=== PATIENT | male | born 1955 | race Caucasian/White ===

== ENCOUNTER 2017-10-13 09:09 | Day surgery (SDC) | payer OTHER ==
[2017-10-10 15:53] VITALS: BMI 38.9
[~2017-10-13 09:09] MED LIST: LACTATED RINGERS 1,000 ML IV SCH
[2017-10-13 10:21] VITALS: TEMP 97.2
[2017-10-13] MEDS ORDERED: PROPOFOL 10 MG/ML 20 ML VIAL IV ONE (10:26)
[2017-10-13] MEDS ORDERED: LIDOCAINE 1% INJ 10MG/ML (20 ML MDV) ONE (10:26)
--- NOTE | 2017-10-13 10:33 | P.GSHP ---
History of Present Illness H&P Date: 10/13/17 Chief Complaint: Screening colonoscopy This is a 62-year-old male referred from Dr. Rehman. Patient is today for screening colonoscopy. Denies a significant GI complaints. Past Medical History Past Medical History: GERD/Reflux History of Any Multi-Drug Resistant Organisms: None Reported Additional Past Surgical History / Comment(s): colonoscopy Past Anesthesia/Blood Transfusion Reactions: No Reported Reaction Smoking Status: Never smoker - Past Family History Mother Family Medical History: No Reported History Medications and Allergies Home Medications Medication Instructions Recorded Confirmed Type No Known Home Medications [No 10/10/17 10/10/17 History Known Home Medications] Allergies Allergy/AdvReac Type Severity Reaction Status Date / Time No Known Allergies Allergy Verified 10/10/17 15:49 Surgical - Exam Vital Signs Temp Pulse Resp BP Pulse Ox 97.2 F L 94 16 146/76 97 10/13/17 10:14 10/13/17 10:14 10/13/17 10:14 10/13/17 10:14 10/13/17 10:14 - General well developed, no distress - Eyes PERRL - ENT normal pinna - Neck no masses - Respiratory normal expansion - Cardiovascular Rhythm: regular - Abdomen Abdomen: soft, non tender Assessment and Plan Assessment: We'll perform screening colonoscopy.
--- NOTE | 2017-10-13 10:45 | P.OP ---
Date of Procedure: 10/13/17 Preoperative Diagnosis: Screening colonoscopy Postoperative Diagnosis: Diverticulosis Procedure(s) Performed: Colonoscopy Anesthesia: MAC Surgeon: Marcial Steele Pathology: none sent Condition: stable Disposition: PACU Description of Procedure: The patient's placed on the endoscopy table lateral position. He received IV sedation. Digital rectal exam was performed which revealed no abnormalities. Flexible colonoscope was then placed patient anus passed throughout the entire colon. The ileocecal valve was visualized. The cecum, ascending and transverse colon appeared normal. The descending; was mild diverticular changes. There is known to diverticular disease. Scope was then brought back the rectum and this appeared normal. Scope was withdrawn for patient.
[2017-10-13 10:57] VITALS: BP 100/58; PULSE 61; RESP 18
== END 2017-10-13 11:35 | disposition home or self-care (01) ==
LOC: ORWHC2ENDO 09:09
PROVIDERS: ATTEND Surgery
DX: Z12.11 Encounter for screening for malignant neoplasm of colon (principal); K57.30 Diverticulosis of large intestine without perforation or abscess without bleeding; K21.9 Gastro-esophageal reflux disease without esophagitis
CPT/HCPCS: J2001; J2704; G0121

== ENCOUNTER → 2018-08-28 | Outpatient (CLI) | payer OTHER ==
--- NOTE | 2018-08-29 14:56 | XR ---
EXAMINATION TYPE: XR lumbar spine 2 or 3V DATE OF EXAM: 08/28/2018 CLINICAL HISTORY: Low back pain with no known injury TECHNIQUE: Frontal and lateral images of the lumbar spine are obtained. COMPARISON: None FINDINGS: There is a levoscoliosis of the thoracolumbar spine with apex at L1-L3. There is moderate m ultilevel degenerative disc disease with multilevel intervertebral disc space narrowing, facet arthro kobe, small anterior osteophytes and endplate sclerosis. Pedicles and transverse processes are gross ly intact. There are 5 lumbar type vertebral bodies. Sacroiliac joint spaces are maintained. Vertebra l body heights and alignment are maintained of the lumbar spine. Moderate colonic fecal stasis is not ed. IMPRESSION: 1. Levoscoliosis of the thoracolumbar spine and moderate multilevel degenerative disc disease. 2. No vertebral body height loss or malalignment of the lumbar spine.
== END | disposition home or self-care (01) ==
LOC: RADXRMAIN 16:34
PROVIDERS: ATTEND Chiropractor
DX: M51.35 Other intervertebral disc degeneration, thoracolumbar region (principal); M41.85 Other forms of scoliosis, thoracolumbar region
CPT/HCPCS: 72100

== ENCOUNTER 2019-03-26 07:40 | Day surgery (SDC) | payer OTHER ==
[2019-03-24 16:06] VITALS: BMI 38.9
[~2019-03-26 07:40] MED LIST changes: +LIDOCAINE 1% 20 ML VIAL (10MG/ML) FOR IV START INTRADERMA PRN; +ONDANSETRON 4 MG/2 ML VIAL IVP PRN
[2019-03-26 08:07] VITALS: TEMP 97.3
[2019-03-26] MEDS ORDERED: PROPOFOL 10 MG/ML 20 ML VIAL IV ONE (08:19)
[2019-03-26] MEDS ORDERED: LIDOCAINE 1% INJ 10MG/ML (20 ML MDV) ONE (08:19)
[2019-03-26] MEDS ORDERED: GLYCOPYRROLATE 0.2 MG/ML 2 ML VIAL ONE (08:19)
--- NOTE | 2019-03-26 08:21 | P.GSHP ---
History of Present Illness H&P Date: 03/26/19 Chief Complaint: GERD This a 63-year-old male who presents today for EGD. He's had issues with GERD. Past Medical History Past Medical History: GERD/Reflux History of Any Multi-Drug Resistant Organisms: None Reported Additional Past Surgical History / Comment(s): colonoscopy Past Anesthesia/Blood Transfusion Reactions: No Reported Reaction Smoking Status: Never smoker Past Alcohol Use History: Occasional Past Drug Use History: None Reported - Past Family History Mother Family Medical History: No Reported History Medications and Allergies Home Medications Medication Instructions Recorded Confirmed Type No Known Home Medications 10/10/17 03/24/19 History Allergies Allergy/AdvReac Type Severity Reaction Status Date / Time No Known Allergies Allergy Verified 03/24/19 15:59 Surgical - Exam Vital Signs Temp Pulse Resp BP Pulse Ox 97.3 F L 69 20 169/84 92 L 03/26/19 08:05 03/26/19 08:05 03/26/19 08:05 03/26/19 08:05 03/26/19 08:05 - General well developed, well nourished, no distress - Eyes PERRL - ENT normal pinna - Neck no masses - Respiratory normal expansion - Cardiovascular Rhythm: regular - Abdomen Abdomen: soft, non tender Assessment and Plan Assessment: GERD. We'll perform EGD.
--- NOTE | 2019-03-26 08:35 | P.OP ---
Date of Procedure: 03/26/19 Preoperative Diagnosis: GERD Postoperative Diagnosis: Antral gastritis Moderate size hiatal hernia Esophagitis Procedure(s) Performed: EGD Anesthesia: MAC Surgeon: Marcial Steele Pathology: other (Antrum, esophagus) Condition: stable Disposition: PACU Description of Procedure: Patient's placed on the endoscopy table in the lateral position. He received IV sedation. The gastroscope placed oropharynx and passed in the esophagus and into the stomach. Scope was then placed through the pylorus. The first and second portion of the duodenum appeared normal. Scope was then brought back the antrum this above inflamed. A biopsies performed. Scope was then retroflexed and the remainder of the stomach appeared normal. There was a moderate size hiatal hernia. The GE junction was at 38 cm. The distal esophagus appeared moderately inflamed inflamed and a biopsies performed, there were linear ero sions of the esophagus.. The proximal esophagus appeared normal. Scope was withdrawn for patient.
[2019-03-26 08:56] VITALS: BP 115/77; PULSE 85; RESP 18
== END 2019-03-26 09:15 | disposition home or self-care (01) ==
LOC: ORWHC2ENDO 07:40
PROVIDERS: ATTEND Surgery
DX: K44.9 Diaphragmatic hernia without obstruction or gangrene (principal); K29.50 Unspecified chronic gastritis without bleeding; K20.0 Eosinophilic esophagitis
CPT/HCPCS: 88305; 43239; J2001; J2704

== ENCOUNTER → 2019-04-02 | Outpatient (CLI) | payer OTHER | END | disposition home or self-care (01) | LOC: LABPAT 17:13 | PROVIDERS: ATTEND Surgery | DX: Z53.9 Procedure and treatment not carried out, unspecified reason (principal) ==

== ENCOUNTER 2019-04-09 08:48 | Inpatient (IN) | payer OTHER ==
[~2019-04-09 08:48] MED LIST changes: +DEXAMETHASONE SOD PHOSPHATE 10 MG/ML 1 ML VIAL IV ONE; +HEPARIN SODIUM,PORCINE 5,000 UNIT/ML 1 ML VIAL SQ ONE; +HYDROmorphone 0.5 MG/0.5 ML SYRINGE IVP PRN; -LACTATED RINGERS 1,000 ML IV SCH; -ONDANSETRON 4 MG/2 ML VIAL IVP PRN
[2019-04-09] MEDS: LACTATED RINGERS 1,000 ML IV SCH ×2 (09:45→14:22)
--- NOTE | 2019-04-09 09:56 | P.GSHP ---
History of Present Illness H&P Date: 04/09/19 Chief Complaint: GERD This a 64-year-old male referred from Dr. Rehman. The patient has had long- standing problems with reflux esophagitis. The patient underwent recent EGD is found have evidence of esophagitis. Patient has been well informed on the proce dure of laparoscopic Rj fundoplication. The patient is aware the risk of the conversion to the open procedure, risk of injury to the stomach, liver and spleen. The patient is also a risk of recurrent GERD and dysphagia symptoms. The patient understands there is a postoperative diet of full liquids for 2 weeks after surgery. Past Medical History Past Medical History: GERD/Reflux History of Any Multi-Drug Resistant Organisms: None Reported Additional Past Surgical History / Comment(s): colonoscopy Past Anesthesia/Blood Transfusion Reactions: No Reported Reaction Smoking Status: Never smoker Past Alcohol Use History: Occasional Past Drug Use History: None Reported - Past Family History Mother Family Medical History: No Reported History Medications and Allergies Home Medications Medication Instructions Recorded Confirmed Type No Known Home Medications 10/10/17 03/24/19 History Allergies Allergy/AdvReac Type Severity Reaction Status Date / Time No Known Allergies Allergy Verified 03/24/19 15:59 Surgical - Exam Vital Signs Temp Pulse Resp BP Pulse Ox 97.6 F 72 18 127/72 95 04/09/19 09:16 04/09/19 09:16 04/09/19 09:16 04/09/19 09:16 04/09/19 09:16 - General well developed, well nourished, no distress - Eyes PERRL - ENT normal pinna - Neck no masses - Respiratory normal expansion - Cardiovascular Rhythm: regular - Abdomen Abdomen: soft, non tender Assessment and Plan Assessment: GERD. We'll perform laparoscopic Rj fundoplication.
[2019-04-09] MEDS ORDERED: KETOROLAC 30 MG/ML 1 ML VIAL ONE (10:46)
[2019-04-09] MEDS ORDERED: PROPOFOL 10 MG/ML 20 ML VIAL IV ONE (10:46)
[2019-04-09] MEDS ORDERED: ROCURONIUM BROMIDE 10 MG/ML 10 ML VIAL IV ONE (10:46)
[2019-04-09] MEDS ORDERED: MIDAZOLAM 2 MG/2 ML VIAL ONE (10:46)
[2019-04-09] MEDS ORDERED: fentaNYL (PF) 50 MCG/ML 2 ML AMP ONE (10:46)
[2019-04-09] MEDS ORDERED: LIDOCAINE 1% INJ 10MG/ML (20 ML MDV) ONE (10:46)
[2019-04-09] MEDS ORDERED: NEOSTIGMINE 1 MG/ML 10 ML VIAL ONE (10:46)
[2019-04-09] MEDS ORDERED: GLYCOPYRROLATE 0.2 MG/ML 2 ML VIAL ONE (10:46)
[2019-04-09] MEDS ORDERED: SUCCINYLCHOLINE CHLORIDE 100 MG/5 ML SYR IV ONE (10:46)
[2019-04-09] MEDS ORDERED: LACTATED RINGERS 1,000 ML IV ONE ×2 (11:00→13:33)
[2019-04-09] MEDS ORDERED: BUPIVACAINE (PF) 0.25% 30 ML VIAL SQ ONE (11:17)
[2019-04-09] MEDS ORDERED: HYDROmorphone 1 MG/ML 1 ML SYRINGE IVP PRN (12:13)
[2019-04-09] MEDS ORDERED: HYDROmorphone 1 MG/ML 1 ML SYRINGE IVP ONE ×2 (12:15→12:20)
--- NOTE | 2019-04-09 12:19 | P.OP ---
Date of Procedure: 04/09/19 Preoperative Diagnosis: GERD Postoperative Diagnosis: GERD Procedure(s) Performed: Laparoscopic Rj fundoplication Anesthesia: RADHA Surgeon: Marcial Steele Estimated Blood Loss (ml): 5 Pathology: other (Gallbladder) Condition: stable Disposition: PACU Description of Procedure: The patient was placed on the operating table. The patient received a general endotracheal tube anesthesia. The patients abdomen was prepped and draped in the usual sterile fashion. Through an infraumbilical stab incision, the fascia of the anterior abdominal wall was grasped with a pair of Kochers and then the Veress needle was placed in the peritoneal cavity. Position of the Veress needle was confirmed with positive drop test. The abdomen was then insufflated. After adequate insufflation, the 10 mm trocar was placed in the peritoneal cavity. Following this the laparoscope was placed in the peritoneal cavity. The patient was placed in the head-up, right side up position and then a 5 mm trocar was placed in the right lateral and right subcostal position under direct visualization. A 8 mm trocar was placed in the e pigastric position. The gallbladder was grasped in the fundus and infundibulum. Traction on the gallbladder was placed in the lateral and the cephalad positions. The triangle of Calot was visualized.. The cystic duct was bluntly dissected until the union of the cystic duct and common bile duct was seen. A critical view of safety was achieved. The cystic duct was then divided and sealed with the Harmonic scissors. A PDS Endoloop was then placed throughout the cystic duct stump. The cystic artery divided and sealed with the Harmonic scissors. The gallbladder was then removed from the liver bed using Harmonic scissors. The gallbladder was then extracted through the epigastric port site. Operative field was checked for any bleeding spots and Harmonic scissors was used to coagulate the liver bed. The abdomen was irrigated. The trocars were removed. The skin was closed using interrupted 3-0 Vicryl suture. Dermabond dressing were applied. The patient tolerated the procedure well.
[2019-04-09 15:37] VITALS: BMI 34.4
--- NOTE | 2019-04-09 17:46 | FL ---
EXAMINATION TYPE: FL esophagus cervic/pharynx DATE OF EXAM: 04/09/2019 COMPARISON: NONE HISTORY: Status post Rj fundoplasty. FINDINGS: Patient was given Omnipaque 50 cc orally and attention directed to the gastroesophageal alan ction. No extravasation or obstruction to flow. Postop changes noted at the gastroesophageal juncti on compatible with patient's history. 5 intraoperative images, 44 seconds fluoroscopy time IMPRESSION: No evident complication status post fundoplasty.
[2019-04-09] MEDS: D5-0.45% NACL WITH KCL 20MEQ/L 1,000 ML IV SCH ×2 (18:03→18:04)
--- NOTE | 2019-04-10 01:52 | P.CONS ---
History of Present Illness - Reason for Consult Consult date: 04/09/19 Medical management and postoperative care - Chief Complaint Status post Rj fundoplication - History of Present Illness Patient is a 64-year-old male with a known history of GERD and ongoing long- standing reflux problems and heartburn was admitted to the hospital for Rj fundoplication. Patient tolerated the procedure well. Currently denied any complaints of abdominal pain other than soreness at the surgical site. No complaints of chest pain or shortness of breath. No fever no chills. No headache or dizziness or lightheadedness. Otherwise patient has not passed flatus. Review of Systems Constitutional: Patient denies any fever or chills . No generalized weakness or weight loss. Abdomen: Patient denied nausea vomiting and diarrhea and abdominal pain. Cardiovascular: Patient denies any chest pain or short of breath no palpitations. Respiratory: patient denied any cough is from production. No shortness of breath Neurologic: Patient denied any numbness or tingling headache. Musculoskeletal: Patient denies any complaints of joint swelling or deformity. Skin: Negative Psychiatric: Negative Endocrine: No heat or cold intolerance. No recent weight gain. Genitourinary: No dysuria or hematuria. All other 14 point ROS negative except the above Past Medical History Past Medical History: GERD/Reflux History of Any Multi-Drug Resistant Organisms: None Reported Additional Past Surgical History / Comment(s): colonoscopy Past Anesthesia/Blood Transfusion Reactions: No Reported Reaction Past Psychological History: No Psychological Hx Reported Smoking Status: Never smoker Past Alcohol Use History: Occasional Past Drug Use History: None Reported - Past Family History Mother Family Medical History: No Reported History Medications and Allergies Home Medications Medication Instructions Recorded Confirmed Type Docusate [Colace] 100 mg PO BID #20 capsule 04/09/19 Rx HYDROcodone/APAP 5-325MG [[place] 1 tab PO Q6HR PRN #10 tab 04/09/19 Rx 5-325] Allergies Allergy/AdvReac Type Severity Reaction Status Date / Time No Known Allergies Allergy Verified 03/24/19 15:59 Physical Exam Vitals: Vital Signs Temp Pulse Resp BP Pulse Ox 04/09/19 14:56 55 L 15 140/73 97 04/09/19 14:15 49 L 14 125/74 95 04/09/19 13:45 58 L 14 148/68 94 L 04/09/19 13:30 55 L 16 124/60 93 L 04/09/19 12:55 47 L 18 123/66 94 L 04/09/19 12:40 48 L 18 123/59 95 04/09/19 12:25 58 L 18 153/74 96 04/09/19 12:12 61 14 135/77 99 04/09/19 11:56 97.1 F L 63 14 154/74 93 L 04/09/19 09:16 97.6 F 72 18 127/72 95 Intake and Output 04/09/19 04/09/19 04/09/19 06:59 14:59 22:59 Intake Total 2049 Output Total 5 Balance 2044 Intake: IV 2049 Output: Estimated Blood Loss 5 Other: Weight 96.797 kg PHYSICAL EXAMINATION: Patient is lying in the bed comfortably, no acute distress, awake alert and oriented.. HEENT: Normocephalic. Neck is supple. Pupils reactive. Nostrils clear. Oral cavity is moist. Ears reveal no drainage. Neck reveals no JVD, carotid bruits, or thyromegaly. CHEST EXAMINATION: Trachea is central. Symmetrical expansion. Lung lepe clear to auscultation and percussion. CARDIAC: Normal S1, S2 with no gallops. No murmurs ABDOMEN: Soft. Bowel sounds diminished. No organomegaly. No abdominal bruits. Extremities: reveal no edema. No clubbing or cyanosis Neurologically awake, alert, oriented x3 with well-coordinated movements. No focal deficits noted Skin: No rash or skin lesions. Psychiatric: Coperative. Nonsuicidal Musculoskeletal: No joint swelling or deformity. Normal range of motion. m Assessment and Plan Assessment: Status post Rj fundoplication postoperative day 0 GERD Occasional alcohol use. DVT prophylaxis with heparin subcu Plan: Patient will be continued on IV hydration. Patient underwent fluoroscopy with no evidence of complication status post fundoplasty. Monitor H&H and. Lites tomorrow. Pain management, bowel regimen and incentive spirometry. Further recommendations based on the clinical course. Thank you for your consult.
[2019-04-10] MEDS: D5-0.45% NACL WITH KCL 20MEQ/L 1,000 ML IV SCH (03:55)
[2019-04-10 07:03] VITALS: BP 156/85; PULSE 95; RESP 14; TEMP 97.5
[2019-04-10 07:55] LABS: Basophils # (A) 0.1 k/uL (0-0.2); Basophils % (A) 1 %; Eosinophils # (A) 0.1 k/uL (0-0.7); Eosinophils % (A) 1 %; HCT 48.2 % (39.0-53.0); HGB 15.7 gm/dL (13.0-17.5); Lymphocytes % (A) 17 %; MCH 30.1 pg (25.0-35.0); MCHC 32.5 g/dL (31.0-37.0); MCV 92.6 fL (80.0-100.0); Monocytes # (A) 0.6 k/uL (0-1.0); Monocytes % (A) 5 %; Neutrophils # (A) 8.9 k/uL (1.3-7.7); Neutrophils % (A) 76 %; Platelet Count 239 k/uL (150-450); RBC 5.21 m/uL (4.30-5.90); RDW 12.7 % (11.5-15.5); WBC 11.8 k/uL (3.8-10.6)
[2019-04-10 08:20] LABS: African American GFR (CKD) >90 (>60 ml/min/1.73 sqM); Anion Gap 7 mmol/L; Blood Urea Nitrogen 13 mg/dL (9-20); Calcium 9.2 mg/dL (8.4-10.2); Carbon Dioxide 25 mmol/L (22-30); Chloride 109 mmol/L (98-107); Glucose 94 mg/dL (74-99); Potassium 4.6 mmol/L (3.5-5.1); Sodium 141 mmol/L (137-145)
--- NOTE | 2019-04-10 10:46 | P.DS ---
Providers Date of admission: 04/09/19 08:48 Expected date of discharge: 04/10/19 Attending physician: Marcial Steele Consults: 04/09/19 12:13 Consult Physician Routine Consulting Provider: George Rehman Consult Reason/Comments: medical management Do you want consulting provider notified?: Yes Primary care physician: George Rehman [facility] Course: Patient minute yesterday for elective Rj fundoplication. Doing well at this time. Upper GI shows no evidence of leak or obstruction. Tolerating liquids well. He would like to go home. Incisions are clean and dry. We'll discharge today. Outpatient follow-up with Dr. Steele. Plan - Discharge Summary Discharge Rx Participant: No New Discharge Prescriptions: New Docusate [Colace] 100 mg PO BID #20 capsule HYDROcodone/APAP 5-325MG [[place] 5-325] 1 tab PO Q6HR PRN #10 tab PRN Reason: Pain Discharge Medication List Docusate [Colace] 100 mg PO BID #20 capsule 04/09/19 [Rx] HYDROcodone/APAP 5-325MG [[place] 5-325] 1 tab PO Q6HR PRN #10 tab 04/09/19 [Rx] Follow up Appointment(s)/Referral(s): Marcial Steele MD [STAFF PHYSICIAN] - 2 Weeks
--- NOTE | 2019-04-16 12:46 | P.OP ---
Date of Procedure: 04/09/19 Preoperative Diagnosis: GERD Postoperative Diagnosis: GERD Procedure(s) Performed: Laparoscopic Rj fundal plication Anesthesia: RADHA Surgeon: Marcial Steele Pathology: none sent Condition: stable Disposition: PACU Description of Procedure: HThe patient was placed on the operating table in the supine position. The patient received general anesthesia. And was placed in dorsal lithotomy position. The patient was prepped and draped in the usual sterile fashion. The skin incision sites were anesthetized with 1% local Xylocaine. The skin was incised in the left periumbilical area and then using a blade less 5 mm trocar under direct visualization panel cavity was entered. After adequate insufflation the laparoscope was then placed into the peritoneal cavity. Next a 5 mm trochars placed in the right epigastric position. Another 5 millimeter trocar the right lateral position. Another 5 millimeter trocar in the left lateral position a 5 mm trocar is placed in the left epigastric position. And then the initial 5 mm trocar was exchanged for a 10 mm trocar. The left lateral lobe liver was retracted. The hernia was seen. The crural defect was then dissected using the Harmonic scissors device. A 360 crural dissection was performed the esophagus stomach was reduced back into the peritoneal Cavity. The crural defect was then closed using 2-0 Ethibond suture. Next the fundus of the stomach was mobilized using the [place] scissors device. and then a 58- [place] bougie dilator was placed oropharynx passed into the esophagus and stomach the fundal plication wrap was then performed by grasping the fundus posteriorly and bringing it around the esophagus and stomach fundoplication was then performed using 2-0 Ethibond suture. Care was taken that the fundal location rested over top of the intra-abdominal esophagus. There was no injury seen to the stomach or esophagus. The dilator was then withdrawn. The abdomen was irrigated there is no bleeding seen. The trochars were then withdrawn and then skin incision sites were closed using 3-0 Monocryl suture Steri-Strips are applied. Patient thought procedure well and sent to recovery room in stable condition.
--- NOTE | 2019-04-18 20:23 | P.PN ---
Subjective Progress Note Date: 04/10/19 Principal diagnosis: Status post Rj fundoplication surgery Patient is a 64-year-old male with a known history of GERD and ongoing long- standing reflux problems and heartburn was admitted to the hospital for Rj fundoplication. Patient tolerated the procedure well. Currently denied any complaints of abdominal pain other than soreness at the surgical site. No complaints of chest pain or shortness of breath. No fever no chills. No headache or dizziness or lightheadedness. Otherwise patient has not passed flatus. 04/10/2019 Patient is status post Rj fundoplication postoperative day 1. Currently denied any complains of nausea or vomiting. Abdominal discomfort is much improved. Tolerating clear liquids. No chest pain or shortness of breath. Patient is being discharged home today. Current medications reviewed. Objective - Vital Signs Vital signs: Vital Signs Temp 97.5 F L 04/10/19 06:42 Pulse 95 04/10/19 06:46 Resp 14 04/10/19 06:42 BP 156/85 04/10/19 06:42 Pulse Ox 95 04/10/19 06:42 Intake & Output 04/09/19 04/10/19 04/10/19 18:59 06:59 18:59 Intake Total 2049 1999 320 Output Total 5 Balance 2044 1999 320 Weight 96.797 kg Intake: IV 2049 Intake, IV Titration 2000 Amount D5-0.45% NaCl with KCl 2000 20Meq/l 1,000 ml @ 125 mls/hr IV .Q8H [facility] Rx#: [id number] Oral 320 Output: Estimated Blood Loss 5 Other: Voiding Method Toilet # Voids 1 1 - Exam PHYSICAL EXAMINATION: Patient is lying in the bed comfortably, no acute distress, awake alert and oriented.. HEENT: Normocephalic. Neck is supple. Pupils reactive. Nostrils clear. Oral cavity is moist. Ears reveal no drainage. Neck reveals no JVD, carotid bruits, or thyromegaly. CHEST EXAMINATION: Trachea is central. Symmetrical expansion. Lung lepe clear to auscultation and percussion. CARDIAC: Normal S1, S2 with no gallops. No murmurs ABDOMEN: Soft. Bowel sounds normal. No organomegaly. No abdominal bruits. Extremities: reveal no edema. No clubbing or cyanosis Neurologically awake, alert, oriented x3 with well-coordinated movements. No focal deficits noted Skin: No rash or skin lesions. Psychiatric: Coperative. Nonsuicidal Musculoskeletal: No joint swelling or deformity. Normal range of motion. - Labs CBC & Chem 7: 04/10/19 06:45 04/10/19 06:45 Labs: Abnormal Lab Results - Last 24 Hours (Table) 04/10/19 04/10/19 Range/Units 06:45 06:45 WBC 11.8 H (3.8-10.6) k/uL Neutrophils # 8.9 H (1.3-7.7) k/uL Chloride 109 H (98-107) mmol/L Assessment and Plan Assessment: Status post Rj fundoplication postoperative day 1 GERD Occasional alcohol use. DVT prophylaxis with heparin subcu Plan: Patient will be continued on IV hydration. Patient underwent fluoroscopy with no evidence of complication status post fundoplasty. Monitor H&H and. Lites tomorrow. Pain management, bowel regimen and incentive spirometry. Further recommendations based on the clinical course. Time with Patient: Greater than 30
== END 2019-04-10 11:19 | disposition home or self-care (01) | DRG 328 ==
LOC: 2ORMAIN 08:48 → 4SSUR 15:06
PROVIDERS: ADMIT Surgery; ATTEND Surgery
PROC: 0DV44ZZ Restriction of Esophagogastric Junction, Percutaneous Endoscopic Approach (ICD-10-PCS; principal; 2019-04-09 10:30)
DX: K21.0 Gastro-esophageal reflux disease with esophagitis (principal); R12 Heartburn
CPT/HCPCS: 74210; 80048; 85025; 86850; 86900; 86901

== ENCOUNTER → 2020-01-18 | Outpatient (CLI) | payer BC | END | disposition home or self-care (01) | LOC: LABWHC1 11:30 | PROVIDERS: ATTEND Family Medicine | DX: Z20.828 Contact with and (suspected) exposure to other viral communicable diseases (principal) ==

== ENCOUNTER → 2020-06-01 | Outpatient (CLI) | payer BC | END | disposition home or self-care (01) | LOC: LABWHC1 11:32 | PROVIDERS: ATTEND Family Medicine | DX: R11.0 Nausea (principal) | CPT/HCPCS: U0003; C9803 ==

== ENCOUNTER 2020-06-04 15:03 | Inpatient (IN) | payer BC ==
--- NOTE | 2020-06-04 15:26 | ED ---
SOB HPI - General Chief Complaint: Shortness of Breath Stated Complaint: flu symptoms/sob Time Seen by Provider: 06/04/20 15:15 Source: patient Mode of arrival: ambulatory Limitations: no limitations - History of Present Illness Initial Comments: 65-year-old male presenting to the emergency department with a chief complaint of shortness of breath. Patient states about 3 days ago he developed a nonproductive cough along with some dyspnea on exertion. Denies any chest pain. Does report a sore throat with some sinus congestion. He also reports gene ralized fatigue. He denies any wheezing. He denies any loss of taste or smell. Denies headaches, blurry vision, one-sided weakness or paresthesias. Denies nausea vomiting diarrhea. He denies history of smoking, COPD or asthma. Patient is unsure whether he was exposed to a covid-19rt positive person. - Related Data Home Medications Medication Instructions Recorded Confirmed No Known Home Medications 06/04/20 06/04/20 Allergies Allergy/AdvReac Type Severity Reaction Status Date / Time No Known Allergies Allergy Verified 06/04/20 16:22 Review of Systems ROS Statement: Those systems with pertinent positive or pertinent negative responses have been documented in the HPI. ROS Other: All systems not noted in ROS Statement are negative. Past Medical History Past Medical History: GERD/Reflux History of Any Multi-Drug Resistant Organisms: None Reported Additional Past Surgical History / Comment(s): colonoscopy Past Anesthesia/Blood Transfusion Reactions: No Reported Reaction Past Psychological History: No Psychological Hx Reported Smoking Status: Never smoker Past Alcohol Use History: Occasional Past Drug Use History: None Reported - Past Family History Mother Family Medical History: No Reported History General Exam Limitations: no limitations General appearance: alert, in no apparent distress, obese Head exam: Present: atraumatic, normocephalic, normal inspection Eye exam: Present: normal appearance, PERRL, EOMI. Absent: scleral icterus, conjunctival injection, nystagmus Pupils: Present: normal accommodation ENT exam: Present: normal exam, normal oropharynx, mucous membranes moist, TM's normal bilaterally, normal external ear exam Neck exam: Present: normal inspection, full ROM. Absent: tenderness Respiratory exam: Present: normal lung sounds bilaterally. Absent: respiratory distress, wheezes, rales Cardiovascular Exam: Present: regular rate, normal rhythm, normal heart sounds. Absent: bradycardia, tachycardia GI/Abdominal exam: Present: soft, normal bowel sounds. Absent: distended, tenderness, guarding, rebound, diminished bowel sounds, hyperactive bowel sounds, hypoactive bowel sounds Extremities exam: Present: normal inspection, full ROM, normal capillary refill. Absent: tenderness, pedal edema, joint swelling, calf tenderness Back exam: Present: normal inspection, full ROM. Absent: tenderness, CVA tenderness (R), CVA tenderness (L) Neurological exam: Present: alert, oriented X3, normal gait. Absent: altered Psychiatric exam: Present: normal affect, normal mood. Absent: depressed, agitated Skin exam: Present: warm, dry, intact, normal color Course Vital Signs 06/04/20 06/04/20 15:08 16:43 Temperature 99.3 F Pulse Rate 88 75 Respiratory 22 20 Rate Blood Pressure 121/73 104/65 O2 Sat by Pulse 83 L 92 L Oximetry Medical Decision Making - Medical Decision Making 65-year-old male presenting to the emergency department with a chief complaint of shortness of breath. Patient is 80% on room air. 91% on 2 L of oxygen. Chest x-ray reveals bilateral infiltrate. Coags within normal limits. Patient does have slight elevation in d-dimer is 0.60. No CT will be performed at this time. Elevated LDH ferritin and CRP. Hypomagnesemia of 2.7. EKG showing right bundle branch with a short NH. I spoke with who will admit patient. She recommended patient be started on Lovenox for prophylaxis. Case discussed with Dr. Brewer. Patient positive for Covid - Lab Data Result diagrams: 06/04/20 15:45 06/04/20 15:45 Lab Results 06/04/20 06/04/20 06/04/20 Range/Units 15:45 15:45 15:45 WBC 7.9 (3.8-10.6) k/uL RBC 5.77 (4.30-5.90) m/uL Hgb 17.3 (13.0-17.5) gm/dL Hct 52.2 (39.0-53.0) % MCV 90.4 (80.0-100.0) fL MCH 29.9 (25.0-35.0) pg MCHC 33.1 (31.0-37.0) g/dL RDW 12.4 (11.5-15.5) % Plt Count 250 (150-450) k/uL MPV 9.0 Neutrophils % 80 % Lymphocytes % 12 % Monocytes % 6 % Eosinophils % 0 % Basophils % 1 % Neutrophils # 6.3 (1.3-7.7) k/uL Lymphocytes # 1.0 (1.0-4.8) k/uL Monocytes # 0.4 (0-1.0) k/uL Eosinophils # 0.0 (0-0.7) k/uL Basophils # 0.1 (0-0.2) k/uL PT 10.0 (9.0-12.0) sec INR 1.0 (<1.2) APTT 24.5 (22.0-30.0) sec D-Dimer 0.60 H (<0.60) mg/L FEU Sodium 141 (137-145) mmol/L Potassium 4.1 (3.5-5.1) mmol/L Chloride 106 (98-107) mmol/L Carbon Dioxide 27 (22-30) mmol/L Anion Gap 8 mmol/L BUN 32 H (9-20) mg/dL Creatinine 1.29 H (0.66-1.25) mg/dL Est GFR (CKD-EPI)AfAm 68 (>60 ml/min/1.73 sqM) Est GFR (CKD-EPI)NonAf 59 (>60 ml/min/1.73 sqM) Glucose 125 H (74-99) mg/dL Plasma Lactic Acid Roverto (0.7-2.0) mmol/L Calcium 8.5 (8.4-10.2) mg/dL Magnesium 2.7 H (1.6-2.3) mg/dL Total Bilirubin 1.0 (0.2-1.3) mg/dL AST 92 H (17-59) U/L ALT 50 H (4-49) U/L Alkaline Phosphatase 75 (38-126) U/L Lactate Dehydrogenase 1439 H (313-618) U/L C-Reactive Protein 176.4 H (<10.0) mg/L Total Protein 7.0 (6.3-8.2) g/dL Albumin 3.5 (3.5-5.0) g/dL Coronavirus (PCR) (Not Detectd) Influenza Type A RNA (Not Detectd) Influenza Type B (PCR) (Not Detectd) 06/04/20 06/04/20 06/04/20 Range/Units 15:45 15:45 15:45 WBC (3.8-10.6) k/uL RBC (4.30-5.90) m/uL Hgb (13.0-17.5) gm/dL Hct (39.0-53.0) % MCV (80.0-100.0) fL MCH (25.0-35.0) pg MCHC (31.0-37.0) g/dL RDW (11.5-15.5) % Plt Count (150-450) k/uL MPV Neutrophils % % Lymphocytes % % Monocytes % % Eosinophils % % Basophils % % Neutrophils # (1.3-7.7) k/uL Lymphocytes # (1.0-4.8) k/uL Monocytes # (0-1.0) k/uL Eosinophils # (0-0.7) k/uL Basophils # (0-0.2) k/uL PT (9.0-12.0) sec INR (<1.2) APTT (22.0-30.0) sec D-Dimer (<0.60) mg/L FEU Sodium (137-145) mmol/L Potassium (3.5-5.1) mmol/L Chloride (98-107) mmol/L Carbon Dioxide (22-30) mmol/L Anion Gap mmol/L BUN (9-20) mg/dL Creatinine (0.66-1.25) mg/dL Est GFR (CKD-EPI)AfAm (>60 ml/min/1.73 sqM) Est GFR (CKD-EPI)NonAf (>60 ml/min/1.73 sqM) Glucose (74-99) mg/dL Plasma Lactic Acid Roverto 1.9 (0.7-2.0) mmol/L Calcium (8.4-10.2) mg/dL Magnesium (1.6-2.3) mg/dL Total Bilirubin (0.2-1.3) mg/dL AST (17-59) U/L ALT (4-49) U/L Alkaline Phosphatase (38-126) U/L Lactate Dehydrogenase (313-618) U/L C-Reactive Protein (<10.0) mg/L Total Protein (6.3-8.2) g/dL Albumin (3.5-5.0) g/dL Coronavirus (PCR) Detected A (Not Detectd) Influenza Type A RNA Not Detected (Not Detectd) Influenza Type B (PCR) Not Detected (Not Detectd) - EKG Data EKG Comments: Sinus rhythm with short NH Ventricular rate 83, NH 102, QRS 122, QTC 472. Disposition Clinical Impression: Pneumonia due to COVID-19 virus, Hypermagnesemia, Hypoxia Disposition: ADMITTED IP TO THIS HOSP Condition: Good Instructions (If sedation given, give patient instructions): Bronchospasm (ED) Is patient prescribed a controlled substance at d/c from ED?: No Referrals: George Remhan MD [Primary Care Provider] - 1-2 days Time of Disposition: 17:11
[2020-06-04 16:21] LABS: Basophils # (A) 0.1 k/uL (0-0.2); Basophils % (A) 1 %; Eosinophils % (A) 0 %; HCT 52.2 % (39.0-53.0); HGB 17.3 gm/dL (13.0-17.5); Lymphocytes % (A) 12 %; MCH 29.9 pg (25.0-35.0); MCHC 33.1 g/dL (31.0-37.0); MCV 90.4 fL (80.0-100.0); Monocytes # (A) 0.4 k/uL (0-1.0); Monocytes % (A) 6 %; Neutrophils # (A) 6.3 k/uL (1.3-7.7); Neutrophils % (A) 80 %; Platelet Count 250 k/uL (150-450); RBC 5.77 m/uL (4.30-5.90); RDW 12.4 % (11.5-15.5); WBC 7.9 k/uL (3.8-10.6)
[2020-06-04 16:22] LABS: Albumin 3.5 g/dL (3.5-5.0); Calcium 8.5 mg/dL (8.4-10.2); Magnesium 2.7 mg/dL (1.6-2.3); Potassium 4.1 mmol/L (3.5-5.1)
[2020-06-04 16:23] LABS: Partial Thromboplastin Time 24.5 sec (22.0-30.0)
[2020-06-04 16:29] LABS: D-Dimer 0.6 mg/L FEU (<0.60)
--- NOTE | 2020-06-04 16:29 | XR ---
EXAMINATION TYPE: XR chest 1V portable DATE OF EXAM: 06/04/2020 COMPARISON: 03/31/2015 HISTORY: Cough TECHNIQUE: 2 views FINDINGS: Coarse pulmonary infiltrates in the mid and lower lung lepe. Heart is enlarged. There are chest bridger ds. There is no gross heart failure. There is poor inspiration. IMPRESSION: There is bilateral pulmonary airspace infiltrates and atelectasis in the mid and lower tyesha ng lepe that is new compared to old exam. No obvious heart failure.
[2020-06-04 16:40] LABS: C Reactive Protein 176.4 mg/L (<10.0)
[2020-06-04] MEDS ORDERED: NALOXONE 0.4 MG/ML 1 ML VIAL IV PRN (16:59)
[2020-06-04] MEDS ORDERED: ENOXAPARIN 40 MG/0.4 ML SYRINGE SQ STA (17:04)
[2020-06-04] MEDS: SODIUM CHLORIDE 0.9% 1,000 ML IV SCH (17:40)
[2020-06-04] MEDS: ACETAMINOPHEN TAB 325 MG TAB PO PRN (20:38)
[2020-06-04 22:47] LABS: Ferritin 1279.8 ng/mL (22.0-322.0)
[2020-06-05] MEDS: SODIUM CHLORIDE 0.9% 1,000 ML IV SCH ×2 (05:32→21:14)
[2020-06-05] MEDS ORDERED: ZOLPIDEM 5 MG TAB PO PRN (08:27)
--- NOTE | 2020-06-05 08:27 | P.HPIM ---
History of Present Illness H&P Date: 06/05/20 Chief Complaint: LRI cough and congestion This history of physical 65-year-old white male who for the last 7 days been having flulike symptoms. Evaluation and treatment in the emergency room showed pneumonia with coronavirus positivity. The patient is now admitted. Some d iarrhea decreased appetite is noted. No significant nausea or vomiting stated. Review of Systems Constitutional: Denies chills, Denies fever Eyes: denies blurred vision, denies pain Ears, nose, mouth and throat: Denies headache, Denies sore throat Cardiovascular: Denies chest pain, Denies shortness of breath Respiratory: Reports as per HPI, Reports congestion, Reports cough, Reports dyspnea Gastrointestinal: Denies abdominal pain, Denies diarrhea, Denies nausea, Denies vomiting Musculoskeletal: Denies myalgias Past Medical History Past Medical History: GERD/Reflux History of Any Multi-Drug Resistant Organisms: None Reported Additional Past Surgical History / Comment(s): colonoscopy Past Anesthesia/Blood Transfusion Reactions: No Reported Reaction Past Psychological History: No Psychological Hx Reported Smoking Status: Never smoker Past Alcohol Use History: Occasional Past Drug Use History: None Reported - Past Family History Mother Family Medical History: No Reported History Medications and Allergies Home Medications Medication Instructions Recorded Confirmed Type No Known Home Medications 06/04/20 06/04/20 History Allergies Allergy/AdvReac Type Severity Reaction Status Date / Time No Known Allergies Allergy Verified 06/04/20 16:22 Physical Exam Vitals: Vital Signs Temp Pulse Resp BP Pulse Ox 06/05/20 07:51 83 91 H 127/74 91 L 06/05/20 06:30 98.8 F 82 22 124/71 90 L 06/05/20 03:00 80 20 130/74 91 L 06/05/20 01:00 77 20 116/68 92 L 06/04/20 23:40 69 18 121/73 95 06/04/20 23:00 89 L 06/04/20 22:02 73 18 101/54 91 L 06/04/20 22:00 72 22 82/59 06/04/20 20:31 98.8 F 79 20 111/71 91 L 06/04/20 20:20 85 18 110/70 87 L 06/04/20 19:31 98.3 F 77 20 110/70 91 L 06/04/20 18:10 83 12 120/70 90 L 06/04/20 17:53 99.5 F 74 18 120/70 91 L 06/04/20 16:43 75 20 104/65 92 L 06/04/20 16:10 82 13 134/81 96 06/04/20 15:08 99.3 F 88 22 121/73 83 L Intake and Output 06/04/20 06/05/20 06/05/20 22:59 06:59 14:59 Other: Weight 99.79 kg - Constitutional General appearance: cooperative, no acute distress, obese - EENT Eyes: EOMI - Neck Neck: no lymphadenopathy - Respiratory Respiratory: bilateral: diminished - Cardiovascular Rhythm: regular Heart sounds: normal: S1, S2 Abnormal Heart Sounds: no S3 Gallop - Gastrointestinal General gastrointestinal: soft, no tenderness - Integumentary Integumentary: no cellulitis, no rash Results CBC & Chem 7: 06/04/20 15:45 06/04/20 15:45 Labs: Abnormal Lab Results - Last 24 Hours (Table) 06/04/20 06/04/20 06/04/20 Range/Units 15:45 15:45 15:45 D-Dimer 0.60 H (<0.60) mg/L FEU BUN 32 H (9-20) mg/dL Creatinine 1.29 H (0.66-1.25) mg/dL Glucose 125 H (74-99) mg/dL Magnesium 2.7 H (1.6-2.3) mg/dL Ferritin 1279.8 H (22.0-322.0) ng/mL AST 92 H (17-59) U/L ALT 50 H (4-49) U/L Lactate Dehydrogenase 1439 H (313-618) U/L C-Reactive Protein 176.4 H (<10.0) mg/L Coronavirus (PCR) Detected A (Not Detectd) Assessment and Plan (1) Hypoxia Current Visit: Yes Status: Acute Code(s): R09.02 - HYPOXEMIA SNOMED Code(s): 538302230 (2) Pneumonia due to COVID-19 virus Current Visit: Yes Status: Acute Code(s): U07.1 - COVID-19; J12.89 - OTHER VIRAL PNEUMONIA SNOMED Code(s): 880423271815612845 Plan: Supportive care. We'll consult pulmonology as necessary. Check CBC and CMP in a.m. Reconcile home medications. The patient is a full code otherwise. Time with Patient: Greater than 30
[2020-06-05] MEDS: ACETAMINOPHEN TAB 325 MG TAB PO PRN (16:05)
[2020-06-05] MEDS ORDERED: REMDESIVIR 200 MG in SODIUM CHLORIDE 0.9% 250 ML IVPB ONE (21:00)
[2020-06-05] MEDS: dexAMETHasone 2 MG TAB PO SCH (22:20)
[2020-06-06] MEDS: LORazepam 2 MG/ML INJ IV PRN ×4 (01:07→21:40)
[2020-06-06 07:42] LABS: ABG HCO3 24 mmol/L (21-25); ABG Oxygen Saturation 78.6 % (94-97); ABG PCO2 36 mmHg (35-45); ABG PH 7.44 (7.35-7.45); ABG TCO2 25 mmol/L (19-24); Allen Test Performed? Yes
[2020-06-06 07:44] LABS: Glucose,Whole Blood 121 mg/dL (75-99)
[2020-06-06 07:48] LABS: ABG PO2 42 mmHg (83-108)
--- NOTE | 2020-06-06 07:54 | P.PN ---
Subjective Progress Note Date: 06/06/20 Principal diagnosis: Respiratory distress. This is 65-year-old white male essentially admitted for pneumonia and coronavirus positivity. The patient has now starting have respiratory distress. Pulmonology has been consulted. Remdesivirhas been started. Objective - Vital Signs Vital signs: Vital Signs Temp 98.5 F 06/06/20 03:35 Pulse 86 06/06/20 03:35 Resp 34 H 06/06/20 04:30 BP 117/72 06/06/20 03:35 Pulse Ox 90 L 06/06/20 05:50 Intake & Output 06/05/20 06/06/20 06/06/20 18:59 06:59 18:59 Intake Total 75 Balance 75 Weight 90.5 kg Intake: Intake, IV Titration 75 Amount Sodium Chloride 0.9% 1, 75 000 ml @ 75 mls/hr IV . [id number] [facility] Rx#:[id number] Other: Voiding Method Urinal Diaper Incontinent # Voids 1 # Bowel Movements 0 - Constitutional General appearance: Present: severe distress - EENT Eyes: Absent: abnormal pupil - Neck Neck: Absent: lymphadenopathy - Respiratory Respiratory: bilateral: diminished - Cardiovascular Rhythm: regular Heart sounds: normal: S1, S2 Abnormal Heart Sounds: Absent: S3 Gallop - Gastrointestinal General gastrointestinal: Present: soft - Integumentary Integumentary: Absent: cellulitis - Neurologic Neurologic: Absent: focal deficits - Labs CBC & Chem 7: 06/04/20 15:45 06/04/20 15:45 Labs: Abnormal Lab Results - Last 24 Hours (Table) 06/04/20 06/06/20 06/06/20 Range/Units 15:45 07:34 07:38 ABG pO2 42 L* (83-108) mmHg ABG Total CO2 25 H (19-24) mmol/L ABG O2 Saturation 78.6 L (94-97) % POC Glucose (mg/dL) 121 H (75-99) mg/dL Procalcitonin 0.21 H (0.02-0.09) ng/mL Microbiology - Last 24 Hours (Table) 06/04/20 15:45 Blood Culture - Preliminary Blood No Growth after 24 hours Assessment and Plan (1) Hypoxia Current Visit: Yes Status: Acute Code(s): R09.02 - HYPOXEMIA SNOMED Code(s): 184350609 (2) Pneumonia due to COVID-19 virus Current Visit: Yes Status: Acute Code(s): U07.1 - COVID-19; J12.89 - OTHER VIRAL PNEUMONIA SNOMED Code(s): 991449313979084841 Plan: We'll start BiPAP. I am worried about potential intubation issues with the sudden decline. Check CBC and CMP in a.m. Continue follow with pulmonology. Prognosis is guarded
--- NOTE | 2020-06-06 08:11 | XR ---
EXAMINATION TYPE: XR chest 1V DATE OF EXAM: 06/06/2020 COMPARISON: Prior chest x-ray 06/04/2020 HISTORY: Shortness of breath, Covid pneumonia TECHNIQUE: Single frontal view of the chest is obtained. FINDINGS: Bilateral airspace disease is present. Lung volumes are low. There is no evident pneumotho rax or pleural effusion. Cardiac mediastinal silhouette is stable. IMPRESSION: Findings are similar to prior exam, correlate for pneumonia, atelectasis, follow-up rene armendariz. Expiratory exam.
[2020-06-06 08:55] LABS: HCT 48.8 % (39.0-53.0); HGB 15.8 gm/dL (13.0-17.5); MCH 30.2 pg (25.0-35.0); MCHC 32.3 g/dL (31.0-37.0); MCV 93.5 fL (80.0-100.0); Mean Platelet Volume 9.4; Platelet Count 265 k/uL (150-450); RBC 5.22 m/uL (4.30-5.90); RDW 12.6 % (11.5-15.5); WBC 18.6 k/uL (3.8-10.6)
[2020-06-06] MEDS: PANTOPRAZOLE 40 MG TABLET PO SCH (09:06)
[2020-06-06 09:29] LABS: ABG Base Excess 0.4 mmol/L; ABG HCO3 25 mmol/L (21-25); ABG PCO2 37 mmHg (35-45); ABG PH 7.43 (7.35-7.45); ABG TCO2 26 mmol/L (19-24); Allen Test Performed? Yes
[2020-06-06 09:32] LABS: ABG PO2 52 mmHg (83-108)
[2020-06-06 09:33] LABS: Albumin 3.4 g/dL (3.80-4.90); Albumin/Globulin Ratio 1.42 (1.60-3.17); Anion Gap 12.9 mmol/L (4.00-12.00); BUN/Creat Ratio 25.56 Ratio (12.00-20.00); Calcium 8.2 mg/dL (8.7-10.3); Carbon Dioxide 22.1 mmol/L (21.6-31.8); Globulin 2.4 g/dL (1.6-3.3); Non-African American GFR(CKD) 90.6 (60.0-200.0); Potassium 4.5 mmol/L (3.5-5.5); Total Bilirubin 0.6 mg/dL (0.3-1.2); Total Protein 5.8 g/dL (6.2-8.2)
[2020-06-06] MEDS: DEXAMETHASONE SOD PHOSPHATE 4 MG/ML 1 ML VIAL IV SCH ×2 (12:32→17:28)
[2020-06-06] MEDS: dexAMETHasone 2 MG TAB PO SCH (12:37)
[2020-06-06] MEDS ORDERED: LORazepam 2 MG/ML INJ IV ONE (13:05)
--- NOTE | 2020-06-06 14:32 | CDI ---
Documentation Clarification Form Date: 06/06/2020 02:21:11 PM From: Anne LermaSalazarJUAN DAVID day, CCDS Admit Date: 06/04/2020 05:13:00 PM Patient Name: Enmanuel Ash Visit Number: [id number] Discharge Date: ATTENTION: The Clinical Documentation Specialists (CDI) and [facility] Coding Staff appreciate your assistance in clarifying documentation. Please respond to the clarification below the line at the bottom and electronically sign. The CDI & [facility] Coding staff will review the response and follow-up if needed. Please note: Queries are made part of the Legal Health Record. If you have any questions, please contact the author of this message via ITS. Dr. George Rehman: Per the 06/06 Attending Progress Note: "Hypoxia. Pneumonia due to COVID-19 virus. Start BiPAP. I am worried about potential intubation issues with the sudden decline." History/Risk Factors: GERD. Non-smoker. BMI: 35.3 Clinical Indicators: Patient presented to the ED on 06/04 with SOB, nonproductive cough, dyspnea on exertion, sore throat with some sinus congestion, generalized fatigue. Admitted with COVID 19 Pneumonia & Hypoxemia. VS 08/04: T 99.3, P 88, R 22 (sob, labored), BP 121/73, PO 83 RA. VS 06/06: T 97.4*, P 82, R 51-57^ (sob, labored, accessory use, cough, persistent dyspnea), BP 124/73, PO 83 on 100% BiPAP 06/06 ABG: pH 7.44 - 7.43; pO2 42* - 52*, Total CO2 25 - 25, O2 Sat 78.6* - 86.0*. Treatment: RA - 4Lnc - 15L nrb - BiPAP; IV Ativan, IV Remdesivir, IV Decadron, IV Ativan In your professional opinion, can you please clarify if these findings signify one of the following conditions? Acute Respiratory Failure Please specify with Hypoxia or Hypercapnia Acute Respiratory Distress Other Diagnosis, please specify Unable to determine (Last Query Form Revision: March 2019) MTDD
[2020-06-06] MEDS ORDERED: MORPHINE SULFATE 2 MG/ML SYRINGE IVP STA (14:49)
[2020-06-06] MEDS: SODIUM CHLORIDE 0.9% 1,000 ML IV SCH ×2 (14:54→21:40)
[2020-06-06] MEDS ORDERED: LORazepam 2 MG/ML INJ IV PRN (15:00)
[2020-06-06 16:36] LABS: Glucose,Whole Blood 111 mg/dL (75-99)
--- NOTE | 2020-06-06 18:33 | P.CNPUL ---
History of Present Illness Consult date: 06/05/20 Reason for consult: dyspnea, cough, hypoxemia, pneumonia Chief complaint: Shortness of breath cough History of present illness: This is a 65-year-old male who has a history of extensive smoking and nicotine use, patient presented into the emergency department with progressive increasing shortness of breath and nonproductive cough, he was hypoxic with low oxygen saturation, no sputum production, his code at 19 test came back positive, in the ER he was noted to have a low blood pressure of 104/65, patient was hypoxic with room air oxygen saturation of only 83%, low-grade temperature of 99.3 his present, he was also noted to have acute injury of the kidneys that BUN/creatinine of 32 and 1.29, his inflammatory parameters were elevated with ferritin level of over 1200, LDH of over 1400, C-reactive protein of 176, pro calcitonin noted to be elevated up 0.21, chest x-ray noted to have bilateral airspace disease, patient was admitted to medical floor where he was noted to have oxygen saturation marginal and eventually FiO2 went up to 15 L high flow oxygen his blood culture no growth so far Review of Systems All systems: negative Past Medical History Past Medical History: GERD/Reflux History of Any Multi-Drug Resistant Organisms: None Reported Additional Past Surgical History / Comment(s): colonoscopy Past Anesthesia/Blood Transfusion Reactions: No Reported Reaction Past Psychological History: No Psychological Hx Reported Smoking Status: Never smoker Past Alcohol Use History: Occasional Past Drug Use History: None Reported - Past Family History Mother Family Medical History: No Reported History Medications and Allergies Home Medications Medication Instructions Recorded Confirmed Type No Known Home Medications 06/04/20 06/04/20 History Allergies Allergy/AdvReac Type Severity Reaction Status Date / Time No Known Allergies Allergy Verified 06/04/20 16:22 Physical Exam Vitals: Vital Signs Temp Pulse Pulse Resp BP BP Pulse Ox 06/05/20 15:00 101.0 F H 81 30 H 124/75 89 L 06/05/20 12:02 88 28 H 06/05/20 11:56 98.6 F 88 28 H 141/89 90 L 06/05/20 10:43 99.3 F 88 20 122/74 90 L 06/05/20 07:51 83 91 H 127/74 91 L 06/05/20 06:30 98.8 F 82 22 124/71 90 L 06/05/20 03:00 80 20 130/74 91 L 06/05/20 01:00 77 20 116/68 92 L 06/04/20 23:40 69 18 121/73 95 06/04/20 23:00 89 L 06/04/20 22:02 73 18 101/54 91 L 06/04/20 22:00 72 22 82/59 06/04/20 20:31 98.8 F 79 20 111/71 91 L 06/04/20 20:20 85 18 110/70 87 L Intake and Output 06/05/20 06/05/20 06/05/20 06:59 14:59 22:59 Intake Total 75 Balance 75 Intake: Intake, IV Titration 75 Amount Sodium Chloride 0.9% 1, 75 000 ml @ 75 mls/hr IV . [id number] [facility] Rx#:[id number] Other: Weight 90.5 kg - Constitutional General appearance: average body habitus, cooperative, disheveled - EENT Eyes: PERRLA Ears: bilateral: normal - Neck Neck: normal ROM Carotids: bilateral: upstroke normal Thyroid: bilateral: normal size - Respiratory Respiratory: bilateral: diminished - Cardiovascular Rhythm: regular Heart sounds: normal: S1, S2 - Gastrointestinal General gastrointestinal: normal bowel sounds, soft - Neurologic Neurologic: CNII-XII intact - Musculoskeletal Musculoskeletal: gait normal, generalized weakness, strength equal bilaterally - Psychiatric Psychiatric: A&O x's 3, appropriate affect, intact judgment & insight Results - Laboratory Findings CBC and BMP: 06/06/20 06:03 06/06/20 06:03 PT/INR, D-dimer PT 10.0 sec (9.0-12.0) 06/04/20 15:45 INR 1.0 (<1.2) 06/04/20 15:45 D-Dimer 0.60 mg/L FEU (<0.60) H 06/04/20 15:45 Abnormal lab findings: Abnormal Labs 06/04/20 06/04/20 06/04/20 15:45 15:45 15:45 D-Dimer 0.60 H BUN 32 H Creatinine 1.29 H Glucose 125 H Magnesium 2.7 H Ferritin 1279.8 H AST 92 H ALT 50 H Lactate Dehydrogenase 1439 H C-Reactive Protein 176.4 H Procalcitonin 0.21 H Coronavirus (PCR) 06/04/20 15:45 D-Dimer BUN Creatinine Glucose Magnesium Ferritin AST ALT Lactate Dehydrogenase C-Reactive Protein Procalcitonin Coronavirus (PCR) Detected A - Diagnostic Findings Chest x-ray: report reviewed, image reviewed (X-ray finding as noted above) Assessment and Plan Assessment: Acute hypoxic respiratory failure Covid 19 pneumonia Acute kidney injury Dehydration and volume depleted state Plan: Continue supplemental oxygen in to keep saturation over 85-90% Deep breathing exercise incentive spirometry Prone positioning Decadron for 10 days IV antibiotics Sputum culture IV Remdesivir for 5 days Time with Patient: Greater than 30
--- NOTE | 2020-06-06 18:39 | P.PN ---
Subjective Progress Note Date: 06/06/20 (Critical care time 35 minutes) Principal diagnosis: Acute hypoxic respiratory failure Covid 19 pneumonia Acute kidney injury Dehydration and volume depleted state Confusion and agitated delirium Possible alcohol withdrawal 06/06/2020, patient seen and evaluated examined during the rounds labs reviewed medications reviewed care plan discussed with the staff at length involving both medical floor and [facility] care critical care, patient continued to be intermittently agitated, does not keep the oxygen or BiPAP on his face, remains a problem with possible delirium or withdrawal, Ativan half a milligram tried, which seems to be helping but however agitated his agitation has been continuous, I have tried hold all this seems to be helping able to put patient some prone with that oxygen saturation improved to 95% with BiPAP off 100% oxygen, will continue Decadron, REM does ever, and IV antibiotics and sputum for culture as well repeat chest x-ray and arterial blood gases reviewed as well no significant change in next day has been noted, ABG suggestive of significant hypoxia, noted that he renal functions have improved This is a 65-year-old male who has a history of extensive smoking and nicotine use, patient presented into the emergency department with progressive increasing shortness of breath and nonproductive cough, he was hypoxic with low oxygen saturation, no sputum production, his code at 19 test came back positive, in the ER he was noted to have a low blood pressure of 104/65, patient was hypoxic with room air oxygen saturation of only 83%, low-grade temperature of 99.3 his present, he was also noted to have acute injury of the kidneys that B UN/creatinine of 32 and 1.29, his inflammatory parameters were elevated with ferritin level of over 1200, LDH of over 1400, C-reactive protein of 176, pro calcitonin noted to be elevated up 0.21, chest x-ray noted to have bilateral airspace disease, patient was admitted to medical floor where he was noted to have oxygen saturation marginal and eventually FiO2 went up to 15 L high flow oxygen his blood culture no growth so far Objective - Vital Signs Vital signs: Vital Signs Temp 97.4 F L 06/06/20 07:14 Pulse 82 06/06/20 08:00 Resp 57 H 06/06/20 11:06 BP 124/73 06/06/20 07:14 Pulse Ox 95 06/06/20 15:50 Intake & Output 06/05/20 06/06/2020 18:59 06:59 18:59 Intake Total 75 Balance 75 Weight 90.5 kg Intake: Intake, IV Titration 75 Amount Sodium Chloride 0.9% 1, 75 000 ml @ 75 mls/hr IV . [id number] [facility] Rx#:[id number] Other: Voiding Method Urinal Urinal Diaper Diaper Incontinent Incontinent # Voids 1 # Bowel Movements 0 - Exam - Constitutional General appearance: average body habitus, cooperative, disheveled - EENT Eyes: PERRLA Ears: bilateral: normal - Neck Neck: normal ROM Carotids: bilateral: upstroke normal Thyroid: bilateral: normal size - Respiratory Respiratory: bilateral: diminished - Cardiovascular Rhythm: regular Heart sounds: normal: S1, S2 - Gastrointestinal General gastrointestinal: normal bowel sounds, soft - Neurologic Neurologic: CNII-XII intact - Musculoskeletal Musculoskeletal: gait normal, generalized weakness, strength equal bilaterally - Psychiatric Psychiatric: Agitated delirium - Labs CBC & Chem 7: 06/06/20 06:03 06/06/20 06:03 Labs: Abnormal Lab Results - Last 24 Hours (Table) 06/06/20 06/06/20 06/06/20 Range/Units 06:03 06:03 07:34 WBC 18.6 H (3.8-10.6) k/uL ABG pO2 (83-108) mmHg ABG Total CO2 (19-24) mmol/L ABG O2 Saturation (94-97) % Anion Gap 12.90 H (4.00-12.00) mmol/L BUN/Creatinine Ratio 25.56 H (12.00-20.00) Ratio Glucose 127 H (70-110) mg/dL POC Glucose (mg/dL) 121 H (75-99) mg/dL Calcium 8.2 L (8.7-10.3) mg/dL AST 63 H (14-35) U/L Total Protein 5.8 L (6.2-8.2) g/dL Albumin 3.40 L (3.80-4.90) g/dL Albumin/Globulin Ratio 1.42 L (1.60-3.17) g/dL 06/06/20 06/06/20 06/06/20 Range/Units 07:38 09:26 16:34 WBC (3.8-10.6) k/uL ABG pO2 42 L* 52 L* (83-108) mmHg ABG Total CO2 25 H 26 H (19-24) mmol/L ABG O2 Saturation 78.6 L 86.0 L (94-97) % Anion Gap (4.00-12.00) mmol/L BUN/Creatinine Ratio (12.00-20.00) Ratio Glucose (70-110) mg/dL POC Glucose (mg/dL) 111 H (75-99) mg/dL Calcium (8.7-10.3) mg/dL AST (14-35) U/L Total Protein (6.2-8.2) g/dL Albumin (3.80-4.90) g/dL Albumin/Globulin Ratio (1.60-3.17) g/dL Microbiology - Last 24 Hours (Table) 06/04/20 15:45 Blood Culture - Preliminary Blood No Growth after 48 hours Assessment and Plan Assessment: Agitated delirium Acute hypoxic respiratory failure Covid 19 pneumonia Acute kidney injury Dehydration and volume depleted state Plan: Continue BiPAP Continue supplemental oxygen in to keep saturation over 85-90% Deep breathing exercise incentive spirometry Prone positioning Decadron for 10 days IV antibiotics Sputum culture IV Remdesivir for 5 days Time with Patient: Greater than 30
[2020-06-06] MEDS: MORPHINE SULFATE 2 MG/ML SYRINGE IVP PRN ×2 (19:45→22:59)
[2020-06-06 20:28] LABS: Glucose,Whole Blood 123 mg/dL (75-99)
[2020-06-06] MEDS: REMDESIVIR 100 MG in SODIUM CHLORIDE 0.9% 250 ML IVPB SCH (21:15)
[2020-06-07] MEDS: DEXAMETHASONE SOD PHOSPHATE 4 MG/ML 1 ML VIAL IV SCH ×4 (00:04→18:46)
[2020-06-07] MEDS: LORazepam 2 MG/ML INJ IV PRN ×2 (00:40→02:48)
[2020-06-07] MEDS: MORPHINE SULFATE 2 MG/ML SYRINGE IVP PRN ×3 (01:13→21:14)
[2020-06-07] MEDS: PANTOPRAZOLE 40 MG TABLET PO SCH (03:13)
[2020-06-07 06:27] LABS: Glucose,Whole Blood 123 mg/dL (75-99)
[2020-06-07 08:12] LABS: HCT 47.5 % (39.0-53.0); HGB 15.5 gm/dL (13.0-17.5); MCH 30.9 pg (25.0-35.0); MCHC 32.7 g/dL (31.0-37.0); MCV 94.5 fL (80.0-100.0); Mean Platelet Volume 9.1; Platelet Count 290 k/uL (150-450); RBC 5.02 m/uL (4.30-5.90); RDW 12.3 % (11.5-15.5); WBC 15.6 k/uL (3.8-10.6)
[2020-06-07 08:34] LABS: ALT 30 U/L (4-49); AST 41 U/L (17-59); African American GFR (CKD) >90 (>60 ml/min/1.73 sqM); Albumin 2.5 g/dL (3.5-5.0); Alkaline Phosphatase 70 U/L (38-126); Anion Gap 5 mmol/L; Blood Urea Nitrogen 31 mg/dL (9-20); Calcium 8.4 mg/dL (8.4-10.2); Carbon Dioxide 25 mmol/L (22-30); Chloride 116 mmol/L (98-107); Glucose 138 mg/dL (74-99); Non-African American GFR(CKD) >90 (>60 ml/min/1.73 sqM); Potassium 4.4 mmol/L (3.5-5.1); Sodium 146 mmol/L (137-145); Total Bilirubin 0.6 mg/dL (0.2-1.3); Total Protein 5.4 g/dL (6.3-8.2)
--- NOTE | 2020-06-07 11:18 | P.PN ---
Subjective Progress Note Date: 06/07/20 Principal diagnosis: Acute hypoxic respiratory failure Covid 19 pneumonia Acute kidney injury Dehydration and volume depleted state Confusion and agitated delirium Possible alcohol withdrawal June 07 2020, patient seen eval examined during the rounds labs reviewed medications reviewed care plan discussed, cough congestion is improved, patient is hemodynamically stable, continued to be tachypneic currently supine on BiPAP oxygen saturation is 88% on 100% oxygen, discussed with nursing staff to semi- prone him again patient dated 7-8 hours last night, white cell count is down, patient remains on Decadron along with IV REM doesn't wear, morphine and Ativan is on hold due to somnolence, patient did well with Haldol all last night, 06/06/2020, patient seen and evaluated examined during the rounds labs reviewed medications reviewed care plan discussed with the staff at length involving both medical floor and [facility] care critical care, patient continued to be intermittently agitated, does not keep the oxygen or BiPAP on his face, remains a problem with possible delirium or withdrawal, Ativan half a milligram tried, which seems to be helping but however agitated his agitation has been continuous, I have tried hold all this seems to be helping able to put patient some prone with that oxygen saturation improved to 95% with BiPAP off 100% oxygen, will continue Decadron, REM does ever, and IV antibiotics and sputum for culture as well repeat chest x-ray and arterial blood gases reviewed as well no significant change in next day has been noted, ABG suggestive of significant hypoxia, noted that he renal functions have improved This is a 65-year-old male who has a history of extensive smoking and nicotine use, patient presented into the emergency department with progressive increasing shortness of breath and nonproductive cough, he was hypoxic with low oxygen saturation, no sputum production, his code at 19 test came back positive, in the ER he was noted to have a low blood pressure of 104/65, patient was hypoxic with room air oxygen saturation of only 83%, low-grade temperature of 99.3 his present, he was also noted to have acute injury of the kidneys that BUN/creatinine of 32 and 1.29, his inflammatory parameters were elevated with ferritin level of over 1200, LDH of over 1400, C-reactive protein of 176, pro calcitonin noted to be elevated up 0.21, chest x-ray noted to have bilateral airspace disease, patient was admitted to medical floor where he was noted to have oxygen saturation marginal and eventually FiO2 went up to 15 L high flow oxygen his blood culture no growth so far Objective - Vital Signs Vital signs: Vital Signs Temp 97.8 F 06/07/20 08:00 Pulse 76 06/07/20 08:00 Resp 42 H 06/07/20 08:00 BP 134/67 06/07/20 08:00 Pulse Ox 88 L 06/07/20 08:00 Intake & Output 06/06/20 06/07/20 06/07/20 18:59 06:59 18:59 Intake Total 20 625 Output Total 700 Balance 20 -75 Weight 91.6 kg Intake: IV 20 Invasive Line 3 10 Invasive Line 4 10 Intake, IV Titration 625 Amount Remdesivir (Eua) 100 mg 250 In Sodium Chloride 0.9% 250 ml @ 250 mls/hr IVPB [facility] Rx#:[id number] Sodium Chloride 0.9% 1, 375 000 ml @ 75 mls/hr IV . [id number] [facility] Rx#:[id number] Oral 0 Output: Urine 700 Other: Voiding Method Indwelling Catheter Indwelling Catheter Indwelling Catheter - Exam - Constitutional General appearance: average body habitus, cooperative, disheveled - EENT Eyes: PERRLA Ears: bilateral: normal - Neck Neck: normal ROM Carotids: bilateral: upstroke normal Thyroid: bilateral: normal size - Respiratory Respiratory: bilateral: diminished - Cardiovascular Rhythm: regular Heart sounds: normal: S1, S2 - Gastrointestinal General gastrointestinal: normal bowel sounds, soft - Neurologic Neurologic: CNII-XII intact - Musculoskeletal Musculoskeletal: gait normal, generalized weakness, strength equal bilaterally - Psychiatric Psychiatric: Agitated delirium - Labs CBC & Chem 7: 06/07/20 07:34 06/07/20 07:34 Labs: Abnormal Lab Results - Last 24 Hours (Table) 06/06/20 06/06/20 06/07/20 Range/Units 16:34 20:17 06:25 WBC (3.8-10.6) k/uL Sodium (137-145) mmol/L Chloride (98-107) mmol/L BUN (9-20) mg/dL Glucose (74-99) mg/dL POC Glucose (mg/dL) 111 H 123 H 123 H (75-99) mg/dL Total Protein (6.3-8.2) g/dL Albumin (3.5-5.0) g/dL 06/07/20 06/07/20 Range/Units 07:34 07:34 WBC 15.6 H (3.8-10.6) k/uL Sodium 146 H (137-145) mmol/L Chloride 116 H (98-107) mmol/L BUN 31 H (9-20) mg/dL Glucose 138 H (74-99) mg/dL POC Glucose (mg/dL) (75-99) mg/dL Total Protein 5.4 L (6.3-8.2) g/dL Albumin 2.5 L (3.5-5.0) g/dL Microbiology - Last 24 Hours (Table) 06/04/20 15:45 Blood Culture - Preliminary Blood No Growth after 48 hours Assessment and Plan Assessment: Agitated delirium alternating with somnolence Acute hypoxic respiratory failure Covid 19 pneumonia Acute kidney injury, renal functions improved Dehydration and volume depleted state Plan: Hold on morphine sulfate and Ativan Continue BiPAP with 100% oxygen Prone or semi-prone position as much as possible Continue supplemental oxygen in to keep saturation over 85-90% Deep breathing exercise incentive spirometry Prone positioning Decadron for 10 days IV antibiotics Sputum culture IV Remdesivir for 5 days Time with Patient: Greater than 30
[2020-06-07 12:19] LABS: Glucose,Whole Blood 128 mg/dL (75-99)
[2020-06-07 16:58] LABS: Glucose,Whole Blood 112 mg/dL (75-99)
[2020-06-07] MEDS: SODIUM CHLORIDE 0.9% 1,000 ML IV SCH (18:46)
[2020-06-07 20:20] LABS: Glucose,Whole Blood 108 mg/dL (75-99)
[2020-06-07] MEDS: REMDESIVIR 100 MG in SODIUM CHLORIDE 0.9% 250 ML IVPB SCH (20:30)
[2020-06-08] MEDS: LORazepam 2 MG/ML INJ IV PRN ×4 (00:23→14:33)
[2020-06-08] MEDS: MORPHINE SULFATE 2 MG/ML SYRINGE IVP PRN ×4 (00:24→14:35)
[2020-06-08] MEDS: DEXAMETHASONE SOD PHOSPHATE 4 MG/ML 1 ML VIAL IV SCH ×2 (00:29→06:28)
[2020-06-08] MEDS: SODIUM CHLORIDE 0.9% 1,000 ML IV SCH ×2 (00:30→15:42)
[2020-06-08 03:38] LABS: Allen Test Performed? Yes
[2020-06-08 03:39] LABS: ABG Base Excess 1.1 mmol/L; ABG HCO3 26 mmol/L (21-25); ABG PCO2 39 mmHg (35-45); ABG PH 7.43 (7.35-7.45); ABG TCO2 27 mmol/L (19-24)
[2020-06-08] MEDS: PANTOPRAZOLE 40 MG TABLET PO SCH (06:28)
[2020-06-08 06:35] LABS: Glucose,Whole Blood 114 mg/dL (75-99)
--- NOTE | 2020-06-08 08:07 | P.PN ---
Subjective Principal diagnosis: Respiratory distress. This is 65-year-old white male essentially admitted for pneumonia and coronavirus positivity. The patient has now starting have respiratory distress. Pulmonology has been consulted. Remdesivirhas been started. The patient is still tachypneic and trying to remove his mask. Objective - Vital Signs Vital signs: Vital Signs Temp 97.9 F 06/08/20 04:00 Pulse 60 06/08/20 04:00 Resp 40 H 06/08/20 04:00 BP 130/74 06/08/20 04:00 Pulse Ox 92 L 06/08/20 04:00 Intake & Output 06/07/20 06/08/20 06/08/20 18:59 06:59 18:59 Intake Total 865 Output Total 700 450 Balance -700 415 Weight 77 kg Intake: Intake, IV Titration 625 Amount Remdesivir (Eua) 100 mg 250 In Sodium Chloride 0.9% 250 ml @ 250 mls/hr IVPB HS [facility] Rx#:[id number] Sodium Chloride 0.9% 1, 375 000 ml @ 75 mls/hr IV . [id number] [facility] Rx#:[id number] Oral 240 Output: Urine 700 450 Other: Voiding Method Indwelling Catheter Indwelling Catheter - Constitutional General appearance: Present: obese - EENT Eyes: Absent: abnormal pupil - Neck Neck: Absent: lymphadenopathy - Respiratory Respiratory: bilateral: diminished - Cardiovascular Rhythm: regular Heart sounds: normal: S1, S2 Abnormal Heart Sounds: Absent: S3 Gallop - Gastrointestinal General gastrointestinal: Present: soft. Absent: tenderness - Integumentary Integumentary: Absent: cellulitis - Labs CBC & Chem 7: 06/07/20 07:34 06/07/20 07:34 Labs: Abnormal Lab Results - Last 24 Hours (Table) 06/07/20 06/07/20 06/07/20 Range/Units 07:34 07:34 11:59 WBC 15.6 H (3.8-10.6) k/uL ABG pO2 (83-108) mmHg ABG HCO3 (21-25) mmol/L ABG Total CO2 (19-24) mmol/L Sodium 146 H (137-145) mmol/L Chloride 116 H (98-107) mmol/L BUN 31 H (9-20) mg/dL Glucose 138 H (74-99) mg/dL POC Glucose (mg/dL) 128 H (75-99) mg/dL Total Protein 5.4 L (6.3-8.2) g/dL Albumin 2.5 L (3.5-5.0) g/dL 06/07/20 06/07/20 06/08/20 Range/Units 16:55 20:18 03:33 WBC (3.8-10.6) k/uL ABG pO2 59 L* (83-108) mmHg ABG HCO3 26 H (21-25) mmol/L ABG Total CO2 27 H (19-24) mmol/L Sodium (137-145) mmol/L Chloride (98-107) mmol/L BUN (9-20) mg/dL Glucose (74-99) mg/dL POC Glucose (mg/dL) 112 H 108 H (75-99) mg/dL Total Protein (6.3-8.2) g/dL Albumin (3.5-5.0) g/dL 06/08/20 Range/Units 06:33 WBC (3.8-10.6) k/uL ABG pO2 (83-108) mmHg ABG HCO3 (21-25) mmol/L ABG Total CO2 (19-24) mmol/L Sodium (137-145) mmol/L Chloride (98-107) mmol/L BUN (9-20) mg/dL Glucose (74-99) mg/dL POC Glucose (mg/dL) 114 H (75-99) mg/dL Total Protein (6.3-8.2) g/dL Albumin (3.5-5.0) g/dL Microbiology - Last 24 Hours (Table) 06/04/20 15:45 Blood Culture - Preliminary Blood No Growth after 72 hours Assessment and Plan (1) Hypoxia Current Visit: Yes Status: Acute Code(s): R09.02 - HYPOXEMIA SNOMED Code(s): 421320947 (2) Pneumonia due to COVID-19 virus Current Visit: Yes Status: Acute Code(s): U07.1 - COVID-19; J12.89 - OTHER VIRAL PNEUMONIA SNOMED Code(s): 053605605193327966 Plan: Check CBC and CMP in a.m. Continue follow with pulmonology. Prognosis is guarded Continue supportive care.
--- NOTE | 2020-06-08 11:09 | P.PN ---
Subjective Progress Note Date: 06/08/20 Principal diagnosis: Acute hypoxic respiratory failure Covid 19 pneumonia Acute kidney injury Dehydration and volume depleted state Confusion and agitated delirium Possible alcohol withdrawal 06/08/2020, patient seen eval reexamined during the rounds remains tachypneic tachycardic but however saturation is 9888-90% on 100% oxygen and BiPAP currently on 14, patient today could not be placed in prone positioning, arterial blood gas reviewed pH is 7.43 pCO2 39 pO2 59, pO2 slightly up now compared to 2 days ago compared, we'll decrease the Decadron to 6 mg daily new other management June 07 2020, patient seen eval examined during the rounds labs reviewed medications reviewed care plan discussed, cough congestion is improved, patient is hemodynamically stable, continued to be tachypneic currently supine on BiPAP oxygen saturation is 88% on 100% oxygen, discussed with nursing staff to semi- prone him again patient dated 7-8 hours last night, white cell count is down, patient remains on Decadron along with IV REM doesn't wear, morphine and Ativan is on hold due to somnolence, patient did well with Haldol all last night, 06/06/2020, patient seen and evaluated examined during the rounds labs reviewed medications reviewed care plan discussed with the staff at length involving both medical floor and [facility] critical care, patient continued to be int ermittently agitated, does not keep the oxygen or BiPAP on his face, remains a problem with possible delirium or withdrawal, Ativan half a milligram tried, which seems to be helping but however agitated his agitation has been continuous, I have tried hold all this seems to be helping able to put patient some prone with that oxygen saturation improved to 95% with BiPAP off 100% oxygen, will continue Decadron, REM does ever, and IV antibiotics and sputum for culture as well repeat chest x-ray and arterial blood gases reviewed as well no significant change in next day has been noted, ABG suggestive of significant hypoxia, noted that he renal functions have improved This is a 65-year-old male who has a history of extensive smoking and nicotine use, patient presented into the emergency department with progressive increasing shortness of breath and nonproductive cough, he was hypoxic with low oxygen saturation, no sputum production, his code at 19 test came back positive, in the ER he was noted to have a low blood pressure of 104/65, patient was hypoxic with room air oxygen saturation of only 83%, low-grade temperature of 99.3 his present, he was also noted to have acute injury of the kidneys that BUN/creatinine of 32 and 1.29, his inflammatory parameters were elevated with ferritin level of over 1200, LDH of over 1400, C-reactive protein of 176, pro calcitonin noted to be elevated up 0.21, chest x-ray noted to have bilateral airspace disease, patient was admitted to medical floor where he was noted to have oxygen saturation marginal and eventually FiO2 went up to 15 L high flow oxygen his blood culture no growth so far Objective - Vital Signs Vital signs: Vital Signs Temp 97.9 F 06/08/20 04:00 Pulse 60 06/08/20 04:00 Resp 40 H 06/08/20 04:00 BP 130/74 06/08/20 04:00 Pulse Ox 92 L 06/08/20 04:00 Intake & Output 06/07/20 06/08/20 06/08/20 18:59 06:59 18:59 Intake Total 865 Output Total 700 450 Balance -700 415 Weight 77 kg Intake: Intake, IV Titration 625 Amount Remdesivir (Eua) 100 mg 250 In Sodium Chloride 0.9% 250 ml @ 250 mls/hr IVPB HS [facility] Rx#:[id number] Sodium Chloride 0.9% 1, 375 000 ml @ 75 mls/hr IV . [id number] [facility] Rx#:[id number] Oral 240 Output: Urine 700 450 Other: Voiding Method Indwelling Catheter Indwelling Catheter - Exam - Constitutional General appearance: average body habitus, cooperative, disheveled - EENT Eyes: PERRLA Ears: bilateral: normal - Neck Neck: normal ROM Carotids: bilateral: upstroke normal Thyroid: bilateral: normal size - Respiratory Respiratory: bilateral: diminished - Cardiovascular Rhythm: regular Heart sounds: normal: S1, S2 - Gastrointestinal General gastrointestinal: normal bowel sounds, soft - Neurologic Neurologic: CNII-XII intact - Musculoskeletal Musculoskeletal: gait normal, generalized weakness, strength equal bilaterally - Psychiatric Psychiatric: Agitated delirium - Labs CBC & Chem 7: 06/07/20 07:34 06/07/20 07:34 Labs: Abnormal Lab Results - Last 24 Hours (Table) 11/18/20 11/18/20 11/18/20 Range/Units 11:59 16:55 20:18 ABG pO2 (83-108) mmHg ABG HCO3 (21-25) mmol/L ABG Total CO2 (19-24) mmol/L POC Glucose (mg/dL) 128 H 112 H 108 H (75-99) mg/dL 06/08/20 06/08/20 Range/Units 03:33 06:33 ABG pO2 59 L* (83-108) mmHg ABG HCO3 26 H (21-25) mmol/L ABG Total CO2 27 H (19-24) mmol/L POC Glucose (mg/dL) 114 H (75-99) mg/dL Microbiology - Last 24 Hours (Table) 06/04/20 15:45 Blood Culture - Preliminary Blood No Growth after 72 hours Assessment and Plan Assessment: Agitated delirium alternating with somnolence Acute hypoxic respiratory failure Covid 19 pneumonia Acute kidney injury, renal functions improved Dehydration and volume depleted state Plan: Hold on morphine sulfate and Ativan Continue BiPAP with 100% oxygen Prone or semi-prone position as much as possible Continue supplemental oxygen in to keep saturation over 85-90% Deep breathing exercise incentive spirometry Prone positioning Lower Decadron 6 mg for 10 days IV antibiotics Sputum culture IV Remdesivir for 5 days Time with Patient: Greater than 30
[2020-06-08 12:02] LABS: Glucose,Whole Blood 101 mg/dL (75-99)
[2020-06-08 14:16] LABS: ABG Base Excess 0.3 mmol/L; ABG HCO3 25 mmol/L (21-25); ABG Oxygen Saturation 90.6 % (94-97); ABG PCO2 37 mmHg (35-45); ABG PH 7.43 (7.35-7.45); ABG TCO2 26 mmol/L (19-24); Allen Test Performed? Yes
[2020-06-08 14:18] LABS: ABG PO2 59 mmHg (83-108)
[2020-06-08] MEDS ORDERED: HALOPERIDOL LACTATE 5 MG/ML 1 ML VIAL IVP PRN (14:24)
[2020-06-08] MEDS ORDERED: propofoL 100 ML IV ONE (14:47)
[2020-06-08] MEDS ORDERED: SUCCINYLCHOLINE CHLORIDE VIAL 200 MG/10 ML VIAL IV ONE (15:00)
[2020-06-08] MEDS ORDERED: PROPOFOL 10 MG/ML 20 ML VIAL IV ONE (15:00)
--- NOTE | 2020-06-08 15:29 | XR ---
EXAMINATION TYPE: XR chest 1V portable DATE OF EXAM: 06/08/2020 COMPARISON: 06/06/2020 INDICATION: ET tube placement difficulty breathing TECHNIQUE: Single frontal view of the chest is obtained. FINDINGS: The heart size is normal. The pulmonary vasculature is indistinct. There is increasing perihilar infiltrates bilaterally. Endotracheal tube is in place the tip 0.6 cm in greatest be pulled back approximately 1.5 cm. Nasogastric tube is present with the tip in the right upper quadrant of the abdomen IMPRESSION: 1. Worsening bilateral perihilar infiltrates. 2. Endotracheal tube tip 0.6 cm above the mariajose. This should be pulled back 1.5 cm.
[2020-06-08 15:51] LABS: ABG Base Excess -0.3 mmol/L; ABG HCO3 25 mmol/L (21-25); ABG Oxygen Saturation 77.6 % (94-97); ABG PCO2 47 mmHg (35-45); ABG PH 7.34 (7.35-7.45); ABG TCO2 27 mmol/L (19-24); Allen Test Performed? Yes
[2020-06-08 15:57] LABS: ABG PO2 46 mmHg (83-108)
[2020-06-08] MEDS ORDERED: CISATRACURIUM 2 MG/ML 5 ML VIAL IV ONE (16:30)
--- NOTE | 2020-06-08 17:32 | P.PN ---
Subjective Progress Note Date: 06/08/20 (Critical care time 35) Principal diagnosis: Acute hypoxic respiratory failure status post intubation Covid 19 pneumonia Acute kidney injury Dehydration and volume depleted state Confusion and agitated delirium Possible alcohol withdrawal 06/08/2020, patient seen and evaluated reexamined on selective care remains agitated anxious respiratory rate into 60s saturation dropped down to 80-85%, patient tachypneic tachycardic difficult to control with a staph agitated behavior, arterial blood gas done pO2 dropped down to 46 only patient is showing respiratory and metabolic acidosis, will transfer to the ICU intubated and start patient on propofol may need to medically paralyze him with cisatracurium, postintubation was prone the patient for 16 hour as tolerated, post intubation chest x-ray reviewed ET tube just right at the mariajose will pull out 2 cm 06/08/2020, patient seen eval reexamined during the rounds remains tachypneic tachycardic but however saturation is 9888-90% on 100% oxygen and BiPAP currently on 03/03, patient today could not be placed in prone positioning, arterial blood gas reviewed pH is 7.43 pCO2 39 pO2 59, pO2 slightly up now compared to 2 days ago compared, we'll decrease the Decadron to 6 mg daily new other management June 07 2020, patient seen eval examined during the rounds labs reviewed medications reviewed care plan discussed, cough congestion is improved, patient is hemodynamically stable, continued to be tachypneic currently supine on BiPAP oxygen saturation is 88% on 100% oxygen, discussed with nursing staff to semi-prone him again patient dated 7-8 hours last night, white cell count is down, patient remains on Decadron along with IV REM doesn't wear, morphine and Ativan is on hold due to somnolence, patient did well with Haldol all last night, 06/06/2020, patient seen and evaluated examined during the rounds labs reviewed medications reviewed care plan discussed with the staff at length involving both medical floor and selective care critical care, patient continued to be intermittently agitated, does not keep the oxygen or BiPAP on his face, remains a problem with possible delirium or withdrawal, Ativan half a milligram tried, which seems to be helping but however agitated his agitation has been continuou s, I have tried hold all this seems to be helping able to put patient some prone with that oxygen saturation improved to 95% with BiPAP off 100% oxygen, will continue Decadron, REM does ever, and IV antibiotics and sputum for culture as well repeat chest x-ray and arterial blood gases reviewed as well no significant change in next day has been noted, ABG suggestive of significant hypoxia, noted that he renal functions have improved This is a 65-year-old male who has a history of extensive smoking and nicotine use, patient presented into the emergency department with progressive increasing shortness of breath and nonproductive cough, he was hypoxic with low oxygen saturation, no sputum production, his code at 19 test came back positive, in the ER he was noted to have a low blood pressure of 104/65, patient was hypoxic with room air oxygen saturation of only 83%, low-grade temperature of 99.3 his present, he was also noted to have acute injury of the kidneys that BUN/creatinine of 32 and 1.29, his inflammatory parameters were elevated with ferritin level of over 1200, LDH of over 1400, C-reactive protein of 176, pro calcitonin noted to be elevated up 0.21, chest x-ray noted to have bilateral airspace disease, patient was admitted to medical floor where he was noted to have oxygen saturation marginal and eventually FiO2 went up to 15 L high flow oxygen his blood culture no growth so far Objective - Vital Signs Vital signs: Vital Signs Temp 98.5 F 06/08/20 16:00 Pulse 90 06/08/20 16:00 Resp 29 H 06/08/20 16:00 BP 102/54 06/08/20 16:00 Pulse Ox 88 L 06/08/20 16:00 Intake & Output 06/07/20 06/08/20 06/08/20 18:59 06:59 18:59 Intake Total 865 Output Total 700 450 200 Balance -700 415 -200 Weight 77 kg Intake: Intake, IV Titration 625 Amount Remdesivir (Eua) 100 mg 250 In Sodium Chloride 0.9% 250 ml @ 250 mls/hr IVPB HS [facility] Rx#:[id number] Sodium Chloride 0.9% 1, 375 000 ml @ 75 mls/hr IV . [id number] [facility] Rx#:[id number] Oral 240 Output: Urine 700 450 200 Other: Voiding Method Indwelling Catheter Indwelling Catheter Indwelling Catheter - Exam - Constitutional General appearance: average body habitus, cooperative, disheveled, intubated started on propofol - EENT Eyes: PERRLA Ears: bilateral: normal - Neck Neck: normal ROM Carotids: bilateral: upstroke normal Thyroid: bilateral: normal size - Respiratory Respiratory: bilateral: diminished - Cardiovascular Rhythm: regular Heart sounds: normal: S1, S2 - Gastrointestinal General gastrointestinal: normal bowel sounds, soft - Neurologic Neurologic: Agitated delirium - Musculoskeletal Musculoskeletal:strength equal bilaterally - Psychiatric Psychiatric: Agitated delirium - Labs CBC & Chem 7: 06/07/20 07:34 06/07/20 07:34 Labs: Abnormal Lab Results - Last 24 Hours (Table) 06/07/20 06/08/20 06/08/20 Range/Units 20:18 03:33 06:33 ABG pH (7.35-7.45) ABG pCO2 (35-45) mmHg ABG pO2 59 L* (83-108) mmHg ABG HCO3 26 H (21-25) mmol/L ABG Total CO2 27 H (19-24) mmol/L ABG O2 Saturation (94-97) % POC Glucose (mg/dL) 108 H 114 H (75-99) mg/dL 06/08/20 06/08/20 06/08/20 Range/Units 11:59 14:14 15:40 ABG pH 7.34 L (7.35-7.45) ABG pCO2 47 H (35-45) mmHg ABG pO2 59 L* 46 L* (83-108) mmHg ABG HCO3 (21-25) mmol/L ABG Total CO2 26 H 27 H (19-24) mmol/L ABG O2 Saturation 90.6 L 77.6 L (94-97) % POC Glucose (mg/dL) 101 H (75-99) mg/dL Microbiology - Last 24 Hours (Table) 06/04/20 15:45 Blood Culture - Preliminary Blood No Growth after 72 hours Assessment and Plan Assessment: Agitated delirium alternating with somnolence Acute hypoxic respiratory failure Covid 19 pneumonia Acute kidney injury, renal functions improved Dehydration and volume depleted state Plan: Status post Haldol, morphine sulfate and Ativan unable to control and agitated behavior proceed with intubation and transferred to the ICU Sedation with propofol Prone or semi-prone position as much as possible Continue supplemental oxygen in to keep saturation over 85-90% Deep breathing exercise incentive spirometry Prone positioning Lower Decadron 6 mg for 10 days IV antibiotics Sputum culture IV Remdesivir for 5 days Time with Patient: Greater than 30
[2020-06-08] MEDS: CISATRACURIUM 200 MG in SODIUM CHLORIDE 0.9% 180 ML IV SCH (18:49)
[2020-06-08] MEDS: ARTIFICIAL TEARS-HYPROMELLOSE DROPS 15 ML BTL BOTH EYES SCH ×2 (20:14→23:54)
[2020-06-08] MEDS: CHLORHEXIDINE GLUCONATE 15 ML CUP MUCOUS MEM SCH (20:14)
[2020-06-08] MEDS: REMDESIVIR 100 MG in SODIUM CHLORIDE 0.9% 250 ML IVPB SCH (21:07)
[2020-06-08 23:58] LABS: Glucose,Whole Blood 153 mg/dL (75-99)
[2020-06-08] MEDS: INSULIN ASPART (NovoLOG) 100 UNIT/ML VIAL SQ SCH (23:59)
[2020-06-09] MEDS: ARTIFICIAL TEARS-HYPROMELLOSE DROPS 15 ML BTL BOTH EYES SCH ×5 (04:07→19:45)
[2020-06-09] MEDS: SODIUM CHLORIDE 0.9% 1,000 ML IV SCH ×2 (04:07→18:38)
[2020-06-09 04:29] LABS: HGB 15.4 gm/dL (13.0-17.5); Hypochromasia Slight; MCV 97.1 fL (80.0-100.0); Mean Platelet Volume 8.8; Platelet Count 184 k/uL (150-450); RBC 4.95 m/uL (4.30-5.90); RDW 12.5 % (11.5-15.5); WBC 15.9 k/uL (3.8-10.6)
[2020-06-09 04:43] LABS: ALT 30 U/L (4-49); AST 44 U/L (17-59); African American GFR (CKD) >90 (>60 ml/min/1.73 sqM); Albumin 2.4 g/dL (3.5-5.0); Alkaline Phosphatase 72 U/L (38-126); Anion Gap 0 mmol/L; Blood Urea Nitrogen 25 mg/dL (9-20); Carbon Dioxide 33 mmol/L (22-30); Chloride 115 mmol/L (98-107); Glucose 166 mg/dL (74-99); LDH 1653 U/L (313-618); Non-African American GFR(CKD) >90 (>60 ml/min/1.73 sqM); Potassium 4.7 mmol/L (3.5-5.1); Sodium 148 mmol/L (137-145); Total Bilirubin 0.9 mg/dL (0.2-1.3); Total Protein 5.4 g/dL (6.3-8.2)
[2020-06-09 05:04] LABS: C Reactive Protein 222.5 mg/L (<10.0)
[2020-06-09 05:35] LABS: ABG Base Excess 5.5 mmol/L; ABG HCO3 33 mmol/L (21-25); ABG PH 7.25 (7.35-7.45); ABG PO2 81 mmHg (83-108); ABG TCO2 35 mmol/L (19-24); Allen Test Performed? Yes
[2020-06-09 05:46] LABS: ABG PCO2 75 mmHg (35-45)
[2020-06-09 06:01] LABS: Glucose,Whole Blood 131 mg/dL (75-99)
[2020-06-09] MEDS: INSULIN ASPART (NovoLOG) 100 UNIT/ML VIAL SQ SCH ×4 (06:02→23:50)
--- NOTE | 2020-06-09 08:21 | P.PN ---
Subjective Principal diagnosis: Respiratory distress. The patient is now been transferred ICU due to worsening respiratory failure. Pneumonia-coronavirus treatment is continuing. Appreciate pulmonary/business division chair input. Objective - Vital Signs Vital signs: Vital Signs Temp 97.3 F L 06/09/20 04:00 Pulse 76 06/09/20 07:00 Resp 17 06/09/20 07:00 BP 102/55 06/09/20 07:00 Pulse Ox 94 L 06/09/20 07:00 Intake & Output 06/08/20 06/09/20 06/09/20 18:59 06:59 18:59 Intake Total 225 1480.923 75 Output Total 740 975 35 Balance -515 505.923 40 Weight 96.8 kg Intake: IV 1075 75 Remdesivir (Eua) 100 mg 250 In Sodium Chloride 0.9% 250 ml @ 250 mls/hr IVPB HS [facility] Rx#:[id number] Sodium Chloride 0.9% 1, 825 75 000 ml @ 75 mls/hr IV . [id number] [facility] Rx#:[id number] cefTRIAXone 1 gm In 0 Sodium Chloride 0.9% 50 ml @ 100 mls/hr IVPB Q24HR [facility] Rx#:[id number] Intake, IV Titration 225 405.923 Amount Cisatracurium 200 mg In 59.983 Sodium Chloride 0.9% 180 ml @ 1 MCG/KG/MIN 4.62 mls/hr IV .Q24H [facility] Rx#: [id number] Sodium Chloride 0.9% 1, 225 75 000 ml @ 75 mls/hr IV . [id number] [facility] Rx#:[id number] propofoL 1,000 mg In 270.940 Empty Bag 1 bag @ Titrate IV .Q0M [facility] Rx#: [id number] Output: Urine 740 975 35 Other: Voiding Method Indwelling Catheter Indwelling Catheter - EENT Eyes: Absent: abnormal pupil - Neck Neck: Absent: lymphadenopathy - Respiratory Respiratory: bilateral: CTA - Cardiovascular Rhythm: regular Heart sounds: normal: S1, S2 Abnormal Heart Sounds: Absent: S3 Gallop - Gastrointestinal General gastrointestinal: Present: soft. Absent: tenderness - Neurologic Neurologic: Absent: focal deficits - Labs CBC & Chem 7: 06/09/20 03:47 06/09/20 03:47 Labs: Abnormal Lab Results - Last 24 Hours (Table) 06/08/20 06/08/20 06/08/20 Range/Units 11:59 14:14 15:40 WBC (3.8-10.6) k/uL D-Dimer (<0.60) mg/L FEU ABG pH 7.34 L (7.35-7.45) ABG pCO2 47 H (35-45) mmHg ABG pO2 59 L* 46 L* (83-108) mmHg ABG HCO3 (21-25) mmol/L ABG Total CO2 26 H 27 H (19-24) mmol/L ABG O2 Saturation 90.6 L 77.6 L (94-97) % Sodium (137-145) mmol/L Chloride (98-107) mmol/L Carbon Dioxide (22-30) mmol/L BUN (9-20) mg/dL Glucose (74-99) mg/dL POC Glucose (mg/dL) 101 H (75-99) mg/dL Calcium (8.4-10.2) mg/dL Lactate Dehydrogenase (313-618) U/L CK-MB (CK-2) (0.0-2.4) ng/mL C-Reactive Protein (<10.0) mg/L Total Protein (6.3-8.2) g/dL Albumin (3.5-5.0) g/dL 06/08/20 06/09/20 06/09/20 Range/Units 23:57 03:47 03:47 WBC 15.9 H (3.8-10.6) k/uL D-Dimer (<0.60) mg/L FEU ABG pH (7.35-7.45) ABG pCO2 (35-45) mmHg ABG pO2 (83-108) mmHg ABG HCO3 (21-25) mmol/L ABG Total CO2 (19-24) mmol/L ABG O2 Saturation (94-97) % Sodium 148 H (137-145) mmol/L Chloride 115 H (98-107) mmol/L Carbon Dioxide 33 H (22-30) mmol/L BUN 25 H (9-20) mg/dL Glucose 166 H (74-99) mg/dL POC Glucose (mg/dL) 153 H (75-99) mg/dL Calcium 8.0 L (8.4-10.2) mg/dL Lactate Dehydrogenase 1653 H (313-618) U/L CK-MB (CK-2) (0.0-2.4) ng/mL C-Reactive Protein 222.5 H (<10.0) mg/L Total Protein 5.4 L (6.3-8.2) g/dL Albumin 2.4 L (3.5-5.0) g/dL 06/09/20 06/09/20 06/09/20 Range/Units 03:47 03:47 05:30 WBC (3.8-10.6) k/uL D-Dimer 34.11 H (<0.60) mg/L FEU ABG pH 7.25 L (7.35-7.45) ABG pCO2 75 H* (35-45) mmHg ABG pO2 81 L (83-108) mmHg ABG HCO3 33 H (21-25) mmol/L ABG Total CO2 35 H (19-24) mmol/L ABG O2 Saturation (94-97) % Sodium (137-145) mmol/L Chloride (98-107) mmol/L Carbon Dioxide (22-30) mmol/L BUN (9-20) mg/dL Glucose (74-99) mg/dL POC Glucose (mg/dL) (75-99) mg/dL Calcium (8.4-10.2) mg/dL Lactate Dehydrogenase (313-618) U/L CK-MB (CK-2) 2.6 H (0.0-2.4) ng/mL C-Reactive Protein (<10.0) mg/L Total Protein (6.3-8.2) g/dL Albumin (3.5-5.0) g/dL 06/09/20 Range/Units 06:00 WBC (3.8-10.6) k/uL D-Dimer (<0.60) mg/L FEU ABG pH (7.35-7.45) ABG pCO2 (35-45) mmHg ABG pO2 (83-108) mmHg ABG HCO3 (21-25) mmol/L ABG Total CO2 (19-24) mmol/L ABG O2 Saturation (94-97) % Sodium (137-145) mmol/L Chloride (98-107) mmol/L Carbon Dioxide (22-30) mmol/L BUN (9-20) mg/dL Glucose (74-99) mg/dL POC Glucose (mg/dL) 131 H (75-99) mg/dL Calcium (8.4-10.2) mg/dL Lactate Dehydrogenase (313-618) U/L CK-MB (CK-2) (0.0-2.4) ng/mL C-Reactive Protein (<10.0) mg/L Total Protein (6.3-8.2) g/dL Albumin (3.5-5.0) g/dL Microbiology - Last 24 Hours (Table) 06/04/20 15:45 Blood Culture - Preliminary Blood No Growth after 96 hours Assessment and Plan (1) Hypoxia Current Visit: Yes Status: Acute Code(s): R09.02 - HYPOXEMIA SNOMED Code(s): 191797043 (2) Pneumonia due to COVID-19 virus Current Visit: Yes Status: Acute Code(s): U07.1 - COVID-19; J12.89 - OTHER VIRAL PNEUMONIA SNOMED Code(s): 051377991998279807 Plan: Continue supportive care. Check CBC and CMP in a.m. We'll continue to follow. Dr. Huerta's group was covering for the weekend. Time with Patient: Greater than 30
[2020-06-09] MEDS: DEXAMETHASONE SOD PHOSPHATE 10 MG/ML 1 ML VIAL IV SCH (08:40)
[2020-06-09] MEDS: CHLORHEXIDINE GLUCONATE 15 ML CUP MUCOUS MEM SCH ×2 (08:40→19:47)
[2020-06-09] MEDS: PANTOPRAZOLE 40 MG/10 ML VIAL IVP SCH (08:41)
[2020-06-09 09:45] LABS: Ferritin 1025.3 ng/mL (22.0-322.0)
--- NOTE | 2020-06-09 10:27 | P.PN ---
Subjective Progress Note Date: 06/09/20 (Critical care time 35 minutes,) Principal diagnosis: Acute hypoxic respiratory failure status post intubation Covid 19 pneumonia Acute kidney injury Dehydration and volume depleted state Confusion and agitated delirium Possible alcohol withdrawal 06/09/2020, patient seen eval examined during the rounds labs reviewed medications reviewed care plan discussed, patient is chest x-ray is not done as patient has been prone plan is to keep him prone for 16 hours, once on his back will do the chest x-ray, patient ended up being intubated for respiratory distress worsening agitation and anxiety currently patient is on propofol and medically paralyze with Nimbex drip, FiO2 is 100% PEEP of 8 tidal volume 400 which has been adjusted for hypercapnia and hypoventilation, respiratory rate is 20, the white cell count is 16,000, d-dimer is 34, ABG suggestive of respiratory acidosis, , inflammatory parameters remains elevated sister of ongoing cytokine camila, patient remains on Remdesivir, Decadron, will get convalescent plasma as well Ammann continue prone positioning 06/08/2020, patient seen and evaluated reexamined on selective care remains agitated anxious respiratory rate into 60s saturation dropped down to 80-85%, patient tachypneic tachycardic difficult to control with a staph agitated behavior, arterial blood gas done pO2 dropped down to 46 only patient is showing respiratory and metabolic acidosis, will transfer to the ICU intubated and start patient on propofol may need to medically paralyze him with cisatracurium, postintubation was prone the patient for 16 hour as tolerated, post intubation chest x-ray reviewed ET tube just right at the mariajose will pull out 2 cm 06/08/2020, patient seen eval reexamined during the rounds remains tachypneic tachycardic but however saturation is 9888-90% on 100% oxygen and BiPAP currently on 03/03, patient today could not be placed in prone positioning, arterial blood gas reviewed pH is 7.43 pCO2 39 pO2 59, pO2 slightly up now compared to 2 days ago compared, we'll decrease the Decadron to 6 mg daily new other management June 07 2020, patient seen eval examined during the rounds labs reviewed medications reviewed care plan discussed, cough congestion is improved, patient is hemodynamically stable, continued to be tachypneic currently supine on BiPAP oxygen saturation is 88% on 100% oxygen, discussed with nursing staff to semi- prone him again patient dated 7-8 hours last night, white cell count is down, patient remains on Decadron along with IV REM doesn't wear, morphine and Ativan is on hold due to somnolence, patient did well with Haldol all last night, 06/06/2020, patient seen and evaluated examined during the rounds labs reviewed medications reviewed care plan discussed with the staff at length involving both medical floor and selective care critical care, patient continued to be intermi ttently agitated, does not keep the oxygen or BiPAP on his face, remains a problem with possible delirium or withdrawal, Ativan half a milligram tried, which seems to be helping but however agitated his agitation has been continuous, I have tried hold all this seems to be helping able to put patient some prone with that oxygen saturation improved to 95% with BiPAP off 100% oxygen, will continue Decadron, REM does ever, and IV antibiotics and sputum for culture as well repeat chest x-ray and arterial blood gases reviewed as well no significant change in next day has been noted, ABG suggestive of significant hypoxia, noted that he renal functions have improved This is a 65-year-old male who has a history of extensive smoking and nicotine use, patient presented into the emergency department with progressive increasing shortness of breath and nonproductive cough, he was hypoxic with low oxygen saturation, no sputum production, his code at 19 test came back positive, in the ER he was noted to have a low blood pressure of 104/65, patient was hypoxic with room air oxygen saturation of only 83%, low-grade temperature of 99.3 his present, he was also noted to have acute injury of the kidneys that BUN/creatinine of 32 and 1.29, his inflammatory parameters were elevated with ferritin level of over 1200, LDH of over 1400, C-reactive protein of 176, pro calcitonin noted to be elevated up 0.21, chest x-ray noted to have bilateral airspace disease, patient was admitted to medical floor where he was noted to have oxygen saturation marginal and eventually FiO2 went up to 15 L high flow oxygen his blood culture no growth so far Objective - Vital Signs Vital signs: Vital Signs Temp 97.3 F L 06/09/20 04:00 Pulse 86 06/09/20 10:00 Resp 21 06/09/20 10:00 BP 146/67 06/09/20 10:00 Pulse Ox 93 L 06/09/20 10:00 Intake & Output 06/08/20 06/09/20 06/09/20 18:59 06:59 18:59 Intake Total 225 1480.923 300 Output Total 740 975 310 Balance -515 505.923 -10 Weight 96.8 kg Intake: IV 1075 300 Remdesivir (Eua) 100 mg 250 In Sodium Chloride 0.9% 250 ml @ 250 mls/hr IVPB HS [facility] Rx#:[id number] Sodium Chloride 0.9% 1, 825 300 000 ml @ 75 mls/hr IV . [id number] [facility] Rx#:[id number] cefTRIAXone 1 gm In 0 Sodium Chloride 0.9% 50 ml @ 100 mls/hr IVPB Q24HR [facility] Rx#:[id number] Intake, IV Titration 225 405.923 Amount Cisatracurium 200 mg In 59.983 Sodium Chloride 0.9% 180 ml @ 1 MCG/KG/MIN 4.62 mls/hr IV .Q24H [facility] Rx#: [id number] Sodium Chloride 0.9% 1, 225 75 000 ml @ 75 mls/hr IV . [id number] [facility] Rx#:[id number] propofoL 1,000 mg In 270.940 Empty Bag 1 bag @ Titrate IV .Q0M [facility] Rx#: [id number] Output: Urine 740 975 310 Other: Voiding Method Indwelling Catheter Indwelling Catheter - Exam - Constitutional General appearance: average body habitus, cooperative, disheveled, intubated started on propofol - EENT Eyes: PERRLA Ears: bilateral: normal - Neck Neck: normal ROM Carotids: bilateral: upstroke normal Thyroid: bilateral: normal size - Respiratory Respiratory: bilateral: diminished - Cardiovascular Rhythm: regular Heart sounds: normal: S1, S2 - Gastrointestinal General gastrointestinal: normal bowel sounds, soft - Neurologic Neurologic: Agitated delirium - Musculoskeletal Musculoskeletal:strength equal bilaterally - Psychiatric Psychiatric: Agitated delirium - Labs CBC & Chem 7: 06/09/20 03:47 06/09/20 03:47 Labs: Abnormal Lab Results - Last 24 Hours (Table) 06/08/20 06/08/20 06/08/20 Range/Units 11:59 14:14 15:40 WBC (3.8-10.6) k/uL D-Dimer (<0.60) mg/L FEU ABG pH 7.34 L (7.35-7.45) ABG pCO2 47 H (35-45) mmHg ABG pO2 59 L* 46 L* (83-108) mmHg ABG HCO3 (21-25) mmol/L ABG Total CO2 26 H 27 H (19-24) mmol/L ABG O2 Saturation 90.6 L 77.6 L (94-97) % Sodium (137-145) mmol/L Chloride (98-107) mmol/L Carbon Dioxide (22-30) mmol/L BUN (9-20) mg/dL Glucose (74-99) mg/dL POC Glucose (mg/dL) 101 H (75-99) mg/dL Calcium (8.4-10.2) mg/dL Ferritin (22.0-322.0) ng/mL Lactate Dehydrogenase (313-618) U/L CK-MB (CK-2) (0.0-2.4) ng/mL C-Reactive Protein (<10.0) mg/L Total Protein (6.3-8.2) g/dL Albumin (3.5-5.0) g/dL 06/08/20 06/09/20 06/09/20 Range/Units 23:57 03:47 03:47 WBC 15.9 H (3.8-10.6) k/uL D-Dimer (<0.60) mg/L FEU ABG pH (7.35-7.45) ABG pCO2 (35-45) mmHg ABG pO2 (83-108) mmHg ABG HCO3 (21-25) mmol/L ABG Total CO2 (19-24) mmol/L ABG O2 Saturation (94-97) % Sodium 148 H (137-145) mmol/L Chloride 115 H (98-107) mmol/L Carbon Dioxide 33 H (22-30) mmol/L BUN 25 H (9-20) mg/dL Glucose 166 H (74-99) mg/dL POC Glucose (mg/dL) 153 H (75-99) mg/dL Calcium 8.0 L (8.4-10.2) mg/dL Ferritin 1025.3 H (22.0-322.0) ng/mL Lactate Dehydrogenase 1653 H (313-618) U/L CK-MB (CK-2) (0.0-2.4) ng/mL C-Reactive Protein 222.5 H (<10.0) mg/L Total Protein 5.4 L (6.3-8.2) g/dL Albumin 2.4 L (3.5-5.0) g/dL 06/09/20 06/09/20 06/09/20 Range/Units 03:47 03:47 05:30 WBC (3.8-10.6) k/uL D-Dimer 34.11 H (<0.60) mg/L FEU ABG pH 7.25 L (7.35-7.45) ABG pCO2 75 H* (35-45) mmHg ABG pO2 81 L (83-108) mmHg ABG HCO3 33 H (21-25) mmol/L ABG Total CO2 35 H (19-24) mmol/L ABG O2 Saturation (94-97) % Sodium (137-145) mmol/L Chloride (98-107) mmol/L Carbon Dioxide (22-30) mmol/L BUN (9-20) mg/dL Glucose (74-99) mg/dL POC Glucose (mg/dL) (75-99) mg/dL Calcium (8.4-10.2) mg/dL Ferritin (22.0-322.0) ng/mL Lactate Dehydrogenase (313-618) U/L CK-MB (CK-2) 2.6 H (0.0-2.4) ng/mL C-Reactive Protein (<10.0) mg/L Total Protein (6.3-8.2) g/dL Albumin (3.5-5.0) g/dL 06/09/20 Range/Units 06:00 WBC (3.8-10.6) k/uL D-Dimer (<0.60) mg/L FEU ABG pH (7.35-7.45) ABG pCO2 (35-45) mmHg ABG pO2 (83-108) mmHg ABG HCO3 (21-25) mmol/L ABG Total CO2 (19-24) mmol/L ABG O2 Saturation (94-97) % Sodium (137-145) mmol/L Chloride (98-107) mmol/L Carbon Dioxide (22-30) mmol/L BUN (9-20) mg/dL Glucose (74-99) mg/dL POC Glucose (mg/dL) 131 H (75-99) mg/dL Calcium (8.4-10.2) mg/dL Ferritin (22.0-322.0) ng/mL Lactate Dehydrogenase (313-618) U/L CK-MB (CK-2) (0.0-2.4) ng/mL C-Reactive Protein (<10.0) mg/L Total Protein (6.3-8.2) g/dL Albumin (3.5-5.0) g/dL Microbiology - Last 24 Hours (Table) 06/04/20 15:45 Blood Culture - Preliminary Blood No Growth after 96 hours Assessment and Plan Assessment: Agitated delirium alternating with somnolence status post medical paralysis and sedation with propofol and Nimbex drip Acute hypoxic respiratory failure on ventilator with full vent support Respiratory acidosis, ventilator being adjusted Covid 19 pneumonia Acute kidney injury, renal functions improved Dehydration and volume depleted state Plan: Ventilator adjustment Medical paralysis and Sedation with Nimbex and propofol prone position as much as possible preferably 16 hours every day Continue keep saturation over 85-90% Deep breathing exercise incentive spirometry Prone positioning Decadron 6 mg for 10 days IV antibiotics Sputum culture IV Remdesivir for 5 days Time with Patient: Greater than 30
--- NOTE | 2020-06-09 11:35 | XR ---
EXAMINATION TYPE: XR chest 1V portable DATE OF EXAM: 06/09/2020 COMPARISON: 06/08/2020 HISTORY: SOB, Follow Up FINDINGS: Indwelling tubes and catheters are unchanged. Perihilar and basilar left greater than right airspace infiltrates persist with slight progression graham ggested at the left lower lobe. Stable appearance of the cardio-mediastinal structures at this time. Pleural effusion unchanged. IMPRESSION: 1. Perihilar and basilar left greater than right airspace infiltrates persist with slight progressio n suggested at the left lower lobe.Clinical correlation and follow up until resolution is recommended .
[2020-06-09 14:03] LABS: Glucose,Whole Blood 120 mg/dL (75-99)
[2020-06-09 14:43] LABS: ABG PO2 59 mmHg (83-108)
[2020-06-09] MEDS: CISATRACURIUM 200 MG in SODIUM CHLORIDE 0.9% 180 ML IV SCH (18:38)
[2020-06-09 18:49] LABS: Glucose,Whole Blood 128 mg/dL (75-99)
[2020-06-09] MEDS: REMDESIVIR 100 MG in SODIUM CHLORIDE 0.9% 250 ML IVPB SCH (20:07)
[2020-06-09 23:46] LABS: Glucose,Whole Blood 120 mg/dL (75-99)
[2020-06-10] MEDS: ARTIFICIAL TEARS-HYPROMELLOSE DROPS 15 ML BTL BOTH EYES SCH ×7 (00:30→23:27)
[2020-06-10 04:49] LABS: HCT 44.7 % (39.0-53.0); HGB 14.4 gm/dL (13.0-17.5); Hypochromasia Slight; MCHC 32.1 g/dL (31.0-37.0); MCV 96.5 fL (80.0-100.0); Mean Platelet Volume 9.4; Platelet Count 144 k/uL (150-450); RBC 4.64 m/uL (4.30-5.90); RDW 12.6 % (11.5-15.5); WBC 10.9 k/uL (3.8-10.6)
[2020-06-10 05:05] LABS: ALT 34 U/L (4-49); AST 88 U/L (17-59); African American GFR (CKD) >90 (>60 ml/min/1.73 sqM); Albumin 2.1 g/dL (3.5-5.0); Alkaline Phosphatase 65 U/L (38-126); Anion Gap 0 mmol/L; Blood Urea Nitrogen 27 mg/dL (9-20); Calcium 8.2 mg/dL (8.4-10.2); Carbon Dioxide 34 mmol/L (22-30); Chloride 114 mmol/L (98-107); Glucose 128 mg/dL (74-99); Non-African American GFR(CKD) >90 (>60 ml/min/1.73 sqM); Potassium 4.4 mmol/L (3.5-5.1); Sodium 148 mmol/L (137-145); Total Bilirubin 0.7 mg/dL (0.2-1.3); Total Protein 4.9 g/dL (6.3-8.2)
[2020-06-10 05:30] LABS: ABG Base Excess 8.9 mmol/L; ABG HCO3 34 mmol/L (21-25); ABG Oxygen Saturation 95.5 % (94-97); ABG PCO2 58 mmHg (35-45); ABG PH 7.38 (7.35-7.45); ABG PO2 73 mmHg (83-108); ABG TCO2 36 mmol/L (19-24); Allen Test Performed? Yes
[2020-06-10] MEDS: INSULIN ASPART (NovoLOG) 100 UNIT/ML VIAL SQ SCH ×3 (05:45→19:39)
[2020-06-10] MEDS: SODIUM CHLORIDE 0.9% 1,000 ML IV SCH ×2 (05:46→21:40)
[2020-06-10 06:49] LABS: C Reactive Protein 309.6 mg/L (<10.0)
[2020-06-10 07:18] LABS: Magnesium 2.9 mg/dL (1.6-2.3); Phosphorus 2.1 mg/dL (2.5-4.5)
[2020-06-10] MEDS ORDERED: Phosphorus Replacement Protoco 1 EACH MISC MISCELLANE PRN (07:21)
[2020-06-10] MEDS ORDERED: POTASSIUM PHOSPHATE 10 MMOL in SODIUM CHLORIDE 0.9% 250 ML IV ONE (07:30)
[2020-06-10] MEDS: CISATRACURIUM 200 MG in SODIUM CHLORIDE 0.9% 180 ML IV SCH ×2 (08:02→21:39)
--- NOTE | 2020-06-10 08:35 | P.PN ---
Subjective Progress Note Date: 06/10/20 (Critical care time 35 minutes) Principal diagnosis: Acute hypoxic respiratory failure status post intubation Covid 19 pneumonia Acute kidney injury Dehydration and volume depleted state Confusion and agitated delirium Possible alcohol withdrawal 06/10/2020, patient seen eval examined during the rounds care plan discussed with the staff at length labs and medications reviewed, hemodynamic status stable oxygen saturation remains marginal 90% 100% oxygen, patient is prone for 16 hours will be back supine around 11x-ray will be performed, sedated and medically paralyze with propofol and Nimbex drip, every feed is being given when he is supine, chest x-ray showed bilateral dense infiltrate arterial blood gases reviewed consistent with compensated hypercapnia and respiratory acidosis significant of diffusion impairment, patient is status post convalescent plasma 06/09/2020, patient seen eval examined during the rounds labs reviewed medications reviewed care plan discussed, patient is chest x-ray is not done as patient has been prone plan is to keep him prone for 16 hours, once on his back will do the chest x-ray, patient ended up being intubated for respiratory distress worsening agitation and anxiety currently patient is on propofol and medically paralyze with Nimbex drip, FiO2 is 100% PEEP of 8 tidal volume 400 which has been adjusted for hypercapnia and hypoventilation, respiratory rate is 20, the white cell count is 16,000, d-dimer is 34, ABG suggestive of respiratory acidosis, , inflammatory parameters remains elevated sister of ongoing cytokine camila, patient remains on Remdesivir, Decadron, will get convalescent plasma as well Ammann continue prone positioning 06/08/2020, patient seen and evaluated reexamined on selective care remains agitated anxious respiratory rate into 60s saturation dropped down to 80-85%, patient tachypneic tachycardic difficult to control with a staph agitated behavior, arterial blood gas done pO2 dropped down to 46 only patient is showing respiratory and metabolic acidosis, will transfer to the ICU intubated and start patient on propofol may need to medically paralyze him with cisatracurium, postintubation was prone the patient for 16 hour as tolerated, post intubation chest x-ray reviewed ET tube just right at the mariajose will pull out 2 cm 06/08/2020, patient seen eval reexamined during the rounds remains tachypneic tachycardic but however saturation is 9888-90% on 100% oxygen and BiPAP currently on 03/03, patient today could not be placed in prone positioning, arterial blood gas reviewed pH is 7.43 pCO2 39 pO2 59, pO2 slightly up now compared to 2 days ago compared, we'll decrease the Decadron to 6 mg daily new other management June 07 2020, patient seen eval examined during the rounds labs reviewed medications reviewed care plan discussed, cough congestion is improved, patient is hemodynamically stable, continued to be tachypneic currently supine on BiPAP oxygen saturation is 88% on 100% oxygen, discussed with nursing staff to semi- prone him again patient dated 7-8 hours last night, white cell count is down, patient remains on Decadron along with IV REM doesn't wear, morphine and Ativan is on hold due to somnolence, patient did well with Haldol all last night, 06/06/2020, patient seen and evaluated examined during the rounds labs reviewed medications reviewed care plan discussed with the staff at length involving both medical floor and selective care critical care, patient continued to be intermittently agitated, does not keep the oxygen or BiPAP on his face, remains a problem with possible delirium or withdrawal, Ativan half a milligram tried, which seems to be helping but however agitated his agitation has been continuous, I have tried hold all this seems to be helping able to put patient some prone with that oxygen saturation improved to 95% with BiPAP off 100% o xygen, will continue Decadron, REM does ever, and IV antibiotics and sputum for culture as well repeat chest x-ray and arterial blood gases reviewed as well no significant change in next day has been noted, ABG suggestive of significant hypoxia, noted that he renal functions have improved This is a 65-year-old male who has a history of extensive smoking and nicotine use, patient presented into the emergency department with progressive increasing shortness of breath and nonproductive cough, he was hypoxic with low oxygen saturation, no sputum production, his code at 19 test came back positive, in the ER he was noted to have a low blood pressure of 104/65, patient was hypoxic with room air oxygen saturation of only 83%, low-grade temperature of 99.3 his present, he was also noted to have acute injury of the kidneys that BUN/creatinine of 32 and 1.29, his inflammatory parameters were elevated with ferritin level of over 1200, LDH of over 1400, C-reactive protein of 176, pro calcitonin noted to be elevated up 0.21, chest x-ray noted to have bilateral airspace disease, patient was admitted to medical floor where he was noted to have oxygen saturation marginal and eventually FiO2 went up to 15 L high flow oxygen his blood culture no growth so far Objective - Vital Signs Vital signs: Vital Signs Temp 97.6 F 06/10/20 04:00 Pulse 79 06/10/20 07:00 Resp 24 06/10/20 07:00 BP 163/80 06/10/20 07:00 Pulse Ox 93 L 06/10/20 07:00 Intake & Output 06/09/20 06/10/20 06/10/20 18:59 06:59 18:59 Intake Total 3870.738 0258.79 198.816 Output Total 1070 630 60 Balance 225.017 756.79 138.816 Weight 96.8 kg Intake: IV 875 900 75 Sodium Chloride 0.9% 1, 825 900 75 000 ml @ 75 mls/hr IV . [id number] [facility] Rx#:[id number] cefTRIAXone 1 gm In 50 Sodium Chloride 0.9% 50 ml @ 100 mls/hr IVPB Q24HR [facility] Rx#:[id number] Intake, IV Titration 340.017 197.79 123.816 Amount Cisatracurium 200 mg In 140.017 123.816 Sodium Chloride 0.9% 180 ml @ 1 MCG/KG/MIN 4.62 mls/hr IV .Q24H [facility] Rx#: [id number] propofoL 1,000 mg In 200 197.79 Empty Bag 1 bag @ Titrate IV .Q0M [facility] Rx#: [id number] Tube Feeding 80 60 Blood Product 199 Ffp Pher Conval Covid19 199 Acda 3 Unit [id number] Other 30 Output: Urine 1070 630 60 Other: Voiding Method Indwelling Catheter Indwelling Catheter - Exam - Constitutional General appearance: average body habitus, cooperative, disheveled, intubated on Nimbex and propofol - EENT Eyes: PERRLA Ears: bilateral: normal - Neck Neck: normal ROM Carotids: bilateral: upstroke normal Thyroid: bilateral: normal size - Respiratory Respiratory: bilateral: diminished - Cardiovascular Rhythm: regular Heart sounds: normal: S1, S2 - Gastrointestinal General gastrointestinal: normal bowel sounds, soft - Neurologic Neurologic: Agitated delirium is stable due to medical paralysis - Musculoskeletal Musculoskeletal:strength equal bilaterally - Psychiatric Psychiatric: Agitated delirium is is stable due to medical paralysis - Labs CBC & Chem 7: 06/10/20 03:53 06/10/20 03:53 Labs: Abnormal Lab Results - Last 24 Hours (Table) 06/08/20 06/09/20 06/09/20 Range/Units 03:33 03:47 14:02 WBC (3.8-10.6) k/uL Plt Count (150-450) k/uL D-Dimer (<0.60) mg/L FEU ABG pCO2 (35-45) mmHg ABG pO2 59 L* (83-108) mmHg ABG HCO3 (21-25) mmol/L ABG Total CO2 (19-24) mmol/L Sodium (137-145) mmol/L Chloride (98-107) mmol/L Carbon Dioxide (22-30) mmol/L BUN (9-20) mg/dL Glucose (74-99) mg/dL POC Glucose (mg/dL) 120 H (75-99) mg/dL Calcium (8.4-10.2) mg/dL Phosphorus (2.5-4.5) mg/dL Magnesium (1.6-2.3) mg/dL Ferritin 1025.3 H (22.0-322.0) ng/mL AST (17-59) U/L Lactate Dehydrogenase (313-618) U/L CK-MB (CK-2) (0.0-2.4) ng/mL C-Reactive Protein (<10.0) mg/L Total Protein (6.3-8.2) g/dL Albumin (3.5-5.0) g/dL 06/09/20 06/09/20 06/10/20 Range/Units 18:48 23:44 03:53 WBC 10.9 H (3.8-10.6) k/uL Plt Count 144 L (150-450) k/uL D-Dimer (<0.60) mg/L FEU ABG pCO2 (35-45) mmHg ABG pO2 (83-108) mmHg ABG HCO3 (21-25) mmol/L ABG Total CO2 (19-24) mmol/L Sodium (137-145) mmol/L Chloride (98-107) mmol/L Carbon Dioxide (22-30) mmol/L BUN (9-20) mg/dL Glucose (74-99) mg/dL POC Glucose (mg/dL) 128 H 120 H (75-99) mg/dL Calcium (8.4-10.2) mg/dL Phosphorus (2.5-4.5) mg/dL Magnesium (1.6-2.3) mg/dL Ferritin (22.0-322.0) ng/mL AST (17-59) U/L Lactate Dehydrogenase (313-618) U/L CK-MB (CK-2) (0.0-2.4) ng/mL C-Reactive Protein (<10.0) mg/L Total Protein (6.3-8.2) g/dL Albumin (3.5-5.0) g/dL 06/10/20 06/10/20 06/10/20 Range/Units 03:53 03:53 03:53 WBC (3.8-10.6) k/uL Plt Count (150-450) k/uL D-Dimer (<0.60) mg/L FEU ABG pCO2 (35-45) mmHg ABG pO2 (83-108) mmHg ABG HCO3 (21-25) mmol/L ABG Total CO2 (19-24) mmol/L Sodium 148 H (137-145) mmol/L Chloride 114 H (98-107) mmol/L Carbon Dioxide 34 H (22-30) mmol/L BUN 27 H (9-20) mg/dL Glucose 128 H (74-99) mg/dL POC Glucose (mg/dL) (75-99) mg/dL Calcium 8.2 L (8.4-10.2) mg/dL Phosphorus (2.5-4.5) mg/dL Magnesium (1.6-2.3) mg/dL Ferritin (22.0-322.0) ng/mL AST 88 H (17-59) U/L Lactate Dehydrogenase 1563 H (313-618) U/L CK-MB (CK-2) 28.3 H (0.0-2.4) ng/mL C-Reactive Protein 309.6 H (<10.0) mg/L Total Protein 4.9 L (6.3-8.2) g/dL Albumin 2.1 L (3.5-5.0) g/dL 06/10/20 06/10/20 06/10/20 Range/Units 03:53 05:22 05:30 WBC (3.8-10.6) k/uL Plt Count (150-450) k/uL D-Dimer 34.11 H (<0.60) mg/L FEU ABG pCO2 58 H (35-45) mmHg ABG pO2 73 L (83-108) mmHg ABG HCO3 34 H (21-25) mmol/L ABG Total CO2 36 H (19-24) mmol/L Sodium (137-145) mmol/L Chloride (98-107) mmol/L Carbon Dioxide (22-30) mmol/L BUN (9-20) mg/dL Glucose (74-99) mg/dL POC Glucose (mg/dL) (75-99) mg/dL Calcium (8.4-10.2) mg/dL Phosphorus 2.1 L (2.5-4.5) mg/dL Magnesium 2.9 H (1.6-2.3) mg/dL Ferritin (22.0-322.0) ng/mL AST (17-59) U/L Lactate Dehydrogenase (313-618) U/L CK-MB (CK-2) (0.0-2.4) ng/mL C-Reactive Protein (<10.0) mg/L Total Protein (6.3-8.2) g/dL Albumin (3.5-5.0) g/dL Microbiology - Last 24 Hours (Table) 06/04/20 15:45 Blood Culture - Preliminary Blood No Growth after 120 hours Assessment and Plan Assessment: Agitated delirium alternating with somnolence status post medical paralysis and sedation with propofol and Nimbex drip Acute hypoxic respiratory failure on ventilator with full vent support Respiratory acidosis, ventilator being adjusted Covid 19 pneumonia Acute kidney injury, renal functions improved Dehydration and volume depleted state Plan: Ventilator adjustment as needed Medical paralysis and Sedation with Nimbex and propofol prone position as much as possible preferably 16 hours every day Continue keep saturation over 85-90% Decadron 6 mg for 10 days IV antibiotics Sputum culture IV Remdesivir for 5 days Time with Patient: Greater than 30
[2020-06-10] MEDS: CHLORHEXIDINE GLUCONATE 15 ML CUP MUCOUS MEM SCH ×2 (09:24→21:49)
[2020-06-10] MEDS: DEXAMETHASONE SOD PHOSPHATE 10 MG/ML 1 ML VIAL IV SCH (09:24)
[2020-06-10] MEDS: PANTOPRAZOLE 40 MG/10 ML VIAL IVP SCH (09:24)
[2020-06-10] MEDS: MORPHINE SULFATE 2 MG/ML SYRINGE IVP PRN (12:13)
[2020-06-10 12:18] LABS: Glucose,Whole Blood 125 mg/dL (75-99)
[2020-06-10 13:46] LABS: Hemoglobin A1C 6.1 % (4.0-6.0)
--- NOTE | 2020-06-10 17:49 | XR ---
EXAMINATION TYPE: XR chest 1V portable DATE OF EXAM: 06/10/2020 COMPARISON: 06/09/2020. HISTORY: Follow-up intubation and shortness of breath. TECHNIQUE: Single frontal view of the chest is obtained. FINDINGS: Stable endotracheal and nasogastric tubes. There is unchanged bilateral diffuse patchy air space opacities predominantly in the mid to lower lungs. No pleural effusion, or pneumothorax seen. The cardiac silhouette size is within normal limits. The osseous structures are intact. IMPRESSION: No significant interval change.
[2020-06-10] MEDS ORDERED: propofoL 100 ML IV ONE (21:47)
[2020-06-11 00:02] LABS: Glucose,Whole Blood 146 mg/dL (75-99)
[2020-06-11] MEDS: INSULIN ASPART (NovoLOG) 100 UNIT/ML VIAL SQ SCH ×4 (00:34→18:51)
[2020-06-11] MEDS: ARTIFICIAL TEARS-HYPROMELLOSE DROPS 15 ML BTL BOTH EYES SCH ×5 (04:30→21:32)
[2020-06-11 05:24] LABS: ABG Base Excess 12.9 mmol/L; ABG HCO3 39 mmol/L (21-25); ABG Oxygen Saturation 97.6 % (94-97); ABG PH 7.33 (7.35-7.45); ABG PO2 91 mmHg (83-108); ABG TCO2 41 mmol/L (19-24); Allen Test Performed? Yes
[2020-06-11 05:27] LABS: ABG PCO2 73 mmHg (35-45)
[2020-06-11 05:32] LABS: Glucose,Whole Blood 101 mg/dL (75-99)
[2020-06-11 08:21] LABS: Basophils # (A) 0.1 k/uL (0-0.2); Basophils % (A) 1 %; Eosinophils # (A) 0.1 k/uL (0-0.7); Eosinophils % (A) 1 %; HCT 50.7 % (39.0-53.0); HGB 15.2 gm/dL (13.0-17.5); Hypochromasia Marked; Lymphocytes # (A) 0.3 k/uL (1.0-4.8); Lymphocytes % (A) 3 %; MCH 29.6 pg (25.0-35.0); MCV 98.8 fL (80.0-100.0); Mean Platelet Volume 9.9; Monocytes # (A) 0.3 k/uL (0-1.0); Monocytes % (A) 3 %; Neutrophils # (A) 10.5 k/uL (1.3-7.7); Neutrophils % (A) 93 %; Platelet Count 125 k/uL (150-450); RBC 5.13 m/uL (4.30-5.90); RDW 12.9 % (11.5-15.5); WBC 11.4 k/uL (3.8-10.6)
[2020-06-11 08:30] LABS: ALT 34 U/L (4-49); AST 52 U/L (17-59); African American GFR (CKD) >90 (>60 ml/min/1.73 sqM); Albumin 2.2 g/dL (3.5-5.0); Alkaline Phosphatase 71 U/L (38-126); Anion Gap 0 mmol/L; Blood Urea Nitrogen 29 mg/dL (9-20); Calcium 8.2 mg/dL (8.4-10.2); Carbon Dioxide 38 mmol/L (22-30); Chloride 113 mmol/L (98-107); Glucose 124 mg/dL (74-99); Non-African American GFR(CKD) >90 (>60 ml/min/1.73 sqM); Potassium 4.9 mmol/L (3.5-5.1); Sodium 151 mmol/L (137-145); Total Bilirubin 0.7 mg/dL (0.2-1.3); Total Protein 5.4 g/dL (6.3-8.2)
[2020-06-11 08:39] LABS: Fibrinogen 340 mg/dL (200-500)
[2020-06-11] MEDS: CHLORHEXIDINE GLUCONATE 15 ML CUP MUCOUS MEM SCH ×2 (08:47→21:32)
[2020-06-11] MEDS: DEXAMETHASONE SOD PHOSPHATE 10 MG/ML 1 ML VIAL IV SCH (08:47)
[2020-06-11] MEDS: PANTOPRAZOLE 40 MG/10 ML VIAL IVP SCH (08:49)
[2020-06-11 08:53] LABS: D-Dimer >34.11 mg/L FEU (<0.60)
[2020-06-11 09:03] LABS: C Reactive Protein 211.2 mg/L (<10.0)
[2020-06-11 12:20] LABS: Glucose,Whole Blood 109 mg/dL (75-99)
[2020-06-11] MEDS: CISATRACURIUM 200 MG in SODIUM CHLORIDE 0.9% 180 ML IV SCH (13:38)
[2020-06-11] MEDS: ZINC SULFATE 220 MG CAP PO SCH (15:51)
[2020-06-11] MEDS: ASCORBIC ACID 500 MG TAB PO SCH (15:51)
[2020-06-11] MEDS: DOCUSATE ORAL SOLN 100 MG/10 ML CUP PO SCH (15:51)
[2020-06-11] MEDS: SODIUM CHLORIDE 0.9% 1,000 ML IV SCH ×2 (17:44→21:32)
[2020-06-11 18:33] LABS: Glucose,Whole Blood 169 mg/dL (75-99)
--- NOTE | 2020-06-11 19:56 | XR ---
EXAMINATION TYPE: XR chest 1V portable DATE OF EXAM: 06/11/2020 COMPARISON: 06/10/2020. HISTORY: Follow-up shortness of breath. TECHNIQUE: Single frontal view of the chest is obtained. FINDINGS: The endotracheal and nasogastric tubes remain in place. There is ongoing diffuse bilateral moderate opacities predominantly in the mid to lower lungs. No significant pleural effusion or pneum othorax. The cardiac silhouette size is within normal limits. The osseous structures are intact. IMPRESSION: No significant interval change.
--- NOTE | 2020-06-11 20:41 | P.PN ---
Subjective Progress Note Date: 06/11/20 (Critical care time 35 minutes) Principal diagnosis: Acute hypoxic respiratory failure status post intubation Covid 19 pneumonia Acute kidney injury Dehydration and volume depleted state Confusion and agitated delirium Possible alcohol withdrawal 06/11/2020, patient seen and evaluated examined while supine oxygen saturation dropped down into mid 70s, however when prone patient was saturating low 90s, 100% oxygen, stable when setting, propofol infusion escalated to 40 mics, Nimbex on for mics, been setting however is stable assist control with 100% oxygen chest x-ray reviewed and essentially no change labs reviewed as, sodium is going up, we'll start free water with the tube feeding, inflammatory parameters reviewed consistent with cytokine Camila of covid 19 pneumonia 06/10/2020, patient seen eval examined during the rounds care plan discussed with the staff at length labs and medications reviewed, hemodynamic status stable oxygen saturation remains marginal 90% 100% oxygen, patient is prone for 16 hours will be back supine around 11x-ray will be performed, sedated and medically paralyze with propofol and Nimbex drip, every feed is being given when he is supine, chest x-ray showed bilateral dense infiltrate arterial blood gases reviewed consistent with compensated hypercapnia and respiratory acidosis significant of diffusion impairment, patient is status post convalescent plasma 06/09/2020, patient seen eval examined during the rounds labs reviewed medications reviewed care plan discussed, patient is chest x-ray is not done as patient has been prone plan is to keep him prone for 16 hours, once on his back will do the chest x-ray, patient ended up being intubated for respiratory distress worsening agitation and anxiety currently patient is on propofol and medically paralyze with Nimbex drip, FiO2 is 100% PEEP of 8 tidal volume 400 which has been adjusted for hypercapnia and hypoventilation, respiratory rate is 20, the white cell count is 16,000, d-dimer is 34, ABG suggestive of respiratory acidosis, , inflammatory parameters remains elevated sister of ongoing cytokine camila, patient remains on Remdesivir, Decadron, will get convalescent plasma as well Ammann continue prone positioning 06/08/2020, patient seen and evaluated reexamined on selective care remains agitated anxious respiratory rate into 60s saturation dropped down to 80-85%, patient tachypneic tachycardic difficult to control with a staph agitated behavior, arterial blood gas done pO2 dropped down to 46 only patient is showing respiratory and metabolic acidosis, will transfer to the ICU intubated and start patient on propofol may need to medically paralyze him with cisatracurium, postintubation was prone the patient for 16 hour as tolerated, post intubation chest x-ray reviewed ET tube just right at the mariajose will pull out 2 cm 06/08/2020, patient seen eval reexamined during the rounds remains tachypneic tachycardic but however saturation is 9888-90% on 100% oxygen and BiPAP currently on 03/03, patient today could not be placed in prone positioning, arterial blood gas reviewed pH is 7.43 pCO2 39 pO2 59, pO2 slightly up now compared to 2 days ago compared, we'll decrease the Decadron to 6 mg daily new other management June 07 2020, patient seen eval examined during the rounds labs reviewed medications reviewed care plan discussed, cough congestion is improved, patient is hemodynamically stable, continued to be tachypneic currently supine on BiPAP oxygen saturation is 88% on 100% oxygen, discussed with nursing staff to semi- prone him again patient dated 7-8 hours last night, white cell count is down, patient remains on Decadron along with IV REM doesn't wear, morphine and Ativan is on hold due to somnolence, patient did well with Haldol all last night, 06/06/2020, patient seen and evaluated examined during the rounds labs reviewed medications reviewed care plan discussed with the staff at length involving both medical floor and selective care critical care, patient continued to be intermittently agitated, does not keep the oxygen or BiPAP on his face, remains a problem with possible delirium or withdrawal, Ativan half a milligram tried, which seems to be helping but however agitated his agitation has been continuous, I have tried hold all this seems to be helping able to put patient some prone with that oxygen saturation improved to 95% with BiPAP off 100% oxygen, will continue Decadron, REM does ever, and IV antibiotics and sputum for culture as well repeat chest x-ray and arterial blood gases reviewed as well no significant change in next day has been noted, ABG suggestive of significant hypoxia, noted that he renal functions have improved This is a 65-year-old male who has a history of extensive smoking and nicotine use, patient presented into the emergency department with progressive increasing shortness of breath and nonproductive cough, he was hypoxic with low oxygen saturation, no sputum production, his code at 19 test came back positive, in the ER he was noted to have a low blood pressure of 104/65, patient was hypoxic with room air oxygen saturation of only 83%, low-grade temperature of 99.3 his prese nt, he was also noted to have acute injury of the kidneys that BUN/creatinine of 32 and 1.29, his inflammatory parameters were elevated with ferritin level of over 1200, LDH of over 1400, C-reactive protein of 176, pro calcitonin noted to be elevated up 0.21, chest x-ray noted to have bilateral airspace disease, patient was admitted to medical floor where he was noted to have oxygen saturation marginal and eventually FiO2 went up to 15 L high flow oxygen his blood culture no growth so far Objective - Vital Signs Vital signs: Vital Signs Temp 98.7 F 06/11/20 20:00 Pulse 110 H 06/11/20 20:00 Resp 24 06/11/20 20:00 BP 167/82 06/11/20 20:00 Pulse Ox 69 L 06/11/20 20:00 Intake & Output 06/11/20 06/11/20 06/12/20 06:59 18:59 06:59 Intake Total 6389.636 6406.11 264.486 Output Total 970 770 50 Balance 858.759 935.11 214.486 Weight 97.7 kg Intake: IV 900 975 75 Sodium Chloride 0.9% 1, 900 975 75 000 ml @ 75 mls/hr IV . [id number] [facility] Rx#:[id number] Intake, IV Titration 343.759 451.11 189.486 Amount Cisatracurium 200 mg In 146.454 200 96.558 Sodium Chloride 0.9% 180 ml @ 1 MCG/KG/MIN 4.62 mls/hr IV .Q24H [facility] Rx#: [id number] propofoL 1,000 mg In 197.305 251.11 92.928 Empty Bag 1 bag @ Titrate IV .Q0M [facility] Rx#: [id number] Tube Feeding 555 279 Other 30 0 Output: Urine 970 770 50 Other: Voiding Method Indwelling Catheter Indwelling Catheter # Voids 1 # Bowel Movements 0 - Exam - Constitutional General appearance: average body habitus, cooperative, disheveled, intubated on Nimbex and propofol - EENT Eyes: PERRLA Ears: bilateral: normal - Neck Neck: normal ROM Carotids: bilateral: upstroke normal Thyroid: bilateral: normal size - Respiratory Respiratory: bilateral: diminished - Cardiovascular Rhythm: regular Heart sounds: normal: S1, S2 - Gastrointestinal General gastrointestinal: normal bowel sounds, soft - Neurologic Neurologic: Agitated delirium is stable due to medical paralysis - Musculoskeletal Musculoskeletal:strength equal bilaterally - Psychiatric Psychiatric: Agitated delirium is is stable due to medical paralysis - Labs CBC & Chem 7: 06/11/20 07:59 06/11/20 07:59 Labs: Abnormal Lab Results - Last 24 Hours (Table) 06/11/20 06/11/20 06/11/20 Range/Units 00:00 05:16 05:30 WBC (3.8-10.6) k/uL MCHC (31.0-37.0) g/dL Plt Count (150-450) k/uL Neutrophils # (1.3-7.7) k/uL Lymphocytes # (1.0-4.8) k/uL D-Dimer (<0.60) mg/L FEU ABG pH 7.33 L (7.35-7.45) ABG pCO2 73 H* (35-45) mmHg ABG HCO3 39 H (21-25) mmol/L ABG Total CO2 41 H (19-24) mmol/L ABG O2 Saturation 97.6 H (94-97) % Sodium (137-145) mmol/L Chloride (98-107) mmol/L Carbon Dioxide (22-30) mmol/L BUN (9-20) mg/dL Creatinine (0.66-1.25) mg/dL Glucose (74-99) mg/dL POC Glucose (mg/dL) 146 H 101 H (75-99) mg/dL Calcium (8.4-10.2) mg/dL C-Reactive Protein (<10.0) mg/L Total Protein (6.3-8.2) g/dL Albumin (3.5-5.0) g/dL Procalcitonin (0.02-0.09) ng/mL 06/11/20 06/11/20 06/11/20 Range/Units 07:59 07:59 07:59 WBC 11.4 H (3.8-10.6) k/uL MCHC 30.0 L (31.0-37.0) g/dL Plt Count 125 L (150-450) k/uL Neutrophils # 10.5 H (1.3-7.7) k/uL Lymphocytes # 0.3 L (1.0-4.8) k/uL D-Dimer >34.11 H (<0.60) mg/L FEU ABG pH (7.35-7.45) ABG pCO2 (35-45) mmHg ABG HCO3 (21-25) mmol/L ABG Total CO2 (19-24) mmol/L ABG O2 Saturation (94-97) % Sodium 151 H (137-145) mmol/L Chloride 113 H (98-107) mmol/L Carbon Dioxide 38 H (22-30) mmol/L BUN 29 H (9-20) mg/dL Creatinine 0.56 L (0.66-1.25) mg/dL Glucose 124 H (74-99) mg/dL POC Glucose (mg/dL) (75-99) mg/dL Calcium 8.2 L (8.4-10.2) mg/dL C-Reactive Protein 211.2 H (<10.0) mg/L Total Protein 5.4 L (6.3-8.2) g/dL Albumin 2.2 L (3.5-5.0) g/dL Procalcitonin (0.02-0.09) ng/mL 06/11/20 06/11/20 06/11/20 Range/Units 07:59 12:19 18:32 WBC (3.8-10.6) k/uL MCHC (31.0-37.0) g/dL Plt Count (150-450) k/uL Neutrophils # (1.3-7.7) k/uL Lymphocytes # (1.0-4.8) k/uL D-Dimer (<0.60) mg/L FEU ABG pH (7.35-7.45) ABG pCO2 (35-45) mmHg ABG HCO3 (21-25) mmol/L ABG Total CO2 (19-24) mmol/L ABG O2 Saturation (94-97) % Sodium (137-145) mmol/L Chloride (98-107) mmol/L Carbon Dioxide (22-30) mmol/L BUN (9-20) mg/dL Creatinine (0.66-1.25) mg/dL Glucose (74-99) mg/dL POC Glucose (mg/dL) 109 H 169 H (75-99) mg/dL Calcium (8.4-10.2) mg/dL C-Reactive Protein (<10.0) mg/L Total Protein (6.3-8.2) g/dL Albumin (3.5-5.0) g/dL Procalcitonin 0.23 H (0.02-0.09) ng/mL Microbiology - Last 24 Hours (Table) 06/10/20 00:16 Gram Stain - Preliminary Sputum Sputum Culture - Preliminary Jojo albicans 06/04/20 15:45 Blood Culture - Final Blood No Growth after 144 hours Assessment and Plan Assessment: Acute hypoxic respiratory failure on ventilator with full vent support Respiratory acidosis, ventilator being adjusted Covid 19 pneumonia Hypernatremia Agitated delirium alternating with somnolence status post medical paralysis and sedation with propofol and Nimbex drip Acute kidney injury, renal functions improved Dehydration and volume depleted state Plan: Free water Ventilator adjustment as needed Medical paralysis and Sedation with Nimbex and propofol prone position as much as possible preferably 16 hours every day Continue keep saturation over 85-90% Decadron 6 mg for 10 days IV antibiotics Sputum culture IV Remdesivir for 5 days Prognosis guarded with likelihood of recovery poor Time with Patient: Greater than 30
[2020-06-11] MEDS: ENOXAPARIN 40 MG/0.4 ML SYRINGE SQ SCH (21:32)
[2020-06-11] MEDS ORDERED: DEXTROSE 5% IN WATER 1,000 ML IV ONE (23:20)
--- NOTE | 2020-06-11 23:23 | P.PN ---
Subjective Progress Note Date: 06/10/20 Principal diagnosis: Acute COVID-19 viral infection. Acute hypoxic respiratory failure Patient is a 65-year-old male with a known history of GERD was admitted to the hospital due to COVID-19 viral infection. Patient was transported MICU due to acute hypoxic respiratory failure 06/10/2020 Patient is currently remained on mechanical ventilator. Continued on prone ventilation. O2 saturations 94% on 90% FiO2. Chest x-ray today showed no significant interval change. Patient is being continued on dexamethasone and ascorbic acid and gentle IV hydration. Patient was started on tube feedings. Tolerating well. Current medications reviewed. Objective - Vital Signs Vital signs: Vital Signs Temp 98.8 F 06/10/20 20:00 Pulse 98 06/10/20 21:00 Resp 24 06/10/20 21:00 BP 111/53 06/10/20 21:00 Pulse Ox 91 L 06/10/20 21:00 Intake & Output 06/10/20 06/10/20 06/11/20 06:59 18:59 06:59 Intake Total 1386.79 1910.628 774.759 Output Total 630 575 150 Balance 756.79 1335.628 624.759 Intake: IV 900 950 225 Sodium Chloride 0.9% 1, 900 900 225 000 ml @ 75 mls/hr IV . [id number] [facility] Rx#:[id number] cefTRIAXone 1 gm In 50 Sodium Chloride 0.9% 50 ml @ 100 mls/hr IVPB Q24HR [facility] Rx#:[id number] Intake, IV Titration 197.79 420.628 243.759 Amount Cisatracurium 200 mg In 151.998 146.454 Sodium Chloride 0.9% 180 ml @ 1 MCG/KG/MIN 4.62 mls/hr IV .Q24H [facility] Rx#: [id number] propofoL 1,000 mg In 197.79 268.630 97.305 Empty Bag 1 bag @ Titrate IV .Q0M [facility] Rx#: [id number] Tube Feeding 60 540 276 Blood Product 199 Ffp Pher Conval Covid19 199 Acda 3 Unit [id number] Other 30 30 Output: Urine 630 575 150 Other: Voiding Method Indwelling Catheter Indwelling Catheter Indwelling Catheter - Exam PHYSICAL EXAMINATION: Patient is Currently on mechanical ventilator... HEENT: Normocephalic. Neck is supple. Pupils reactive. Nostrils clear. Oral cavity is moist. Ears reveal no drainage. Neck reveals no JVD, carotid bruits, or thyromegaly. CHEST EXAMINATION: Trachea is central. Symmetrical expansion. ET tube in place. Lung lepe clear to auscultation and percussion. CARDIAC: Normal S1, S2 with no gallops. No murmurs ABDOMEN: Soft. Bowel sounds normal. No organomegaly. No abdominal bruits. Extremities: reveal no edema. No clubbing or cyanosis Neurologically Currently on mechanical ventilator. No gross focal deficits noted Skin: No rash or skin lesions. Psychiatric: Could not be assessed at this time. Musculoskeletal: No joint swelling or deformity. - Labs CBC & Chem 7: 06/11/20 07:59 06/11/20 07:59 Labs: Abnormal Lab Results - Last 24 Hours (Table) 06/09/20 06/10/20 06/10/20 Range/Units 23:44 03:53 03:53 WBC 10.9 H (3.8-10.6) k/uL Plt Count 144 L (150-450) k/uL D-Dimer (<0.60) mg/L FEU ABG pCO2 (35-45) mmHg ABG pO2 (83-108) mmHg ABG HCO3 (21-25) mmol/L ABG Total CO2 (19-24) mmol/L Sodium 148 H (137-145) mmol/L Chloride 114 H (98-107) mmol/L Carbon Dioxide 34 H (22-30) mmol/L BUN 27 H (9-20) mg/dL Glucose 128 H (74-99) mg/dL POC Glucose (mg/dL) 120 H (75-99) mg/dL Hemoglobin A1c (4.0-6.0) % Calcium 8.2 L (8.4-10.2) mg/dL Phosphorus (2.5-4.5) mg/dL Magnesium (1.6-2.3) mg/dL Ferritin (22.0-322.0) ng/mL AST 88 H (17-59) U/L Lactate Dehydrogenase (313-618) U/L CK-MB (CK-2) (0.0-2.4) ng/mL C-Reactive Protein (<10.0) mg/L Total Protein 4.9 L (6.3-8.2) g/dL Albumin 2.1 L (3.5-5.0) g/dL 06/10/20 06/10/20 06/10/20 Range/Units 03:53 03:53 03:53 WBC (3.8-10.6) k/uL Plt Count (150-450) k/uL D-Dimer (<0.60) mg/L FEU ABG pCO2 (35-45) mmHg ABG pO2 (83-108) mmHg ABG HCO3 (21-25) mmol/L ABG Total CO2 (19-24) mmol/L Sodium (137-145) mmol/L Chloride (98-107) mmol/L Carbon Dioxide (22-30) mmol/L BUN (9-20) mg/dL Glucose (74-99) mg/dL POC Glucose (mg/dL) (75-99) mg/dL Hemoglobin A1c 6.1 H (4.0-6.0) % Calcium (8.4-10.2) mg/dL Phosphorus (2.5-4.5) mg/dL Magnesium (1.6-2.3) mg/dL Ferritin 1409.0 H (22.0-322.0) ng/mL AST (17-59) U/L Lactate Dehydrogenase 1563 H (313-618) U/L CK-MB (CK-2) 28.3 H (0.0-2.4) ng/mL C-Reactive Protein 309.6 H (<10.0) mg/L Total Protein (6.3-8.2) g/dL Albumin (3.5-5.0) g/dL 06/10/20 06/10/20 06/10/20 Range/Units 03:53 05:22 05:30 WBC (3.8-10.6) k/uL Plt Count (150-450) k/uL D-Dimer 34.11 H (<0.60) mg/L FEU ABG pCO2 58 H (35-45) mmHg ABG pO2 73 L (83-108) mmHg ABG HCO3 34 H (21-25) mmol/L ABG Total CO2 36 H (19-24) mmol/L Sodium (137-145) mmol/L Chloride (98-107) mmol/L Carbon Dioxide (22-30) mmol/L BUN (9-20) mg/dL Glucose (74-99) mg/dL POC Glucose (mg/dL) (75-99) mg/dL Hemoglobin A1c (4.0-6.0) % Calcium (8.4-10.2) mg/dL Phosphorus 2.1 L (2.5-4.5) mg/dL Magnesium 2.9 H (1.6-2.3) mg/dL Ferritin (22.0-322.0) ng/mL AST (17-59) U/L Lactate Dehydrogenase (313-618) U/L CK-MB (CK-2) (0.0-2.4) ng/mL C-Reactive Protein (<10.0) mg/L Total Protein (6.3-8.2) g/dL Albumin (3.5-5.0) g/dL 06/10/20 Range/Units 12:16 WBC (3.8-10.6) k/uL Plt Count (150-450) k/uL D-Dimer (<0.60) mg/L FEU ABG pCO2 (35-45) mmHg ABG pO2 (83-108) mmHg ABG HCO3 (21-25) mmol/L ABG Total CO2 (19-24) mmol/L Sodium (137-145) mmol/L Chloride (98-107) mmol/L Carbon Dioxide (22-30) mmol/L BUN (9-20) mg/dL Glucose (74-99) mg/dL POC Glucose (mg/dL) 125 H (75-99) mg/dL Hemoglobin A1c (4.0-6.0) % Calcium (8.4-10.2) mg/dL Phosphorus (2.5-4.5) mg/dL Magnesium (1.6-2.3) mg/dL Ferritin (22.0-322.0) ng/mL AST (17-59) U/L Lactate Dehydrogenase (313-618) U/L CK-MB (CK-2) (0.0-2.4) ng/mL C-Reactive Protein (<10.0) mg/L Total Protein (6.3-8.2) g/dL Albumin (3.5-5.0) g/dL Microbiology - Last 24 Hours (Table) 06/04/20 15:45 Blood Culture - Final Blood No Growth after 144 hours 06/10/20 00:16 Sputum Culture - Preliminary Sputum Assessment and Plan Assessment: Acute hypoxic respiratory failure currently on mechanical ventilator Acute COVID-19 pneumonia Elevated inflammatory markers Hyponatremia with sodium level 148 History of GERD DVT prophylaxis Plan: Patient will be continued on mechanical ventilator. Continue with IV hydration and dexamethasone. GI and DVT prophylaxis. Pulmonary is on board. Further recommendations based on clinical course. Prognosis guarded. Time with Patient: Greater than 30
--- NOTE | 2020-06-11 23:27 | P.PN ---
Subjective Progress Note Date: 06/11/20 Principal diagnosis: Acute COVID-19 viral infection. Acute hypoxic respiratory failure Patient is a 65-year-old male with a known history of GERD was admitted to the hospital due to COVID-19 viral infection. Patient was transported MICU due to acute hypoxic respiratory failure 06/10/2020 Patient is currently remained on mechanical ventilator. Continued on prone ventilation. O2 saturations 94% on 90% FiO2. Chest x-ray today showed no significant interval change. Patient is being continued on dexamethasone and ascorbic acid and gentle IV hydration. Patient was started on tube feedings. Tolerating tube feeding well. 06/11/2020 Patient remained neck ongoing clinically. Chest x-ray showed no significant interval change. Patient is heart was in the 502 with oxygen saturations at 80 to 75%. Pulmonary is following. Laboratory data showed WC 11.4, hemoglobin 15.1 platelets 125, lymphocytes 0.3 D-dimer is greater than 34.11 Sodium 141, potassium 4.9, chloride 113, BUN 25 and creatinine 0.56 and CRP to 11 and a pro calcitonin level is 0.23 Patient is being continued on dexamethasone, Lovenox and IV hydration changed to D5 water due to hypernatremia. Follow-up CBC and BMP tomorrow. Current medications reviewed. Objective - Vital Signs Vital signs: Vital Signs Temp 98.8 F 06/11/20 12:00 Pulse 84 06/11/20 15:00 Resp 24 06/11/20 15:00 BP 140/66 06/11/20 15:00 Pulse Ox 94 L 06/11/20 15:00 Intake & Output 06/10/20 06/11/20 06/11/20 18:59 06:59 18:59 Intake Total 8394.043 7177.759 1051.11 Output Total 575 970 440 Balance 1335.628 858.759 611.11 Intake: IV 950 900 600 Sodium Chloride 0.9% 1, 900 900 600 000 ml @ 75 mls/hr IV . [id number] [facility] Rx#:[id number] cefTRIAXone 1 gm In 50 Sodium Chloride 0.9% 50 ml @ 100 mls/hr IVPB Q24HR [facility] Rx#:[id number] Intake, IV Titration 420.628 343.759 451.11 Amount Cisatracurium 200 mg In 151.998 146.454 200 Sodium Chloride 0.9% 180 ml @ 1 MCG/KG/MIN 4.62 mls/hr IV .Q24H [facility] Rx#: [id number] propofoL 1,000 mg In 268.630 197.305 251.11 Empty Bag 1 bag @ Titrate IV .Q0M [facility] Rx#: [id number] Tube Feeding 540 555 0 Other 30 0 Output: Urine 575 970 440 Other: Voiding Method Indwelling Catheter Indwelling Catheter Indwelling Catheter # Voids 1 # Bowel Movements 0 - Exam PHYSICAL EXAMINATION: Patient is Currently on mechanical ventilator... HEENT: Normocephalic. Neck is supple. Pupils reactive. Nostrils clear. Oral cavity is moist. Ears reveal no drainage. Neck reveals no JVD, carotid bruits, or thyromegaly. CHEST EXAMINATION: Trachea is central. Symmetrical expansion. ET tube in place. Lung lepe clear to auscultation and percussion. CARDIAC: Normal S1, S2 with no gallops. No murmurs ABDOMEN: Soft. Bowel sounds normal. No organomegaly. No abdominal bruits. Extremities: reveal no edema. No clubbing or cyanosis Neurologically Currently on mechanical ventilator. No gross focal deficits noted Skin: No rash or skin lesions. Psychiatric: Could not be assessed at this time. Musculoskeletal: No joint swelling or deformity. - Labs CBC & Chem 7: 06/11/20 07:59 06/11/20 07:59 Labs: Abnormal Lab Results - Last 24 Hours (Table) 06/11/20 06/11/20 06/11/20 Range/Units 00:00 05:16 05:30 WBC (3.8-10.6) k/uL MCHC (31.0-37.0) g/dL Plt Count (150-450) k/uL Neutrophils # (1.3-7.7) k/uL Lymphocytes # (1.0-4.8) k/uL D-Dimer (<0.60) mg/L FEU ABG pH 7.33 L (7.35-7.45) ABG pCO2 73 H* (35-45) mmHg ABG HCO3 39 H (21-25) mmol/L ABG Total CO2 41 H (19-24) mmol/L ABG O2 Saturation 97.6 H (94-97) % Sodium (137-145) mmol/L Chloride (98-107) mmol/L Carbon Dioxide (22-30) mmol/L BUN (9-20) mg/dL Creatinine (0.66-1.25) mg/dL Glucose (74-99) mg/dL POC Glucose (mg/dL) 146 H 101 H (75-99) mg/dL Calcium (8.4-10.2) mg/dL C-Reactive Protein (<10.0) mg/L Total Protein (6.3-8.2) g/dL Albumin (3.5-5.0) g/dL Procalcitonin (0.02-0.09) ng/mL 06/11/20 06/11/20 06/11/20 Range/Units 07:59 07:59 07:59 WBC 11.4 H (3.8-10.6) k/uL MCHC 30.0 L (31.0-37.0) g/dL Plt Count 125 L (150-450) k/uL Neutrophils # 10.5 H (1.3-7.7) k/uL Lymphocytes # 0.3 L (1.0-4.8) k/uL D-Dimer >34.11 H (<0.60) mg/L FEU ABG pH (7.35-7.45) ABG pCO2 (35-45) mmHg ABG HCO3 (21-25) mmol/L ABG Total CO2 (19-24) mmol/L ABG O2 Saturation (94-97) % Sodium 151 H (137-145) mmol/L Chloride 113 H (98-107) mmol/L Carbon Dioxide 38 H (22-30) mmol/L BUN 29 H (9-20) mg/dL Creatinine 0.56 L (0.66-1.25) mg/dL Glucose 124 H (74-99) mg/dL POC Glucose (mg/dL) (75-99) mg/dL Calcium 8.2 L (8.4-10.2) mg/dL C-Reactive Protein 211.2 H (<10.0) mg/L Total Protein 5.4 L (6.3-8.2) g/dL Albumin 2.2 L (3.5-5.0) g/dL Procalcitonin (0.02-0.09) ng/mL 06/11/20 06/11/20 Range/Units 07:59 12:19 WBC (3.8-10.6) k/uL MCHC (31.0-37.0) g/dL Plt Count (150-450) k/uL Neutrophils # (1.3-7.7) k/uL Lymphocytes # (1.0-4.8) k/uL D-Dimer (<0.60) mg/L FEU ABG pH (7.35-7.45) ABG pCO2 (35-45) mmHg ABG HCO3 (21-25) mmol/L ABG Total CO2 (19-24) mmol/L ABG O2 Saturation (94-97) % Sodium (137-145) mmol/L Chloride (98-107) mmol/L Carbon Dioxide (22-30) mmol/L BUN (9-20) mg/dL Creatinine (0.66-1.25) mg/dL Glucose (74-99) mg/dL POC Glucose (mg/dL) 109 H (75-99) mg/dL Calcium (8.4-10.2) mg/dL C-Reactive Protein (<10.0) mg/L Total Protein (6.3-8.2) g/dL Albumin (3.5-5.0) g/dL Procalcitonin 0.23 H (0.02-0.09) ng/mL Microbiology - Last 24 Hours (Table) 06/10/20 00:16 Gram Stain - Preliminary Sputum Sputum Culture - Preliminary Jojo albicans 06/04/20 15:45 Blood Culture - Final Blood No Growth after 144 hours Assessment and Plan Assessment: Acute hypoxic respiratory failure currently on mechanical ventilator Acute COVID-19 pneumonia Elevated inflammatory markers Hypernatremia with sodium level 148--151 History of GERD DVT and DVT prophylaxis Plan: Patient will be continued on mechanical ventilator. Continue with IV hydration and dexamethasone. GI and DVT prophylaxis. Pulmonary is on board. Further recommendations based on clinical course. Prognosis guarded. Time with Patient: Greater than 30
[2020-06-11 23:48] LABS: Glucose,Whole Blood 104 mg/dL (75-99)
[2020-06-11 23:48] LABS: Ferritin 1632.6 ng/mL (22.0-322.0)
[2020-06-12] MEDS: ARTIFICIAL TEARS-HYPROMELLOSE DROPS 15 ML BTL BOTH EYES SCH ×7 (00:03→23:34)
[2020-06-12] MEDS: INSULIN ASPART (NovoLOG) 100 UNIT/ML VIAL SQ SCH ×5 (00:04→23:53)
[2020-06-12] MEDS: CISATRACURIUM 200 MG in SODIUM CHLORIDE 0.9% 180 ML IV SCH ×2 (01:55→08:58)
[2020-06-12 03:58] LABS: HCT 43.9 % (39.0-53.0); HGB 13.9 gm/dL (13.0-17.5); Hypochromasia Slight; MCH 30.7 pg (25.0-35.0); MCHC 31.6 g/dL (31.0-37.0); MCV 97.2 fL (80.0-100.0); Mean Platelet Volume 9.6; Platelet Count 107 k/uL (150-450); RBC 4.52 m/uL (4.30-5.90); RDW 12.6 % (11.5-15.5); WBC 12.3 k/uL (3.8-10.6)
[2020-06-12 04:12] LABS: Potassium 4.7 mmol/L (3.5-5.1)
[2020-06-12 04:14] LABS: ALT 74 U/L (4-49); AST 122 U/L (17-59); African American GFR (CKD) >90 (>60 ml/min/1.73 sqM); Albumin 1.9 g/dL (3.5-5.0); Alkaline Phosphatase 59 U/L (38-126); Blood Urea Nitrogen 31 mg/dL (9-20); Calcium 7.9 mg/dL (8.4-10.2); Chloride 109 mmol/L (98-107); Glucose 141 mg/dL (74-99); Non-African American GFR(CKD) >90 (>60 ml/min/1.73 sqM); Sodium 147 mmol/L (137-145); Total Bilirubin 0.6 mg/dL (0.2-1.3); Total Protein 4.8 g/dL (6.3-8.2)
[2020-06-12 04:19] LABS: Anion Gap -4 mmol/L
[2020-06-12 04:20] LABS: D-Dimer 34.11 mg/L FEU (<0.60)
[2020-06-12 04:41] LABS: Carbon Dioxide 42 mmol/L (22-30)
[2020-06-12 05:05] LABS: ABG Base Excess 17.1 mmol/L; ABG Oxygen Saturation 88.2 % (94-97); ABG PH 7.38 (7.35-7.45); ABG TCO2 44 mmol/L (19-24); Allen Test Performed? Yes
[2020-06-12 05:06] LABS: ABG PCO2 72 mmHg (35-45)
[2020-06-12 05:07] LABS: ABG HCO3 42 mmol/L (21-25); ABG PO2 54 mmHg (83-108)
[2020-06-12 06:12] LABS: Glucose,Whole Blood 131 mg/dL (75-99)
[2020-06-12] MEDS: CHLORHEXIDINE GLUCONATE 15 ML CUP MUCOUS MEM SCH ×2 (08:50→20:27)
[2020-06-12] MEDS: ENOXAPARIN 40 MG/0.4 ML SYRINGE SQ SCH ×2 (08:50→20:27)
[2020-06-12] MEDS: ZINC SULFATE 220 MG CAP PO SCH (08:51)
[2020-06-12] MEDS: DOCUSATE ORAL SOLN 100 MG/10 ML CUP PO SCH (08:52)
[2020-06-12] MEDS: DEXAMETHASONE SOD PHOSPHATE 10 MG/ML 1 ML VIAL IV SCH (08:52)
[2020-06-12] MEDS: PANTOPRAZOLE 40 MG/10 ML VIAL IVP SCH (08:53)
[2020-06-12] MEDS: ASCORBIC ACID 500 MG TAB PO SCH (08:54)
[2020-06-12 10:11] LABS: Ferritin 1632.7 ng/mL (22.0-322.0)
--- NOTE | 2020-06-12 10:50 | P.PN ---
Subjective Progress Note Date: 06/12/20 Principal diagnosis: Acute hypoxic respiratory failure status post intubation Covid 19 pneumonia Acute kidney injury Dehydration and volume depleted state Confusion and agitated delirium Possible alcohol withdrawal 06/12/2020, patient seen eval examined during the rounds labs reviewed medications reviewed care plan discussed, patient is supine saturation is 92% he is on 100% oxygen with full respirator support, ABG from this morning reviewed, patient has significant diffusion impairment with high CO2 however pH is stable, hemodynamic status stable remains on propofol as well as Nimbex drip, labs reviewed medications reviewed chest x-ray reviewed as well essentially no significant change bilateral dense infiltrate the bases remains unchanged patient does relatively better with improve oxygenation in prone positioning however does very poorly and supine posture, we will attempt to keep prone as much as possible, cultures no growth so far, labs included chemistry and CBC reviewed in phlegm atrial parameters remains up suggestive of ongoing cytokine Camila 06/11/2020, patient seen and evaluated examined while supine oxygen saturation dropped down into mid 70s, however when prone patient was saturating low 90s, 100% oxygen, stable when setting, propofol infusion escalated to 40 mics, Nimbex on for mics, been setting however is stable assist control with 100% oxygen chest x-ray reviewed and essentially no change labs reviewed as, sodium is going up, we'll start free water with the tube feeding, inflammatory parameters reviewed consistent with cytokine Camila of covid 19 pneumonia 06/10/2020, patient seen eval examined during the rounds care plan discussed with the staff at length labs and medications reviewed, hemodynamic status stable oxygen saturation remains marginal 90% 100% oxygen, patient is prone for 16 hours will be back supine around 11x-ray will be performed, sedated and medically paralyze with propofol and Nimbex drip, every feed is being given when he is supine, chest x-ray showed bilateral dense infiltrate arterial blood gases reviewed consistent with compensated hypercapnia and respiratory acidosis significant of diffusion impairment, patient is status post convalescent plasma 06/09/2020, patient seen eval examined during the rounds labs reviewed medications reviewed care plan discussed, patient is chest x-ray is not done as patient has been prone plan is to keep him prone for 16 hours, once on his back will do the chest x-ray, patient ended up being intubated for respiratory distress worsening agitation and anxiety currently patient is on propofol and medically paralyze with Nimbex drip, FiO2 is 100% PEEP of 8 tidal volume 400 which has been adjusted for hypercapnia and hypoventilation, respiratory rate is 20, the white cell count is 16,000, d-dimer is 34, ABG suggestive of respiratory acidosis, , inflammatory parameters remains elevated sister of ongoing cytokine camila, patient remains on Remdesivir, Decadron, will get convalescent plasma as well Ammann continue prone positioning 06/08/2020, patient seen and evaluated reexamined on selective care remains agitated anxious respiratory rate into 60s saturation dropped down to 80-85%, patient tachypneic tachycardic difficult to control with a staph agitated behavior, arterial blood gas done pO2 dropped down to 46 only patient is showing respiratory and metabolic acidosis, will transfer to the ICU intubated and start patient on propofol may need to medically paralyze him with cisatracurium, postintubation was prone the patient for 16 hour as tolerated, post intubation chest x-ray reviewed ET tube just right at the mariajose will pull out 2 cm 06/08/2020, patient seen eval reexamined during the rounds remains tachypneic tachycardic but however saturation is 9888-90% on 100% oxygen and BiPAP currently on 03/03, patient today could not be placed in prone positioning, arterial blood gas reviewed pH is 7.43 pCO2 39 pO2 59, pO2 slightly up now compared to 2 days ago compared, we'll decrease the Decadron to 6 mg daily new other management June 07 2020, patient seen eval examined during the rounds labs reviewed medications reviewed care plan discussed, cough congestion is improved, patient is hemodynamically stable, continued to be tachypneic currently supine on BiPAP oxygen saturation is 88% on 100% oxygen, discussed with nursing staff to semi- prone him again patient dated 7-8 hours last night, white cell count is down, patient remains on Decadron along with IV REM doesn't wear, morphine and Ativan is on hold due to somnolence, patient did well with Haldol all last night, 06/06/2020, patient seen and evaluated examined during the rounds labs reviewed medications reviewed care plan discussed with the staff at length involving both medical floor and selective care critical care, patient continued to be intermittently agitated, does not keep the oxygen or BiPAP on his face, remains a problem with possible delirium or withdrawal, Ativan half a milligram tried, which seems to be helping but however agitated his agitation has been c ontinuous, I have tried hold all this seems to be helping able to put patient some prone with that oxygen saturation improved to 95% with BiPAP off 100% oxygen, will continue Decadron, REM does ever, and IV antibiotics and sputum for culture as well repeat chest x-ray and arterial blood gases reviewed as well no significant change in next day has been noted, ABG suggestive of significant hypoxia, noted that he renal functions have improved This is a 65-year-old male who has a history of extensive smoking and nicotine use, patient presented into the emergency department with progressive increasing shortness of breath and nonproductive cough, he was hypoxic with low oxygen saturation, no sputum production, his code at 19 test came back positive, in the ER he was noted to have a low blood pressure of 104/65, patient was hypoxic with room air oxygen saturation of only 83%, low-grade temperature of 99.3 his present, he was also noted to have acute injury of the kidneys that BUN/creatinine of 32 and 1.29, his inflammatory parameters were elevated with ferritin level of over 1200, LDH of over 1400, C-reactive protein of 176, pro calcitonin noted to be elevated up 0.21, chest x-ray noted to have bilateral airspace disease, patient was admitted to medical floor where he was noted to have oxygen saturation marginal and eventually FiO2 went up to 15 L high flow oxygen his blood culture no growth so far Objective - Vital Signs Vital signs: Vital Signs Temp 99.1 F 06/12/20 08:00 Pulse 76 06/12/20 08:00 Resp 24 06/12/20 08:00 BP 165/73 06/12/20 08:00 Pulse Ox 92 L 06/12/20 08:00 Intake & Output 06/11/20 06/12/20 06/12/20 18:59 06:59 18:59 Intake Total 1705.11 1219.810 374.756 Output Total 770 520 90 Balance 935.11 699.810 284.756 Weight 97.7 kg 78.4 kg Intake: IV 975 825 150 Dextrose 5% in Water 1, 450 150 000 ml @ 75 mls/hr IV . [id number] [facility] Rx#:[id number] Sodium Chloride 0.9% 1, 975 375 000 ml @ 75 mls/hr IV . [id number] [facility] Rx#:[id number] Intake, IV Titration 451.11 394.810 224.756 Amount Cisatracurium 200 mg In 200 194.810 130.284 Sodium Chloride 0.9% 180 ml @ 1 MCG/KG/MIN 4.62 mls/hr IV .Q24H [facility] Rx#: [id number] propofoL 1,000 mg In 251.11 200.000 94.472 Empty Bag 1 bag @ Titrate IV .Q0M [facility] Rx#: [id number] Tube Feeding 279 Other 0 Output: Urine 770 520 90 Other: Voiding Method Indwelling Catheter Indwelling Catheter - Exam - Constitutional General appearance: average body habitus, cooperative, disheveled, intubated on Nimbex and propofol - EENT Eyes: PERRLA Ears: bilateral: normal - Neck Neck: normal ROM Carotids: bilateral: upstroke normal Thyroid: bilateral: normal size - Respiratory Respiratory: bilateral: diminished - Cardiovascular Rhythm: regular Heart sounds: normal: S1, S2 - Gastrointestinal General gastrointestinal: normal bowel sounds, soft - Neurologic Neurologic: Agitated delirium is stable due to medical paralysis - Musculoskeletal Musculoskeletal:strength equal bilaterally - Psychiatric Psychiatric: Agitated delirium is is stable due to medical paralysis - Labs CBC & Chem 7: 06/12/20 03:05 06/12/20 03:05 Labs: Abnormal Lab Results - Last 24 Hours (Table) 06/11/20 06/11/20 06/11/20 Range/Units 07:59 07:59 12:19 WBC (3.8-10.6) k/uL Plt Count (150-450) k/uL D-Dimer (<0.60) mg/L FEU ABG pCO2 (35-45) mmHg ABG pO2 (83-108) mmHg ABG HCO3 (21-25) mmol/L ABG Total CO2 (19-24) mmol/L ABG O2 Saturation (94-97) % Sodium (137-145) mmol/L Chloride (98-107) mmol/L Carbon Dioxide (22-30) mmol/L BUN (9-20) mg/dL Creatinine (0.66-1.25) mg/dL Glucose (74-99) mg/dL POC Glucose (mg/dL) 109 H (75-99) mg/dL Calcium (8.4-10.2) mg/dL Phosphorus (2.5-4.5) mg/dL Ferritin 1632.6 H (22.0-322.0) ng/mL AST (17-59) U/L ALT (4-49) U/L C-Reactive Protein (<10.0) mg/L Total Protein (6.3-8.2) g/dL Albumin (3.5-5.0) g/dL Procalcitonin 0.23 H (0.02-0.09) ng/mL 06/11/20 06/11/20 06/12/20 Range/Units 18:32 23:46 03:05 WBC (3.8-10.6) k/uL Plt Count (150-450) k/uL D-Dimer (<0.60) mg/L FEU ABG pCO2 (35-45) mmHg ABG pO2 (83-108) mmHg ABG HCO3 (21-25) mmol/L ABG Total CO2 (19-24) mmol/L ABG O2 Saturation (94-97) % Sodium 147 H (137-145) mmol/L Chloride 109 H (98-107) mmol/L Carbon Dioxide 42 H* (22-30) mmol/L BUN 31 H (9-20) mg/dL Creatinine 0.57 L (0.66-1.25) mg/dL Glucose 141 H (74-99) mg/dL POC Glucose (mg/dL) 169 H 104 H (75-99) mg/dL Calcium 7.9 L (8.4-10.2) mg/dL Phosphorus 2.0 L (2.5-4.5) mg/dL Ferritin 1632.7 H (22.0-322.0) ng/mL AST 122 H (17-59) U/L ALT 74 H (4-49) U/L C-Reactive Protein 174.0 H (<10.0) mg/L Total Protein 4.8 L (6.3-8.2) g/dL Albumin 1.9 L (3.5-5.0) g/dL Procalcitonin (0.02-0.09) ng/mL 06/12/20 06/12/20 06/12/20 Range/Units 03:05 03:05 05:00 WBC 12.3 H (3.8-10.6) k/uL Plt Count 107 L (150-450) k/uL D-Dimer 34.11 H (<0.60) mg/L FEU ABG pCO2 72 H* (35-45) mmHg ABG pO2 54 L* (83-108) mmHg ABG HCO3 42 H* (21-25) mmol/L ABG Total CO2 44 H (19-24) mmol/L ABG O2 Saturation 88.2 L (94-97) % Sodium (137-145) mmol/L Chloride (98-107) mmol/L Carbon Dioxide (22-30) mmol/L BUN (9-20) mg/dL Creatinine (0.66-1.25) mg/dL Glucose (74-99) mg/dL POC Glucose (mg/dL) (75-99) mg/dL Calcium (8.4-10.2) mg/dL Phosphorus (2.5-4.5) mg/dL Ferritin (22.0-322.0) ng/mL AST (17-59) U/L ALT (4-49) U/L C-Reactive Protein (<10.0) mg/L Total Protein (6.3-8.2) g/dL Albumin (3.5-5.0) g/dL Procalcitonin (0.02-0.09) ng/mL 06/12/20 Range/Units 06:11 WBC (3.8-10.6) k/uL Plt Count (150-450) k/uL D-Dimer (<0.60) mg/L FEU ABG pCO2 (35-45) mmHg ABG pO2 (83-108) mmHg ABG HCO3 (21-25) mmol/L ABG Total CO2 (19-24) mmol/L ABG O2 Saturation (94-97) % Sodium (137-145) mmol/L Chloride (98-107) mmol/L Carbon Dioxide (22-30) mmol/L BUN (9-20) mg/dL Creatinine (0.66-1.25) mg/dL Glucose (74-99) mg/dL POC Glucose (mg/dL) 131 H (75-99) mg/dL Calcium (8.4-10.2) mg/dL Phosphorus (2.5-4.5) mg/dL Ferritin (22.0-322.0) ng/mL AST (17-59) U/L ALT (4-49) U/L C-Reactive Protein (<10.0) mg/L Total Protein (6.3-8.2) g/dL Albumin (3.5-5.0) g/dL Procalcitonin (0.02-0.09) ng/mL Microbiology - Last 24 Hours (Table) 06/10/20 00:16 Gram Stain - Final Sputum Sputum Culture - Final Jojo albicans Assessment and Plan Assessment: Acute hypoxic respiratory failure on ventilator with full vent support, oxyg enation is relatively improved to 92% in prone positioning however desats to low 70s in supine posture lately Respiratory acidosis, ventilator being adjusted Covid 19 pneumonia Hypernatremia Agitated delirium alternating with somnolence status post medical paralysis and sedation with propofol and Nimbex drip Acute kidney injury, renal functions improved Dehydration and volume depleted state Plan: Free water IV Ventilator adjustment as needed Medical paralysis and Sedation with Nimbex and propofol prone position as much as possible preferably 16 hours to 20 hours every day Continue keep saturation over 85-90% Decadron 6 mg for 10 days IV antibiotics Sputum culture IV Remdesivir for 5 days Status post convalescent plasma Prognosis guarded with likelihood of recovery poor Time with Patient: Greater than 30
[2020-06-12 13:18] LABS: Glucose,Whole Blood 143 mg/dL (75-99)
--- NOTE | 2020-06-12 14:58 | P.PN ---
Subjective Principal diagnosis: Respiratory distress. The patient is now been transferred ICU due to worsening respiratory failure. Pneumonia-coronavirus treatment is continuing. Appreciate pulmonary/home stager input. The patient has not been improving as anticipated given the treatment that he has had. Poor respiratory improvement Objective - Vital Signs Vital signs: Vital Signs Temp 98.1 F 06/12/20 12:00 Pulse 79 06/12/20 14:00 Resp 24 06/12/20 14:00 BP 156/68 06/12/20 14:00 Pulse Ox 90 L 06/12/20 14:00 Intake & Output 06/11/20 06/12/20 06/12/20 18:59 06:59 18:59 Intake Total 1705.11 1219.810 824.756 Output Total 770 520 330 Balance 935.11 699.810 494.756 Weight 97.7 kg 78.4 kg 78.4 kg Intake: IV 975 825 600 Dextrose 5% in Water 1, 450 600 000 ml @ 75 mls/hr IV . [id number] [facility] Rx#:[id number] Sodium Chloride 0.9% 1, 975 375 000 ml @ 75 mls/hr IV . [id number] [facility] Rx#:[id number] Intake, IV Titration 451.11 394.810 224.756 Amount Cisatracurium 200 mg In 200 194.810 130.284 Sodium Chloride 0.9% 180 ml @ 1 MCG/KG/MIN 4.62 mls/hr IV .Q24H [facility] Rx#: [id number] propofoL 1,000 mg In 251.11 200.000 94.472 Empty Bag 1 bag @ Titrate IV .Q0M [facility] Rx#: [id number] Tube Feeding 279 Other 0 Output: Urine 770 520 330 Other: Voiding Method Indwelling Catheter Indwelling Catheter Indwelling Catheter - Constitutional General appearance: Present: no acute distress - EENT Eyes: Absent: abnormal pupil - Neck Neck: Absent: lymphadenopathy - Respiratory Respiratory: right: prolonged expiration, bilateral: dullness - Cardiovascular Rhythm: regular Heart sounds: normal: S1, S2 Abnormal Heart Sounds: Absent: S3 Gallop - Gastrointestinal General gastrointestinal: Present: soft. Absent: tenderness - Integumentary Integumentary: Absent: cellulitis - Psychiatric Psychiatric: Present: A&O x's 3. Absent: appropriate affect - Labs CBC & Chem 7: 06/12/20 03:05 06/12/20 03:05 Labs: Abnormal Lab Results - Last 24 Hours (Table) 06/11/20 06/11/20 06/11/20 Range/Units 07:59 18:32 23:46 WBC (3.8-10.6) k/uL Plt Count (150-450) k/uL D-Dimer (<0.60) mg/L FEU ABG pCO2 (35-45) mmHg ABG pO2 (83-108) mmHg ABG HCO3 (21-25) mmol/L ABG Total CO2 (19-24) mmol/L ABG O2 Saturation (94-97) % Sodium (137-145) mmol/L Chloride (98-107) mmol/L Carbon Dioxide (22-30) mmol/L BUN (9-20) mg/dL Creatinine (0.66-1.25) mg/dL Glucose (74-99) mg/dL POC Glucose (mg/dL) 169 H 104 H (75-99) mg/dL Calcium (8.4-10.2) mg/dL Phosphorus (2.5-4.5) mg/dL Ferritin 1632.6 H (22.0-322.0) ng/mL AST (17-59) U/L ALT (4-49) U/L C-Reactive Protein (<10.0) mg/L Total Protein (6.3-8.2) g/dL Albumin (3.5-5.0) g/dL Procalcitonin (0.02-0.09) ng/mL 06/12/20 06/12/20 06/12/20 Range/Units 03:05 03:05 03:05 WBC 12.3 H (3.8-10.6) k/uL Plt Count 107 L (150-450) k/uL D-Dimer (<0.60) mg/L FEU ABG pCO2 (35-45) mmHg ABG pO2 (83-108) mmHg ABG HCO3 (21-25) mmol/L ABG Total CO2 (19-24) mmol/L ABG O2 Saturation (94-97) % Sodium 147 H (137-145) mmol/L Chloride 109 H (98-107) mmol/L Carbon Dioxide 42 H* (22-30) mmol/L BUN 31 H (9-20) mg/dL Creatinine 0.57 L (0.66-1.25) mg/dL Glucose 141 H (74-99) mg/dL POC Glucose (mg/dL) (75-99) mg/dL Calcium 7.9 L (8.4-10.2) mg/dL Phosphorus 2.0 L (2.5-4.5) mg/dL Ferritin 1632.7 H (22.0-322.0) ng/mL AST 122 H (17-59) U/L ALT 74 H (4-49) U/L C-Reactive Protein 174.0 H (<10.0) mg/L Total Protein 4.8 L (6.3-8.2) g/dL Albumin 1.9 L (3.5-5.0) g/dL Procalcitonin 0.23 H (0.02-0.09) ng/mL 06/12/20 06/12/20 06/12/20 Range/Units 03:05 05:00 06:11 WBC (3.8-10.6) k/uL Plt Count (150-450) k/uL D-Dimer 34.11 H (<0.60) mg/L FEU ABG pCO2 72 H* (35-45) mmHg ABG pO2 54 L* (83-108) mmHg ABG HCO3 42 H* (21-25) mmol/L ABG Total CO2 44 H (19-24) mmol/L ABG O2 Saturation 88.2 L (94-97) % Sodium (137-145) mmol/L Chloride (98-107) mmol/L Carbon Dioxide (22-30) mmol/L BUN (9-20) mg/dL Creatinine (0.66-1.25) mg/dL Glucose (74-99) mg/dL POC Glucose (mg/dL) 131 H (75-99) mg/dL Calcium (8.4-10.2) mg/dL Phosphorus (2.5-4.5) mg/dL Ferritin (22.0-322.0) ng/mL AST (17-59) U/L ALT (4-49) U/L C-Reactive Protein (<10.0) mg/L Total Protein (6.3-8.2) g/dL Albumin (3.5-5.0) g/dL Procalcitonin (0.02-0.09) ng/mL 06/12/20 Range/Units 13:17 WBC (3.8-10.6) k/uL Plt Count (150-450) k/uL D-Dimer (<0.60) mg/L FEU ABG pCO2 (35-45) mmHg ABG pO2 (83-108) mmHg ABG HCO3 (21-25) mmol/L ABG Total CO2 (19-24) mmol/L ABG O2 Saturation (94-97) % Sodium (137-145) mmol/L Chloride (98-107) mmol/L Carbon Dioxide (22-30) mmol/L BUN (9-20) mg/dL Creatinine (0.66-1.25) mg/dL Glucose (74-99) mg/dL POC Glucose (mg/dL) 143 H (75-99) mg/dL Calcium (8.4-10.2) mg/dL Phosphorus (2.5-4.5) mg/dL Ferritin (22.0-322.0) ng/mL AST (17-59) U/L ALT (4-49) U/L C-Reactive Protein (<10.0) mg/L Total Protein (6.3-8.2) g/dL Albumin (3.5-5.0) g/dL Procalcitonin (0.02-0.09) ng/mL Microbiology - Last 24 Hours (Table) 06/10/20 00:16 Gram Stain - Final Sputum Sputum Culture - Final Jojo albicans Assessment and Plan (1) Hypoxia Current Visit: Yes Status: Acute Code(s): R09.02 - HYPOXEMIA SNOMED Code(s): 470343882 (2) Pneumonia due to COVID-19 virus Current Visit: Yes Status: Acute Code(s): U07.1 - COVID-19; J12.89 - OTHER VIRAL PNEUMONIA SNOMED Code(s): 359039821580389023 Plan: Continue supportive care. Check CBC and CMP in a.m. Prognosis is guarded.
--- NOTE | 2020-06-12 16:30 | XR ---
EXAMINATION TYPE: XR chest 1V portable DATE OF EXAM: 06/12/2020 Comparison: 06/11/2020 Clinical History: 65-year-old male Tube placement Findings: ET tube tip at the level of the medial clavicular heads. This could be advanced by 2 cm and reassesse d at follow-up. NG tube courses below the diaphragm. Diffuse bilateral airspace disease shows slight worsening in the upper lungs compared to prior exam. There is increased silhouetting of the cardiac m argins. Impression: 1. ET tube tip just above the level of the medial clavicular heads. The tube could be advanced by 2 c m and reassessed at follow-up. 2. Worsening bilateral diffuse airspace disease.
[2020-06-12 18:05] LABS: Glucose,Whole Blood 131 mg/dL (75-99)
[2020-06-12 23:41] LABS: Glucose,Whole Blood 151 mg/dL (75-99)
[2020-06-13] MEDS: CISATRACURIUM 200 MG in SODIUM CHLORIDE 0.9% 180 ML IV SCH ×2 (01:10→14:07)
[2020-06-13 04:30] LABS: HCT 43.8 % (39.0-53.0); HGB 14.2 gm/dL (13.0-17.5); Hypochromasia Moderate; MCH 31.6 pg (25.0-35.0); MCHC 32.3 g/dL (31.0-37.0); MCV 97.9 fL (80.0-100.0); Mean Platelet Volume 10.4; Platelet Count 105 k/uL (150-450); RBC 4.48 m/uL (4.30-5.90); RDW 12.5 % (11.5-15.5); WBC 15.1 k/uL (3.8-10.6)
[2020-06-13 04:43] LABS: African American GFR (CKD) >90 (>60 ml/min/1.73 sqM); Anion Gap -2 mmol/L; Calcium 7.7 mg/dL (8.4-10.2); Chloride 106 mmol/L (98-107); Glucose 117 mg/dL (74-99); Non-African American GFR(CKD) >90 (>60 ml/min/1.73 sqM); Sodium 144 mmol/L (137-145)
[2020-06-13 04:59] LABS: Blood Urea Nitrogen 34 mg/dL (9-20); Carbon Dioxide 40 mmol/L (22-30); Potassium 5.4 mmol/L (3.5-5.1)
[2020-06-13 05:12] LABS: ABG Oxygen Saturation 88.5 % (94-97); ABG PH 7.33 (7.35-7.45); ABG TCO2 48 mmol/L (19-24); Allen Test Performed? Yes
[2020-06-13 05:18] LABS: ABG PCO2 85 mmHg (35-45)
[2020-06-13 05:19] LABS: ABG HCO3 45 mmol/L (21-25); ABG PO2 56 mmHg (83-108)
[2020-06-13 06:16] LABS: Glucose,Whole Blood 100 mg/dL (75-99)
[2020-06-13] MEDS: ARTIFICIAL TEARS-HYPROMELLOSE DROPS 15 ML BTL BOTH EYES SCH ×6 (06:26→23:47)
[2020-06-13] MEDS: INSULIN ASPART (NovoLOG) 100 UNIT/ML VIAL SQ SCH ×4 (06:28→23:49)
--- NOTE | 2020-06-13 08:19 | P.PN ---
Subjective Principal diagnosis: Respiratory distress. The patient is now been transferred ICU due to worsening respiratory failure. Pneumonia-coronavirus treatment is continuing. Appreciate pulmonary/bricklayer tender input. The patient has not been improving as anticipated given the treatment that he has had. Poor respiratory improvement MInimal improvement. Objective - Vital Signs Vital signs: Vital Signs Temp 99.3 F 06/13/20 04:00 Pulse 74 06/13/20 07:00 Resp 24 06/13/20 07:00 BP 134/63 06/13/20 07:00 Pulse Ox 91 L 06/13/20 07:00 Intake & Output 06/12/20 06/13/20 06/13/20 18:59 06:59 18:59 Intake Total 1623.456 6149.781 75 Output Total 540 785 50 Balance 580.031 9481.781 25 Weight 78.4 kg Intake: IV 900 900 75 Dextrose 5% in Water 1, 900 900 75 000 ml @ 75 mls/hr IV . [id number] [facility] Rx#:[id number] Intake, IV Titration 337.692 404.781 Amount Cisatracurium 200 mg In 130.284 200 Sodium Chloride 0.9% 180 ml @ 1 MCG/KG/MIN 4.62 mls/hr IV .Q24H [facility] Rx#: [id number] propofoL 1,000 mg In 207.408 204.781 Empty Bag 1 bag @ Titrate IV .Q0M [facility] Rx#: [id number] Tube Feeding 675 0 Output: Urine 540 785 50 Other: Voiding Method Indwelling Catheter Indwelling Catheter # Voids 1 # Bowel Movements 0 - Respiratory Respiratory: bilateral: diminished - Cardiovascular Rhythm: regular Heart sounds: normal: S1, S2 Abnormal Heart Sounds: Absent: S3 Gallop - Gastrointestinal General gastrointestinal: Present: soft - Neurologic Neurologic: Present: focal deficits - Psychiatric Psychiatric: Absent: A&O x's 3 - Labs CBC & Chem 7: 06/13/20 04:20 06/13/20 04:20 Labs: Abnormal Lab Results - Last 24 Hours (Table) 06/12/20 06/12/20 06/12/20 Range/Units 03:05 03:05 13:17 WBC (3.8-10.6) k/uL Plt Count (150-450) k/uL ABG pH (7.35-7.45) ABG pCO2 (35-45) mmHg ABG pO2 (83-108) mmHg ABG HCO3 (21-25) mmol/L ABG Total CO2 (19-24) mmol/L ABG O2 Saturation (94-97) % Potassium (3.5-5.1) mmol/L Carbon Dioxide (22-30) mmol/L BUN (9-20) mg/dL Creatinine (0.66-1.25) mg/dL Glucose (74-99) mg/dL POC Glucose (mg/dL) 143 H (75-99) mg/dL Calcium (8.4-10.2) mg/dL Ferritin 1632.7 H (22.0-322.0) ng/mL Procalcitonin 0.23 H (0.02-0.09) ng/mL 06/12/20 06/12/20 06/13/20 Range/Units 18:04 23:39 04:20 WBC 15.1 H (3.8-10.6) k/uL Plt Count 105 L (150-450) k/uL ABG pH (7.35-7.45) ABG pCO2 (35-45) mmHg ABG pO2 (83-108) mmHg ABG HCO3 (21-25) mmol/L ABG Total CO2 (19-24) mmol/L ABG O2 Saturation (94-97) % Potassium (3.5-5.1) mmol/L Carbon Dioxide (22-30) mmol/L BUN (9-20) mg/dL Creatinine (0.66-1.25) mg/dL Glucose (74-99) mg/dL POC Glucose (mg/dL) 131 H 151 H (75-99) mg/dL Calcium (8.4-10.2) mg/dL Ferritin (22.0-322.0) ng/mL Procalcitonin (0.02-0.09) ng/mL 06/13/20 06/13/20 06/13/20 Range/Units 04:20 05:10 06:14 WBC (3.8-10.6) k/uL Plt Count (150-450) k/uL ABG pH 7.33 L (7.35-7.45) ABG pCO2 85 H* (35-45) mmHg ABG pO2 56 L* (83-108) mmHg ABG HCO3 45 H* (21-25) mmol/L ABG Total CO2 48 H (19-24) mmol/L ABG O2 Saturation 88.5 L (94-97) % Potassium 5.4 H (3.5-5.1) mmol/L Carbon Dioxide 40 H (22-30) mmol/L BUN 34 H (9-20) mg/dL Creatinine 0.54 L (0.66-1.25) mg/dL Glucose 117 H (74-99) mg/dL POC Glucose (mg/dL) 100 H (75-99) mg/dL Calcium 7.7 L (8.4-10.2) mg/dL Ferritin (22.0-322.0) ng/mL Procalcitonin (0.02-0.09) ng/mL Microbiology - Last 24 Hours (Table) 06/10/20 00:16 Gram Stain - Final Sputum Sputum Culture - Final Jojo albicans Assessment and Plan (1) Hypoxia Current Visit: Yes Status: Acute Code(s): R09.02 - HYPOXEMIA SNOMED Code(s): 851156786 (2) Pneumonia due to COVID-19 virus Current Visit: Yes Status: Acute Code(s): U07.1 - COVID-19; J12.89 - OTHER VIRAL PNEUMONIA SNOMED Code(s): 774492805098561659 Plan: Unfortunately with his for improvement, and overall diagnosis, poor prognosis is noted. We'll continue to follow with pulmonology. Check CBC and CMP in a.m.
[2020-06-13] MEDS: DOCUSATE ORAL SOLN 100 MG/10 ML CUP PO SCH ×2 (08:28→08:30)
[2020-06-13] MEDS: DEXAMETHASONE SOD PHOSPHATE 10 MG/ML 1 ML VIAL IV SCH (08:28)
[2020-06-13] MEDS: CHLORHEXIDINE GLUCONATE 15 ML CUP MUCOUS MEM SCH ×2 (08:28→19:52)
[2020-06-13] MEDS: ASCORBIC ACID 500 MG TAB PO SCH (08:28)
[2020-06-13] MEDS: ENOXAPARIN 40 MG/0.4 ML SYRINGE SQ SCH ×2 (08:29→19:52)
[2020-06-13] MEDS: ZINC SULFATE 220 MG CAP PO SCH (08:29)
[2020-06-13] MEDS: PANTOPRAZOLE 40 MG/10 ML VIAL IVP SCH (08:29)
[2020-06-13 09:06] LABS: ALT 86 U/L (4-49); AST 76 U/L (17-59); African American GFR (CKD) >90 (>60 ml/min/1.73 sqM); Alkaline Phosphatase 59 U/L (38-126); Blood Urea Nitrogen 33 mg/dL (9-20); Calcium 7.7 mg/dL (8.4-10.2); Chloride 102 mmol/L (98-107); Glucose 170 mg/dL (74-99); Non-African American GFR(CKD) >90 (>60 ml/min/1.73 sqM); Potassium 4.9 mmol/L (3.5-5.1); Sodium 143 mmol/L (137-145); Total Bilirubin 0.7 mg/dL (0.2-1.3); Total Protein 5.1 g/dL (6.3-8.2)
[2020-06-13 09:13] LABS: Anion Gap -2 mmol/L
[2020-06-13 09:24] LABS: Carbon Dioxide 43 mmol/L (22-30)
--- NOTE | 2020-06-13 10:17 | P.PN ---
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 and membrane diffusion impairment, patient has been hemodynamically stable though, chest x-ray and labs reviewed CO2 continued to rise, will increase her respiratory rate to 28, 06/12/2020, patient seen eval examined during the rounds labs reviewed medications reviewed care plan discussed, patient is supine saturation is 92% he is on 100% oxygen with full respirator support, ABG from this morning reviewed, patient has significant diffusion impairment with high CO2 however pH is stable, hemodynamic status stable remains on propofol as well as Nimbex drip, labs reviewed medications reviewed chest x-ray reviewed as well essentially no significant change bilateral dense infiltrate the bases remains unchanged patient does relatively better with improve oxygenation in prone positioning however does very poorly and supine posture, we will attempt to keep prone as much as possible, cultures no growth so far, labs included chemistry and CBC reviewed in phlegm atrial parameters remains up suggestive of ongoing cytokine Camila 06/11/2020, patient seen and evaluated examined while supine oxygen saturation dropped down into mid 70s, however when prone patient was saturating low 90s, 100% oxygen, stable when setting, propofol infusion escalated to 40 mics, Nimbex on for mics, been setting however is stable assist control with 100% oxygen chest x-ray reviewed and essentially no change labs reviewed as, sodium is going up, we'll start free water with the tube feeding, inflammatory parameters reviewed consistent with cytokine Camila of covid 19 pneumonia 06/10/2020, patient seen eval examined during the rounds care plan discussed with the staff at length labs and medications reviewed, hemodynamic status stable oxygen saturation remains marginal 90% 100% oxygen, patient is prone for 16 hours will be back supine around 11x-ray will be performed, sedated and medically paralyze with propofol and Nimbex drip, every feed is being given when he is supine, chest x-ray showed bilateral dense infiltrate arterial blood gases reviewed consistent with compensated hypercapnia and respiratory acidosis significant of diffusion impairment, patient is status post convalescent plasma 06/09/2020, patient seen eval examined during the rounds labs reviewed medi cations reviewed care plan discussed, patient is chest x-ray is not done as patient has been prone plan is to keep him prone for 16 hours, once on his back will do the chest x-ray, patient ended up being intubated for respiratory distress worsening agitation and anxiety currently patient is on propofol and medically paralyze with Nimbex drip, FiO2 is 100% PEEP of 8 tidal volume 400 which has been adjusted for hypercapnia and hypoventilation, respiratory rate is 20, the white cell count is 16,000, d-dimer is 34, ABG suggestive of respiratory acidosis, , inflammatory parameters remains elevated sister of ongoing cytokine camila, patient remains on Remdesivir, Decadron, will get convalescent plasma as well Ammann continue prone positioning 06/08/2020, patient seen and evaluated reexamined on selective care remains agitated anxious respiratory rate into 60s saturation dropped down to 80-85%, patient tachypneic tachycardic difficult to control with a staph agitated behavior, arterial blood gas done pO2 dropped down to 46 only patient is showing respiratory and metabolic acidosis, will transfer to the ICU intubated and start patient on propofol may need to medically paralyze him with cisatracurium, postintubation was prone the patient for 16 hour as tolerated, post intubation chest x-ray reviewed ET tube just right at the mariajose will pull out 2 cm 06/08/2020, patient seen eval reexamined during the rounds remains tachypneic tachycardic but however saturation is 9888-90% on 100% oxygen and BiPAP currently on 03/03, patient today could not be placed in prone positioning, arterial blood gas reviewed pH is 7.43 pCO2 39 pO2 59, pO2 slightly up now compared to 2 days ago compared, we'll decrease the Decadron to 6 mg daily new other management June 07 2020, patient seen eval examined during the rounds labs reviewed medications reviewed care plan discussed, cough congestion is improved, patient is hemodynamically stable, continued to be tachypneic currently supine on BiPAP oxygen saturation is 88% on 100% oxygen, discussed with nursing staff to semi- prone him again patient dated 7-8 hours last night, white cell count is down, patient remains on Decadron along with IV REM doesn't wear, morphine and Ativan is on hold due to somnolence, patient did well with Haldol all last night, 06/06/2020, patient seen and evaluated examined during the rounds labs reviewed medications reviewed care plan discussed with the staff at length involving both medical floor and selective care critical care, patient continued to be intermittently agitated, does not keep the oxygen or BiPAP on his face, remains a problem with possible delirium or withdrawal, Ativan half a milligram tried, which seems to be helping but however agitated his agitation has been continuous, I have tried hold all this seems to be helping able to put patient some prone with that oxygen saturation improved to 95% with BiPAP off 100% oxygen, will continue Decadron, REM does ever, and IV antibiotics and sputum for culture as well repeat chest x-ray and arterial blood gases reviewed as well no significant change in next day has been noted, ABG suggestive of significant hypoxia, noted that he renal functions have improved This is a 65-year-old male who has a history of extensive smoking and nicotine use, patient presented into the emergency department with progressive increasing shortness of breath and nonproductive cough, he was hypoxic with low oxygen saturation, no sputum production, his code at 19 test came back positive, in the ER he was noted to have a low blood pressure of 104/65, patient was hypoxic with room air oxygen saturation of only 83%, low-grade temperature of 99.3 his present, he was also noted to have acute injury of the kidneys that BUN/creatinine of 32 and 1.29, his inflammatory parameters were elevated with ferritin level of over 1200, LDH of over 1400, C-reactive protein of 176, pro calcitonin noted to be elevated up 0.21, chest x-ray noted to have bilateral airspace disease, patient was admitted to medical floor where he was noted to have oxygen saturation marginal and eventually FiO2 went up to 15 L high flow oxygen his blood culture no growth so far Objective - Vital Signs Vital signs: Vital Signs Temp 98.5 F 06/13/20 08:00 Pulse 71 06/13/20 10:00 Resp 24 06/13/20 10:00 BP 123/52 06/13/20 10:00 Pulse Ox 91 L 06/13/20 10:00 Intake & Output 06/12/20 06/13/20 06/13/20 18:59 06:59 18:59 Intake Total 8866.024 3855.781 350 Output Total 540 785 190 Balance 536.970 0571.781 160 Weight 78.4 kg Intake: IV 900 900 350 Dextrose 5% in Water 1, 900 900 300 000 ml @ 75 mls/hr IV . [id number] [facility] Rx#:[id number] cefTRIAXone 1 gm In 50 Sodium Chloride 0.9% 50 ml @ 100 mls/hr IVPB Q24HR [facility] Rx#:[id number] Intake, IV Titration 337.692 404.781 Amount Cisatracurium 200 mg In 130.284 200 Sodium Chloride 0.9% 180 ml @ 1 MCG/KG/MIN 4.62 mls/hr IV .Q24H [facility] Rx#: [id number] propofoL 1,000 mg In 207.408 204.781 Empty Bag 1 bag @ Titrate IV .Q0M [facility] Rx#: [id number] Tube Feeding 675 0 Output: Urine 540 785 190 Other: Voiding Method Indwelling Catheter Indwelling Catheter # Voids 1 # Bowel Movements 0 - Exam - Constitutional General appearance: average body habitus, cooperative, disheveled, intubated on Nimbex and propofol - EENT Eyes: PERRLA Ears: bilateral: normal - Neck Neck: normal ROM Carotids: bilateral: upstroke normal Thyroid: bilateral: normal size - Respiratory Respiratory: bilateral: diminished - Cardiovascular Rhythm: regular Heart sounds: normal: S1, S2 - Gastrointestinal General gastrointestinal: normal bowel sounds, soft - Neurologic Neurologic: Agitated delirium is stable due to medical paralysis - Musculoskeletal Musculoskeletal:strength equal bilaterally - Psychiatric Psychiatric: Agitated delirium is is stable due to medical paralysis - Labs CBC & Chem 7: 06/13/20 04:20 06/13/20 08:37 Labs: Abnormal Lab Results - Last 24 Hours (Table) 06/12/20 06/12/20 06/12/20 Range/Units 03:05 13:17 18:04 WBC (3.8-10.6) k/uL Plt Count (150-450) k/uL D-Dimer (<0.60) mg/L FEU ABG pH (7.35-7.45) ABG pCO2 (35-45) mmHg ABG pO2 (83-108) mmHg ABG HCO3 (21-25) mmol/L ABG Total CO2 (19-24) mmol/L ABG O2 Saturation (94-97) % Potassium (3.5-5.1) mmol/L Carbon Dioxide (22-30) mmol/L BUN (9-20) mg/dL Creatinine (0.66-1.25) mg/dL Glucose (74-99) mg/dL POC Glucose (mg/dL) 143 H 131 H (75-99) mg/dL Calcium (8.4-10.2) mg/dL AST (17-59) U/L ALT (4-49) U/L Total Protein (6.3-8.2) g/dL Albumin (3.5-5.0) g/dL Procalcitonin 0.23 H (0.02-0.09) ng/mL 06/12/20 06/13/20 06/13/20 Range/Units 23:39 04:20 04:20 WBC 15.1 H (3.8-10.6) k/uL Plt Count 105 L (150-450) k/uL D-Dimer (<0.60) mg/L FEU ABG pH (7.35-7.45) ABG pCO2 (35-45) mmHg ABG pO2 (83-108) mmHg ABG HCO3 (21-25) mmol/L ABG Total CO2 (19-24) mmol/L ABG O2 Saturation (94-97) % Potassium 5.4 H (3.5-5.1) mmol/L Carbon Dioxide 40 H (22-30) mmol/L BUN 34 H (9-20) mg/dL Creatinine 0.54 L (0.66-1.25) mg/dL Glucose 117 H (74-99) mg/dL POC Glucose (mg/dL) 151 H (75-99) mg/dL Calcium 7.7 L (8.4-10.2) mg/dL AST (17-59) U/L ALT (4-49) U/L Total Protein (6.3-8.2) g/dL Albumin (3.5-5.0) g/dL Procalcitonin (0.02-0.09) ng/mL 06/13/20 06/13/20 06/13/20 Range/Units 05:10 06:14 08:37 WBC (3.8-10.6) k/uL Plt Count (150-450) k/uL D-Dimer (<0.60) mg/L FEU ABG pH 7.33 L (7.35-7.45) ABG pCO2 85 H* (35-45) mmHg ABG pO2 56 L* (83-108) mmHg ABG HCO3 45 H* (21-25) mmol/L ABG Total CO2 48 H (19-24) mmol/L ABG O2 Saturation 88.5 L (94-97) % Potassium (3.5-5.1) mmol/L Carbon Dioxide 43 H* (22-30) mmol/L BUN 33 H (9-20) mg/dL Creatinine 0.59 L (0.66-1.25) mg/dL Glucose 170 H (74-99) mg/dL POC Glucose (mg/dL) 100 H (75-99) mg/dL Calcium 7.7 L (8.4-10.2) mg/dL AST 76 H (17-59) U/L ALT 86 H (4-49) U/L Total Protein 5.1 L (6.3-8.2) g/dL Albumin 2.0 L (3.5-5.0) g/dL Procalcitonin (0.02-0.09) ng/mL 06/13/20 Range/Units 08:37 WBC (3.8-10.6) k/uL Plt Count (150-450) k/uL D-Dimer 8.85 H (<0.60) mg/L FEU ABG pH (7.35-7.45) ABG pCO2 (35-45) mmHg ABG pO2 (83-108) mmHg ABG HCO3 (21-25) mmol/L ABG Total CO2 (19-24) mmol/L ABG O2 Saturation (94-97) % Potassium (3.5-5.1) mmol/L Carbon Dioxide (22-30) mmol/L BUN (9-20) mg/dL Creatinine (0.66-1.25) mg/dL Glucose (74-99) mg/dL POC Glucose (mg/dL) (75-99) mg/dL Calcium (8.4-10.2) mg/dL AST (17-59) U/L ALT (4-49) U/L Total Protein (6.3-8.2) g/dL Albumin (3.5-5.0) g/dL Procalcitonin (0.02-0.09) ng/mL Microbiology - Last 24 Hours (Table) 06/10/20 00:16 Gram Stain - Final Sputum Sputum Culture - Final Jojo albicans Assessment and Plan Assessment: Acute hypoxic respiratory failure on ventilator with full vent support, oxygenation is relatively improved to 92% in prone positioning however desats to low 70s in supine posture lately Respiratory acidosis, ventilator being adjusted Covid 19 pneumonia Hypernatremia Agitated delirium alternating with somnolence status post medical paralysis and sedation with propofol and Nimbex drip Acute kidney injury, renal functions improved Dehydration and volume depleted state Plan: Free water IV Ventilator adjustment as needed Medical paralysis and Sedation with Nimbex and propofol prone position as much as possible preferably 16 hours to 20 hours every day Continue keep saturation over 85-90% Decadron 6 mg for 10 days IV antibiotics Sputum culture IV Remdesivir for 5 days Status post convalescent plasma Prognosis guarded with likelihood of recovery poor Time with Patient: Greater than 30
[2020-06-13 11:29] LABS: Glucose,Whole Blood 136 mg/dL (75-99)
[2020-06-13] MEDS: SODIUM CHLORIDE 0.45% 1,000 ML IV SCH (15:38)
[2020-06-13 16:54] LABS: Glucose,Whole Blood 125 mg/dL (75-99)
--- NOTE | 2020-06-13 19:00 | XR ---
EXAMINATION TYPE: XR chest 1V portable DATE OF EXAM: 06/13/2020 COMPARISON: Yesterday HISTORY: Short of breath TECHNIQUE: FINDINGS: There is diffuse extensive pulmonary interstitial edema. Heart is grossly enlarged. There i s nasogastric tube in the stomach. There are chest leads. IMPRESSION: Severe pulmonary interstitial edema not changed compared to yesterday.
[2020-06-13 23:49] LABS: Glucose,Whole Blood 104 mg/dL (75-99)
[2020-06-14] MEDS: SODIUM CHLORIDE 0.45% 1,000 ML IV SCH ×3 (00:40→19:52)
[2020-06-14] MEDS: ARTIFICIAL TEARS-HYPROMELLOSE DROPS 15 ML BTL BOTH EYES SCH ×5 (04:00→19:51)
[2020-06-14 05:50] LABS: ABG Base Excess 18.1 mmol/L; ABG Oxygen Saturation 88.3 % (94-97); ABG PH 7.24 (7.35-7.45); ABG PO2 62 mmHg (83-108); ABG TCO2 49 mmol/L (19-24); Allen Test Performed? Yes
[2020-06-14 05:54] LABS: ABG HCO3 46 mmol/L (21-25); ABG PCO2 106 mmHg (35-45)
[2020-06-14 05:57] LABS: Glucose,Whole Blood 115 mg/dL (75-99)
[2020-06-14] MEDS: INSULIN ASPART (NovoLOG) 100 UNIT/ML VIAL SQ SCH ×3 (06:01→19:51)
[2020-06-14 06:02] LABS: HCT 45.1 % (39.0-53.0); HGB 14.3 gm/dL (13.0-17.5); Hypochromasia Moderate; MCH 31.1 pg (25.0-35.0); MCHC 31.7 g/dL (31.0-37.0); MCV 98.2 fL (80.0-100.0); Mean Platelet Volume 10.6; Platelet Count 114 k/uL (150-450); RBC 4.59 m/uL (4.30-5.90); RDW 12.5 % (11.5-15.5); WBC 20.8 k/uL (3.8-10.6)
[2020-06-14 06:15] LABS: ALT 69 U/L (4-49); AST 64 U/L (17-59); African American GFR (CKD) >90 (>60 ml/min/1.73 sqM); Albumin 2.2 g/dL (3.5-5.0); Alkaline Phosphatase 67 U/L (38-126); Blood Urea Nitrogen 32 mg/dL (9-20); Calcium 7.9 mg/dL (8.4-10.2); Chloride 100 mmol/L (98-107); Glucose 123 mg/dL (74-99); Non-African American GFR(CKD) >90 (>60 ml/min/1.73 sqM); Potassium 5.2 mmol/L (3.5-5.1); Sodium 140 mmol/L (137-145); Total Bilirubin 0.9 mg/dL (0.2-1.3); Total Protein 5.4 g/dL (6.3-8.2)
[2020-06-14 06:21] LABS: Anion Gap -1 mmol/L
[2020-06-14 06:34] LABS: Carbon Dioxide 41 mmol/L (22-30)
[2020-06-14] MEDS: ASCORBIC ACID 500 MG TAB PO SCH (08:19)
[2020-06-14] MEDS: DEXAMETHASONE SOD PHOSPHATE 10 MG/ML 1 ML VIAL IV SCH (08:20)
[2020-06-14] MEDS: ENOXAPARIN 40 MG/0.4 ML SYRINGE SQ SCH ×2 (08:20→20:52)
[2020-06-14] MEDS: DOCUSATE ORAL SOLN 100 MG/10 ML CUP PO SCH (08:20)
[2020-06-14] MEDS: CHLORHEXIDINE GLUCONATE 15 ML CUP MUCOUS MEM SCH ×2 (08:20→20:52)
[2020-06-14] MEDS: ZINC SULFATE 220 MG CAP PO SCH (08:21)
[2020-06-14] MEDS: PANTOPRAZOLE 40 MG/10 ML VIAL IVP SCH (08:21)
[2020-06-14 12:02] LABS: Glucose,Whole Blood 125 mg/dL (75-99)
--- NOTE | 2020-06-14 12:44 | P.PN ---
Subjective Principal diagnosis: Respiratory distress. The patient is now been transferred ICU due to worsening respiratory failure. Pneumonia-coronavirus treatment is continuing. 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 The patient has not been improving as anticipated given the treatment that he has had. Poor respiratory improvement MInimal improvement. ABG is noted to have poor oxygen saturation by blood gas. Objective - Vital Signs Vital signs: Vital Signs Temp 98.7 F 06/14/20 08:00 Pulse 96 06/14/20 10:00 Resp 22 06/14/20 10:00 BP 137/61 06/14/20 10:00 Pulse Ox 88 L 06/14/20 10:00 Intake & Output 06/13/20 06/14/20 06/14/20 18:59 06:59 18:59 Intake Total 0331.572 2710.525 350 Output Total 655 950 180 Balance 1029.212 665.525 170 Weight 79 kg Intake: IV 1050 1200 350 Dextrose 5% in Water 1, 600 000 ml @ 75 mls/hr IV . [id number] [facility] Rx#:[id number] Sodium Chloride 0.45% 1, 400 1200 300 000 ml @ 100 mls/hr IV . Q10H [facility] Rx#:[id number] cefTRIAXone 1 gm In 50 50 Sodium Chloride 0.9% 50 ml @ 100 mls/hr IVPB Q24HR [facility] Rx#:[id number] Intake, IV Titration 379.212 160.525 Amount Cisatracurium 200 mg In 179.487 Sodium Chloride 0.9% 180 ml @ 1 MCG/KG/MIN 4.62 mls/hr IV .Q24H [facility] Rx#: [id number] propofoL 1,000 mg In 199.725 160.525 Empty Bag 1 bag @ Titrate IV .Q0M [facility] Rx#: [id number] Tube Feeding 225 225 Other 30 30 Output: Urine 655 950 180 Uretheral ([place]) 110 Other: Voiding Method Indwelling Catheter Indwelling Catheter Indwelling Catheter # Bowel Movements 0 - Constitutional General appearance: Absent: cooperative - Neck Neck: Absent: lymphadenopathy - Respiratory Respiratory: bilateral: diminished - Cardiovascular Rhythm: regular Heart sounds: normal: S1, S2 Abnormal Heart Sounds: Absent: S3 Gallop - Gastrointestinal General gastrointestinal: Present: soft. Absent: tenderness - Neurologic Neurologic: Absent: CNII-XII intact - Psychiatric Psychiatric: Absent: A&O x's 3 - Labs CBC & Chem 7: 06/14/20 05:45 06/14/20 05:45 Labs: Abnormal Lab Results - Last 24 Hours (Table) 06/13/20 06/13/20 06/14/20 Range/Units 16:53 23:48 05:45 WBC 20.8 H (3.8-10.6) k/uL Plt Count 114 L (150-450) k/uL ABG pH (7.35-7.45) ABG pCO2 (35-45) mmHg ABG pO2 (83-108) mmHg ABG HCO3 (21-25) mmol/L ABG Total CO2 (19-24) mmol/L ABG O2 Saturation (94-97) % Potassium (3.5-5.1) mmol/L Carbon Dioxide (22-30) mmol/L BUN (9-20) mg/dL Creatinine (0.66-1.25) mg/dL Glucose (74-99) mg/dL POC Glucose (mg/dL) 125 H 104 H (75-99) mg/dL Calcium (8.4-10.2) mg/dL AST (17-59) U/L ALT (4-49) U/L Total Protein (6.3-8.2) g/dL Albumin (3.5-5.0) g/dL 06/14/20 06/14/20 06/14/20 Range/Units 05:45 05:45 05:55 WBC (3.8-10.6) k/uL Plt Count (150-450) k/uL ABG pH 7.24 L (7.35-7.45) ABG pCO2 106 H* (35-45) mmHg ABG pO2 62 L (83-108) mmHg ABG HCO3 46 H* (21-25) mmol/L ABG Total CO2 49 H (19-24) mmol/L ABG O2 Saturation 88.3 L (94-97) % Potassium 5.2 H (3.5-5.1) mmol/L Carbon Dioxide 41 H* (22-30) mmol/L BUN 32 H (9-20) mg/dL Creatinine 0.52 L (0.66-1.25) mg/dL Glucose 123 H (74-99) mg/dL POC Glucose (mg/dL) 115 H (75-99) mg/dL Calcium 7.9 L (8.4-10.2) mg/dL AST 64 H (17-59) U/L ALT 69 H (4-49) U/L Total Protein 5.4 L (6.3-8.2) g/dL Albumin 2.2 L (3.5-5.0) g/dL 11//20 Range/Units 12:00 WBC (3.8-10.6) k/uL Plt Count (150-450) k/uL ABG pH (7.35-7.45) ABG pCO2 (35-45) mmHg ABG pO2 (83-108) mmHg ABG HCO3 (21-25) mmol/L ABG Total CO2 (19-24) mmol/L ABG O2 Saturation (94-97) % Potassium (3.5-5.1) mmol/L Carbon Dioxide (22-30) mmol/L BUN (9-20) mg/dL Creatinine (0.66-1.25) mg/dL Glucose (74-99) mg/dL POC Glucose (mg/dL) 125 H (75-99) mg/dL Calcium (8.4-10.2) mg/dL AST (17-59) U/L ALT (4-49) U/L Total Protein (6.3-8.2) g/dL Albumin (3.5-5.0) g/dL Assessment and Plan (1) Hypoxia Current Visit: Yes Status: Acute Code(s): R09.02 - HYPOXEMIA SNOMED Code(s): 502322428 (2) Pneumonia due to COVID-19 virus Current Visit: Yes Status: Acute Code(s): U07.1 - COVID-19; J12.89 - OTHER VIRAL PNEUMONIA SNOMED Code(s): 072804365208764937 Plan: Unfortunately with his for improvement, and overall diagnosis, poor prognosis is noted. We'll continue to follow with pulmonology. Check CBC and CMP in a.m. The patient is on full respiratory support and given Covid DIAGNOSIS HAS BEEN GIVEN THE APPROPRIATE STANDARDIZED TREATMENT FOR THIS< BUT HAS HAD MINIMAL I MPROVEMENT> We will continue to follow and pray that he improves incrementally as the days go on. We will need to have a discussion with his family due to the prognostic indicators Time with Patient: Greater than 30
[2020-06-14 19:14] LABS: Glucose,Whole Blood 134 mg/dL (75-99)
--- NOTE | 2020-06-14 20:16 | XR ---
EXAMINATION TYPE: XR chest 1V portable DATE OF EXAM: 06/14/2020 COMPARISON: Yesterday HISTORY: Tube placement TECHNIQUE: Single view FINDINGS: Endotracheal tube is 10 cm from the mariajose. There is diffuse extensive pulmonary interstiti al edema. Nasogastric tube is in the stomach. IMPRESSION: Significant pulmonary edema unchanged compared to yesterday. Normal heart size. This prob ably relates to RDS.
[2020-06-15] MEDS: ARTIFICIAL TEARS-HYPROMELLOSE DROPS 15 ML BTL BOTH EYES SCH ×6 (01:01→20:24)
[2020-06-15 01:06] LABS: Glucose,Whole Blood 146 mg/dL (75-99)
[2020-06-15] MEDS: INSULIN ASPART (NovoLOG) 100 UNIT/ML VIAL SQ SCH ×4 (01:31→20:11)
[2020-06-15] MEDS: SODIUM CHLORIDE 0.45% 1,000 ML IV SCH ×2 (04:32→16:38)
[2020-06-15 04:34] LABS: ABG Base Excess 21.2 mmol/L; ABG Oxygen Saturation 89.7 % (94-97); ABG PH 7.38 (7.35-7.45); ABG TCO2 49 mmol/L (19-24)
[2020-06-15 05:25] LABS: Allen Test Performed? no
[2020-06-15] MEDS: CISATRACURIUM 200 MG in SODIUM CHLORIDE 0.9% 180 ML IV SCH ×2 (06:05→23:46)
[2020-06-15 06:12] LABS: Glucose,Whole Blood 100 mg/dL (75-99)
[2020-06-15 06:44] LABS: HCT 39.4 % (39.0-53.0); HGB 12.8 gm/dL (13.0-17.5); Hypochromasia Slight; MCH 31.5 pg (25.0-35.0); MCHC 32.6 g/dL (31.0-37.0); MCV 96.6 fL (80.0-100.0); Platelet Count 130 k/uL (150-450); RBC 4.08 m/uL (4.30-5.90); RDW 12.5 % (11.5-15.5)
[2020-06-15 06:59] LABS: ALT 58 U/L (4-49); AST 67 U/L (17-59); African American GFR (CKD) >90 (>60 ml/min/1.73 sqM); Alkaline Phosphatase 68 U/L (38-126); Blood Urea Nitrogen 37 mg/dL (9-20); Calcium 7.8 mg/dL (8.4-10.2); Chloride 97 mmol/L (98-107); Glucose 102 mg/dL (74-99); Non-African American GFR(CKD) >90 (>60 ml/min/1.73 sqM); Sodium 139 mmol/L (137-145); Total Bilirubin 0.9 mg/dL (0.2-1.3)
[2020-06-15 07:06] LABS: Anion Gap -1 mmol/L; Potassium 4.9 mmol/L (3.5-5.1)
[2020-06-15 07:13] LABS: Carbon Dioxide 43 mmol/L (22-30)
[2020-06-15] MEDS: PANTOPRAZOLE 40 MG/10 ML VIAL IVP SCH (09:49)
[2020-06-15] MEDS: ASCORBIC ACID 500 MG TAB PO SCH (09:49)
[2020-06-15] MEDS: ZINC SULFATE 220 MG CAP PO SCH (09:49)
[2020-06-15] MEDS: DEXAMETHASONE SOD PHOSPHATE 10 MG/ML 1 ML VIAL IV SCH (09:50)
[2020-06-15] MEDS: DOCUSATE ORAL SOLN 100 MG/10 ML CUP PO SCH (09:50)
[2020-06-15] MEDS: ENOXAPARIN 40 MG/0.4 ML SYRINGE SQ SCH ×2 (09:50→20:23)
[2020-06-15] MEDS: CHLORHEXIDINE GLUCONATE 15 ML CUP MUCOUS MEM SCH ×2 (09:50→20:23)
--- NOTE | 2020-06-15 11:26 | P.PN ---
Subjective Progress Note Date: 06/14/20 (Critical care time spent 35 minutes) Principal diagnosis: Acute hypoxic respiratory failure status post intubation Covid 19 pneumonia Acute kidney injury Dehydration and volume depleted state Confusion and agitated delirium Possible alcohol withdrawal 06/14/2020, patient seen eval reexamined during the rounds remains in prone positioning, oxygenation is better 88-90% with that however on supine posture drop down to mid to low 70s, patient remains on high PEEP high ventilator support, currently on PEEP of 15, tidal volume of 500, FiO2 100% assist control mode, sedated and medically paralyze, labs reviewed medications reviewed critical care time spent 35 minutes 06/13/2020, patient seen eval examined during the rounds labs reviewed medications reviewed care plan discussed, patient remains prone oxygen saturation 92%, arterial blood gas from this morning reviewed severe diffusion impairment is present with rising CO2 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 respiratory 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 and membrane diffusion impairment, patient has been hemodynamically stable though, chest x-ray and labs reviewed CO2 continued to rise, will increase her respiratory rate to 28, 06/12/2020, patient seen eval examined during the rounds labs reviewed medications reviewed care plan discussed, patient is supine saturation is 92% he is on 100% oxygen with full respirator support, ABG from this morning reviewed, patient has significant diffusion impairment with high CO2 however pH is stable, hemodynamic status stable remains on propofol as well as Nimbex drip, labs reviewed medications reviewed chest x-ray reviewed as well essentially no significant change bilateral dense infiltrate the bases remains unchanged patient does relatively better with improve oxygenation in prone positioning however does very poorly and supine posture, we will attempt to keep prone as much as possible, cultures no growth so far, labs included chemistry and CBC reviewed in phlegm atrial parameters remains up suggestive of ongoing cytokine Camila 06/11/2020, patient seen and evaluated examined while supine oxygen saturation dropped down into mid 70s, however when prone patient was saturating low 90s, 100% oxygen, stable when setting, propofol infusion escalated to 40 mics, Nimbex on for mics, been setting however is stable assist control with 100% oxygen chest x-ray reviewed and essentially no change labs reviewed as, sodium is going up, we'll start free water with the tube feeding, inflammatory parameters review ed consistent with cytokine Camila of covid 19 pneumonia 06/10/2020, patient seen eval examined during the rounds care plan discussed with the staff at length labs and medications reviewed, hemodynamic status stable oxygen saturation remains marginal 90% 100% oxygen, patient is prone for 16 hours will be back supine around 11x-ray will be performed, sedated and medically paralyze with propofol and Nimbex drip, every feed is being given when he is supine, chest x-ray showed bilateral dense infiltrate arterial blood gases reviewed consistent with compensated hypercapnia and respiratory acidosis significant of diffusion impairment, patient is status post convalescent plasma 06/09/2020, patient seen eval examined during the rounds labs reviewed medications reviewed care plan discussed, patient is chest x-ray is not done as patient has been prone plan is to keep him prone for 16 hours, once on his back will do the chest x-ray, patient ended up being intubated for respiratory distress worsening agitation and anxiety currently patient is on propofol and medically paralyze with Nimbex drip, FiO2 is 100% PEEP of 8 tidal volume 400 which has been adjusted for hypercapnia and hypoventilation, respiratory rate is 20, the white cell count is 16,000, d-dimer is 34, ABG suggestive of respiratory acidosis, , inflammatory parameters remains elevated sister of ongoing cytokine camila, patient remains on Remdesivir, Decadron, will get convalescent plasma as well Ammann continue prone positioning 06/08/2020, patient seen and evaluated reexamined on selective care remains agitated anxious respiratory rate into 60s saturation dropped down to 80-85%, patient tachypneic tachycardic difficult to control with a staph agitated behavior, arterial blood gas done pO2 dropped down to 46 only patient is showing respiratory and metabolic acidosis, will transfer to the ICU intubated and start patient on propofol may need to medically paralyze him with cisatracurium, postintubation was prone the patient for 16 hour as tolerated, post intubation chest x-ray reviewed ET tube just right at the mariajose will pull out 2 cm 06/08/2020, patient seen eval reexamined during the rounds remains tachypneic t achycardic but however saturation is 9888-90% on 100% oxygen and BiPAP currently on 03/03, patient today could not be placed in prone positioning, arterial blood gas reviewed pH is 7.43 pCO2 39 pO2 59, pO2 slightly up now compared to 2 days ago compared, we'll decrease the Decadron to 6 mg daily new other management June 07 2020, patient seen eval examined during the rounds labs reviewed medications reviewed care plan discussed, cough congestion is improved, patient is hemodynamically stable, continued to be tachypneic currently supine on BiPAP oxygen saturation is 88% on 100% oxygen, discussed with nursing staff to semi- prone him again patient dated 7-8 hours last night, white cell count is down, patient remains on Decadron along with IV REM doesn't wear, morphine and Ativan is on hold due to somnolence, patient did well with Haldol all last night, 06/06/2020, patient seen and evaluated examined during the rounds labs reviewed medications reviewed care plan discussed with the staff at length involving both medical floor and selective care critical care, patient continued to be intermittently agitated, does not keep the oxygen or BiPAP on his face, remains a problem with possible delirium or withdrawal, Ativan half a milligram tried, which seems to be helping but however agitated his agitation has been continuous, I have tried hold all this seems to be helping able to put patient some prone with that oxygen saturation improved to 95% with BiPAP off 100% oxygen, will continue Decadron, REM does ever, and IV antibiotics and sputum for culture as well repeat chest x-ray and arterial blood gases reviewed as well no significant change in next day has been noted, ABG suggestive of significant hypoxia, noted that he renal functions have improved This is a 65-year-old male who has a history of extensive smoking and nicotine use, patient presented into the emergency department with progressive increasing shortness of breath and nonproductive cough, he was hypoxic with low oxygen saturation, no sputum production, his code at 19 test came back positive, in the ER he was noted to have a low blood pressure of 104/65, patient was hypoxic with room air oxygen saturation of only 83%, low-grade temperature of 99.3 his present, he was also noted to have acute injury of the kidneys that BUN/creatinine of 32 and 1.29, his inflammatory parameters were elevated with ferritin level of over 1200, LDH of over 1400, C-reactive protein of 176, pro calcitonin noted to be elevated up 0.21, chest x-ray noted to have bilateral airspace disease, patient was admitted to medical floor where he was noted to have oxygen saturation marginal and eventually FiO2 went up to 15 L high flow oxygen his blood culture no growth so far Objective - Vital Signs Vital signs: Vital Signs Temp 98.7 F 06/14/20 08:00 Pulse 96 06/14/20 10:00 Resp 22 06/14/20 10:00 BP 137/61 06/14/20 10:00 Pulse Ox 88 L 06/14/20 10:00 Intake & Output 06/13/20 06/14/20 06/14/20 18:59 06:59 18:59 Intake Total 2207.421 6082.525 350 Output Total 655 950 180 Balance 1029.212 665.525 170 Weight 79 kg Intake: IV 1050 1200 350 Dextrose 5% in Water 1, 600 000 ml @ 75 mls/hr IV . [id number] [facility] Rx#:[id number] Sodium Chloride 0.45% 1, 400 1200 300 000 ml @ 100 mls/hr IV . Q10H [facility] Rx#:[id number] [id number] 1 gm In 50 50 Sodium Chloride 0.9% 50 ml @ 100 mls/hr IVPB Q24HR [facility] Rx#:[id number] Intake, IV Titration 379.212 160.525 Amount Cisatracurium 200 mg In 179.487 Sodium Chloride 0.9% 180 ml @ 1 MCG/KG/MIN 4.62 mls/hr IV .Q24H [facility] Rx#: [id number] propofoL 1,000 mg In 199.725 160.525 Empty Bag 1 bag @ Titrate IV .Q0M [facility] Rx#: [id number] Tube Feeding 225 225 Other 30 30 Output: Urine 655 950 180 Uretheral ([place]) 110 Other: Voiding Method Indwelling Catheter Indwelling Catheter Indwelling Catheter # Bowel Movements 0 - Exam - Constitutional General appearance: average body habitus, cooperative, disheveled, intubated on Nimbex and propofol - EENT Eyes: PERRLA Ears: bilateral: normal - Neck Neck: normal ROM Carotids: bilateral: upstroke normal Thyroid: bilateral: normal size - Respiratory Respiratory: bilateral: diminished - Cardiovascular Rhythm: regular Heart sounds: normal: S1, S2 - Gastrointestinal General gastrointestinal: normal bowel sounds, soft - Neurologic Neurologic: Agitated delirium is stable due to medical paralysis - Musculoskeletal Musculoskeletal:strength equal bilaterally - Psychiatric Psychiatric: Agitated delirium is is stable due to medical paralysis - Labs CBC & Chem 7: 06/15/20 05:46 06/15/20 05:46 Labs: Abnormal Lab Results - Last 24 Hours (Table) 06/13/20 06/13/20 06/13/20 Range/Units 11:27 16:53 23:48 WBC (3.8-10.6) k/uL Plt Count (150-450) k/uL ABG pH (7.35-7.45) ABG pCO2 (35-45) mmHg ABG pO2 (83-108) mmHg ABG HCO3 (21-25) mmol/L ABG Total CO2 (19-24) mmol/L ABG O2 Saturation (94-97) % Potassium (3.5-5.1) mmol/L Carbon Dioxide (22-30) mmol/L BUN (9-20) mg/dL Creatinine (0.66-1.25) mg/dL Glucose (74-99) mg/dL POC Glucose (mg/dL) 136 H 125 H 104 H (75-99) mg/dL Calcium (8.4-10.2) mg/dL AST (17-59) U/L ALT (4-49) U/L Total Protein (6.3-8.2) g/dL Albumin (3.5-5.0) g/dL 06/14/20 06/14/20 06/14/20 Range/Units 05:45 05:45 05:45 WBC 20.8 H (3.8-10.6) k/uL Plt Count 114 L (150-450) k/uL ABG pH 7.24 L (7.35-7.45) ABG pCO2 106 H* (35-45) mmHg ABG pO2 62 L (83-108) mmHg ABG HCO3 46 H* (21-25) mmol/L ABG Total CO2 49 H (19-24) mmol/L ABG O2 Saturation 88.3 L (94-97) % Potassium 5.2 H (3.5-5.1) mmol/L Carbon Dioxide 41 H* (22-30) mmol/L BUN 32 H (9-20) mg/dL Creatinine 0.52 L (0.66-1.25) mg/dL Glucose 123 H (74-99) mg/dL POC Glucose (mg/dL) (75-99) mg/dL Calcium 7.9 L (8.4-10.2) mg/dL AST 64 H (17-59) U/L ALT 69 H (4-49) U/L Total Protein 5.4 L (6.3-8.2) g/dL Albumin 2.2 L (3.5-5.0) g/dL 06/14/20 Range/Units 05:55 WBC (3.8-10.6) k/uL Plt Count (150-450) k/uL ABG pH (7.35-7.45) ABG pCO2 (35-45) mmHg ABG pO2 (83-108) mmHg ABG HCO3 (21-25) mmol/L ABG Total CO2 (19-24) mmol/L ABG O2 Saturation (94-97) % Potassium (3.5-5.1) mmol/L Carbon Dioxide (22-30) mmol/L BUN (9-20) mg/dL Creatinine (0.66-1.25) mg/dL Glucose (74-99) mg/dL POC Glucose (mg/dL) 115 H (75-99) mg/dL Calcium (8.4-10.2) mg/dL AST (17-59) U/L ALT (4-49) U/L Total Protein (6.3-8.2) g/dL Albumin (3.5-5.0) g/dL Assessment and Plan Assessment: Acute hypoxic respiratory failure on ventilator with full vent support, oxygenation is relatively improved to 92% in prone positioning however desats to low 70s in supine posture lately Respiratory acidosis, ventilator being adjusted Covid 19 pneumonia Hypernatremia Agitated delirium alternating with somnolence status post medical paralysis and sedation with propofol and Nimbex drip Acute kidney injury, renal functions improved Dehydration and volume depleted state Plan: Free water IV Ventilator adjustment as needed Medical paralysis and Sedation with Nimbex and propofol prone position as much as possible preferably 16 hours to 20 hours every day Continue keep saturation over 85-90% Decadron 6 mg for 10 days IV antibiotics Sputum culture IV Remdesivir for 5 days Status post convalescent plasma Prognosis guarded with likelihood of recovery poor Time with Patient: Greater than 30
--- NOTE | 2020-06-15 11:28 | P.PN ---
Subjective Progress Note Date: 06/15/20 (Critical care time 35 minutes) Principal diagnosis: Acute hypoxic respiratory failure status post intubation Covid 19 pneumonia Acute kidney injury Dehydration and volume depleted state Confusion and agitated delirium Possible alcohol withdrawal 06/15/2020, patient seen eval examined during the rounds labs reviewed medications reviewed, patient remains in prone positioning, white cell count remains as stable 19,000, arterial blood gas noted to have been improved as pH is 7.38 pCO2 Page and pO2 56, renal functions are normal, hemoglobin stable, last chest x-ray yesterday remains stable rate have been increased to 30 06/14/2020, patient seen eval reexamined during the rounds remains in prone positioning, oxygenation is better 88-90% with that however on supine posture drop down to mid to low 70s, patient remains on high PEEP high ventilator support, currently on PEEP of 15, tidal volume of 500, FiO2 100% assist control mode, sedated and medically paralyze, labs reviewed medications reviewed critical care time spent 35 minutes 06/13/2020, patient seen eval examined during the rounds labs reviewed medications reviewed care plan discussed, patient remains prone oxygen saturation 92%, arterial blood gas from this morning reviewed severe diffusion impairment is present with 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 and membrane diffusion impairment, patient has been hemodynamically stable though, chest x-ray and labs reviewed CO2 continued to rise, will increase her respiratory rate to 28, 06/12/2020, patient seen eval examined during the rounds labs reviewed medications reviewed care plan discussed, patient is supine saturation is 92% he is on 100% oxygen with full respirator support, ABG from this morning reviewed, patient has significant diffusion impairment with high CO2 however pH is stable, hemodynamic status stable remains on propofol as well as Nimbex drip, labs reviewed medications reviewed chest x-ray reviewed as well essentially no significant change bilateral dense infiltrate the bases remains unchanged patient does relatively better with improve oxygenation in prone positioning however does very poorly and supine posture, we will attempt to keep prone as much as possible, cultures no growth so far, labs included chemistry and CBC reviewed in phlegm atrial parameters remains up suggestive of ongoing cytokine Camila 06/11/2020, patient seen and evaluated examined while supine oxygen saturation dropped down into mid 70s, however when prone patient was saturating low 90s, 100% oxygen, stable when setting, propofol infusion escalated to 40 mics, Nimbex on for mics, been setting however is stable assist control with 100% oxygen chest x-ray reviewed and essentially no change labs reviewed as, sodium is going up, we'll start free water with the tube feeding, inflammatory parameters reviewed consistent with cytokine Camila of covid 19 pneumonia 06/10/2020, patient seen eval examined during the rounds care plan discussed with the staff at length labs and medications reviewed, hemodynamic status stable oxygen saturation remains marginal 90% 100% oxygen, patient is prone for 16 hours will be back supine around 11x-ray will be performed, sedated and medically paralyze with propofol and Nimbex drip, every feed is being given when he is supine, chest x-ray showed bilateral dense infiltrate arterial blood gases reviewed consistent with compensated hypercapnia and respiratory acidosis significant of diffusion impairment, patient is status post convalescent plasma 06/09/2020, patient seen eval examined during the rounds labs reviewed medications reviewed care plan discussed, patient is chest x-ray is not done as patient has been prone plan is to keep him prone for 16 hours, once on his back will do the chest x-ray, patient ended up being intubated for respiratory distress worsening agitation and anxiety currently patient is on propofol and medically paralyze with Nimbex drip, FiO2 is 100% PEEP of 8 tidal volume 400 which has been adjusted for hypercapnia and hypoventilation, respiratory rate is 20, the white cell count is 16,000, d-dimer is 34, ABG suggestive of respiratory acidosis, , inflammatory parameters remains elevated sister of ongoing cytokine camila, patient remains on Remdesivir, Decadron, will get convalescent plasma as well Ammann continue prone positioning 06/08/2020, patient seen and evaluated reexamined on selective care remains agitated anxious respiratory rate into 60s saturation dropped down to 80-85%, patient tachypneic tachycardic difficult to control with a staph agitated behavior, arterial blood gas done pO2 dropped down to 46 only patient is showing respiratory and metabolic acidosis, will transfer to the ICU intubated and start patient on propofol may need to medically paralyze him with cisatracurium, postintubation was prone the patient for 16 hour as tolerated, post intubation chest x-ray reviewed ET tube just right at the mariajose will pull out 2 cm 06/08/2020, patient seen eval reexamined during the rounds remains tachypneic tachycardic but however saturation is 9888-90% on 100% oxygen and BiPAP currently on 03/03, patient today could not be placed in prone positioning, arterial blood gas reviewed pH is 7.43 pCO2 39 pO2 59, pO2 slightly up now comp ared to 2 days ago compared, we'll decrease the Decadron to 6 mg daily new other management June 07 2020, patient seen eval examined during the rounds labs reviewed medications reviewed care plan discussed, cough congestion is improved, patient is hemodynamically stable, continued to be tachypneic currently supine on BiPAP oxygen saturation is 88% on 100% oxygen, discussed with nursing staff to semi- prone him again patient dated 7-8 hours last night, white cell count is down, patient remains on Decadron along with IV REM doesn't wear, morphine and Ativan is on hold due to somnolence, patient did well with Haldol all last night, 06/06/2020, patient seen and evaluated examined during the rounds labs reviewed medications reviewed care plan discussed with the staff at length involving both medical floor and selective care critical care, patient continued to be intermittently agitated, does not keep the oxygen or BiPAP on his face, remains a problem with possible delirium or withdrawal, Ativan half a milligram tried, which seems to be helping but however agitated his agitation has been continuous, I have tried hold all this seems to be helping able to put patient some prone with that oxygen saturation improved to 95% with BiPAP off 100% oxygen, will continue Decadron, REM does ever, and IV antibiotics and sputum for culture as well repeat chest x-ray and arterial blood gases reviewed as well no significant change in next day has been noted, ABG suggestive of significant hypoxia, noted that he renal functions have improved This is a 65-year-old male who has a history of extensive smoking and nicotine use, patient presented into the emergency department with progressive increasing shortness of breath and nonproductive cough, he was hypoxic with low oxygen saturation, no sputum production, his code at 19 test came back positive, in the ER he was noted to have a low blood pressure of 104/65, patient was hypoxic with room air oxygen saturation of only 83%, low-grade temperature of 99.3 his present, he was also noted to have acute injury of the kidneys that BUN/creati nine of 32 and 1.29, his inflammatory parameters were elevated with ferritin level of over 1200, LDH of over 1400, C-reactive protein of 176, pro calcitonin noted to be elevated up 0.21, chest x-ray noted to have bilateral airspace disease, patient was admitted to medical floor where he was noted to have oxygen saturation marginal and eventually FiO2 went up to 15 L high flow oxygen his blood culture no growth so far Objective - Vital Signs Vital signs: Vital Signs Temp 99.7 F H 06/15/20 08:00 Pulse 85 06/15/20 10:00 Resp 30 H 06/15/20 10:00 BP 151/72 06/15/20 10:00 Pulse Ox 90 L 06/15/20 10:00 Intake & Output 06/14/20 06/15/20 06/15/20 18:59 06:59 18:59 Intake Total 1562 2079.490 490 Output Total 745 800 220 Balance 817 1279.490 270 Weight 79 kg 100.3 kg Intake: IV 1250 1200 400 Sodium Chloride 0.45% 1, 1200 1200 400 000 ml @ 100 mls/hr IV . Q10H [facility] Rx#:[id number] cefTRIAXone 1 gm In 50 Sodium Chloride 0.9% 50 ml @ 100 mls/hr IVPB Q24HR [facility] Rx#:[id number] Intake, IV Titration 100 182.490 Amount propofoL 1,000 mg In 100 182.490 Empty Bag 1 bag @ Titrate IV .Q0M [facility] Rx#: [id number] Tube Feeding 182 637 Other 30 60 90 Output: Urine 745 800 220 Other: Voiding Method Indwelling Catheter Indwelling Catheter Indwelling Catheter # Bowel Movements 0 - Exam - Constitutional General appearance: average body habitus, cooperative, disheveled, intubated on Nimbex and propofol - EENT Eyes: PERRLA Ears: bilateral: normal - Neck Neck: normal ROM Carotids: bilateral: upstroke normal Thyroid: bilateral: normal size - Respiratory Respiratory: bilateral: diminished - Cardiovascular Rhythm: regular Heart sounds: normal: S1, S2 - Gastrointestinal General gastrointestinal: normal bowel sounds, soft - Neurologic Neurologic: Agitated delirium is stable due to medical paralysis - Musculoskeletal Musculoskeletal:strength equal bilaterally - Psychiatric Psychiatric: Agitated delirium is is stable due to medical paralysis - Labs CBC & Chem 7: 06/15/20 05:46 06/15/20 05:46 Labs: Abnormal Lab Results - Last 24 Hours (Table) 06/14/20 06/14/20 06/15/20 Range/Units 12:00 19:12 01:05 WBC (3.8-10.6) k/uL RBC (4.30-5.90) m/uL Hgb (13.0-17.5) gm/dL Plt Count (150-450) k/uL ABG pCO2 (35-45) mmHg ABG pO2 (83-108) mmHg ABG HCO3 (21-25) mmol/L ABG Total CO2 (19-24) mmol/L ABG O2 Saturation (94-97) % Chloride (98-107) mmol/L Carbon Dioxide (22-30) mmol/L BUN (9-20) mg/dL Creatinine (0.66-1.25) mg/dL Glucose (74-99) mg/dL POC Glucose (mg/dL) 125 H 134 H 146 H (75-99) mg/dL Calcium (8.4-10.2) mg/dL AST (17-59) U/L ALT (4-49) U/L Total Protein (6.3-8.2) g/dL Albumin (3.5-5.0) g/dL 06/15/20 06/15/20 06/15/20 Range/Units 04:32 05:46 05:46 WBC 19.0 H (3.8-10.6) k/uL RBC 4.08 L (4.30-5.90) m/uL Hgb 12.8 L (13.0-17.5) gm/dL Plt Count 130 L (150-450) k/uL ABG pCO2 79 H* (35-45) mmHg ABG pO2 56 L* (83-108) mmHg ABG HCO3 46 H* (21-25) mmol/L ABG Total CO2 49 H (19-24) mmol/L ABG O2 Saturation 89.7 L (94-97) % Chloride 97 L (98-107) mmol/L Carbon Dioxide 43 H* (22-30) mmol/L BUN 37 H (9-20) mg/dL Creatinine 0.56 L (0.66-1.25) mg/dL Glucose 102 H (74-99) mg/dL POC Glucose (mg/dL) (75-99) mg/dL Calcium 7.8 L (8.4-10.2) mg/dL AST 67 H (17-59) U/L ALT 58 H (4-49) U/L Total Protein 5.0 L (6.3-8.2) g/dL Albumin 2.0 L (3.5-5.0) g/dL 06/15/20 Range/Units 06:09 WBC (3.8-10.6) k/uL RBC (4.30-5.90) m/uL Hgb (13.0-17.5) gm/dL Plt Count (150-450) k/uL ABG pCO2 (35-45) mmHg ABG pO2 (83-108) mmHg ABG HCO3 (21-25) mmol/L ABG Total CO2 (19-24) mmol/L ABG O2 Saturation (94-97) % Chloride (98-107) mmol/L Carbon Dioxide (22-30) mmol/L BUN (9-20) mg/dL Creatinine (0.66-1.25) mg/dL Glucose (74-99) mg/dL POC Glucose (mg/dL) 100 H (75-99) mg/dL Calcium (8.4-10.2) mg/dL AST (17-59) U/L ALT (4-49) U/L Total Protein (6.3-8.2) g/dL Albumin (3.5-5.0) g/dL Assessment and Plan Assessment: Acute hypoxic respiratory failure on ventilator with full vent support, ox ygenation is relatively improved to 92% in prone positioning however desats to low 70s in supine posture lately Respiratory acidosis, ventilator being adjusted Covid 19 pneumonia Hypernatremia Agitated delirium alternating with somnolence status post medical paralysis and sedation with propofol and Nimbex drip Acute kidney injury, renal functions improved Dehydration and volume depleted state Plan: Free water IV Ventilator adjustment as needed Medical paralysis and Sedation with Nimbex and propofol prone position as much as possible preferably 16 hours to 20 hours every day Continue keep saturation over 85-90% Decadron 6 mg for 10 days IV antibiotics Sputum culture IV Remdesivir for 5 days Status post convalescent plasma Prognosis guarded with likelihood of recovery poor Time with Patient: Greater than 30
[2020-06-15 13:19] LABS: Glucose,Whole Blood 153 mg/dL (75-99)
--- NOTE | 2020-06-15 17:57 | XR ---
EXAMINATION TYPE: XR chest 1V portable DATE OF EXAM: 06/15/2020 CLINICAL HISTORY: Shortness of breath and covid pneumonia progress study. TECHNIQUE: Single AP portable frontal view of the chest is obtained. COMPARISON: Chest x-ray from one day earlier and older studies. FINDINGS: Stable endotracheal and orogastric tubes. Note is made of new gas-distended stomach. Advis e active suctioning if not being performed. Diffuse reticular and increased opacities bilaterally remain present. Heart size stable and within no rmal limits. Old fracture deformity left clavicle redemonstrated. IMPRESSION: Persistent bilateral diffuse infiltrates and/or edema. New gas-distended stomach despite oral gastric tube otherwise no significant interval change.
--- NOTE | 2020-06-15 18:10 | XR ---
EXAMINATION TYPE: XR chest 1V DATE OF EXAM: 06/15/2020 CLINICAL HISTORY: Difficulty breathing progress study. TECHNIQUE: Single AP portable upright view of the chest is obtained. COMPARISON: Chest x-ray from earlier today and older studies FINDINGS: Stable endotracheal and orogastric tubes. Interval improvement or resolution of gaseous di stended stomach. Cardiac silhouette size is stable and within normal limits. Reticular and increased opacities bilater ally with more dense consolidation in the bases right greater than left redemonstrated. No pleural ef fusion or pneumothorax. Old fracture deformity left mid clavicle redemonstrated. IMPRESSION: Interval decompression of stomach. Other findings stable. Bilateral diffuse infiltrates a nd/or edema redemonstrated.
[2020-06-15 18:37] LABS: Glucose,Whole Blood 114 mg/dL (75-99)
[2020-06-16 00:06] LABS: Glucose,Whole Blood 121 mg/dL (75-99)
--- NOTE | 2020-06-16 01:14 | P.PN ---
Subjective Hospitalist covering for Dr. Rehman This is a 65 years old male with multiple medical problems as below, he was admitted on 06/05 for respiratory distress and found to have bilateral diffuse colonic pneumonia. With acute hypoxic respiratory failure that needed intubation and mechanical ventilation, currently patient is managed and monitored closely in the ICU with pulmonary/critical care team with Dr. Friedman following him closely. Patient needing high PEEP about 15 and he kept on a prone position Labs showing leukocytosis of 19 K, mild liver enzymes increased and his breathing fast at 30 breath per minute He remains on ceftriaxone, dexamethasone, Lovenox as well as zinc and ascorbic acid Review of systems: N/a Active Medications Generic Name Dose Route Start Last Admin Trade Name Freq PRN Reason Stop Dose Admin Acetaminophen 650 mg 06/04/20 16:59 06/05/20 16:05 Acetaminophen Tab 325 Mg Tab PO 650 mg Q6HR PRN Administration Mild Pain or Fever > 100.5 Artificial Tears 2 drops 06/08/20 20:00 06/15/20 20:24 Artificial Tears-Hypromellose Drops 15 Ml Btl BOTH EYES 2 drops Q4HR CAR[facility]INE Administration Ascorbic Acid 500 mg 06/11/20 15:15 06/15/20 09:49 Ascorbic Acid 500 Mg Tab PO 500 mg DAILY CAROLINE Administration Chlorhexidine Gluconate 15 ml 06/08/20 21:00 06/15/20 20:23 Chlorhexidine Gluconate 15 Ml Cup MUCOUS MEM 15 ml BID CAROLINE Administration Dexamethasone Sodium Phosphate 6 mg 06/09/20 09:00 06/15/20 09:50 Dexamethasone Sod Phosphate 10 Mg/Ml 1 Ml Vial IV 6 mg DAILY CAROLINE Administration Docusate Sodium 100 mg 06/11/20 15:15 06/15/20 09:50 Docusate Oral Soln 100 Mg/10 Ml Cup PO 100 mg DAILY CAROLINE Administration Enoxaparin Sodium 40 mg 06/11/20 21:00 06/15/20 20:23 Enoxaparin 40 Mg/0.4 Ml Syringe SQ 40 mg BID CAROLINE Administration Ceftriaxone Sodium 1 gm/ 50 mls @ 100 mls/hr 06/06/20 17:15 06/15/20 09:48 Sodium Chloride IVPB 100 mls/hr Q24HR [facility]INE Administration Propofol 1,000 mg/ IV Solution 100 mls @ 0 mls/hr 06/08/20 15:45 06/15/20 23:46 IV 50 mcg/kg/min .Q0M CAROLINE 30.09 mls/hr Administration Protocol Titrate Cisatracurium Besylate 200 mg/ 200 mls @ 4.62 mls/hr 06/08/20 17:00 06/15/20 23:46 Sodium Chloride IV 3 mcg/kg/min .Q24H CAROLINE 13.86 mls/hr Administration Protocol 1 MCG/KG/MIN Sodium Chloride 1,000 mls @ 100 mls/hr 06/13/20 14:45 06/15/20 16:38 Saline 0.45% IV 100 mls/hr .Q10H CAROLINE Administration Insulin Aspart 0 unit 06/09/20 00:00 06/15/20 20:11 Insulin Aspart (Novolog) 100 Unit/Ml Vial SQ Not Given Q6H [facility] Protocol Lorazepam 0.5 mg 06/06/20 17:03 06/08/20 14:33 Lorazepam 2 Mg/Ml Inj IV 0.5 mg Q2HR PRN Administration Anxiety Miscellaneous Information 1 each 06/10/20 07:21 Phosphorus Replacement Protoco 1 Each Misc MISCELLANE DAILY PRN Per Protocol Protocol Morphine Sulfate 1 mg 06/06/20 17:11 06/10/20 12:13 Morphine Sulfate 2 Mg/Ml Syringe IVP 1 mg Q3H PRN Administration Pain/Discomfort Naloxone HCl 0.2 mg 06/04/20 16:59 Naloxone 0.4 Mg/Ml 1 Ml Vial IV Q2M PRN Opioid Reversal Pantoprazole Sodium 40 mg 06/09/20 09:00 06/15/20 09:49 Pantoprazole 40 Mg/10 Ml Vial IVP 40 mg DAILY [facility]INE Administration Zinc Sulfate 220 mg 06/11/20 15:15 06/15/20 09:49 Zinc Sulfate 220 Mg Cap PO 220 mg DAILY CAR[facility]INE Administration Zolpidem Tartrate 5 mg 06/05/20 08:27 06/05/20 22:27 Zolpidem 5 Mg Tab PO 5 mg HS PRN Administration Insomnia Objective - Vital Signs Vital signs: Vital Signs Temp 98.7 F 06/15/20 16:00 Pulse 93 06/15/20 23:00 Resp 31 H 06/15/20 23:00 BP 138/52 06/15/20 23:00 Pulse Ox 80 L 06/15/20 23:00 Intake & Output 06/15/20 06/15/20 06/16/20 06:59 18:59 06:59 Intake Total 2079.490 1627.454 926.546 Output Total 800 765 650 Balance 1279.490 862.454 276.546 Weight 100.3 kg Intake: IV 1200 1200 500 Sodium Chloride 0.45% 1, 1200 1200 500 000 ml @ 100 mls/hr IV . Q10H [facility] Rx#:[id number] Intake, IV Titration 182.490 246.454 153.546 Amount Cisatracurium 200 mg In 146.454 53.546 Sodium Chloride 0.9% 180 ml @ 1 MCG/KG/MIN 4.62 mls/hr IV .Q24H [facility] Rx#: [id number] propofoL 1,000 mg In 182.490 100 100 Empty Bag 1 bag @ Titrate IV .Q0M [facility] Rx#: [id number] Tube Feeding 637 91 273 Other 60 90 Output: Urine 800 765 650 Other: Voiding Method Indwelling Catheter Indwelling Catheter Indwelling Catheter # Bowel Movements 0 - Exam GENERAL: The patient is sedated and intubated, and a prone position HEENT: Pupils are round and equally reacting to light. EOMI. No scleral icterus. No conjunctival pallor. Normocephalic, atraumatic. No pharyngeal erythema. No thyromegaly. CARDIOVASCULAR: S1 and S2 present. No murmurs, rubs, or gallops. PULMONARY: Chest is clear to auscultation, no wheezing or crackles. ABDOMEN: Soft, nontender, nondistended, normoactive bowel sounds. No palpable organomegaly. MUSCULOSKELETAL: No joint swelling or deformity. EXTREMITIES: No cyanosis, clubbing, or pedal edema. NEUROLOGICAL: Gross neurological examination did not reveal any focal deficits. SKIN: No rashes. no petechiae. - Labs CBC & Chem 7: 06/15/20 05:46 06/15/20 05:46 Labs: Abnormal Lab Results - Last 24 Hours (Table) 06/15/20 06/15/20 06/15/20 Range/Units 01:05 04:32 05:46 WBC 19.0 H (3.8-10.6) k/uL RBC 4.08 L (4.30-5.90) m/uL Hgb 12.8 L (13.0-17.5) gm/dL Plt Count 130 L (150-450) k/uL ABG pCO2 79 H* (35-45) mmHg ABG pO2 56 L* (83-108) mmHg ABG HCO3 46 H* (21-25) mmol/L ABG Total CO2 49 H (19-24) mmol/L ABG O2 Saturation 89.7 L (94-97) % Chloride (98-107) mmol/L Carbon Dioxide (22-30) mmol/L BUN (9-20) mg/dL Creatinine (0.66-1.25) mg/dL Glucose (74-99) mg/dL POC Glucose (mg/dL) 146 H (75-99) mg/dL Calcium (8.4-10.2) mg/dL AST (17-59) U/L ALT (4-49) U/L Total Protein (6.3-8.2) g/dL Albumin (3.5-5.0) g/dL 06/15/20 06/15/20 06/15/20 Range/Units 05:46 06:09 13:18 WBC (3.8-10.6) k/uL RBC (4.30-5.90) m/uL Hgb (13.0-17.5) gm/dL Plt Count (150-450) k/uL ABG pCO2 (35-45) mmHg ABG pO2 (83-108) mmHg ABG HCO3 (21-25) mmol/L ABG Total CO2 (19-24) mmol/L ABG O2 Saturation (94-97) % Chloride 97 L (98-107) mmol/L Carbon Dioxide 43 H* (22-30) mmol/L BUN 37 H (9-20) mg/dL Creatinine 0.56 L (0.66-1.25) mg/dL Glucose 102 H (74-99) mg/dL POC Glucose (mg/dL) 100 H 153 H (75-99) mg/dL Calcium 7.8 L (8.4-10.2) mg/dL AST 67 H (17-59) U/L ALT 58 H (4-49) U/L Total Protein 5.0 L (6.3-8.2) g/dL Albumin 2.0 L (3.5-5.0) g/dL 06/15/20 06/16/20 Range/Units 18:35 00:05 WBC (3.8-10.6) k/uL RBC (4.30-5.90) m/uL Hgb (13.0-17.5) gm/dL Plt Count (150-450) k/uL ABG pCO2 (35-45) mmHg ABG pO2 (83-108) mmHg ABG HCO3 (21-25) mmol/L ABG Total CO2 (19-24) mmol/L ABG O2 Saturation (94-97) % Chloride (98-107) mmol/L Carbon Dioxide (22-30) mmol/L BUN (9-20) mg/dL Creatinine (0.66-1.25) mg/dL Glucose (74-99) mg/dL POC Glucose (mg/dL) 114 H 121 H (75-99) mg/dL Calcium (8.4-10.2) mg/dL AST (17-59) U/L ALT (4-49) U/L Total Protein (6.3-8.2) g/dL Albumin (3.5-5.0) g/dL Assessment and Plan Assessment: Bilateral cough with diffuse pneumonia Acute hypoxic respiratory failure, needing intubation and mechanical ventilation Increase inflammatory markers Mild leukocytosis History of GERD Plan: This is a 65 years old male who presents with bilateral covid pneumonia, he needed mechanical ventilation and pulmonary/critical care team are monitor him closely Also continue on ceftriaxone, dexamethasone, Lovenox, zinc and ascorbic acid. Recommendation of pulmonary team He is status post convelasant plasma Labs and medication were reviewed.. Continue same treatment. Continue with symptomatic treatment. Resume home medication. Monitor lytes and vitals. DVT and GI prophylaxis. Further recommendations as per clinical course of the patient DVT prophylaxis: Subcutaneous Lovenox GI Prophylaxis: Ppi Prognosis is extremely guarded
[2020-06-16] MEDS: INSULIN ASPART (NovoLOG) 100 UNIT/ML VIAL SQ SCH ×4 (02:20→18:07)
[2020-06-16] MEDS: SODIUM CHLORIDE 0.45% 1,000 ML IV SCH ×3 (02:20→23:23)
[2020-06-16] MEDS: ARTIFICIAL TEARS-HYPROMELLOSE DROPS 15 ML BTL BOTH EYES SCH ×6 (02:21→20:39)
[2020-06-16 05:53] LABS: ABG Base Excess 21.6 mmol/L; ABG Oxygen Saturation 83.3 % (94-97); ABG PH 7.39 (7.35-7.45); ABG TCO2 49 mmol/L (19-24); Allen Test Performed? Yes
[2020-06-16 05:55] LABS: Glucose,Whole Blood 103 mg/dL (75-99)
[2020-06-16 05:55] LABS: ABG HCO3 47 mmol/L (21-25); ABG PCO2 77 mmHg (35-45); ABG PO2 47 mmHg (83-108)
[2020-06-16 08:14] LABS: ABG PCO2 79 mmHg (35-45); ABG PO2 56 mmHg (83-108)
[2020-06-16 08:15] LABS: ABG HCO3 46 mmol/L (21-25)
--- NOTE | 2020-06-16 08:57 | XR ---
EXAMINATION TYPE: XR chest 1V portable DATE OF EXAM: 06/16/2020 COMPARISON: 06/15/2020 HISTORY: SOB, Follow Up FINDINGS: Indwelling tubes and catheters are unchanged. Diffuse bilateral airspace infiltrates are unchanged greatest at the lung bases. Stable appearance of the cardio-mediastinal structures at this time. IMPRESSION: 1. Stable portable chest. Clinical correlation and follow up until resolution is recommended.
[2020-06-16] MEDS: PANTOPRAZOLE 40 MG/10 ML VIAL IVP SCH (09:43)
[2020-06-16] MEDS: CHLORHEXIDINE GLUCONATE 15 ML CUP MUCOUS MEM SCH ×2 (09:43→20:01)
[2020-06-16] MEDS: DOCUSATE ORAL SOLN 100 MG/10 ML CUP PO SCH (09:43)
[2020-06-16] MEDS: ENOXAPARIN 40 MG/0.4 ML SYRINGE SQ SCH ×2 (09:43→20:01)
[2020-06-16] MEDS: DEXAMETHASONE SOD PHOSPHATE 10 MG/ML 1 ML VIAL IV SCH (09:43)
[2020-06-16] MEDS: ASCORBIC ACID 500 MG TAB PO SCH (09:43)
[2020-06-16] MEDS: ZINC SULFATE 220 MG CAP PO SCH (09:43)
--- NOTE | 2020-06-16 11:11 | P.PN ---
Subjective Progress Note Date: 06/16/20 Principal diagnosis: Acute hypoxic respiratory failure status post intubation Covid 19 pneumonia Acute kidney injury Dehydration and volume depleted state Confusion and agitated delirium Possible alcohol withdrawal June 16 2020, patient seen eval examined during the rounds labs reviewed medications reviewed, patient remains a deeply sedated and medically paralyze, currently on Nimbex drip along with propofol 50 mics, current ventilator settings include assist control rate of 34 PEEP of 5 tidal volume of 500 100% oxygen, oxygen saturation are barely 88%, discussed with the daughter at length, patient and daughter finally decided to make him no code, however continue to provide supportive care and therapy, chest x-ray overall not much change labs reviewed patient has been prone for 16 hours a day 06/15/2020, patient seen eval examined during the rounds labs reviewed medications reviewed, patient remains in prone positioning, white cell count remains as stable 19,000, arterial blood gas noted to have been improved as pH is 7.38 pCO2 Page and pO2 56, renal functions are normal, hemoglobin stable, last chest x-ray yesterday remains stable rate have been increased to 30 06/14/2020, patient seen eval reexamined during the rounds remains in prone positioning, oxygenation is better 88-90% with that however on supine posture drop down to mid to low 70s, patient remains on high PEEP high ventilator support, currently on PEEP of 15, tidal volume of 500, FiO2 100% assist control mode, sedated and medically paralyze, labs reviewed medications reviewed c ritical care time spent 35 minutes 06/13/2020, patient seen eval examined during the rounds labs reviewed medications reviewed care plan discussed, patient remains prone oxygen saturation 92%, arterial blood gas from this morning reviewed severe diffusion impairment is present with 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 and membrane diffusion impairment, patient has been hemodynamically stable though, chest x-ray and labs reviewed CO2 continued to rise, will increase her respiratory rate to 28, 06/12/2020, patient seen eval examined during the rounds labs reviewed medications reviewed care plan discussed, patient is supine saturation is 92% he is on 100% oxygen with full respirator support, ABG from this morning reviewed, patient has significant diffusion impairment with high CO2 however pH is stable, hemodynamic status stable remains on propofol as well as Nimbex drip, labs re viewed medications reviewed chest x-ray reviewed as well essentially no significant change bilateral dense infiltrate the bases remains unchanged patient does relatively better with improve oxygenation in prone positioning however does very poorly and supine posture, we will attempt to keep prone as much as possible, cultures no growth so far, labs included chemistry and CBC reviewed in phlegm atrial parameters remains up suggestive of ongoing cytokine Camila 06/11/2020, patient seen and evaluated examined while supine oxygen saturation dropped down into mid 70s, however when prone patient was saturating low 90s, 100% oxygen, stable when setting, propofol infusion escalated to 40 mics, Nimbex on for mics, been setting however is stable assist control with 100% oxygen chest x-ray reviewed and essentially no change labs reviewed as, sodium is going up, we'll start free water with the tube feeding, inflammatory parameters reviewed consistent with cytokine Camila of covid 19 pneumonia 06/10/2020, patient seen eval examined during the rounds care plan discussed with the staff at length labs and medications reviewed, hemodynamic status stable oxygen saturation remains marginal 90% 100% oxygen, patient is prone for 16 hours will be back supine around 11x-ray will be performed, sedated and medically paralyze with propofol and Nimbex drip, every feed is being given when he is supine, chest x-ray showed bilateral dense infiltrate arterial blood gases reviewed consistent with compensated hypercapnia and respiratory acidosis significant of diffusion impairment, patient is status post convalescent plasma 06/09/2020, patient seen eval examined during the rounds labs reviewed medicatio ns reviewed care plan discussed, patient is chest x-ray is not done as patient has been prone plan is to keep him prone for 16 hours, once on his back will do the chest x-ray, patient ended up being intubated for respiratory distress worsening agitation and anxiety currently patient is on propofol and medically paralyze with Nimbex drip, FiO2 is 100% PEEP of 8 tidal volume 400 which has been adjusted for hypercapnia and hypoventilation, respiratory rate is 20, the white cell count is 16,000, d-dimer is 34, ABG suggestive of respiratory acidosis, , inflammatory parameters remains elevated sister of ongoing cytokine camila, patient remains on Remdesivir, Decadron, will get convalescent plasma as well Ammann continue prone positioning 06/08/2020, patient seen and evaluated reexamined on selective care remains agitated anxious respiratory rate into 60s saturation dropped down to 80-85%, patient tachypneic tachycardic difficult to control with a staph agitated behavior, arterial blood gas done pO2 dropped down to 46 only patient is showing respiratory and metabolic acidosis, will transfer to the ICU intubated and start patient on propofol may need to medically paralyze him with cisatracurium, postintubation was prone the patient for 16 hour as tolerated, post intubation chest x-ray reviewed ET tube just right at the mariajose will pull out 2 cm 06/08/2020, patient seen eval reexamined during the rounds remains tachypneic tachycardic but however saturation is 9888-90% on 100% oxygen and BiPAP currently on 03/03, patient today could not be placed in prone positioning, arterial blood gas reviewed pH is 7.43 pCO2 39 pO2 59, pO2 slightly up now compared to 2 days ago compared, we'll decrease the Decadron to 6 mg daily new other management June 07 2020, patient seen eval examined during the rounds labs reviewed medications reviewed care plan discussed, cough congestion is improved, patient is hemodynamically stable, continued to be tachypneic currently supine on BiPAP oxygen saturation is 88% on 100% oxygen, discussed with nursing staff to semi- prone him again patient dated 7-8 hours last night, white cell count is down, patient remains on Decadron along with IV REM doesn't wear, morphine and Ativan is on hold due to somnolence, patient did well with Haldol all last night, 06/06/2020, patient seen and evaluated examined during the rounds labs reviewed medications reviewed care plan discussed with the staff at length involving both medical floor and selective care critical care, patient continued to be intermittently agitated, does not keep the oxygen or BiPAP on his face, remains a problem with possible delirium or withdrawal, Ativan half a milligram tried, which seems to be helping but however agitated his agitation has been continuous, I have tried hold all this seems to be helping able to put patient some prone with that oxygen saturation improved to 95% with BiPAP off 100% oxygen, will continue Decadron, REM does ever, and IV antibiotics and sputum for culture as well repeat chest x-ray and arterial blood gases reviewed as well no significant change in next day has been noted, ABG suggestive of significant hypoxia, noted that he renal functions have improved This is a 65-year-old male who has a history of extensive smoking and nicotine use, patient presented into the emergency department with progressive increasing shortness of breath and nonproductive cough, he was hypoxic with low oxygen saturation, no sputum production, his code at 19 test came back positive, in the ER he was noted to have a low blood pressure of 104/65, patient was hypoxic with room air oxygen saturation of only 83%, low-grade temperature of 99.3 his present, he was also noted to have acute injury of the kidneys that BUN/creatinine of 32 and 1.29, his inflammatory parameters were elevated with ferritin level of over 1200, LDH of over 1400, C-reactive protein of 176, pro calcitonin noted to be elevated up 0.21, chest x-ray noted to have bilateral airspace disease, patient was admitted to medical floor where he was noted to have oxygen saturation marginal and eventually FiO2 went up to 15 L high flow oxygen his blood culture no growth so far Objective - Vital Signs Vital signs: Vital Signs Temp 100.8 F H 06/16/20 04:00 Pulse 78 06/16/20 10:00 Resp 34 H 06/16/20 10:00 BP 115/52 06/16/20 10:00 Pulse Ox 87 L 06/16/20 10:00 Intake & Output 06/15/20 06/16/20 06/16/20 18:59 06:59 18:59 Intake Total 9728.982 0097.276 400 Output Total 765 1270 565 Balance 862.454 533.276 -165 Weight 100.2 kg Intake: IV 1200 1200 400 Sodium Chloride 0.45% 1, 1200 1200 400 000 ml @ 100 mls/hr IV . Q10H [facility] Rx#:[id number] Intake, IV Titration 246.454 330.276 Amount Cisatracurium 200 mg In 146.454 53.546 Sodium Chloride 0.9% 180 ml @ 1 MCG/KG/MIN 4.62 mls/hr IV .Q24H [facility] Rx#: [id number] propofoL 1,000 mg In 100 276.73 Empty Bag 1 bag @ Titrate IV .Q0M [facility] Rx#: [id number] Tube Feeding 91 273 Other 90 Output: Urine 765 1270 565 Uretheral ([place]) 125 250 Other: Voiding Method Indwelling Catheter Indwelling Catheter Indwelling Catheter # Bowel Movements 0 - Exam - Constitutional General appearance: average body habitus, cooperative, disheveled, intubated on Nimbex and propofol - EENT Eyes: PERRLA Ears: bilateral: normal - Neck Neck: normal ROM Carotids: bilateral: upstroke normal Thyroid: bilateral: normal size - Respiratory Respiratory: bilateral: diminished - Cardiovascular Rhythm: regular Heart sounds: normal: S1, S2 - Gastrointestinal General gastrointestinal: normal bowel sounds, soft - Neurologic Neurologic: Agitated delirium is stable due to medical paralysis - Musculoskeletal Musculoskeletal:strength equal bilaterally - Psychiatric Psychiatric: Agitated delirium is is stable due to medical paralysis - Labs CBC & Chem 7: 06/15/20 05:46 06/15/20 05:46 Labs: Abnormal Lab Results - Last 24 Hours (Table) 06/15/20 06/15/20 06/15/20 Range/Units 04:32 13:18 18:35 ABG pCO2 79 H* (35-45) mmHg ABG pO2 56 L* (83-108) mmHg ABG HCO3 46 H* (21-25) mmol/L ABG Total CO2 (19-24) mmol/L ABG O2 Saturation (94-97) % POC Glucose (mg/dL) 153 H 114 H (75-99) mg/dL 06/16/20 06/16/20 06/16/20 Range/Units 00:05 05:50 05:52 ABG pCO2 77 H* (35-45) mmHg ABG pO2 47 L* (83-108) mmHg ABG HCO3 47 H* (21-25) mmol/L ABG Total CO2 49 H (19-24) mmol/L ABG O2 Saturation 83.3 L (94-97) % POC Glucose (mg/dL) 121 H 103 H (75-99) mg/dL Assessment and Plan Assessment: Acute hypoxic respiratory failure on ventilator with full vent support, oxygenation continued to be marginal up to 88% even on in prone positioning how ever desats to low 70s in supine posture lately Respiratory acidosis, ventilator being adjusted, see orders for detail Covid 19 pneumonia Hypernatremia Agitated delirium alternating with somnolence status post medical paralysis and sedation with propofol and Nimbex drip Acute kidney injury, renal functions improved Dehydration and volume depleted state Plan: Free water IV Ventilator adjustment as needed Medical paralysis and Sedation with Nimbex and propofol prone position as much as possible preferably 16 hours to 20 hours every day Continue keep saturation over 85-90% Decadron 6 mg IV antibiotics Sputum culture IV Remdesivir for 5 days Status post convalescent plasma Prognosis guarded with likelihood of recovery poor Time with Patient: Greater than 30
[2020-06-16 12:05] LABS: Glucose,Whole Blood 98 mg/dL (75-99)
[2020-06-16 16:34] LABS: LD Isoenzymes 1 21 % (19-38); LD Isoenzymes 2 33 % (30-43); LD Isoenzymes 3 20 % (16-26); LD Isoenzymes 4 11 % (3-12); LD Isoenzymes 5 15 % (3-14); Lactacte Dehydrogenase(LD) ISO 578 U/L (120-250)
[2020-06-16 17:42] LABS: Glucose,Whole Blood 82 mg/dL (75-99)
--- NOTE | 2020-06-16 22:14 | P.PN ---
Subjective Hospitalist covering for Dr. Rehman This is a 65 years old male with multiple medical problems as below, he was admitted on 06/05 for respiratory distress and found to have bilateral diffuse colonic pneumonia. With acute hypoxic respiratory failure that needed intubation and mechanical ventilation, currently patient is managed and monitored closely in the ICU with pulmonary/critical care team with Dr. Friedman following him closely. Patient needing high PEEP about 15 and he kept on a prone position Labs showing leukocytosis of 19 K, mild liver enzymes increased and his breathing fast at 30 breath per minute He remains on ceftriaxone, dexamethasone, Lovenox as well as zinc and ascorbic acid 06/16/2020 Patient remains in the ICU for bilateral, pneumonia, is in critical condition. He's monitored closely by pulmonary/critical care team. He is still on mechanical ventilation, and prone position. He is getting the colon with 19 treatment cocktail under the supervision of pulmonary team. Also he is on her present antibiotic. And Lovenox Patient was made DO NOT RESUSCITATE by daughter today Check labs in the morning including inflammatory markers Prognosis is extremely poor Review of systems: N/a Active Medications Generic Name Dose Route Start Last Admin Trade Name Freq PRN Reason Stop Dose Admin Acetaminophen 650 mg 06/04/20 16:59 06/05/20 16:05 Acetaminophen Tab 325 Mg Tab PO 650 mg Q6HR PRN Administration Mild Pain or Fever > 100.5 Artificial Tears 2 drops 06/08/20 20:00 06/16/20 20:39 Artificial Tears-Hypromellose Drops 15 Ml Btl BOTH EYES 2 drops Q4HR [facility] Administration Ascorbic Acid 500 mg 06/11/20 15:15 06/16/20 09:43 Ascorbic Acid 500 Mg Tab PO 500 mg DAILY [facility] Administration Chlorhexidine Gluconate 15 ml 06/08/20 21:00 06/16/20 20:01 Chlorhexidine Gluconate 15 Ml Cup MUCOUS MEM 15 ml BID [facility] Administration Dexamethasone Sodium Phosphate 6 mg 06/09/20 09:00 06/16/20 09:43 Dexamethasone Sod Phosphate 10 Mg/Ml 1 Ml Vial IV 6 mg DAILY [facility] Administration Docusate Sodium 100 mg 06/11/20 15:15 06/16/20 09:43 Docusate Oral Soln 100 Mg/10 Ml Cup PO 100 mg DAILY [facility] Administration Enoxaparin Sodium 40 mg 06/11/20 21:00 06/16/20 20:01 Enoxaparin 40 Mg/0.4 Ml Syringe SQ 40 mg BID [facility] Administration Ceftriaxone Sodium 1 gm/ 50 mls @ 100 mls/hr 06/06/20 17:15 06/16/20 09:42 Sodium Chloride IVPB 100 mls/hr Q24HR [facility] Administration Propofol 1,000 mg/ IV Solution 100 mls @ 0 mls/hr 06/08/20 15:45 06/16/20 05:48 IV 50 mcg/kg/min .Q0M [facility] 30.09 mls/hr Administration Protocol Titrate Cisatracurium Besylate 200 mg/ 200 mls @ 4.62 mls/hr 06/08/20 17:00 06/15/20 23:46 Sodium Chloride IV 3 mcg/kg/min .Q24H [facility] 13.86 mls/hr Administration Protocol 1 MCG/KG/MIN Sodium Chloride 1,000 mls @ 100 mls/hr 06/13/20 14:45 06/16/20 12:33 Saline 0.45% IV Not Given .Q10H [facility] Insulin Aspart 0 unit 06/09/20 00:00 06/16/20 18:07 Insulin Aspart (Novolog) 100 Unit/Ml Vial SQ Not Given Q6H [facility] Protocol Lorazepam 0.5 mg 06/06/20 17:03 06/08/20 14:33 Lorazepam 2 Mg/Ml Inj IV 0.5 mg Q2HR PRN Administration Anxiety Miscellaneous Information 1 each 06/10/20 07:21 Phosphorus Replacement Protoco 1 Each Misc MISCELLANE DAILY PRN Per Protocol Protocol Morphine Sulfate 1 mg 06/06/20 17:11 06/10/20 12:13 Morphine Sulfate 2 Mg/Ml Syringe IVP 1 mg Q3H PRN Administration Pain/Discomfort Naloxone HCl 0.2 mg 06/04/20 16:59 Naloxone 0.4 Mg/Ml 1 Ml Vial IV Q2M PRN Opioid Reversal Pantoprazole Sodium 40 mg 06/09/20 09:00 06/16/20 09:43 Pantoprazole 40 Mg/10 Ml Vial IVP 40 mg DAILY [facility] Administration Zinc Sulfate 220 mg 06/11/20 15:15 06/16/20 09:43 Zinc Sulfate 220 Mg Cap PO 220 mg DAILY [facility] Administration Zolpidem Tartrate 5 mg 06/05/20 08:27 06/05/20 22:27 Zolpidem 5 Mg Tab PO 5 mg HS PRN Administration Insomnia Objective - Vital Signs Vital signs: Vital Signs Temp 100.8 F H 06/16/20 04:00 Pulse 78 06/16/20 10:00 Resp 34 H 06/16/20 10:00 BP 115/52 06/16/20 10:00 Pulse Ox 87 L 06/16/20 10:00 Intake & Output 06/15/20 06/16/20 06/16/20 18:59 06:59 18:59 Intake Total 7725.252 7157.276 400 Output Total 765 1270 565 Balance 862.454 533.276 -165 Weight 100.2 kg Intake: IV 1200 1200 400 Sodium Chloride 0.45% 1, 1200 1200 400 000 ml @ 100 mls/hr IV . Q10H [facility] Rx#:[id number] Intake, IV Titration 246.454 330.276 Amount Cisatracurium 200 mg In 146.454 53.546 Sodium Chloride 0.9% 180 ml @ 1 MCG/KG/MIN 4.62 mls/hr IV .Q24H [facility] Rx#: [id number] propofoL 1,000 mg In 100 276.73 Empty Bag 1 bag @ Titrate IV .Q0M [facility] Rx#: [id number] Tube Feeding 91 273 Other 90 Output: Urine 765 1270 565 Uretheral ([place]) 125 250 Other: Voiding Method Indwelling Catheter Indwelling Catheter Indwelling Catheter # Bowel Movements 0 - Exam GENERAL: The patient is sedated and intubated, and a prone position HEENT: Pupils are round and equally reacting to light. EOMI. No scleral icterus. No conjunctival pallor. Normocephalic, atraumatic. No pharyngeal erythema. No thyromegaly. CARDIOVASCULAR: S1 and S2 present. No murmurs, rubs, or gallops. PULMONARY: Chest is clear to auscultation, no wheezing or crackles. ABDOMEN: Soft, nontender, nondistended, normoactive bowel sounds. No palpable organomegaly. MUSCULOSKELETAL: No joint swelling or deformity. EXTREMITIES: No cyanosis, clubbing, or pedal edema. NEUROLOGICAL: Gross neurological examination did not reveal any focal deficits. SKIN: No rashes. no petechiae. - Labs CBC & Chem 7: 06/15/20 05:46 06/15/20 05:46 Labs: Abnormal Lab Results - Last 24 Hours (Table) 06/15/20 06/15/20 06/15/20 Range/Units 04:32 13:18 18:35 ABG pCO2 79 H* (35-45) mmHg ABG pO2 56 L* (83-108) mmHg ABG HCO3 46 H* (21-25) mmol/L ABG Total CO2 (19-24) mmol/L ABG O2 Saturation (94-97) % POC Glucose (mg/dL) 153 H 114 H (75-99) mg/dL 06/16/20 06/16/20 06/16/20 Range/Units 00:05 05:50 05:52 ABG pCO2 77 H* (35-45) mmHg ABG pO2 47 L* (83-108) mmHg ABG HCO3 47 H* (21-25) mmol/L ABG Total CO2 49 H (19-24) mmol/L ABG O2 Saturation 83.3 L (94-97) % POC Glucose (mg/dL) 121 H 103 H (75-99) mg/dL Assessment and Plan Assessment: Bilateral cough with diffuse pneumonia Acute hypoxic respiratory failure, needing intubation and mechanical ventilation Increase inflammatory markers Mild leukocytosis History of GERD Plan: This is a 65 years old male who presents with bilateral covid pneumonia, he needed mechanical ventilation and pulmonary/critical care team are monitor him closely Also continue on ceftriaxone, dexamethasone, Lovenox, zinc and ascorbic acid. Recommendation of pulmonary team He is status post convelasant plasma Labs and medication were reviewed.. Continue same treatment. Continue with symptomatic treatment. Resume home medication. Monitor lytes and vitals. DVT and GI prophylaxis. Further recommendations as per clinical course of the patient DVT prophylaxis: Subcutaneous Lovenox GI Prophylaxis: Ppi Prognosis is extremely guarded
--- NOTE | 2020-06-17 00:37 | XR ---
EXAMINATION TYPE: XR chest 1V portable DATE OF EXAM: 06/17/2020 COMPARISON: 06/16/2020 HISTORY: Hypoxemia. The endotracheal tube is 5.5 cm from the mariajose. There is diffuse moderately severe pulmonary edema. There is nasogastric tube in the stomach. Mediastinum is normal. Heart size is fairly normal. IMPRESSION: Severe pulmonary edema unchanged compared to exam yesterday.
[2020-06-17 00:58] LABS: Glucose,Whole Blood 90 mg/dL (75-99)
[2020-06-17] MEDS: INSULIN ASPART (NovoLOG) 100 UNIT/ML VIAL SQ SCH ×5 (01:35→23:25)
[2020-06-17] MEDS: ARTIFICIAL TEARS-HYPROMELLOSE DROPS 15 ML BTL BOTH EYES SCH ×7 (01:35→23:06)
[2020-06-17] MEDS: CISATRACURIUM 200 MG in SODIUM CHLORIDE 0.9% 180 ML IV SCH (02:47)
[2020-06-17 05:46] LABS: ABG Base Excess 17.6 mmol/L; ABG Oxygen Saturation 88.4 % (94-97); ABG PCO2 61 mmHg (35-45); ABG PH 7.44 (7.35-7.45); ABG TCO2 44 mmol/L (19-24); Allen Test Performed? Yes
[2020-06-17 06:16] LABS: Glucose,Whole Blood 101 mg/dL (75-99)
[2020-06-17 06:18] LABS: ABG PO2 53 mmHg (83-108)
[2020-06-17 06:19] LABS: ABG HCO3 42 mmol/L (21-25)
[2020-06-17 07:03] LABS: African American GFR (CKD) >90 (>60 ml/min/1.73 sqM); Blood Urea Nitrogen 34 mg/dL (9-20); Calcium 7.6 mg/dL (8.4-10.2); Chloride 97 mmol/L (98-107); Glucose 101 mg/dL (74-99); Non-African American GFR(CKD) >90 (>60 ml/min/1.73 sqM); Potassium 4.5 mmol/L (3.5-5.1); Sodium 136 mmol/L (137-145)
[2020-06-17 07:08] LABS: Anion Gap 0 mmol/L
[2020-06-17 07:39] LABS: Carbon Dioxide 39 mmol/L (22-30); LDH 2320 U/L (313-618)
[2020-06-17 08:18] LABS: C Reactive Protein 366.1 mg/L (<10.0)
[2020-06-17 11:13] LABS: HGB 11.3 gm/dL (13.0-17.5); MCH 31.1 pg (25.0-35.0); MCHC 33.2 g/dL (31.0-37.0); MCV 93.6 fL (80.0-100.0); Mean Platelet Volume 10.6; Platelet Count 153 k/uL (150-450); RBC 3.63 m/uL (4.30-5.90); WBC 14.6 k/uL (3.8-10.6)
--- NOTE | 2020-06-17 11:18 | P.PN ---
Subjective Progress Note Date: 06/17/20 (Critical care time 35 minutes) Principal diagnosis: Acute hypoxic respiratory failure status post intubation Covid 19 pneumonia Acute kidney injury Dehydration and volume depleted state Confusion and agitated delirium Possible alcohol withdrawal 06/17/2020, patient seen eval examined during the rounds labs reviewed medications reviewed, patient remains on prone positioning on 100% oxygen, remains on assist control mode, PEEP of 15, rate of 34, chest x-ray performed today continue show bilateral diffuse pneumonia patient remains sedated and medically paralyze with propofol and Nimbex drip to feed when he is supine, meeting goals of calories, arterial blood gases reviewed pH is improved now 7.4 pCO2 61 pO2 53, urine creatinine is 34.53, LDH remains high over 1999 consistent with acute inflammatory ongoing response, fever Petrin is down, long-term prognosis poor June 16 2020, patient seen eval examined during the rounds labs reviewed medications reviewed, patient remains a deeply sedated and medically paralyze, currently on Nimbex drip along with propofol 50 mics, current ventilator settings include assist control rate of 34 PEEP of 5 tidal volume of 500 100% oxygen, oxygen saturation are barely 88%, discussed with the daughter at length, patient and daughter finally decided to make him no code, however continue to provide supportive care and therapy, chest x-ray overall not much change labs reviewed patient has been prone for 16 hours a day 06/15/2020, patient seen eval examined during the rounds labs reviewed medications reviewed, patient remains in prone positioning, white cell count remains as stable 19,000, arterial blood gas noted to have been improved as pH is 7.38 pCO2 Page and pO2 56, renal functions are normal, hemoglobin stable, last chest x-ray yesterday remains stable rate have been increased to 30 06/14/2020, patient seen eval reexamined during the rounds remains in prone positioning, oxygenation is better 88-90% with that however on supine posture drop down to mid to low 70s, patient remains on high PEEP high ventilator support, currently on PEEP of 15, tidal volume of 500, FiO2 100% assist control mode, sedated and medically paralyze, labs reviewed medications reviewed critical care time spent 35 minutes 06/13/2020, patient seen eval examined during the rounds labs reviewed medications reviewed care plan discussed, patient remains prone oxygen saturation 92%, arterial blood gas from this morning reviewed severe diffusion impairment is present with rising 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 respiratory acidosis and membrane diffusion impairment, patient has been hemodynamically stable though, chest x-ray and labs reviewed CO2 continued to rise, will increase her respiratory rate to 28, 06/12/2020, patient seen eval examined during the rounds labs reviewed medications reviewed care plan discussed, patient is supine saturation is 92% he is on 100% oxygen with full respirator support, ABG from this morning reviewed, patient has significant diffusion impairment with high CO2 however pH is stable, hemodynamic status stable remains on propofol as well as Nimbex drip, labs reviewed medications reviewed chest x-ray reviewed as well essentially no significant change bilateral dense infiltrate the bases remains unchanged patient does relatively better with improve oxygenation in prone positioning however does very poorly and supine posture, we will attempt to keep prone as much as possible, cultures no growth so far, labs included chemistry and CBC reviewed in phlegm atrial parameters remains up suggestive of ongoing cytokine Camila 06/11/2020, patient seen and evaluated examined while supine oxygen saturation dropped down into mid 70s, however when prone patient was saturating low 90s, 100% oxygen, stable when setting, propofol infusion escalated to 40 mics, Nimbex on for mics, been setting however is stable assist control with 100% oxygen chest x-ray reviewed and essentially no change labs reviewed as, sodium is going up, we'll start free water with the tube feeding, inflammatory parameters reviewed consistent with cytokine Camila of covid 19 pneumonia 06/10/2020, patient seen eval examined during the rounds care plan discussed with the staff at length labs and medications reviewed, hemodynamic status stable oxygen saturation remains marginal 90% 100% oxygen, patient is prone for 16 hours will be back supine around 11x-ray will be performed, sedated and medically paralyze with propofol and Nimbex drip, every feed is being given when he is supine, chest x-ray showed bilateral dense infiltrate arterial blood gases reviewed consistent with compensated hypercapnia and respiratory acidosis si gnificant of diffusion impairment, patient is status post convalescent plasma 06/09/2020, patient seen eval examined during the rounds labs reviewed medications reviewed care plan discussed, patient is chest x-ray is not done as patient has been prone plan is to keep him prone for 16 hours, once on his back will do the chest x-ray, patient ended up being intubated for respiratory distress worsening agitation and anxiety currently patient is on propofol and medically paralyze with Nimbex drip, FiO2 is 100% PEEP of 8 tidal volume 400 which has been adjusted for hypercapnia and hypoventilation, respiratory rate is 20, the white cell count is 16,000, d-dimer is 34, ABG suggestive of respiratory acidosis, , inflammatory parameters remains elevated sister of ongoing cytokine camila, patient remains on Remdesivir, Decadron, will get convalescent plasma as well Ammann continue prone positioning 06/08/2020, patient seen and evaluated reexamined on selective care remains agitated anxious respiratory rate into 60s saturation dropped down to 80-85%, patient tachypneic tachycardic difficult to control with a staph agitated behavior, arterial blood gas done pO2 dropped down to 46 only patient is showing respiratory and metabolic acidosis, will transfer to the ICU intubated and start patient on propofol may need to medically paralyze him with cisatracurium, postintubation was prone the patient for 16 hour as tolerated, post intubation chest x-ray reviewed ET tube just right at the mariajose will pull out 2 cm 06/08/2020, patient seen eval reexamined during the rounds remains tachypneic tachycardic but however saturation is 9888-90% on 100% oxygen and BiPAP currently on 03/03, patient today could not be placed in prone positioning, arterial blood gas reviewed pH is 7.43 pCO2 39 pO2 59, pO2 slightly up now compared to 2 days ago compared, we'll decrease the Decadron to 6 mg daily new other management June 07 2020, patient seen eval examined during the rounds labs reviewed medications reviewed care plan discussed, cough congestion is improved, patient is hemodynamically stable, continued to be tachypneic currently supine on BiPAP oxygen saturation is 88% on 100% oxygen, discussed with nursing staff to semi- prone him again patient dated 7-8 hours last night, white cell count is down, patient remains on Decadron along with IV REM doesn't wear, morphine and Ativan is on hold due to somnolence, patient did well with Haldol all last night, 06/06/2020, patient seen and evaluated examined during the rounds labs reviewed medications reviewed care plan discussed with the staff at length involving both medical floor and selective care critical care, patient continued to be in termittently agitated, does not keep the oxygen or BiPAP on his face, remains a problem with possible delirium or withdrawal, Ativan half a milligram tried, which seems to be helping but however agitated his agitation has been continuous, I have tried hold all this seems to be helping able to put patient some prone with that oxygen saturation improved to 95% with BiPAP off 100% oxygen, will continue Decadron, REM does ever, and IV antibiotics and sputum for culture as well repeat chest x-ray and arterial blood gases reviewed as well no significant change in next day has been noted, ABG suggestive of significant hypoxia, noted that he renal functions have improved This is a 65-year-old male who has a history of extensive smoking and nicotine use, patient presented into the emergency department with progressive increasing shortness of breath and nonproductive cough, he was hypoxic with low oxygen saturation, no sputum production, his code at 19 test came back positive, in the ER he was noted to have a low blood pressure of 104/65, patient was hypoxic with room air oxygen saturation of only 83%, low-grade temperature of 99.3 his present, he was also noted to have acute injury of the kidneys that BUN/creatinine of 32 and 1.29, his inflammatory parameters were elevated with ferritin level of over 1200, LDH of over 1400, C-reactive protein of 176, pro calcitonin noted to be elevated up 0.21, chest x-ray noted to have bilateral airspace disease, patient was admitted to medical floor where he was noted to have oxygen saturation marginal and eventually FiO2 went up to 15 L high flow oxygen his blood culture no growth so far Objective - Vital Signs Vital signs: Vital Signs Temp 98.9 F 06/17/20 04:00 Pulse 81 06/17/20 07:00 Resp 34 H 06/17/20 07:00 BP 141/67 06/17/20 07:00 Pulse Ox 85 L 06/17/20 07:00 Intake & Output 06/16/20 06/17/20 06/17/20 18:59 06:59 18:59 Intake Total 1500 1366.7 100 Output Total 1290 740 125 Balance 210 626.7 -25 Weight 100.2 kg 100.6 kg Intake: IV 1200 1200 100 Sodium Chloride 0.45% 1, 1200 1200 100 000 ml @ 100 mls/hr IV . Q10H [facility] Rx#:[id number] Intake, IV Titration 300 166.7 Amount Cisatracurium 200 mg In 200 Sodium Chloride 0.9% 180 ml @ 1 MCG/KG/MIN 4.62 mls/hr IV .Q24H [facility] Rx#: [id number] propofoL 1,000 mg In 100 166.7 Empty Bag 1 bag @ Titrate IV .Q0M [facility] Rx#: [id number] Output: Urine 1290 740 125 Uretheral ([place]) 375 Other: Voiding Method Indwelling Catheter Indwelling Catheter # Bowel Movements 0 - Exam - Constitutional General appearance: average body habitus, cooperative, disheveled, intubated on Nimbex and propofol - EENT Eyes: PERRLA Ears: bilateral: normal - Neck Neck: normal ROM Carotids: bilateral: upstroke normal Thyroid: bilateral: normal size - Respiratory Respiratory: bilateral: diminished - Cardiovascular Rhythm: regular Heart sounds: normal: S1, S2 - Gastrointestinal General gastrointestinal: normal bowel sounds, soft - Neurologic Neurologic: Agitated delirium is stable due to medical paralysis - Musculoskeletal Musculoskeletal:strength equal bilaterally - Psychiatric Psychiatric: Agitated delirium is is stable due to medical paralysis - Labs CBC & Chem 7: 06/15/20 05:46 06/17/20 06:31 Labs: Abnormal Lab Results - Last 24 Hours (Table) 06/11/20 06/17/20 06/17/20 Range/Units 07:59 05:40 06:05 D-Dimer (<0.60) mg/L FEU ABG pCO2 61 H (35-45) mmHg ABG pO2 53 L* (83-108) mmHg ABG HCO3 42 H* (21-25) mmol/L ABG Total CO2 44 H (19-24) mmol/L ABG O2 Saturation 88.4 L (94-97) % Sodium (137-145) mmol/L Chloride (98-107) mmol/L Carbon Dioxide (22-30) mmol/L BUN (9-20) mg/dL Creatinine (0.66-1.25) mg/dL Glucose (74-99) mg/dL POC Glucose (mg/dL) 101 H (75-99) mg/dL Calcium (8.4-10.2) mg/dL Lactate Dehydrogenase (313-618) U/L LD Isoenzymes 578 H (120-250) U/L LD 5 15 H (3-14) % C-Reactive Protein (<10.0) mg/L 06/17/20 06/17/20 Range/Units 06:31 06:31 D-Dimer 5.09 H (<0.60) mg/L FEU ABG pCO2 (35-45) mmHg ABG pO2 (83-108) mmHg ABG HCO3 (21-25) mmol/L ABG Total CO2 (19-24) mmol/L ABG O2 Saturation (94-97) % Sodium 136 L (137-145) mmol/L Chloride 97 L (98-107) mmol/L Carbon Dioxide 39 H (22-30) mmol/L BUN 34 H (9-20) mg/dL Creatinine 0.53 L (0.66-1.25) mg/dL Glucose 101 H (74-99) mg/dL POC Glucose (mg/dL) (75-99) mg/dL Calcium 7.6 L (8.4-10.2) mg/dL Lactate Dehydrogenase 2320 H (313-618) U/L LD Isoenzymes (120-250) U/L LD 5 (3-14) % C-Reactive Protein 366.1 H (<10.0) mg/L Assessment and Plan Assessment: Acute hypoxic respiratory failure on ventilator with full vent support, oxygenation continued to be marginal up to 88% even on in prone positioning however desats to low 70s in supine posture lately Respiratory acidosis, ventilator being adjusted, see orders for detail Covid 19 pneumonia Hypernatremia Agitated delirium alternating with somnolence status post medical paralysis and sedation with propofol and Nimbex drip Acute kidney injury, renal functions improved Dehydration and volume depleted state Plan: Free water IV Ventilator adjustment as needed Medical paralysis and Sedation with Nimbex and propofol prone position as much as possible preferably 16 hours to 20 hours every day Continue keep saturation over 85-90% Decadron 6 mg IV antibiotics Sputum culture IV Remdesivir for 5 days Status post convalescent plasma Prognosis guarded with likelihood of recovery poor Time with Patient: Greater than 30
[2020-06-17] MEDS: ZINC SULFATE 220 MG CAP PO SCH (11:24)
[2020-06-17] MEDS: ASCORBIC ACID 500 MG TAB PO SCH (11:24)
[2020-06-17] MEDS: CHLORHEXIDINE GLUCONATE 15 ML CUP MUCOUS MEM SCH ×2 (11:24→19:46)
[2020-06-17] MEDS: PANTOPRAZOLE 40 MG/10 ML VIAL IVP SCH (11:24)
[2020-06-17] MEDS: ENOXAPARIN 40 MG/0.4 ML SYRINGE SQ SCH ×2 (11:24→19:46)
[2020-06-17] MEDS: DOCUSATE ORAL SOLN 100 MG/10 ML CUP PO SCH (11:25)
[2020-06-17] MEDS: SODIUM CHLORIDE 0.45% 1,000 ML IV SCH ×2 (11:25→19:48)
[2020-06-17] MEDS: DEXAMETHASONE SOD PHOSPHATE 10 MG/ML 1 ML VIAL IV SCH (11:25)
[2020-06-17 14:22] LABS: Ferritin 2413.6 ng/mL (22.0-322.0)
[2020-06-17 15:12] LABS: Band Neutrophils % 4 %; Lymphocytes # (M) 0.73 k/uL (1.0-4.8); Metamyelocytes # (M) 0.15 k/uL (0); Metamyelocytes % 1 %; Monocytes # (M) 0.44 k/uL (0-1.0); Myelocytes # (M) 0.44 k/uL (0); Myelocytes % 3 %; Neutrophils % (M) 85 %; Nucleated Red Blood Cells 0 /100 WBC (0-0); Total Cells Counted 200
[2020-06-17 15:14] LABS: Polychromasia Present
[2020-06-17 18:32] LABS: Glucose,Whole Blood 105 mg/dL (75-99)
[2020-06-17 23:25] LABS: Glucose,Whole Blood 100 mg/dL (75-99)
[2020-06-18 04:26] LABS: ALT 102 U/L (4-49); AST 109 U/L (17-59); African American GFR (CKD) >90 (>60 ml/min/1.73 sqM); Alkaline Phosphatase 63 U/L (38-126); Anion Gap -1 mmol/L; Blood Urea Nitrogen 30 mg/dL (9-20); Calcium 7.6 mg/dL (8.4-10.2); Carbon Dioxide 39 mmol/L (22-30); Chloride 98 mmol/L (98-107); Creatine Kinase 103 U/L (55-170); Glucose 100 mg/dL (74-99); Non-African American GFR(CKD) >90 (>60 ml/min/1.73 sqM); Potassium 4.5 mmol/L (3.5-5.1); Sodium 136 mmol/L (137-145); Total Bilirubin 1.9 mg/dL (0.2-1.3); Total Protein 5.2 g/dL (6.3-8.2)
[2020-06-18] MEDS: ARTIFICIAL TEARS-HYPROMELLOSE DROPS 15 ML BTL BOTH EYES SCH ×5 (04:27→20:08)
[2020-06-18 04:28] LABS: Basophils # (A) 0.2 k/uL (0-0.2); Basophils % (A) 2 %; Eosinophils # (A) 0.1 k/uL (0-0.7); Eosinophils % (A) 1 %; HCT 37.8 % (39.0-53.0); HGB 11.7 gm/dL (13.0-17.5); Lymphocytes # (A) 0.3 k/uL (1.0-4.8); Lymphocytes % (A) 2 %; MCH 29.6 pg (25.0-35.0); MCV 95.6 fL (80.0-100.0); Mean Platelet Volume 10.4; Monocytes # (A) 0.3 k/uL (0-1.0); Monocytes % (A) 2 %; Neutrophils % (A) 93 %; Platelet Count 193 k/uL (150-450); RBC 3.96 m/uL (4.30-5.90); RDW 13.5 % (11.5-15.5)
--- NOTE | 2020-06-18 04:41 | P.PN ---
Subjective Hospitalist covering for Dr. Rehman This is a 65 years old male with multiple medical problems as below, he was admitted on 06/05 for respiratory distress and found to have bilateral diffuse colonic pneumonia. With acute hypoxic respiratory failure that needed intubation and mechanical ventilation, currently patient is managed and monitored closely in the ICU with pulmonary/critical care team with Dr. Friedman following him closely. Patient needing high PEEP about 15 and he kept on a prone position Labs showing leukocytosis of 19 K, mild liver enzymes increased and his breathing fast at 30 breath per minute He remains on ceftriaxone, dexamethasone, Lovenox as well as zinc and ascorbic acid 06/16/2020 Patient remains in the ICU for bilateral, pneumonia, is in critical condition. He's monitored closely by pulmonary/critical care team. He is still on mechanical ventilation, and prone position. He is getting the colon with 19 treatment cocktail under the supervision of pulmonary team. Also he is on her present antibiotic. And Lovenox Patient was made DO NOT RESUSCITATE by daughter today Check labs in the morning including inflammatory markers Prognosis is extremely poor 06/17/2020 Patient ICU, intubated on mechanical ventilation with pulmonary/surgical care team following her closely, he is in a prone position No much improvement her progress in his case He still running fever around 100, d-dimer is improvement but other in flammatory markers are worsening included ferritin, lactate dehydrogenase and C- reactive protein He continued to be on ceftriaxone, dexamethasone, zinc and ascorbic acid as well as Lovenox 40 mg twice daily with chest x-ray showing bilateral diffuse infiltrate Currently he is DO NOT RESUSCITATE as per family Prognosis remains guarded Review of systems: N/a Active Medications Generic Name Dose Route Start Last Admin Trade Name Freq PRN Reason Stop Dose Admin Acetaminophen 650 mg 06/04/20 16:59 06/05/20 16:05 Acetaminophen Tab 325 Mg Tab PO 650 mg Q6HR PRN Administration Mild Pain or Fever > 100.5 Artificial Tears 2 drops 06/08/20 20:00 06/18/20 04:27 Artificial Tears-Hypromellose Drops 15 Ml Btl BOTH EYES 2 drops Q4HR [facility] Administration Ascorbic Acid 500 mg 06/11/20 15:15 06/17/20 11:24 Ascorbic Acid 500 Mg Tab PO 500 mg DAILY [facility] Administration Chlorhexidine Gluconate 15 ml 06/08/20 21:00 06/17/20 19:46 Chlorhexidine Gluconate 15 Ml Cup MUCOUS MEM 15 ml BID [facility] Administration Dexamethasone Sodium Phosphate 6 mg 06/09/20 09:00 06/17/20 11:25 Dexamethasone Sod Phosphate 10 Mg/Ml 1 Ml Vial IV 6 mg DAILY [facility] Administration Docusate Sodium 100 mg 06/11/20 15:15 06/17/20 11:25 Docusate Oral Soln 100 Mg/10 Ml Cup PO Not Given DAILY [facility] Enoxaparin Sodium 40 mg 06/11/20 21:00 06/17/20 19:46 Enoxaparin 40 Mg/0.4 Ml Syringe SQ 40 mg BID [facility] Administration Ceftriaxone Sodium 1 gm/ 50 mls @ 100 mls/hr 06/06/20 17:15 06/17/20 11:25 Sodium Chloride IVPB 100 mls/hr Q24HR [facility] Administration Propofol 1,000 mg/ IV Solution 100 mls @ 0 mls/hr 06/08/20 15:45 06/18/20 04:26 IV 50 mcg/kg/min .Q0M [facility] 30.18 mls/hr Administration Protocol Titrate Cisatracurium Besylate 200 mg/ 200 mls @ 4.62 mls/hr 06/08/20 17:00 06/17/20 02:47 Sodium Chloride IV 3 mcg/kg/min .Q24H [facility] 13.86 mls/hr Administration Protocol 1 MCG/KG/MIN Sodium Chloride 1,000 mls @ 100 mls/hr 06/13/20 14:45 06/17/20 19:48 Saline 0.45% IV 100 mls/hr .Q10H [facility] Administration Insulin Aspart 0 unit 06/09/20 00:00 06/17/20 23:25 Insulin Aspart (Novolog) 100 Unit/Ml Vial SQ Not Given Q6H [facility] Protocol Lorazepam 0.5 mg 06/06/20 17:03 06/08/20 14:33 Lorazepam 2 Mg/Ml Inj IV 0.5 mg Q2HR PRN Administration Anxiety Miscellaneous Information 1 each 06/10/20 07:21 Phosphorus Replacement Protoco 1 Each Misc MISCELLANE DAILY PRN Per Protocol Protocol Morphine Sulfate 1 mg 06/06/20 17:11 06/10/20 12:13 Morphine Sulfate 2 Mg/Ml Syringe IVP 1 mg Q3H PRN Administration Pain/Discomfort Naloxone HCl 0.2 mg 11/15/20 16:59 Naloxone 0.4 Mg/Ml 1 Ml Vial IV Q2M PRN Opioid Reversal Pantoprazole Sodium 40 mg 06/09/20 09:00 06/17/20 11:24 Pantoprazole 40 Mg/10 Ml Vial IVP 40 mg DAILY [facility] Administration Zinc Sulfate 220 mg 06/11/20 15:15 06/17/20 11:24 Zinc Sulfate 220 Mg Cap PO 220 mg DAILY [facility] Administration Zolpidem Tartrate 5 mg 06/05/20 08:27 06/05/20 22:27 Zolpidem 5 Mg Tab PO 5 mg HS PRN Administration Insomnia Objective - Vital Signs Vital signs: Vital Signs Temp 98.9 F 06/17/20 04:00 Pulse 81 06/17/20 07:00 Resp 34 H 06/17/20 07:00 BP 141/67 06/17/20 07:00 Pulse Ox 85 L 06/17/20 07:00 Intake & Output 06/16/20 06/17/20 06/17/20 18:59 06:59 18:59 Intake Total 1500 1366.7 100 Output Total 1290 740 125 Balance 210 626.7 -25 Weight 100.2 kg 100.6 kg Intake: IV 1200 1200 100 Sodium Chloride 0.45% 1, 1200 1200 100 000 ml @ 100 mls/hr IV . Q10H [facility] Rx#:[id number] Intake, IV Titration 300 166.7 Amount Cisatracurium 200 mg In 200 Sodium Chloride 0.9% 180 ml @ 1 MCG/KG/MIN 4.62 mls/hr IV .Q24H [facility] Rx#: [id number] propofoL 1,000 mg In 100 166.7 Empty Bag 1 bag @ Titrate IV .Q0M [facility] Rx#: [id number] Output: Urine 1290 740 125 Uretheral ([place]) 375 Other: Voiding Method Indwelling Catheter Indwelling Catheter # Bowel Movements 0 - Exam GENERAL: The patient is sedated and intubated, and a prone position HEENT: Pupils are round and equally reacting to light. EOMI. No scleral icterus. No conjunctival pallor. Normocephalic, atraumatic. No pharyngeal erythema. No thyromegaly. CARDIOVASCULAR: S1 and S2 present. No murmurs, rubs, or gallops. PULMONARY: Chest is clear to auscultation, no wheezing or crackles. ABDOMEN: Soft, nontender, nondistended, normoactive bowel sounds. No palpable organomegaly. MUSCULOSKELETAL: No joint swelling or deformity. EXTREMITIES: No cyanosis, clubbing, or pedal edema. NEUROLOGICAL: Gross neurological examination did not reveal any focal deficits. SKIN: No rashes. no petechiae. - Labs CBC & Chem 7: 06/18/20 03:48 06/17/20 06:31 Labs: Abnormal Lab Results - Last 24 Hours (Table) 06/11/20 06/17/20 06/17/20 Range/Units 07:59 05:40 06:05 WBC (3.8-10.6) k/uL RBC (4.30-5.90) m/uL Hgb (13.0-17.5) gm/dL Hct (39.0-53.0) % D-Dimer (<0.60) mg/L FEU ABG pCO2 61 H (35-45) mmHg ABG pO2 53 L* (83-108) mmHg ABG HCO3 42 H* (21-25) mmol/L ABG Total CO2 44 H (19-24) mmol/L ABG O2 Saturation 88.4 L (94-97) % Sodium (137-145) mmol/L Chloride (98-107) mmol/L Carbon Dioxide (22-30) mmol/L BUN (9-20) mg/dL Creatinine (0.66-1.25) mg/dL Glucose (74-99) mg/dL POC Glucose (mg/dL) 101 H (75-99) mg/dL Calcium (8.4-10.2) mg/dL Lactate Dehydrogenase (313-618) U/L LD Isoenzymes 578 H (120-250) U/L LD 5 15 H (3-14) % C-Reactive Protein (<10.0) mg/L 06/17/20 06/17/20 06/17/20 Range/Units 06:31 06:31 10:40 WBC 14.6 H (3.8-10.6) k/uL RBC 3.63 L (4.30-5.90) m/uL Hgb 11.3 L (13.0-17.5) gm/dL Hct 34.0 L (39.0-53.0) % D-Dimer 5.09 H (<0.60) mg/L FEU ABG pCO2 (35-45) mmHg ABG pO2 (83-108) mmHg ABG HCO3 (21-25) mmol/L ABG Total CO2 (19-24) mmol/L ABG O2 Saturation (94-97) % Sodium 136 L (137-145) mmol/L Chloride 97 L (98-107) mmol/L Carbon Dioxide 39 H (22-30) mmol/L BUN 34 H (9-20) mg/dL Creatinine 0.53 L (0.66-1.25) mg/dL Glucose 101 H (74-99) mg/dL POC Glucose (mg/dL) (75-99) mg/dL Calcium 7.6 L (8.4-10.2) mg/dL Lactate Dehydrogenase 2320 H (313-618) U/L LD Isoenzymes (120-250) U/L LD 5 (3-14) % C-Reactive Protein 366.1 H (<10.0) mg/L Assessment and Plan Assessment: Bilateral cough with diffuse pneumonia Acute hypoxic respiratory failure, needing intubation and mechanical ventilation Increase inflammatory markers Mild leukocytosis History of GERD Plan: This is a 65 years old male who presents with bilateral covid pneumonia, he ne eded mechanical ventilation and pulmonary/critical care team are monitor him closely Also continue on ceftriaxone, dexamethasone, Lovenox, zinc and ascorbic acid. Recommendation of pulmonary team He is status post convelasant plasma Labs and medication were reviewed.. Continue same treatment. Continue with symptomatic treatment. Resume home medication. Monitor lytes and vitals. DVT and GI prophylaxis. Further recommendations as per clinical course of the patient DVT prophylaxis: Subcutaneous Lovenox GI Prophylaxis: Ppi Prognosis is extremely guarded
[2020-06-18] MEDS: SODIUM CHLORIDE 0.45% 1,000 ML IV SCH ×2 (05:01→15:05)
[2020-06-18 05:27] LABS: Glucose,Whole Blood 96 mg/dL (75-99)
[2020-06-18 05:28] LABS: C Reactive Protein 415.3 mg/L (<10.0)
[2020-06-18 05:35] LABS: ABG Base Excess 14.5 mmol/L; ABG Oxygen Saturation 88.8 % (94-97); ABG PH 7.34 (7.35-7.45); ABG PO2 60 mmHg (83-108); ABG TCO2 43 mmol/L (19-24); Allen Test Performed? Yes
[2020-06-18 05:36] LABS: ABG HCO3 40 mmol/L (21-25)
[2020-06-18] MEDS: INSULIN ASPART (NovoLOG) 100 UNIT/ML VIAL SQ SCH ×3 (06:35→17:17)
--- NOTE | 2020-06-18 07:52 | XR ---
EXAMINATION TYPE: XR chest 1V portable DATE OF EXAM: 06/18/2020 CLINICAL HISTORY: Difficulty breathing progress study. TECHNIQUE: Single AP portable upright view of the chest is obtained. COMPARISON: Chest x-ray from one day earlier and older studies. FINDINGS: Stable endotracheal and orogastric tubes. Cardiac silhouette size is stable and within normal limits. Reticular and increased opacities bilater ally with more dense consolidation in the bases is redemonstrated. No pneumothorax noted bilaterally. Old fracture deformity left mid clavicle redemonstrated. IMPRESSION: Bilateral diffuse infiltrates and/or edema redemonstrated. No significant change from one day earlier.
[2020-06-18] MEDS: CHLORHEXIDINE GLUCONATE 15 ML CUP MUCOUS MEM SCH ×2 (10:01→20:08)
[2020-06-18] MEDS: PANTOPRAZOLE 40 MG/10 ML VIAL IVP SCH (10:02)
[2020-06-18] MEDS: DEXAMETHASONE SOD PHOSPHATE 10 MG/ML 1 ML VIAL IV SCH (10:02)
[2020-06-18] MEDS: DOCUSATE ORAL SOLN 100 MG/10 ML CUP PO SCH (10:02)
[2020-06-18] MEDS: ENOXAPARIN 40 MG/0.4 ML SYRINGE SQ SCH ×2 (10:02→20:08)
[2020-06-18] MEDS: ZINC SULFATE 220 MG CAP PO SCH (10:03)
[2020-06-18] MEDS: ASCORBIC ACID 500 MG TAB PO SCH (10:04)
[2020-06-18 11:06] LABS: Ferritin 2578.4 ng/mL (22.0-322.0)
[2020-06-18 11:57] LABS: Glucose,Whole Blood 92 mg/dL (75-99)
--- NOTE | 2020-06-18 11:58 | P.PN ---
Subjective Progress Note Date: 06/18/20 (Radical care time spent 35 minutes) Principal diagnosis: Acute hypoxic respiratory failure status post intubation Covid 19 pneumonia Acute kidney injury Dehydration and volume depleted state Confusion and agitated delirium Possible alcohol withdrawal 06/18/2020, patient seen eval examined during the rounds labs reviewed medications reviewed care plan discussed with him with the staff, patient remains prone, medically paralyze with propofol and then next, discussed to d ecrease the amount of propofol due to 20-30, chest x-ray remains stable, patient is on full ventilator support with PEEP of 15, assist control rate of 34 500 tidal volume and FiO2 100% saturation is 88, urine output is adequate patient remains on tube feed when prone, remains on dexamethasone along with Lovenox, 06/17/2020, patient seen eval examined during the rounds labs reviewed medications reviewed, patient remains on prone positioning on 100% oxygen, remains on assist control mode, PEEP of 15, rate of 34, chest x-ray performed today continue show bilateral diffuse pneumonia patient remains sedated and medically paralyze with propofol and Nimbex drip to feed when he is supine, meeting goals of calories, arterial blood gases reviewed pH is improved now 7.4 pCO2 61 pO2 53, urine creatinine is 34.53, LDH remains high over 1999 consistent with acute inflammatory ongoing response, fever Petrin is down, long-term prognosis poor June 16 2020, patient seen eval examined during the rounds labs reviewed medications reviewed, patient remains a deeply sedated and medically paralyze, currently on Nimbex drip along with propofol 50 mics, current ventilator settings include assist control rate of 34 PEEP of 5 tidal volume of 500 100% oxygen, oxygen saturation are barely 88%, discussed with the daughter at length, patient and daughter finally decided to make him no code, however continue to provide supportive care and therapy, chest x-ray overall not much change labs reviewed patient has been prone for 16 hours a day 06/15/2020, patient seen eval examined during the rounds labs reviewed medications reviewed, patient remains in prone positioning, white cell count remains as stable 19,000, arterial blood gas noted to have been improved as pH is 7.38 pCO2 Page and pO2 56, renal functions are normal, hemoglobin stable, last chest x-ray yesterday remains stable rate have been increased to 30 06/14/2020, patient seen eval reexamined during the rounds remains in prone positioning, oxygenation is better 88-90% with that however on supine posture drop down to mid to low 70s, patient remains on high PEEP high ventilator support, currently on PEEP of 15, tidal volume of 500, FiO2 100% assist control mode, sedated and medically paralyze, labs reviewed medications reviewed critical care time spent 35 minutes 06/13/2020, patient seen eval examined during the rounds labs reviewed medications reviewed care plan discussed, patient remains prone oxygen saturation 92%, arterial blood gas from this morning reviewed severe diffusion impairment is present with 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 and membrane diffusion impairment, patient has been hemodynamically stable though, chest x-ray and labs reviewed CO2 continued to rise, will increase her respiratory rate to 28, 06/12/2020, patient seen eval examined during the rounds labs reviewed medications reviewed care plan discussed, patient is supine saturation is 92% he is on 100% oxygen with full respirator support, ABG from this morning reviewed, patient has significant diffusion impairment with high CO2 however pH is stable, hemodynamic status stable remains on propofol as well as Nimbex drip, labs r eviewed medications reviewed chest x-ray reviewed as well essentially no significant change bilateral dense infiltrate the bases remains unchanged patient does relatively better with improve oxygenation in prone positioning however does very poorly and supine posture, we will attempt to keep prone as much as possible, cultures no growth so far, labs included chemistry and CBC reviewed in phlegm atrial parameters remains up suggestive of ongoing cytokine Camila 06/11/2020, patient seen and evaluated examined while supine oxygen saturation dropped down into mid 70s, however when prone patient was saturating low 90s, 100% oxygen, stable when setting, propofol infusion escalated to 40 mics, Nimbex on for mics, been setting however is stable assist control with 100% oxygen chest x-ray reviewed and essentially no change labs reviewed as, sodium is going up, we'll start free water with the tube feeding, inflammatory parameters reviewed consistent with cytokine Camila of covid 19 pneumonia 06/10/2020, patient seen eval examined during the rounds care plan discussed with the staff at length labs and medications reviewed, hemodynamic status stable oxygen saturation remains marginal 90% 100% oxygen, patient is prone for 16 hours will be back supine around 11x-ray will be performed, sedated and medically paralyze with propofol and Nimbex drip, every feed is being given when he is supine, chest x-ray showed bilateral dense infiltrate arterial blood gases reviewed consistent with compensated hypercapnia and respiratory acidosis significant of diffusion impairment, patient is status post convalescent plasma 06/09/2020, patient seen eval examined during the rounds labs reviewed medicati ons reviewed care plan discussed, patient is chest x-ray is not done as patient has been prone plan is to keep him prone for 16 hours, once on his back will do the chest x-ray, patient ended up being intubated for respiratory distress worsening agitation and anxiety currently patient is on propofol and medically paralyze with Nimbex drip, FiO2 is 100% PEEP of 8 tidal volume 400 which has been adjusted for hypercapnia and hypoventilation, respiratory rate is 20, the white cell count is 16,000, d-dimer is 34, ABG suggestive of respiratory acidosis, , inflammatory parameters remains elevated sister of ongoing cytokine camila, patient remains on Remdesivir, Decadron, will get convalescent plasma as well Ammann continue prone positioning 06/08/2020, patient seen and evaluated reexamined on selective care remains agitated anxious respiratory rate into 60s saturation dropped down to 80-85%, patient tachypneic tachycardic difficult to control with a staph agitated behavior, arterial blood gas done pO2 dropped down to 46 only patient is showing respiratory and metabolic acidosis, will transfer to the ICU intubated and start patient on propofol may need to medically paralyze him with cisatracurium, postintubation was prone the patient for 16 hour as tolerated, post intubation chest x-ray reviewed ET tube just right at the mariajose will pull out 2 cm 06/08/2020, patient seen eval reexamined during the rounds remains tachypneic tachycardic but however saturation is 9888-90% on 100% oxygen and BiPAP currently on 03/03, patient today could not be placed in prone positioning, arterial blood gas reviewed pH is 7.43 pCO2 39 pO2 59, pO2 slightly up now compared to 2 days ago compared, we'll decrease the Decadron to 6 mg daily new other management June 07 2020, patient seen eval examined during the rounds labs reviewed medications reviewed care plan discussed, cough congestion is improved, patient is hemodynamically stable, continued to be tachypneic currently supine on BiPAP oxygen saturation is 88% on 100% oxygen, discussed with nursing staff to semi- prone him again patient dated 7-8 hours last night, white cell count is down, patient remains on Decadron along with IV REM doesn't wear, morphine and Ativan is on hold due to somnolence, patient did well with Haldol all last night, 06/06/2020, patient seen and evaluated examined during the rounds labs reviewed medications reviewed care plan discussed with the staff at length involving both medical floor and selective care critical care, patient continued to be intermittently agitated, does not keep the oxygen or BiPAP on his face, remains a problem with possible delirium or withdrawal, Ativan half a milligram tried, zeeshan lopez seems to be helping but however agitated his agitation has been continuous, I have tried hold all this seems to be helping able to put patient some prone with that oxygen saturation improved to 95% with BiPAP off 100% oxygen, will continue Decadron, REM does ever, and IV antibiotics and sputum for culture as well repeat chest x-ray and arterial blood gases reviewed as well no significant change in next day has been noted, ABG suggestive of significant hypoxia, noted that he renal functions have improved This is a 65-year-old male who has a history of extensive smoking and nicotine use, patient presented into the emergency department with progressive increasing shortness of breath and nonproductive cough, he was hypoxic with low oxygen saturation, no sputum production, his code at 19 test came back positive, in the ER he was noted to have a low blood pressure of 104/65, patient was hypoxic with room air oxygen saturation of only 83%, low-grade temperature of 99.3 his present, he was also noted to have acute injury of the kidneys that BUN/creatinine of 32 and 1.29, his inflammatory parameters were elevated with ferritin level of over 1200, LDH of over 1400, C-reactive protein of 176, pro calcitonin noted to be elevated up 0.21, chest x-ray noted to have bilateral airspace disease, patient was admitted to medical floor where he was noted to have oxygen saturation marginal and eventually FiO2 went up to 15 L high flow oxygen his blood culture no growth so far Objective - Vital Signs Vital signs: Vital Signs Temp 100.3 F H 06/18/20 04:00 Pulse 81 06/18/20 11:00 Resp 34 H 06/18/20 11:00 BP 97/53 06/18/20 11:00 Pulse Ox 88 L 06/18/20 11:00 Intake & Output 06/17/20 06/18/20 06/18/20 18:59 06:59 18:59 Intake Total 1300 1427.665 100 Output Total 895 745 60 Balance 405 682.665 40 Weight 101.3 kg Intake: IV 1200 1200 100 Sodium Chloride 0.45% 1, 1200 1200 100 000 ml @ 100 mls/hr IV . Q10H [facility] Rx#:[id number] Intake, IV Titration 100 227.665 Amount propofoL 1,000 mg In 100 227.665 Empty Bag 1 bag @ Titrate IV .Q0M [facility] Rx#: [id number] Output: Urine 895 745 60 Other: Voiding Method Indwelling Catheter Indwelling Catheter # Bowel Movements 0 0 - Labs CBC & Chem 7: 06/18/20 03:48 06/18/20 03:48 Labs: Abnormal Lab Results - Last 24 Hours (Table) 06/17/20 06/17/20 06/17/20 Range/Units 06:31 10:40 18:31 WBC (3.8-10.6) k/uL RBC (4.30-5.90) m/uL Hgb (13.0-17.5) gm/dL Hct (39.0-53.0) % Neutrophils # (1.3-7.7) k/uL Neutrophils # (Manual) 12.90 H (1.3-7.7) k/uL Lymphocytes # (1.0-4.8) k/uL Lymphocytes # (Manual) 0.73 L (1.0-4.8) k/uL Metamyelocytes # (Man) 0.15 H (0) k/uL Myelocytes # (Manual) 0.44 H (0) k/uL Fibrinogen (200-500) mg/dL ABG pH (7.35-7.45) ABG pCO2 (35-45) mmHg ABG pO2 (83-108) mmHg ABG HCO3 (21-25) mmol/L ABG Total CO2 (19-24) mmol/L ABG O2 Saturation (94-97) % Sodium (137-145) mmol/L Carbon Dioxide (22-30) mmol/L BUN (9-20) mg/dL Creatinine (0.66-1.25) mg/dL Glucose (74-99) mg/dL POC Glucose (mg/dL) 105 H (75-99) mg/dL Calcium (8.4-10.2) mg/dL Ferritin 2413.6 H (22.0-322.0) ng/mL Total Bilirubin (0.2-1.3) mg/dL AST (17-59) U/L ALT (4-49) U/L C-Reactive Protein (<10.0) mg/L Total Protein (6.3-8.2) g/dL Albumin (3.5-5.0) g/dL 06/17/20 06/18/20 06/18/20 Range/Units 23:24 03:48 03:48 WBC 15.0 H (3.8-10.6) k/uL RBC 3.96 L (4.30-5.90) m/uL Hgb 11.7 L (13.0-17.5) gm/dL Hct 37.8 L (39.0-53.0) % Neutrophils # 14.0 H (1.3-7.7) k/uL Neutrophils # (Manual) (1.3-7.7) k/uL Lymphocytes # 0.3 L (1.0-4.8) k/uL Lymphocytes # (Manual) (1.0-4.8) k/uL Metamyelocytes # (Man) (0) k/uL Myelocytes # (Manual) (0) k/uL Fibrinogen 623 H (200-500) mg/dL ABG pH (7.35-7.45) ABG pCO2 (35-45) mmHg ABG pO2 (83-108) mmHg ABG HCO3 (21-25) mmol/L ABG Total CO2 (19-24) mmol/L ABG O2 Saturation (94-97) % Sodium (137-145) mmol/L Carbon Dioxide (22-30) mmol/L BUN (9-20) mg/dL Creatinine (0.66-1.25) mg/dL Glucose (74-99) mg/dL POC Glucose (mg/dL) 100 H (75-99) mg/dL Calcium (8.4-10.2) mg/dL Ferritin (22.0-322.0) ng/mL Total Bilirubin (0.2-1.3) mg/dL AST (17-59) U/L ALT (4-49) U/L C-Reactive Protein (<10.0) mg/L Total Protein (6.3-8.2) g/dL Albumin (3.5-5.0) g/dL 06/18/20 06/18/20 Range/Units 03:48 05:28 WBC (3.8-10.6) k/uL RBC (4.30-5.90) m/uL Hgb (13.0-17.5) gm/dL Hct (39.0-53.0) % Neutrophils # (1.3-7.7) k/uL Neutrophils # (Manual) (1.3-7.7) k/uL Lymphocytes # (1.0-4.8) k/uL Lymphocytes # (Manual) (1.0-4.8) k/uL Metamyelocytes # (Man) (0) k/uL Myelocytes # (Manual) (0) k/uL Fibrinogen (200-500) mg/dL ABG pH 7.34 L (7.35-7.45) ABG pCO2 75 H* (35-45) mmHg ABG pO2 60 L (83-108) mmHg ABG HCO3 40 H* (21-25) mmol/L ABG Total CO2 43 H (19-24) mmol/L ABG O2 Saturation 88.8 L (94-97) % Sodium 136 L (137-145) mmol/L Carbon Dioxide 39 H (22-30) mmol/L BUN 30 H (9-20) mg/dL Creatinine 0.49 L (0.66-1.25) mg/dL Glucose 100 H (74-99) mg/dL POC Glucose (mg/dL) (75-99) mg/dL Calcium 7.6 L (8.4-10.2) mg/dL Ferritin 2578.4 H (22.0-322.0) ng/mL Total Bilirubin 1.9 H (0.2-1.3) mg/dL AST 109 H (17-59) U/L ALT 102 H (4-49) U/L C-Reactive Protein 415.3 H (<10.0) mg/L Total Protein 5.2 L (6.3-8.2) g/dL Albumin 2.0 L (3.5-5.0) g/dL Assessment and Plan Assessment: Acute hypoxic respiratory failure on ventilator with full vent support, oxygenation continued to be marginal up to 88% even on in prone positioning however desats to low 70s in supine posture lately Respiratory acidosis, ventilator being adjusted, see orders for detail Covid 19 pneumonia Hypernatremia Agitated delirium alternating with somnolence status post medical paralysis and sedation with propofol and Nimbex drip Acute kidney injury, renal functions improved Dehydration and volume depleted state Plan: Continue gentle rehydration IV Ventilator adjustment as needed Medical paralysis and Sedation with Nimbex and propofol attempt to lower down the propofol prone position as much as possible preferably 16 hours to 20 hours every day Continue keep saturation over 85-90% Decadron 6 mg IV antibiotics Tube feeding when supine Sputum culture IV Remdesivir for 5 days Status post convalescent plasma Prognosis guarded with likelihood of recovery poor Time with Patient: Greater than 30
[2020-06-18 17:05] LABS: Glucose,Whole Blood 88 mg/dL (75-99)
[2020-06-19 00:19] LABS: Glucose,Whole Blood 130 mg/dL (75-99)
[2020-06-19] MEDS: INSULIN ASPART (NovoLOG) 100 UNIT/ML VIAL SQ SCH ×4 (00:29→18:05)
[2020-06-19] MEDS: ARTIFICIAL TEARS-HYPROMELLOSE DROPS 15 ML BTL BOTH EYES SCH ×6 (00:45→20:33)
[2020-06-19] MEDS: SODIUM CHLORIDE 0.45% 1,000 ML IV SCH ×3 (00:46→20:33)
[2020-06-19 04:42] LABS: Basophils # (A) 0.1 k/uL (0-0.2); Basophils % (A) 1 %; Eosinophils # (A) 0.1 k/uL (0-0.7); Eosinophils % (A) 1 %; HCT 34.8 % (39.0-53.0); HGB 10.9 gm/dL (13.0-17.5); Lymphocytes # (A) 0.5 k/uL (1.0-4.8); Lymphocytes % (A) 4 %; MCH 29.7 pg (25.0-35.0); MCHC 31.3 g/dL (31.0-37.0); MCV 95.1 fL (80.0-100.0); Mean Platelet Volume 10.2; Monocytes # (A) 0.4 k/uL (0-1.0); Monocytes % (A) 4 %; Neutrophils # (A) 9.7 k/uL (1.3-7.7); Neutrophils % (A) 90 %; Platelet Count 224 k/uL (150-450); RBC 3.66 m/uL (4.30-5.90); RDW 13.7 % (11.5-15.5); WBC 10.8 k/uL (3.8-10.6)
[2020-06-19 05:03] LABS: ALT 64 U/L (4-49); AST 64 U/L (17-59); African American GFR (CKD) >90 (>60 ml/min/1.73 sqM); Albumin 1.8 g/dL (3.5-5.0); Alkaline Phosphatase 60 U/L (38-126); Blood Urea Nitrogen 33 mg/dL (9-20); Calcium 7.6 mg/dL (8.4-10.2); Chloride 97 mmol/L (98-107); Creatine Kinase 97 U/L (55-170); Glucose 117 mg/dL (74-99); Non-African American GFR(CKD) >90 (>60 ml/min/1.73 sqM); Potassium 4.4 mmol/L (3.5-5.1); Sodium 135 mmol/L (137-145); Total Protein 4.8 g/dL (6.3-8.2)
[2020-06-19 05:05] LABS: ABG Oxygen Saturation 86.5 % (94-97); ABG PCO2 62 mmHg (35-45); ABG PH 7.44 (7.35-7.45); ABG TCO2 43 mmol/L (19-24); Allen Test Performed? Yes
[2020-06-19 05:09] LABS: Anion Gap -1 mmol/L
[2020-06-19 06:09] LABS: Carbon Dioxide 39 mmol/L (22-30)
[2020-06-19 06:12] LABS: Glucose,Whole Blood 110 mg/dL (75-99)
[2020-06-19 07:02] LABS: C Reactive Protein 339.5 mg/L (<10.0)
--- NOTE | 2020-06-19 08:27 | XR ---
EXAMINATION TYPE: XR chest 1V portable DATE OF EXAM: 06/19/2020 COMPARISON: 06/18/2020 INDICATION: ICU management, Covid TECHNIQUE: Single frontal view of the chest is obtained. FINDINGS: The heart size is normal. The pulmonary vasculature is normal. Diffuse increased lung markings are present bilaterally greater in the lung bases. Findings are stabl e. Endotracheal tube tip is above the mariajose. Nasogastric tube transverses the thorax. IMPRESSION: 1. Diffuse increased lung markings greater in the lung bases, stable from comparison. 2. Lines and catheters discussed above.
--- NOTE | 2020-06-19 09:03 | P.PN ---
Subjective Principal diagnosis: Respiratory distress. The patient has had poor progress over the weekend. The patient is now been transferred ICU due to worsening respiratory failure. Pneumonia-coronavirus treatment is continuing. Appreciate pulmonary/case coordinator input. The patient has not been improving as anticipated given the treatment that he has had. Poor respiratory improvement MInimal improvement. ABG is noted to have poor oxygen saturation by blood gas. Objective - Vital Signs Vital signs: Vital Signs Temp 97.8 F 06/19/20 04:00 Pulse 69 06/19/20 07:00 Resp 34 H 06/19/20 07:00 BP 105/56 06/19/20 07:00 Pulse Ox 86 L 06/19/20 07:00 Intake & Output 06/18/20 06/19/20 06/19/20 18:59 06:59 18:59 Intake Total 1421 1786.006 100 Output Total 725 870 80 Balance 696 916.006 20 Weight 100.9 kg Intake: IV 1200 1200 100 Sodium Chloride 0.45% 1, 1200 1200 100 000 ml @ 100 mls/hr IV . Q10H [facility] Rx#:[id number] Intake, IV Titration 100 101.006 Amount propofoL 1,000 mg In 100 101.006 Empty Bag 1 bag @ Titrate IV .Q0M [facility] Rx#: [id number] Tube Feeding 91 455 Other 30 30 Output: Urine 725 870 80 Other: Voiding Method Indwelling Catheter Indwelling Catheter # Bowel Movements 0 0 - Constitutional General appearance: Present: average body habitus - EENT Eyes: Absent: abnormal pupil - Neck Neck: Absent: lymphadenopathy - Respiratory Respiratory: bilateral: diminished - Cardiovascular Rhythm: regular Heart sounds: normal: S1, S2 Abnormal Heart Sounds: Absent: S3 Gallop - Gastrointestinal General gastrointestinal: Present: soft. Absent: tenderness - Psychiatric Psychiatric: Absent: A&O x's 3 - Labs CBC & Chem 7: 06/19/20 04:20 06/19/20 04:20 Labs: Abnormal Lab Results - Last 24 Hours (Table) 06/18/20 06/19/20 06/19/20 Range/Units 03:48 00:17 04:20 WBC 10.8 H (3.8-10.6) k/uL RBC 3.66 L (4.30-5.90) m/uL Hgb 10.9 L (13.0-17.5) gm/dL Hct 34.8 L (39.0-53.0) % Neutrophils # 9.7 H (1.3-7.7) k/uL Lymphocytes # 0.5 L (1.0-4.8) k/uL Fibrinogen (200-500) mg/dL ABG pCO2 (35-45) mmHg ABG pO2 (83-108) mmHg ABG HCO3 (21-25) mmol/L ABG Total CO2 (19-24) mmol/L ABG O2 Saturation (94-97) % Sodium (137-145) mmol/L Chloride (98-107) mmol/L Carbon Dioxide (22-30) mmol/L BUN (9-20) mg/dL Creatinine (0.66-1.25) mg/dL Glucose (74-99) mg/dL POC Glucose (mg/dL) 130 H (75-99) mg/dL Calcium (8.4-10.2) mg/dL Ferritin 2578.4 H (22.0-322.0) ng/mL AST (17-59) U/L ALT (4-49) U/L C-Reactive Protein (<10.0) mg/L Total Protein (6.3-8.2) g/dL Albumin (3.5-5.0) g/dL 06/19/20 06/19/20 06/19/20 Range/Units 04:20 04:20 05:03 WBC (3.8-10.6) k/uL RBC (4.30-5.90) m/uL Hgb (13.0-17.5) gm/dL Hct (39.0-53.0) % Neutrophils # (1.3-7.7) k/uL Lymphocytes # (1.0-4.8) k/uL Fibrinogen 605 H (200-500) mg/dL ABG pCO2 62 H (35-45) mmHg ABG pO2 49 L* (83-108) mmHg ABG HCO3 41 H* (21-25) mmol/L ABG Total CO2 43 H (19-24) mmol/L ABG O2 Saturation 86.5 L (94-97) % Sodium 135 L (137-145) mmol/L Chloride 97 L (98-107) mmol/L Carbon Dioxide 39 H (22-30) mmol/L BUN 33 H (9-20) mg/dL Creatinine 0.49 L (0.66-1.25) mg/dL Glucose 117 H (74-99) mg/dL POC Glucose (mg/dL) (75-99) mg/dL Calcium 7.6 L (8.4-10.2) mg/dL Ferritin (22.0-322.0) ng/mL AST 64 H (17-59) U/L ALT 64 H (4-49) U/L C-Reactive Protein 339.5 H (<10.0) mg/L Total Protein 4.8 L (6.3-8.2) g/dL Albumin 1.8 L (3.5-5.0) g/dL 06/19/20 Range/Units 06:10 WBC (3.8-10.6) k/uL RBC (4.30-5.90) m/uL Hgb (13.0-17.5) gm/dL Hct (39.0-53.0) % Neutrophils # (1.3-7.7) k/uL Lymphocytes # (1.0-4.8) k/uL Fibrinogen (200-500) mg/dL ABG pCO2 (35-45) mmHg ABG pO2 (83-108) mmHg ABG HCO3 (21-25) mmol/L ABG Total CO2 (19-24) mmol/L ABG O2 Saturation (94-97) % Sodium (137-145) mmol/L Chloride (98-107) mmol/L Carbon Dioxide (22-30) mmol/L BUN (9-20) mg/dL Creatinine (0.66-1.25) mg/dL Glucose (74-99) mg/dL POC Glucose (mg/dL) 110 H (75-99) mg/dL Calcium (8.4-10.2) mg/dL Ferritin (22.0-322.0) ng/mL AST (17-59) U/L ALT (4-49) U/L C-Reactive Protein (<10.0) mg/L Total Protein (6.3-8.2) g/dL Albumin (3.5-5.0) g/dL Assessment and Plan (1) Hypoxia Current Visit: Yes Status: Acute Code(s): R09.02 - HYPOXEMIA SNOMED Code(s): 182631542 (2) Pneumonia due to COVID-19 virus Current Visit: Yes Status: Acute Code(s): U07.1 - COVID-19; J12.89 - OTHER VIRAL PNEUMONIA SNOMED Code(s): 245138981908499514 Plan: Unfortunately with his for improvement, and overall diagnosis, poor prognosis is noted. We'll continue to follow with pulmonology. Check CBC and CMP in a.m. The patient is on full respiratory support and given Covid DIAGNOSIS HAS BEEN GIVEN THE APPROPRIATE STANDARDIZED TREATMENT FOR THIS< BUT HAS HAD MINIMAL IMPROVEMENT> We will continue to follow and pray that he improves incrementally as the days go on. We will need to have a discussion with his family due to the prognostic indicators. Unfortunately, not much has changed over this Past weekend. during the holiday.
[2020-06-19] MEDS: ZINC SULFATE 220 MG CAP PO SCH (09:59)
[2020-06-19] MEDS: DEXAMETHASONE SOD PHOSPHATE 10 MG/ML 1 ML VIAL IV SCH (09:59)
[2020-06-19] MEDS: ASCORBIC ACID 500 MG TAB PO SCH (09:59)
[2020-06-19] MEDS: ENOXAPARIN 40 MG/0.4 ML SYRINGE SQ SCH ×2 (10:00→20:33)
[2020-06-19] MEDS: PANTOPRAZOLE 40 MG/10 ML VIAL IVP SCH (10:00)
[2020-06-19] MEDS: CHLORHEXIDINE GLUCONATE 15 ML CUP MUCOUS MEM SCH ×2 (10:00→20:33)
[2020-06-19] MEDS: DOCUSATE ORAL SOLN 100 MG/10 ML CUP PO SCH (10:00)
[2020-06-19 11:06] LABS: ABG PCO2 75 mmHg (35-45)
[2020-06-19 12:27] LABS: Ferritin 2301.1 ng/mL (22.0-322.0)
--- NOTE | 2020-06-19 12:38 | P.PN ---
Subjective Progress Note Date: 06/19/20 (Critical care time 35 minutes) Principal diagnosis: Acute hypoxic respiratory failure status post intubation Covid 19 pneumonia Acute kidney injury Dehydration and volume depleted state Confusion and agitated delirium Possible alcohol withdrawal 06/19/2020, patient seen eval examined during the rounds remain on full ventilator support discussed with nurse about decreasing the propofol using Ativan as needed, continue Nimbex for medical paralysis, patient remained supine for 16 hours a day saturation is just a 88-90% on 100% oxygen with PEEP of 15, hemodynamic status stable, patient remains on same setting with assist control mode labs reviewed medications reviewed 06/18/2020, patient seen eval examined during the rounds labs reviewed medications reviewed care plan discussed with him with the staff, patient remains prone, medically paralyze with propofol and then next, discussed to decrease the amount of propofol due to 20-30, chest x-ray remains stable, michele ent is on full ventilator support with PEEP of 15, assist control rate of 34 500 tidal volume and FiO2 100% saturation is 88, urine output is adequate patient remains on tube feed when prone, remains on dexamethasone along with Lovenox, 06/17/2020, patient seen eval examined during the rounds labs reviewed medications reviewed, patient remains on prone positioning on 100% oxygen, remains on assist control mode, PEEP of 15, rate of 34, chest x-ray performed today continue show bilateral diffuse pneumonia patient remains sedated and medically paralyze with propofol and Nimbex drip to feed when he is supine, meeting goals of calories, arterial blood gases reviewed pH is improved now 7.4 pCO2 61 pO2 53, urine creatinine is 34.53, LDH remains high over 2000 consistent with acute inflammatory ongoing response, fever Petrin is down, long-term prognosis poor June 16 2020, patient seen eval examined during the rounds labs reviewed medications reviewed, patient remains a deeply sedated and medically paralyze, currently on Nimbex drip along with propofol 50 mics, current ventilator settin gs include assist control rate of 34 PEEP of 5 tidal volume of 500 100% oxygen, oxygen saturation are barely 88%, discussed with the daughter at length, patient and daughter finally decided to make him no code, however continue to provide supportive care and therapy, chest x-ray overall not much change labs reviewed patient has been prone for 16 hours a day 06/15/2020, patient seen eval examined during the rounds labs reviewed medications reviewed, patient remains in prone positioning, white cell count remains as stable 19,000, arterial blood gas noted to have been improved as pH is 7.38 pCO2 Page and pO2 56, renal functions are normal, hemoglobin stable, last chest x-ray yesterday remains stable rate have been increased to 30 06/14/2020, patient seen eval reexamined during the rounds remains in prone positioning, oxygenation is better 88-90% with that however on supine posture drop down to mid to low 70s, patient remains on high PEEP high ventilator support, currently on PEEP of 15, tidal volume of 500, FiO2 100% assist control mode, sedated and medically paralyze, labs reviewed medications reviewed critical care time spent 35 minutes 06/13/2020, patient seen eval examined during the rounds labs reviewed medications reviewed care plan discussed, patient remains prone oxygen saturation 92%, arterial blood gas from this morning reviewed severe diffusion impairment is present with rising CO2 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 and membrane diffusion impairment, patient has been hemodynamically stable though, chest x-ray and labs reviewed CO2 continued to rise, will increase her respiratory rate to 28, 06/12/2020, patient seen eval examined during the rounds labs reviewed medications reviewed care plan discussed, patient is supine saturation is 92% he is on 100% oxygen with full respirator support, ABG from this morning reviewed, patient has significant diffusion impairment with high CO2 however pH is stable, hemodynamic status stable remains on propofol as well as Nimbex drip, labs reviewed medications reviewed chest x-ray reviewed as well essentially no sign ificant change bilateral dense infiltrate the bases remains unchanged patient does relatively better with improve oxygenation in prone positioning however does very poorly and supine posture, we will attempt to keep prone as much as possible, cultures no growth so far, labs included chemistry and CBC reviewed in phlegm atrial parameters remains up suggestive of ongoing cytokine Camila 06/11/2020, patient seen and evaluated examined while supine oxygen saturation dropped down into mid 70s, however when prone patient was saturating low 90s, 100% oxygen, stable when setting, propofol infusion escalated to 40 mics, Nimbex on for mics, been setting however is stable assist control with 100% oxygen chest x-ray reviewed and essentially no change labs reviewed as, sodium is going up, we'll start free water with the tube feeding, inflammatory parameters reviewed consistent with cytokine Camila of covid 19 pneumonia 06/10/2020, patient seen eval examined during the rounds care plan discussed wit h the staff at length labs and medications reviewed, hemodynamic status stable oxygen saturation remains marginal 90% 100% oxygen, patient is prone for 16 hours will be back supine around 11x-ray will be performed, sedated and medically paralyze with propofol and Nimbex drip, every feed is being given when he is supine, chest x-ray showed bilateral dense infiltrate arterial blood gases reviewed consistent with compensated hypercapnia and respiratory acidosis significant of diffusion impairment, patient is status post convalescent plasma 06/09/2020, patient seen eval examined during the rounds labs reviewed medications reviewed care plan discussed, patient is chest x-ray is not done as patient has been prone plan is to keep him prone for 16 hours, once on his back will do the chest x-ray, patient ended up being intubated for respiratory distress worsening agitation and anxiety currently patient is on propofol and medically paralyze with Nimbex drip, FiO2 is 100% PEEP of 8 tidal volume 400 which has been adjusted for hypercapnia and hypoventilation, respiratory rate is 20, the white cell count is 16,000, d-dimer is 34, ABG suggestive of respiratory acidosis, , inflammatory parameters remains elevated sister of ongoing cytokine camila, patient remains on Remdesivir, Decadron, will get convalescent plasma as well Ammann continue prone positioning 06/08/2020, patient seen and evaluated reexamined on selective care remains agitated anxious respiratory rate into 60s saturation dropped down to 80-85%, patient tachypneic tachycardic difficult to control with a staph agitated behavi or, arterial blood gas done pO2 dropped down to 46 only patient is showing respiratory and metabolic acidosis, will transfer to the ICU intubated and start patient on propofol may need to medically paralyze him with cisatracurium, postintubation was prone the patient for 16 hour as tolerated, post intubation chest x-ray reviewed ET tube just right at the mariajose will pull out 2 cm 06/08/2020, patient seen eval reexamined during the rounds remains tachypneic tachycardic but however saturation is 9888-90% on 100% oxygen and BiPAP currently on 03/03, patient today could not be placed in prone positioning, arterial blood gas reviewed pH is 7.43 pCO2 39 pO2 59, pO2 slightly up now compared to 2 days ago compared, we'll decrease the Decadron to 6 mg daily new other management June 07 2020, patient seen eval examined during the rounds labs reviewed medications reviewed care plan discussed, cough congestion is improved, patient is hemodynamically stable, continued to be tachypneic currently supine on BiPAP oxygen saturation is 88% on 100% oxygen, discussed with nursing staff to semi-prone him again patient dated 7-8 hours last night, white cell count is down, patient remains on Decadron along with IV REM doesn't wear, morphine and Ativan is on hold due to somnolence, patient did well with Haldol all last night, 06/06/2020, patient seen and evaluated examined during the rounds labs reviewed medications reviewed care plan discussed with the staff at length involving both medical floor and selective care critical care, patient continued to be intermittently agitated, does not keep the oxygen or BiPAP on his face, remains a problem with possible delirium or withdrawal, Ativan half a milligram tried, which seems to be helping but however agitated his agitation has been continuo us, I have tried hold all this seems to be helping able to put patient some prone with that oxygen saturation improved to 95% with BiPAP off 100% oxygen, will continue Decadron, REM does ever, and IV antibiotics and sputum for culture as well repeat chest x-ray and arterial blood gases reviewed as well no significant change in next day has been noted, ABG suggestive of significant hypoxia, noted that he renal functions have improved This is a 65-year-old male who has a history of extensive smoking and nicotine use, patient presented into the emergency department with progressive increasing shortness of breath and nonproductive cough, he was hypoxic with low oxygen saturation, no sputum production, his code at 19 test came back positive, in the ER he was noted to have a low blood pressure of 104/65, patient was hypoxic with room air oxygen saturation of only 83%, low-grade temperature of 99.3 his present, he was also noted to have acute injury of the kidneys that BUN/creatinine of 32 and 1.29, his inflammatory parameters were elevated with ferritin level of over 1200, LDH of over 1400, C-reactive protein of 176, pro calcitonin noted to be elevated up 0.21, chest x-ray noted to have bilateral airspace disease, patient was admitted to medical floor where he was noted to have oxygen saturation marginal and eventually FiO2 went up to 15 L high flow oxygen his blood culture no growth so far Objective - Vital Signs Vital signs: Vital Signs Temp 99 F 06/19/20 08:00 Pulse 68 06/19/20 11:00 Resp 34 H 06/19/20 11:00 BP 107/64 06/19/20 11:00 Pulse Ox 87 L 06/19/20 11:00 Intake & Output 06/18/20 06/19/20 06/19/20 18:59 06:59 18:59 Intake Total 1421 1786.006 450 Output Total 725 870 255 Balance 696 916.006 195 Weight 100.9 kg 100.9 kg Intake: IV 1200 1200 450 Sodium Chloride 0.45% 1, 1200 1200 400 000 ml @ 100 mls/hr IV . Q10H [facility] Rx#:[id number] cefTRIAXone 1 gm In 50 Sodium Chloride 0.9% 50 ml @ 100 mls/hr IVPB Q24HR [facility] Rx#:[id number] Intake, IV Titration 100 101.006 Amount propofoL 1,000 mg In 100 101.006 Empty Bag 1 bag @ Titrate IV .Q0M [facility] Rx#: [id number] Tube Feeding 91 455 Other 30 30 Output: Urine 725 870 255 Other: Voiding Method Indwelling Catheter Indwelling Catheter Indwelling Catheter # Bowel Movements 0 0 - Exam - Constitutional General appearance: average body habitus, cooperative, disheveled, intubated on Nimbex and propofol - EENT Eyes: PERRLA Ears: bilateral: normal - Neck Neck: normal ROM Carotids: bilateral: upstroke normal Thyroid: bilateral: normal size - Respiratory Respiratory: bilateral: diminished - Cardiovascular Rhythm: regular Heart sounds: normal: S1, S2 - Gastrointestinal General gastrointestinal: normal bowel sounds, soft - Neurologic Neurologic: Agitated delirium is stable due to medical paralysis - Musculoskeletal Musculoskeletal:strength equal bilaterally - Psychiatric Psychiatric: Agitated delirium is is stable due to medical paralysis - Labs CBC & Chem 7: 06/19/20 04:20 06/19/20 04:20 Labs: Abnormal Lab Results - Last 24 Hours (Table) 06/18/20 06/19/20 06/19/20 Range/Units 05:28 00:17 04:20 WBC 10.8 H (3.8-10.6) k/uL RBC 3.66 L (4.30-5.90) m/uL Hgb 10.9 L (13.0-17.5) gm/dL Hct 34.8 L (39.0-53.0) % Neutrophils # 9.7 H (1.3-7.7) k/uL Lymphocytes # 0.5 L (1.0-4.8) k/uL Fibrinogen (200-500) mg/dL ABG pCO2 75 H* (35-45) mmHg ABG pO2 (83-108) mmHg ABG HCO3 (21-25) mmol/L ABG Total CO2 (19-24) mmol/L ABG O2 Saturation (94-97) % Sodium (137-145) mmol/L Chloride (98-107) mmol/L Carbon Dioxide (22-30) mmol/L BUN (9-20) mg/dL Creatinine (0.66-1.25) mg/dL Glucose (74-99) mg/dL POC Glucose (mg/dL) 130 H (75-99) mg/dL Calcium (8.4-10.2) mg/dL Ferritin (22.0-322.0) ng/mL AST (17-59) U/L ALT (4-49) U/L C-Reactive Protein (<10.0) mg/L Total Protein (6.3-8.2) g/dL Albumin (3.5-5.0) g/dL 06/19/20 06/19/20 06/19/20 Range/Units 04:20 04:20 05:03 WBC (3.8-10.6) k/uL RBC (4.30-5.90) m/uL Hgb (13.0-17.5) gm/dL Hct (39.0-53.0) % Neutrophils # (1.3-7.7) k/uL Lymphocytes # (1.0-4.8) k/uL Fibrinogen 605 H (200-500) mg/dL ABG pCO2 62 H (35-45) mmHg ABG pO2 49 L* (83-108) mmHg ABG HCO3 41 H* (21-25) mmol/L ABG Total CO2 43 H (19-24) mmol/L ABG O2 Saturation 86.5 L (94-97) % Sodium 135 L (137-145) mmol/L Chloride 97 L (98-107) mmol/L Carbon Dioxide 39 H (22-30) mmol/L BUN 33 H (9-20) mg/dL Creatinine 0.49 L (0.66-1.25) mg/dL Glucose 117 H (74-99) mg/dL POC Glucose (mg/dL) (75-99) mg/dL Calcium 7.6 L (8.4-10.2) mg/dL Ferritin 2301.1 H (22.0-322.0) ng/mL AST 64 H (17-59) U/L ALT 64 H (4-49) U/L C-Reactive Protein 339.5 H (<10.0) mg/L Total Protein 4.8 L (6.3-8.2) g/dL Albumin 1.8 L (3.5-5.0) g/dL 06/19/20 Range/Units 06:10 WBC (3.8-10.6) k/uL RBC (4.30-5.90) m/uL Hgb (13.0-17.5) gm/dL Hct (39.0-53.0) % Neutrophils # (1.3-7.7) k/uL Lymphocytes # (1.0-4.8) k/uL Fibrinogen (200-500) mg/dL ABG pCO2 (35-45) mmHg ABG pO2 (83-108) mmHg ABG HCO3 (21-25) mmol/L ABG Total CO2 (19-24) mmol/L ABG O2 Saturation (94-97) % Sodium (137-145) mmol/L Chloride (98-107) mmol/L Carbon Dioxide (22-30) mmol/L BUN (9-20) mg/dL Creatinine (0.66-1.25) mg/dL Glucose (74-99) mg/dL POC Glucose (mg/dL) 110 H (75-99) mg/dL Calcium (8.4-10.2) mg/dL Ferritin (22.0-322.0) ng/mL AST (17-59) U/L ALT (4-49) U/L C-Reactive Protein (<10.0) mg/L Total Protein (6.3-8.2) g/dL Albumin (3.5-5.0) g/dL Assessment and Plan Assessment: Acute hypoxic respiratory failure on ventilator with full vent support, oxygenation continued to be marginal up to 88% even on in prone positioning however desats to low 70s in supine posture lately Respiratory acidosis, ventilator being adjusted, see orders for detail Covid 19 pneumonia Hypernatremia Agitated delirium alternating with somnolence status post medical paralysis and sedation with propofol and Nimbex drip Acute kidney injury, renal functions improved Dehydration and volume depleted state Plan: Continue gentle rehydration IV Ventilator adjustment as needed Medical paralysis and Sedation with Nimbex and propofol attempt to lower down the propofol prone position as much as possible preferably 16 hours to 20 hours every day Continue keep saturation over 85-90% Decadron 6 mg IV antibiotics Tube feeding when supine Sputum culture IV Remdesivir for 5 days Status post convalescent plasma Prognosis guarded with likelihood of recovery poor Time with Patient: Greater than 30
[2020-06-19 13:28] LABS: Glucose,Whole Blood 101 mg/dL (75-99)
[2020-06-19] MEDS: CISATRACURIUM 200 MG in SODIUM CHLORIDE 0.9% 180 ML IV SCH ×2 (17:06→23:31)
[2020-06-19 17:33] LABS: Glucose,Whole Blood 99 mg/dL (75-99)
[2020-06-20] MEDS: ARTIFICIAL TEARS-HYPROMELLOSE DROPS 15 ML BTL BOTH EYES SCH ×7 (00:17→23:58)
[2020-06-20 01:19] LABS: Glucose,Whole Blood 99 mg/dL (75-99)
[2020-06-20] MEDS: INSULIN ASPART (NovoLOG) 100 UNIT/ML VIAL SQ SCH ×5 (02:17→23:58)
[2020-06-20 04:52] LABS: HCT 35.5 % (39.0-53.0); HGB 11.4 gm/dL (13.0-17.5); Hypochromasia Slight; MCH 30.8 pg (25.0-35.0); MCHC 32.1 g/dL (31.0-37.0); MCV 96.1 fL (80.0-100.0); Mean Platelet Volume 10.1; Platelet Count 252 k/uL (150-450); RDW 13.7 % (11.5-15.5); WBC 14.6 k/uL (3.8-10.6)
[2020-06-20 05:05] LABS: D-Dimer 3.3 mg/L FEU (<0.60)
[2020-06-20 05:15] LABS: ALT 52 U/L (4-49); AST 66 U/L (17-59); African American GFR (CKD) >90 (>60 ml/min/1.73 sqM); Albumin 1.9 g/dL (3.5-5.0); Alkaline Phosphatase 60 U/L (38-126); Blood Urea Nitrogen 32 mg/dL (9-20); Calcium 7.5 mg/dL (8.4-10.2); Chloride 97 mmol/L (98-107); Creatine Kinase 231 U/L (55-170); Glucose 83 mg/dL (74-99); Non-African American GFR(CKD) >90 (>60 ml/min/1.73 sqM); Potassium 4.4 mmol/L (3.5-5.1); Sodium 135 mmol/L (137-145)
[2020-06-20 05:17] LABS: ABG Oxygen Saturation 80.5 % (94-97); ABG PCO2 62 mmHg (35-45); ABG PH 7.42 (7.35-7.45); ABG TCO2 42 mmol/L (19-24); Allen Test Performed? Yes
[2020-06-20 05:19] LABS: Anion Gap 0 mmol/L; Carbon Dioxide 38 mmol/L (22-30)
[2020-06-20 05:20] LABS: ABG PO2 43 mmHg (83-108)
[2020-06-20 05:21] LABS: ABG HCO3 40 mmol/L (21-25)
[2020-06-20 05:36] LABS: C Reactive Protein 170.8 mg/L (<10.0)
[2020-06-20 05:37] LABS: Glucose,Whole Blood 98 mg/dL (75-99)
[2020-06-20] MEDS: SODIUM CHLORIDE 0.45% 1,000 ML IV SCH ×2 (06:56→16:30)
--- NOTE | 2020-06-20 07:18 | XR ---
EXAMINATION TYPE: XR chest 1V portable DATE OF EXAM: 06/20/2020 CLINICAL HISTORY: Difficulty breathing and covid pneumonia progress study. TECHNIQUE: Single AP portable semiupright view of the chest is obtained. COMPARISON: Chest x-ray from one day earlier and older studies. FINDINGS: Stable endotracheal and orogastric tubes. Cardiac silhouette size is stable and within normal limits. Reticular and increased opacities bilater ally with more dense consolidation in the bases is redemonstrated. No pneumothorax noted bilaterally. Old fracture deformity left mid clavicle redemonstrated. IMPRESSION: Bilateral diffuse infiltrates and/or edema redemonstrated. No significant change from one day earlier.
[2020-06-20] MEDS: ASCORBIC ACID 500 MG TAB PO SCH (08:37)
[2020-06-20] MEDS: CHLORHEXIDINE GLUCONATE 15 ML CUP MUCOUS MEM SCH ×2 (08:37→20:41)
[2020-06-20] MEDS: PANTOPRAZOLE 40 MG/10 ML VIAL IVP SCH (08:38)
[2020-06-20] MEDS: DOCUSATE ORAL SOLN 100 MG/10 ML CUP PO SCH (08:38)
[2020-06-20] MEDS: DEXAMETHASONE SOD PHOSPHATE 10 MG/ML 1 ML VIAL IV SCH (08:38)
[2020-06-20] MEDS: ENOXAPARIN 40 MG/0.4 ML SYRINGE SQ SCH ×2 (08:38→20:41)
[2020-06-20] MEDS: ZINC SULFATE 220 MG CAP PO SCH (08:38)
[2020-06-20 08:43] LABS: ABG PO2 49 mmHg (83-108)
[2020-06-20 08:44] LABS: ABG HCO3 41 mmol/L (21-25)
[2020-06-20 10:57] LABS: Ferritin 1898.2 ng/mL (22.0-322.0)
[2020-06-20 11:56] LABS: Glucose,Whole Blood 147 mg/dL (75-99)
[2020-06-20] MEDS: CISATRACURIUM 200 MG in SODIUM CHLORIDE 0.9% 180 ML IV SCH (12:30)
[2020-06-20] MEDS: methylPREDNISolone SOD SUCCI 125 MG/2 ML VIAL IV SCH ×3 (12:40→23:58)
--- NOTE | 2020-06-20 13:00 | P.PN ---
Subjective Principal diagnosis: Respiratory distress. The patient has had poor progress over the weekend. The patient is now been transferred ICU due to worsening respiratory failure. Pneumonia-coronavirus treatment is continuing. Appreciate pulmonary/specialized developer input. The patient has not been improving as anticipated given the treatment that he has had. Poor respiratory improvement The patient continues to have minimal improvement. Objective - Vital Signs Vital signs: Vital Signs Temp 99.4 F 06/20/20 12:00 Pulse 83 06/20/20 12:00 Resp 34 H 06/20/20 12:00 BP 132/62 06/20/20 12:00 Pulse Ox 69 L 06/20/20 12:00 Intake & Output 06/19/20 06/20/20 06/20/20 18:59 06:59 18:59 Intake Total 1610 2819.743 1621.213 Output Total 715 625 410 Balance 895 2194.743 1211.213 Weight 100.9 kg 101.2 kg Intake: IV 1250 1200 600 Sodium Chloride 0.45% 1, 1200 1200 600 000 ml @ 100 mls/hr IV . Q10H [facility] Rx#:[id number] cefTRIAXone 1 gm In 50 Sodium Chloride 0.9% 50 ml @ 100 mls/hr IVPB Q24HR [facility] Rx#:[id number] Intake, IV Titration 100 189.743 211.213 Amount Cisatracurium 200 mg In 88.935 117.579 Sodium Chloride 0.9% 180 ml @ 1 MCG/KG/MIN 4.62 mls/hr IV .Q24H [facility] Rx#: [id number] propofoL 1,000 mg In 100 100.808 93.634 Empty Bag 1 bag @ Titrate IV .Q0M [facility] Rx#: [id number] Tube Feeding 230 1340 690 Other 30 90 120 Output: Urine 715 625 410 Other: Voiding Method Indwelling Catheter Indwelling Catheter Indwelling Catheter # Voids 1 # Bowel Movements 0 1 0 - Constitutional General appearance: Present: no acute distress - EENT Eyes: Absent: abnormal pupil - Respiratory Respiratory: bilateral: rhonchi - Cardiovascular Rhythm: regular Heart sounds: normal: S1, S2 Abnormal Heart Sounds: Absent: S3 Gallop - Gastrointestinal General gastrointestinal: Present: soft. Absent: tenderness - Labs CBC & Chem 7: 06/20/20 03:52 06/20/20 03:52 Labs: Abnormal Lab Results - Last 24 Hours (Table) 06/19/20 06/19/20 06/20/20 Range/Units 05:03 13:27 03:52 WBC 14.6 H (3.8-10.6) k/uL RBC 3.70 L (4.30-5.90) m/uL Hgb 11.4 L (13.0-17.5) gm/dL Hct 35.5 L (39.0-53.0) % Fibrinogen (200-500) mg/dL D-Dimer (<0.60) mg/L FEU ABG pCO2 (35-45) mmHg ABG pO2 49 L* (83-108) mmHg ABG HCO3 41 H* (21-25) mmol/L ABG Total CO2 (19-24) mmol/L ABG O2 Saturation (94-97) % Sodium (137-145) mmol/L Chloride (98-107) mmol/L Carbon Dioxide (22-30) mmol/L BUN (9-20) mg/dL Creatinine (0.66-1.25) mg/dL POC Glucose (mg/dL) 101 H (75-99) mg/dL Calcium (8.4-10.2) mg/dL Ferritin (22.0-322.0) ng/mL AST (17-59) U/L ALT (4-49) U/L Creatine Kinase (55-170) U/L C-Reactive Protein (<10.0) mg/L Total Protein (6.3-8.2) g/dL Albumin (3.5-5.0) g/dL 06/20/20 06/20/20 06/20/20 Range/Units 03:52 03:52 05:10 WBC (3.8-10.6) k/uL RBC (4.30-5.90) m/uL Hgb (13.0-17.5) gm/dL Hct (39.0-53.0) % Fibrinogen 543 H (200-500) mg/dL D-Dimer 3.30 H (<0.60) mg/L FEU ABG pCO2 62 H (35-45) mmHg ABG pO2 43 L* (83-108) mmHg ABG HCO3 40 H* (21-25) mmol/L ABG Total CO2 42 H (19-24) mmol/L ABG O2 Saturation 80.5 L (94-97) % Sodium 135 L (137-145) mmol/L Chloride 97 L (98-107) mmol/L Carbon Dioxide 38 H (22-30) mmol/L BUN 32 H (9-20) mg/dL Creatinine 0.41 L (0.66-1.25) mg/dL POC Glucose (mg/dL) (75-99) mg/dL Calcium 7.5 L (8.4-10.2) mg/dL Ferritin 1898.2 H (22.0-322.0) ng/mL AST 66 H (17-59) U/L ALT 52 H (4-49) U/L Creatine Kinase 231 H (55-170) U/L C-Reactive Protein 170.8 H (<10.0) mg/L Total Protein 5.0 L (6.3-8.2) g/dL Albumin 1.9 L (3.5-5.0) g/dL 06/20/20 Range/Units 11:53 WBC (3.8-10.6) k/uL RBC (4.30-5.90) m/uL Hgb (13.0-17.5) gm/dL Hct (39.0-53.0) % Fibrinogen (200-500) mg/dL D-Dimer (<0.60) mg/L FEU ABG pCO2 (35-45) mmHg ABG pO2 (83-108) mmHg ABG HCO3 (21-25) mmol/L ABG Total CO2 (19-24) mmol/L ABG O2 Saturation (94-97) % Sodium (137-145) mmol/L Chloride (98-107) mmol/L Carbon Dioxide (22-30) mmol/L BUN (9-20) mg/dL Creatinine (0.66-1.25) mg/dL POC Glucose (mg/dL) 147 H (75-99) mg/dL Calcium (8.4-10.2) mg/dL Ferritin (22.0-322.0) ng/mL AST (17-59) U/L ALT (4-49) U/L Creatine Kinase (55-170) U/L C-Reactive Protein (<10.0) mg/L Total Protein (6.3-8.2) g/dL Albumin (3.5-5.0) g/dL Assessment and Plan (1) Hypoxia Current Visit: Yes Status: Acute Code(s): R09.02 - HYPOXEMIA SNOMED Code(s): 159155876 (2) Pneumonia due to COVID-19 virus Current Visit: Yes Status: Acute Code(s): U07.1 - COVID-19; J12.89 - OTHER VIRAL PNEUMONIA SNOMED Code(s): 136233692985237208 Plan: Unfortunately with his for improvement, and overall diagnosis, poor prognosis is noted. We'll continue to follow with pulmonology. Check CBC and CMP in a.m. The patient is on full respiratory support and given Covid DIAGNOSIS HAS BEEN GIVEN THE APPROPRIATE STANDARDIZED TREATMENT FOR THIS< BUT HAS HAD MINIMAL IMP ROVEMENT> We will continue to follow and pray that he improves incrementally as the days go on. We will need to have a discussion with his family due to the prognostic indicators. Unfortunately, not much has changed Over the last 24 hours. Time with Patient: Greater than 30
[2020-06-20 18:20] LABS: Glucose,Whole Blood 119 mg/dL (75-99)
--- NOTE | 2020-06-20 18:52 | P.PN ---
Subjective Progress Note Date: 06/20/20 (Critical care spent time 45 minutes,) Principal diagnosis: Acute hypoxic respiratory failure status post intubation Covid 19 pneumonia Acute kidney injury Dehydration and volume depleted state Confusion and agitated delirium Possible alcohol withdrawal 06/20/2020, patient seen and evaluated examined during the rounds labs reviewed medications reviewed care plan discussed with the staff at length, also discussed with daughter at length about prognosis and further plan of care of the patient, patient continued do not very well, continued to be hypoxic sets now have been dropped to 70s on 100% oxygen PEEP of 15 rate of 34 tidal volume of 500, patient was unable to be prone today due to extensive swelling as well as some tissue breakdown, total CKs elevated, continued to have intermittent low-grade fevers, patient remain in medical paralysis with propofol and Nimbex drip, have been reduced to 4 mics, propofol reduced to 30, last ABG revealed pH of 7.4 to pCO2 of 62 pO2 of only 43, discussed with daughter about poor prognosis, chest x-ray continue show bilateral diffuse infiltrate and edema no significant change, ET tube and OG tube was stable, patient continued to get to feed, over albumin noted to be very low likely indicated above very severe catabolic state 06/19/2020, patient seen eval examined during the rounds remain on full ventilator support discussed with nurse about decreasing the propofol using Ativan as needed, continue Nimbex for medical paralysis, patient remained supine for 16 hours a day saturation is just a 88-90% on 100% oxygen with PEEP of 15, hemodynamic status stable, patient remains on same setting with assist control mode labs reviewed medications reviewed 06/18/2020, patient seen eval examined during the rounds labs reviewed medications reviewed care plan discussed with him with the staff, patient remains prone, medically paralyze with propofol and then next, discussed to decrease the amount of propofol due to 20-30, chest x-ray remains stable, patient is on full ventilator support with PEEP of 15, assist control rate of 34 500 tidal volume and FiO2 100% saturation is 88, urine output is adequate patient remains on tube feed when prone, remains on dexamethasone along with Lovenox, 06/17/2020, patient seen eval examined during the rounds labs reviewed medications reviewed, patient remains on prone positioning on 100% oxygen, remains on assist control mode, PEEP of 15, rate of 34, chest x-ray performed today continue show bilateral diffuse pneumonia patient remains sedated and medically paralyze with propofol and Nimbex drip to feed when he is supine, meeting goals of calories, arterial blood gases reviewed pH is improved now 7.4 pCO2 61 pO2 53, urine creatinine is 34.53, LDH remains high over 1999 consistent with acute inflammatory ongoing response, fever Petrin is down, long-term prognosis poor June 16 2020, patient seen eval examined during the rounds labs reviewed medications reviewed, patient remains a deeply sedated and medically paralyze, currently on Nimbex drip along with propofol 50 mics, current ventilator settings include assist control rate of 34 PEEP of 5 tidal volume of 500 100% oxygen, oxygen saturation are barely 88%, discussed with the daughter at length, patient and daughter finally decided to make him no code, however continue to provide supportive care and therapy, chest x-ray overall not much change labs reviewed patient has been prone for 16 hours a day 06/15/2020, patient seen eval examined during the rounds labs reviewed medications reviewed, patient remains in prone positioning, white cell count remains as stable 19,000, arterial blood gas noted to have been improved as pH is 7.38 pCO2 Page and pO2 56, renal functions are normal, hemoglobin stable, last chest x-ray yesterday remains stable rate have been increased to 30 06/14/2020, patient seen eval reexamined during the rounds remains in prone positioning, oxygenation is better 88-90% with that however on supine posture drop down to mid to low 70s, patient remains on high PEEP high ventilator support, currently on PEEP of 15, tidal volume of 500, FiO2 100% assist control mode, sedated and medically paralyze, labs reviewed medications reviewed critical care time spent 35 minutes 06/13/2020, patient seen eval examined during the rounds labs reviewed medications reviewed care plan discussed, patient remains prone oxygen saturation 92%, arterial blood gas from this morning reviewed severe diffusion impairment is present with rising CO2 hygiene assistant with respiratory acidosis and membrane diffusion impairment, patient has been hemodynamically stable though, chest x-ray and labs reviewed CO2 continued to rise, will increase her respiratory rate to 28, 06/12/2020, patient seen eval examined during the rounds labs reviewed medications reviewed care plan discussed, patient is supine saturation is 92% he is on 100% oxygen with full respirator support, ABG from this morning reviewed, patient has significant diffusion impairment with high CO2 however pH is stable, hemodynamic status stable remains on propofol as well as Nimbex drip, labs reviewed medications reviewed chest x-ray reviewed as well essentially no significant change bilateral dense infiltrate the bases remains unchanged patient does relatively better with improve oxygenation in prone positioning however does very poorly and supine posture, we will attempt to keep prone as much as possible, cultures no growth so far, labs included chemistry and CBC reviewed in phlegm atrial parameters remains up suggestive of ongoing cytokine Camila 06/11/2020, patient seen and evaluated examined while supine oxygen saturation d ropped down into mid 70s, however when prone patient was saturating low 90s, 100% oxygen, stable when setting, propofol infusion escalated to 40 mics, Nimbex on for mics, been setting however is stable assist control with 100% oxygen chest x-ray reviewed and essentially no change labs reviewed as, sodium is going up, we'll start free water with the tube feeding, inflammatory parameters reviewed consistent with cytokine Camila of covid 19 pneumonia 06/10/2020, patient seen eval examined during the rounds care plan discussed with the staff at length labs and medications reviewed, hemodynamic status stable oxygen saturation remains marginal 90% 100% oxygen, patient is prone for 16 hours will be back supine around 11x-ray will be performed, sedated and medically paralyze with propofol and Nimbex drip, every feed is being given when he is supine, chest x-ray showed bilateral dense infiltrate arterial blood gases reviewed consistent with compensated hypercapnia and respiratory acidosis signi ficant of diffusion impairment, patient is status post convalescent plasma 06/09/2020, patient seen eval examined during the rounds labs reviewed medications reviewed care plan discussed, patient is chest x-ray is not done as patient has been prone plan is to keep him prone for 16 hours, once on his back will do the chest x-ray, patient ended up being intubated for respiratory distress worsening agitation and anxiety currently patient is on propofol and medically paralyze with Nimbex drip, FiO2 is 100% PEEP of 8 tidal volume 400 which has been adjusted for hypercapnia and hypoventilation, respiratory rate is 20, the white cell count is 16,000, d-dimer is 34, ABG suggestive of respiratory acidosis, , inflammatory parameters remains elevated sister of ongoing cytokine camila, patient remains on Remdesivir, Decadron, will get convalescent plasma as well Ammann continue prone positioning 06/08/2020, patient seen and evaluated reexamined on selective care remains agitated anxious respiratory rate into 60s saturation dropped down to 80-85%, patient tachypneic tachycardic difficult to control with a staph agitated behavior, arterial blood gas done pO2 dropped down to 46 only patient is showing respiratory and metabolic acidosis, will transfer to the ICU intubated and start patient on propofol may need to medically paralyze him with cisatracurium, postintubation was prone the patient for 16 hour as tolerated, post intubation chest x-ray reviewed ET tube just right at the mariajose will pull out 2 cm 06/08/2020, patient seen eval reexamined during the rounds remains tachypneic tachycardic but however saturation is 9888-90% on 100% oxygen and BiPAP currently on 03/03, patient today could not be placed in prone positioning, arterial blood gas reviewed pH is 7.43 pCO2 39 pO2 59, pO2 slightly up now compared to 2 days ago compared, we'll decrease the Decadron to 6 mg daily new other management June 07 2020, patient seen eval examined during the rounds labs reviewed medications reviewed care plan discussed, cough congestion is improved, patient is hemodynamically stable, continued to be tachypneic currently supine on BiPAP oxygen saturation is 88% on 100% oxygen, discussed with nursing staff to semi- prone him again patient dated 7-8 hours last night, white cell count is down, patient remains on Decadron along with IV REM doesn't wear, morphine and Ativan is on hold due to somnolence, patient did well with Haldol all last night, 06/06/2020, patient seen and evaluated examined during the rounds labs reviewed medications reviewed care plan discussed with the staff at length involving both medical floor and selective care critical care, patient continued to be inter mittently agitated, does not keep the oxygen or BiPAP on his face, remains a problem with possible delirium or withdrawal, Ativan half a milligram tried, which seems to be helping but however agitated his agitation has been continuous, I have tried hold all this seems to be helping able to put patient some prone with that oxygen saturation improved to 95% with BiPAP off 100% oxygen, will continue Decadron, REM does ever, and IV antibiotics and sputum for culture as well repeat chest x-ray and arterial blood gases reviewed as well no significant change in next day has been noted, ABG suggestive of significant hypoxia, noted that he renal functions have improved This is a 65-year-old male who has a history of extensive smoking and nicotine use, patient presented into the emergency department with progressive increasing shortness of breath and nonproductive cough, he was hypoxic with low oxygen saturation, no sputum production, his code at 19 test came back positive, in the ER he was noted to have a low blood pressure of 104/65, patient was hypoxic with room air oxygen saturation of only 83%, low-grade temperature of 99.3 his present, he was also noted to have acute injury of the kidneys that BUN/creatinine of 32 and 1.29, his inflammatory parameters were elevated with ferritin level of over 1200, LDH of over 1400, C-reactive protein of 176, pro calcitonin noted to be elevated up 0.21, chest x-ray noted to have bilateral airspace disease, patient was admitted to medical floor where he was noted to have oxygen saturation marginal and eventually FiO2 went up to 15 L high flow o xygen his blood culture no growth so far Objective - Vital Signs Vital signs: Vital Signs Temp 99.4 F 06/20/20 16:00 Pulse 80 06/20/20 17:00 Resp 34 H 06/20/20 17:00 BP 117/61 06/20/20 17:00 Pulse Ox 72 L 06/20/20 17:00 Intake & Output 06/19/20 06/20/20 06/20/20 18:59 06:59 18:59 Intake Total 1610 2819.743 2677.634 Output Total 715 625 670 Balance 895 2194.743 2007.634 Weight 100.9 kg 101.2 kg Intake: IV 1250 1200 1100 Sodium Chloride 0.45% 1, 1200 1200 1100 000 ml @ 100 mls/hr IV . Q10H [facility] Rx#:[id number] cefTRIAXone 1 gm In 50 Sodium Chloride 0.9% 50 ml @ 100 mls/hr IVPB Q24HR [facility] Rx#:[id number] Intake, IV Titration 100 189.743 393.634 Amount Cisatracurium 200 mg In 88.935 200.000 Sodium Chloride 0.9% 180 ml @ 1 MCG/KG/MIN 4.62 mls/hr IV .Q24H [facility] Rx#: [id number] propofoL 1,000 mg In 100 100.808 193.634 Empty Bag 1 bag @ Titrate IV .Q0M [facility] Rx#: [id number] Tube Feeding 230 1340 1034 Other 30 90 150 Output: Urine 715 625 670 Other: Voiding Method Indwelling Catheter Indwelling Catheter Indwelling Catheter # Voids 1 # Bowel Movements 0 1 0 - Exam - Constitutional General appearance: average body habitus, cooperative, disheveled, intubated on Nimbex and propofol - EENT Eyes: PERRLA Ears: bilateral: normal - Neck Neck: normal ROM Carotids: bilateral: upstroke normal Thyroid: bilateral: normal size - Respiratory Respiratory: bilateral: diminished - Cardiovascular Rhythm: regular Heart sounds: normal: S1, S2 - Gastrointestinal General gastrointestinal: normal bowel sounds, soft - Neurologic Neurologic: Agitated delirium is stable due to medical paralysis - Musculoskeletal Musculoskeletal:strength equal bilaterally - Psychiatric Psychiatric: Agitated delirium is is stable due to medical paralysis - Labs CBC & Chem 7: 06/20/20 03:52 06/20/20 03:52 Labs: Abnormal Lab Results - Last 24 Hours (Table) 06/19/20 06/20/20 06/20/20 Range/Units 05:03 03:52 03:52 WBC 14.6 H (3.8-10.6) k/uL RBC 3.70 L (4.30-5.90) m/uL Hgb 11.4 L (13.0-17.5) gm/dL Hct 35.5 L (39.0-53.0) % Fibrinogen (200-500) mg/dL D-Dimer (<0.60) mg/L FEU ABG pCO2 (35-45) mmHg ABG pO2 49 L* (83-108) mmHg ABG HCO3 41 H* (21-25) mmol/L ABG Total CO2 (19-24) mmol/L ABG O2 Saturation (94-97) % Sodium 135 L (137-145) mmol/L Chloride 97 L (98-107) mmol/L Carbon Dioxide 38 H (22-30) mmol/L BUN 32 H (9-20) mg/dL Creatinine 0.41 L (0.66-1.25) mg/dL POC Glucose (mg/dL) (75-99) mg/dL Calcium 7.5 L (8.4-10.2) mg/dL Ferritin 1898.2 H (22.0-322.0) ng/mL AST 66 H (17-59) U/L ALT 52 H (4-49) U/L Creatine Kinase 231 H (55-170) U/L C-Reactive Protein 170.8 H (<10.0) mg/L Total Protein 5.0 L (6.3-8.2) g/dL Albumin 1.9 L (3.5-5.0) g/dL 06/20/20 06/20/20 06/20/20 Range/Units 03:52 05:10 11:53 WBC (3.8-10.6) k/uL RBC (4.30-5.90) m/uL Hgb (13.0-17.5) gm/dL Hct (39.0-53.0) % Fibrinogen 543 H (200-500) mg/dL D-Dimer 3.30 H (<0.60) mg/L FEU ABG pCO2 62 H (35-45) mmHg ABG pO2 43 L* (83-108) mmHg ABG HCO3 40 H* (21-25) mmol/L ABG Total CO2 42 H (19-24) mmol/L ABG O2 Saturation 80.5 L (94-97) % Sodium (137-145) mmol/L Chloride (98-107) mmol/L Carbon Dioxide (22-30) mmol/L BUN (9-20) mg/dL Creatinine (0.66-1.25) mg/dL POC Glucose (mg/dL) 147 H (75-99) mg/dL Calcium (8.4-10.2) mg/dL Ferritin (22.0-322.0) ng/mL AST (17-59) U/L ALT (4-49) U/L Creatine Kinase (55-170) U/L C-Reactive Protein (<10.0) mg/L Total Protein (6.3-8.2) g/dL Albumin (3.5-5.0) g/dL 06/20/20 Range/Units 18:18 WBC (3.8-10.6) k/uL RBC (4.30-5.90) m/uL Hgb (13.0-17.5) gm/dL Hct (39.0-53.0) % Fibrinogen (200-500) mg/dL D-Dimer (<0.60) mg/L FEU ABG pCO2 (35-45) mmHg ABG pO2 (83-108) mmHg ABG HCO3 (21-25) mmol/L ABG Total CO2 (19-24) mmol/L ABG O2 Saturation (94-97) % Sodium (137-145) mmol/L Chloride (98-107) mmol/L Carbon Dioxide (22-30) mmol/L BUN (9-20) mg/dL Creatinine (0.66-1.25) mg/dL POC Glucose (mg/dL) 119 H (75-99) mg/dL Calcium (8.4-10.2) mg/dL Ferritin (22.0-322.0) ng/mL AST (17-59) U/L ALT (4-49) U/L Creatine Kinase (55-170) U/L C-Reactive Protein (<10.0) mg/L Total Protein (6.3-8.2) g/dL Albumin (3.5-5.0) g/dL Assessment and Plan Assessment: Severe sepsis Acute hypoxic respiratory failure on ventilator with full vent support, oxygenation continued to be marginal up to lately in 70s even on in prone positioning however desats to low 60s in supine posture lately Respiratory acidosis, ventilator being adjusted, see orders for detail Covid 19 pneumonia Hypernatremia Agitated delirium alternating with somnolence status post medical paralysis and sedation with propofol and Nimbex drip Acute kidney injury, renal functions improved Dehydration and volume depleted state Prognosis poor Plan: Continue gentle rehydration IV, to feed Ventilator adjustment as needed Medical paralysis and Sedation with Nimbex and propofol attempt to lower down the propofol prone position as much as possible preferably 16 hours to 20 hours every day Will again to prone positioning today Continue keep saturation over 85-90% Decadron 6 mg will be changed to IV Solu-Medrol every 6 60 mg IV antibiotics Tube feeding when supine Sputum culture IV Remdesivir for 5 days finished Status post convalescent plasma finished Prognosis guarded with likelihood of recovery poor Time with Patient: Greater than 30
[2020-06-20 23:25] LABS: Glucose,Whole Blood 118 mg/dL (75-99)
[2020-06-21] MEDS: CISATRACURIUM 200 MG in SODIUM CHLORIDE 0.9% 180 ML IV SCH ×2 (00:45→17:50)
[2020-06-21] MEDS: ARTIFICIAL TEARS-HYPROMELLOSE DROPS 15 ML BTL BOTH EYES SCH ×6 (03:10→23:58)
[2020-06-21] MEDS: SODIUM CHLORIDE 0.45% 1,000 ML IV SCH ×3 (03:10→23:58)
[2020-06-21 04:08] LABS: HGB 10.8 gm/dL (13.0-17.5); Hypochromasia Slight; MCH 31.5 pg (25.0-35.0); MCHC 32.8 g/dL (31.0-37.0); MCV 95.9 fL (80.0-100.0); Mean Platelet Volume 9.3; Platelet Count 274 k/uL (150-450); RBC 3.44 m/uL (4.30-5.90); RDW 13.7 % (11.5-15.5); WBC 16.7 k/uL (3.8-10.6)
[2020-06-21 04:28] LABS: ALT 44 U/L (4-49); AST 46 U/L (17-59); African American GFR (CKD) >90 (>60 ml/min/1.73 sqM); Albumin 1.8 g/dL (3.5-5.0); Alkaline Phosphatase 55 U/L (38-126); Blood Urea Nitrogen 27 mg/dL (9-20); Calcium 7.3 mg/dL (8.4-10.2); Chloride 99 mmol/L (98-107); Glucose 127 mg/dL (74-99); Non-African American GFR(CKD) >90 (>60 ml/min/1.73 sqM); Potassium 4.6 mmol/L (3.5-5.1); Sodium 136 mmol/L (137-145); Total Bilirubin 0.8 mg/dL (0.2-1.3); Total Protein 4.9 g/dL (6.3-8.2)
[2020-06-21 04:36] LABS: Anion Gap -1 mmol/L; Carbon Dioxide 38 mmol/L (22-30)
[2020-06-21 05:43] LABS: ABG Base Excess 16.2 mmol/L; ABG Oxygen Saturation 86.1 % (94-97); ABG PCO2 70 mmHg (35-45); ABG PH 7.38 (7.35-7.45); ABG TCO2 43 mmol/L (19-24); Allen Test Performed? Yes
[2020-06-21 05:45] LABS: ABG PO2 51 mmHg (83-108)
[2020-06-21 05:46] LABS: ABG HCO3 41 mmol/L (21-25)
[2020-06-21 06:13] LABS: Glucose,Whole Blood 112 mg/dL (75-99)
[2020-06-21] MEDS: INSULIN ASPART (NovoLOG) 100 UNIT/ML VIAL SQ SCH ×4 (06:33→23:58)
[2020-06-21] MEDS: methylPREDNISolone SOD SUCCI 125 MG/2 ML VIAL IV SCH ×4 (06:33→23:59)
[2020-06-21] MEDS: CHLORHEXIDINE GLUCONATE 15 ML CUP MUCOUS MEM SCH ×2 (08:17→20:53)
[2020-06-21] MEDS: ENOXAPARIN 40 MG/0.4 ML SYRINGE SQ SCH ×2 (08:17→20:53)
[2020-06-21] MEDS: ASCORBIC ACID 500 MG TAB PO SCH (08:17)
[2020-06-21] MEDS: PANTOPRAZOLE 40 MG/10 ML VIAL IVP SCH (08:17)
[2020-06-21] MEDS: ZINC SULFATE 220 MG CAP PO SCH (08:17)
[2020-06-21] MEDS: DOCUSATE ORAL SOLN 100 MG/10 ML CUP PO SCH (08:18)
--- NOTE | 2020-06-21 10:37 | P.PN ---
Subjective Progress Note Date: 06/21/20 Principal diagnosis: Acute hypoxic respiratory failure status post intubation Covid 19 pneumonia Acute kidney injury Dehydration and volume depleted state Confusion and agitated delirium Possible alcohol withdrawal 06/21/2020, patient seen eval examined during the rounds labs reviewed medications reviewed care plan discussed, patient is supine on Nimbex drip and propofol drip which is being tapered, still on tube feed full ventilator support PEEP of 15 with respiratory rate of 34 oxygen saturation supine posture is 86- 88% on 100% oxygen, but is adequate gently being rehydrated, started today reviewed pH is 7.38 pCO2 70 pO2 51 not much change compared to prior arterial blood gases white cell count is 16,000, prognosis is very guarded with likelihood of recovery is poor 06/20/2020, patient seen and evaluated examined during the rounds labs reviewed medications reviewed care plan discussed with the staff at length, also discussed with daughter at length about prognosis and further plan of care of the patient, patient continued do not very well, continued to be hypoxic sets now have been dropped to 70s on 100% oxygen PEEP of 15 rate of 34 tidal volume of 500, patient was unable to be prone today due to extensive swelling as well as some tissue breakdown, total CKs elevated, continued to have intermittent low-grade fevers, patient remain in medical paralysis with propofol and Nimbex drip, have been reduced to 4 mics, propofol reduced to 30, last ABG revealed pH of 7.4 to pCO2 of 62 pO2 of only 43, discussed with daughter about poor prognosis, chest x-ray continue show bilateral diffuse infiltrate and edema no significant change, ET tube and OG tube was stable, patient continued to get to feed, over albumin noted to be very low likely indicated above very severe catabolic state 06/19/2020, patient seen eval examined during the rounds remain on full ventilator support discussed with nurse about decreasing the propofol using Ativan as needed, continue Nimbex for medical paralysis, patient remained supine for 16 hours a day saturation is just a 88-90% on 100% oxygen with PEEP of 15, hemodynamic status stable, patient remains on same setting with assist control mode labs reviewed medications reviewed 06/18/2020, patient seen eval examined during the rounds labs reviewed medications reviewed care plan discussed with him with the staff, patient remains prone, medically paralyze with propofol and then next, discussed to decrease the amount of propofol due to 20-30, chest x-ray remains stable, patient is on full ventilator support with PEEP of 15, assist control rate of 34 500 tidal volume and FiO2 100% saturation is 88, urine output is adequate patient remains on tube feed when prone, remains on dexamethasone along with Lovenox, 06/17/2020, patient seen eval examined during the rounds labs reviewed medications reviewed, patient remains on prone positioning on 100% oxygen, remains on assist control mode, PEEP of 15, rate of 34, chest x-ray performed today continue show bilateral diffuse pneumonia patient remains sedated and medi chase paralyze with propofol and Nimbex drip to feed when he is supine, meeting goals of calories, arterial blood gases reviewed pH is improved now 7.4 pCO2 61 pO2 53, urine creatinine is 34.53, LDH remains high over 1999 consistent with acute inflammatory ongoing response, fever Petrin is down, long-term prognosis poor June 16 2020, patient seen eval examined during the rounds labs reviewed medications reviewed, patient remains a deeply sedated and medically paralyze, currently on Nimbex drip along with propofol 50 mics, current ventilator settings include assist control rate of 34 PEEP of 5 tidal volume of 500 100% oxygen, oxygen saturation are barely 88%, discussed with the daughter at length, patient and daughter finally decided to make him no code, however continue to provide supportive care and therapy, chest x-ray overall not much change labs reviewed patient has been prone for 16 hours a day 06/15/2020, patient seen eval examined during the rounds labs reviewed medications reviewed, patient remains in prone positioning, white cell count remains as stable 19,000, arterial blood gas noted to have been improved as pH is 7.38 pCO2 Page and pO2 56, renal functions are normal, hemoglobin stable, last chest x-ray yesterday remains stable rate have been increased to 30 06/14/2020, patient seen eval reexamined during the rounds remains in prone positioning, oxygenation is better 88-90% with that however on supine posture drop down to mid to low 70s, patient remains on high PEEP high ventilator support, currently on PEEP of 15, tidal volume of 500, FiO2 100% assist control mode, sedated and medically paralyze, labs reviewed medications reviewed critical care time spent 35 minutes 06/13/2020, patient seen eval examined during the rounds labs reviewed medications reviewed care plan discussed, patient remains prone oxygen saturation 92%, arterial blood gas from this morning reviewed severe diffusion impairment is present with rising CO2 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 and membrane diffusion impairment, patient has been hemodynamically stable though, chest x-ray and labs reviewed CO2 continued to rise, will increase her respiratory rate to 28, 06/12/2020, patient seen eval examined during the rounds labs reviewed medications reviewed care plan discussed, patient is supine saturation is 92% he is on 100% oxygen with full respirator support, ABG from this morning reviewed, patient has significant diffusion impairment with high CO2 however pH is stable, hemodynamic status stable remains on propofol as well as Nimbex drip, labs reviewed medications reviewed chest x-ray reviewed as well essentially no significant change bilateral dense infiltrate the bases remains unchanged patient does relatively better with improve oxygenation in prone positioning however does very poorly and supine posture, we will attempt to keep prone as much as possible, cultures no growth so far, labs included chemistry and CBC reviewed in phlegm atrial parameters remains up suggestive of ongoing cytokine Camila 06/11/2020, patient seen and evaluated examined while supine oxygen saturation dropped down into mid 70s, however when prone patient was saturating low 90s, 100% oxygen, stable when setting, propofol infusion escalated to 40 mics, Nimbex on for mics, been setting however is stable assist control with 100% oxygen chest x-ray reviewed and essentially no change labs reviewed as, sodium is going up, we'll start free water with the tube feeding, inflammatory parameters reviewed consistent with cytokine Camila of covid 19 pneumonia 06/10/2020, patient seen eval examined during the rounds care plan discussed with the staff at length labs and medications reviewed, hemodynamic status stable oxygen saturation remains marginal 90% 100% oxygen, patient is prone for 16 hours will be back supine around 11x-ray will be performed, sedated and medically paralyze with propofol and Nimbex drip, every feed is being given when he is supine, chest x-ray showed bilateral dense infiltrate arterial blood gases reviewed consistent with compensated hypercapnia and respiratory acidosis significant of diffusion impairment, patient is status post convalescent plasma 06/09/2020, patient seen eval examined during the rounds labs reviewed medications reviewed care plan discussed, patient is chest x-ray is not done as patient has been prone plan is to keep him prone for 16 hours, once on his back will do the chest x-ray, patient ended up being intubated for respiratory distress worsening agitation and anxiety currently patient is on propofol and medically paralyze with Nimbex drip, FiO2 is 100% PEEP of 8 tidal volume 400 which has been adjusted for hypercapnia and hypoventilation, respiratory rate is 20, the white cell count is 16,000, d-dimer is 34, ABG suggestive of respiratory acidosis, , inflammatory parameters remains elevated sister of ongoing cytokine camila, patient remains on Remdesivir, Decadron, will get convalescent plasma as well Ammann continue prone positioning 06/08/2020, patient seen and evaluated reexamined on selective care remains agitated anxious respiratory rate into 60s saturation dropped down to 80-85%, patient tachypneic tachycardic difficult to control with a staph agitated behavior, arterial blood gas done pO2 dropped down to 46 only patient is showing respiratory and metabolic acidosis, will transfer to the ICU intubated and start patient on propofol may need to medically paralyze him with cisatracurium, postintubation was prone the patient for 16 hour as tolerated, post intubation chest x-ray reviewed ET tube just right at the mariajose will pull out 2 cm 06/08/2020, patient seen eval reexamined during the rounds remains tachypneic tachycardic but however saturation is 9888-90% on 100% oxygen and BiPAP currentl y on 03/03, patient today could not be placed in prone positioning, arterial blood gas reviewed pH is 7.43 pCO2 39 pO2 59, pO2 slightly up now compared to 2 days ago compared, we'll decrease the Decadron to 6 mg daily new other management June 07 2020, patient seen eval examined during the rounds labs reviewed medications reviewed care plan discussed, cough congestion is improved, patient is hemodynamically stable, continued to be tachypneic currently supine on BiPAP oxygen saturation is 88% on 100% oxygen, discussed with nursing staff to semi- prone him again patient dated 7-8 hours last night, white cell count is down, patient remains on Decadron along with IV REM doesn't wear, morphine and Ativan is on hold due to somnolence, patient did well with Haldol all last night, 06/06/2020, patient seen and evaluated examined during the rounds labs reviewed medications reviewed care plan discussed with the staff at length involving both medical floor and selective care critical care, patient continued to be intermittently agitated, does not keep the oxygen or BiPAP on his face, remains a problem with possible delirium or withdrawal, Ativan half a milligram tried, which seems to be helping but however agitated his agitation has been continuous, I have tried hold all this seems to be helping able to put patient some prone with that oxygen saturation improved to 95% with BiPAP off 100% oxygen, will continue Decadron, REM does ever, and IV antibiotics and sputum for culture as well repeat chest x-ray and arterial blood gases reviewed as well no significant change in next day has been noted, ABG suggestive of significant hypoxia, noted that he renal functions have improved This is a 65-year-old male who has a history of extensive smoking and nicotine use, patient presented into the emergency department with progressive increasing shortness of breath and nonproductive cough, he was hypoxic with low oxygen saturation, no sputum production, his code at 19 test came back positive, in the ER he was noted to have a low blood pressure of 104/65, patient was hypoxic with room air oxygen saturation of only 83%, low-grade temperature of 99.3 his present, he was also noted to have acute injury of the kidneys that BUN/creatinine of 32 and 1.29, his inflammatory parameters were elevated with ferritin level of over 1200, LDH of over 1400, C-reactive protein of 176, pro calcitonin noted to be elevated up 0.21, chest x-ray noted to have bilateral airspace disease, patient was admitted to medical floor where he was noted to have oxygen saturation marginal and eventually FiO2 went up to 15 L high flow oxygen his blood culture no growth so far Objective - Vital Signs Vital signs: Vital Signs Temp 97.9 F 06/21/20 08:00 Pulse 66 06/21/20 10:00 Resp 34 H 06/21/20 10:00 BP 123/58 06/21/20 10:00 Pulse Ox 86 L 06/21/20 10:00 Intake & Output 06/20/20 06/21/20 06/21/20 18:59 06:59 18:59 Intake Total 2845.634 1846.520 440 Output Total 730 1185 425 Balance 2115.634 661.520 15 Weight 104.3 kg Intake: IV 1200 1200 400 Sodium Chloride 0.45% 1, 1200 1200 400 000 ml @ 100 mls/hr IV . Q10H [facility] Rx#:[id number] Intake, IV Titration 393.634 646.520 Amount Cisatracurium 200 mg In 200.000 255.44 Sodium Chloride 0.9% 180 ml @ 1 MCG/KG/MIN 4.62 mls/hr IV .Q24H [facility] Rx#: [id number] propofoL 1,000 mg In 193.634 391.080 Empty Bag 1 bag @ Titrate IV .Q0M [facility] Rx#: [id number] Tube Feeding 1072 0 Other 180 40 Output: Urine 730 1185 425 Other: Voiding Method Indwelling Catheter Indwelling Catheter Indwelling Catheter # Voids 1 # Bowel Movements 0 0 - Exam - Constitutional General appearance: average body habitus, cooperative, disheveled, intubated on Nimbex and propofol - EENT Eyes: PERRLA Ears: bilateral: normal - Neck Neck: normal ROM Carotids: bilateral: upstroke normal Thyroid: bilateral: normal size - Respiratory Respiratory: bilateral: diminished - Cardiovascular Rhythm: regular Heart sounds: normal: S1, S2 - Gastrointestinal General gastrointestinal: normal bowel sounds, soft - Neurologic Neurologic: Agitated delirium is stable due to medical paralysis - Musculoskeletal Musculoskeletal:strength equal bilaterally - Psychiatric Psychiatric: Agitated delirium is is stable due to medical paralysis - Labs CBC & Chem 7: 06/21/20 03:53 06/21/20 03:53 Labs: Abnormal Lab Results - Last 24 Hours (Table) 06/20/20 06/20/20 06/20/20 Range/Units 03:52 11:53 18:18 WBC (3.8-10.6) k/uL RBC (4.30-5.90) m/uL Hgb (13.0-17.5) gm/dL Hct (39.0-53.0) % ABG pCO2 (35-45) mmHg ABG pO2 (83-108) mmHg ABG HCO3 (21-25) mmol/L ABG Total CO2 (19-24) mmol/L ABG O2 Saturation (94-97) % Sodium (137-145) mmol/L Carbon Dioxide (22-30) mmol/L BUN (9-20) mg/dL Creatinine (0.66-1.25) mg/dL Glucose (74-99) mg/dL POC Glucose (mg/dL) 147 H 119 H (75-99) mg/dL Calcium (8.4-10.2) mg/dL Ferritin 1898.2 H (22.0-322.0) ng/mL Total Protein (6.3-8.2) g/dL Albumin (3.5-5.0) g/dL 06/20/20 06/21/20 06/21/20 Range/Units 23:23 03:53 03:53 WBC 16.7 H (3.8-10.6) k/uL RBC 3.44 L (4.30-5.90) m/uL Hgb 10.8 L (13.0-17.5) gm/dL Hct 33.0 L (39.0-53.0) % ABG pCO2 (35-45) mmHg ABG pO2 (83-108) mmHg ABG HCO3 (21-25) mmol/L ABG Total CO2 (19-24) mmol/L ABG O2 Saturation (94-97) % Sodium 136 L (137-145) mmol/L Carbon Dioxide 38 H (22-30) mmol/L BUN 27 H (9-20) mg/dL Creatinine 0.39 L (0.66-1.25) mg/dL Glucose 127 H (74-99) mg/dL POC Glucose (mg/dL) 118 H (75-99) mg/dL Calcium 7.3 L (8.4-10.2) mg/dL Ferritin (22.0-322.0) ng/mL Total Protein 4.9 L (6.3-8.2) g/dL Albumin 1.8 L (3.5-5.0) g/dL 06/21/20 06/21/20 Range/Units 05:38 06:12 WBC (3.8-10.6) k/uL RBC (4.30-5.90) m/uL Hgb (13.0-17.5) gm/dL Hct (39.0-53.0) % ABG pCO2 70 H (35-45) mmHg ABG pO2 51 L* (83-108) mmHg ABG HCO3 41 H* (21-25) mmol/L ABG Total CO2 43 H (19-24) mmol/L ABG O2 Saturation 86.1 L (94-97) % Sodium (137-145) mmol/L Carbon Dioxide (22-30) mmol/L BUN (9-20) mg/dL Creatinine (0.66-1.25) mg/dL Glucose (74-99) mg/dL POC Glucose (mg/dL) 112 H (75-99) mg/dL Calcium (8.4-10.2) mg/dL Ferritin (22.0-322.0) ng/mL Total Protein (6.3-8.2) g/dL Albumin (3.5-5.0) g/dL Assessment and Plan Assessment: ARDS due to Covid 19 pneumonia Severe sepsis Acute hypoxic respiratory failure on ventilator with full vent support, oxygenation continued to be marginal up to lately in 80s even on in prone positioning however desats to low 70s in supine posture lately Respiratory acidosis, ventilator being adjusted, see orders for detail Covid 19 pneumonia Hypernatremia Agitated delirium alternating with somnolence status post medical paralysis and sedation with propofol and Nimbex drip Acute kidney injury, renal functions improved Dehydration and volume depleted state Prognosis poor Plan: Continue gentle rehydration IV, tube feed Ventilator adjustment as needed Medical paralysis and Sedation with Nimbex and propofol attempt to lower down the propofol as well as Nimbex prone position as much as possible preferably 16 hours to 20 hours every day Will again to prone positioning today Continue keep saturation over 85-90% IV Solu-Medrol every 6 60 mg IV antibiotics Tube feeding IV Remdesivir for 5 days finished Status post convalescent plasma finished Prognosis guarded with likelihood of recovery poor Time with Patient: Greater than 30
[2020-06-21 11:47] LABS: Glucose,Whole Blood 129 mg/dL (75-99)
[2020-06-21 17:44] LABS: Glucose,Whole Blood 133 mg/dL (75-99)
[2020-06-21 23:48] LABS: Glucose,Whole Blood 139 mg/dL (75-99)
[2020-06-22] MEDS: ARTIFICIAL TEARS-HYPROMELLOSE DROPS 15 ML BTL BOTH EYES SCH ×5 (03:12→20:43)
[2020-06-22] MEDS: CISATRACURIUM 200 MG in SODIUM CHLORIDE 0.9% 180 ML IV SCH ×2 (03:36→17:14)
--- NOTE | 2020-06-22 04:22 | CONS ---
CONSULTATION DATE OF SERVICE: 06/21/2020. REASON FOR CONSULTATION: Does patient qualify for monoclonal anti-COVID antibody. HISTORY OF PRESENT ILLNESS: The patient is a 65-year-old male with past medical history significant for smoking continues presented to the ER at [facility] on June 04, 2020 for evaluation of increasing shortness of breath in this patient who has been diagnosed with acute COVID-19 infection. Francis PCR was negative. The patient did have worsening of his respiratory status and has been intubated and is currently in the ICU for more than 2 weeks. The patient has completed his 5-day course of remdesivir and is currently on Lovenox and Solu-Medrol along with vent support in addition to zinc. The admitting physician did put a consult to us will the patient qualify for the monoclonal antibody. The patient is currently intubated on the vent and the patient is hemodynamically stable not on pressor support. The patient FiO2 is currently at 100%. The patient is barely saturating 88% to 89%. No significant purulent secretion through the ET or any diarrhea reported by nursing staff. Most information has been obtained from review of the chart and nursing staff. The patient is unable to provide any history. The patient did have blood cultures drawn on admission. Those have been negative. Sputum was collected on 06/10, which came back positive for Jojo albicans. REVIEW OF SYSTEMS: Positive points have been mentioned in HPI. Complete review of systems could not be obtained because the patient is intubated on the vent and unable to provide any history. PAST MEDICAL HISTORY: Gastroesophageal reflux disease, COPD. PAST SURGICAL HISTORY: Colonoscopy. SOCIAL HISTORY: Positive for smoking, drinking, and no drug use. FAMILY HISTORY: No pertinent findings noticed. ALLERGIES: No known drug allergies. MEDICATIONS: Medications include the patient is currently on propofol, zinc, Protonix, Narcan, morphine sulfate, Solu-Medrol, NovoLog, Lovenox, vitamin C, Tylenol. PHYSICAL EXAMINATION: Blood pressure is 129/60 with a pulse of 66, temperature 97.5. He is 89% on 100% FiO2. General description is a middle-aged male, intubated on the vent. HEENT EXAMINATION: No pallor or scleral icterus. The patient is orally intubated. LUNGS: Unlabored breathing. Decreased intensity of breath sounds. No wheeze or crackle. HEART: S1, S2. Regular rate and rhythm. ABDOMEN: Soft, no tenderness. No guarding or rigidity. EXTREMITIES: No edema of feet. SKIN EXAMINATION: No rash or mass palpable. NEUROLOGICAL: The patient is currently sedated on the vent. LABS: Hemoglobin 10.8, white count 16.7. The BUN of 27, creatinine 0.39. Electrolytes have been normal. Liver enzymes are normal. Chest x-ray done yesterday did shows bilateral diffuse infiltrate and/or edema redemonstrated. No significant change. DIAGNOSTIC IMPRESSION AND PLAN: Patient with acute respiratory failure which is likely multifactorial in this patient who diminished have acute COVID-19 pneumonia and possible ARDS followed by this patient currently has his remdesivir therapy and is on steroids and anticoagulation along with zinc. Monoclonal antibody is for the early mild stages of a COVID-19 infection to prevent any progression to severe COVID-19 infection in this patient already in severe respiratory failure and has been in the hospital for more than 17 days. Does not qualify for monoclonal antibody therapy unfortunately at this point. PLAN: 1. Patient does not qualify for monoclonal antibody therapy. 2. Continue with steroids, bronchodilators, anticoagulation per admitting and Pulmonary team. Thank you for this consultation. MMODL / IJN: [id number] /
[2020-06-22 05:30] LABS: ABG Base Excess 16.4 mmol/L; ABG Oxygen Saturation 92.1 % (94-97); ABG PH 7.29 (7.35-7.45); ABG PO2 64 mmHg (83-108); ABG TCO2 46 mmol/L (19-24); Allen Test Performed? Yes
[2020-06-22 05:33] LABS: ABG PCO2 90 mmHg (35-45)
[2020-06-22 05:36] LABS: HCT 36.5 % (39.0-53.0); HGB 11.5 gm/dL (13.0-17.5); Hypochromasia Moderate; MCH 30.8 pg (25.0-35.0); MCHC 31.6 g/dL (31.0-37.0); MCV 97.6 fL (80.0-100.0); Mean Platelet Volume 9.2; Platelet Count 334 k/uL (150-450); RBC 3.74 m/uL (4.30-5.90); RDW 14.1 % (11.5-15.5)
[2020-06-22 05:47] LABS: D-Dimer 3.23 mg/L FEU (<0.60)
[2020-06-22 05:58] LABS: ALT 43 U/L (4-49); AST 41 U/L (17-59); African American GFR (CKD) >90 (>60 ml/min/1.73 sqM); Alkaline Phosphatase 66 U/L (38-126); Blood Urea Nitrogen 22 mg/dL (9-20); C Reactive Protein 54.5 mg/L (<10.0); Chloride 98 mmol/L (98-107); Creatine Kinase 33 U/L (55-170); Glucose 130 mg/dL (74-99); Non-African American GFR(CKD) >90 (>60 ml/min/1.73 sqM); Sodium 136 mmol/L (137-145); Total Bilirubin 0.6 mg/dL (0.2-1.3); Total Protein 5.3 g/dL (6.3-8.2)
[2020-06-22 06:02] LABS: Anion Gap -4 mmol/L
[2020-06-22 06:05] LABS: Carbon Dioxide 42 mmol/L (22-30)
[2020-06-22 06:22] LABS: Band Neutrophils % 15 %; Lymphocytes # (M) 0.34 k/uL (1.0-4.8); Metamyelocytes # (M) 0.69 k/uL (0); Metamyelocytes % 4 %; Monocytes # (M) 1.03 k/uL (0-1.0); Myelocytes # (M) 0.34 k/uL (0); Myelocytes % 2 %; Neutrophils % (M) 72 %; Nucleated Red Blood Cells 1 /100 WBC (0-0); Total Cells Counted 200; WBC 17.2 k/uL (3.8-10.6)
[2020-06-22 06:23] LABS: Basophilic Stippling Present; Polychromasia Present
[2020-06-22 06:25] LABS: Large Platelets Present
[2020-06-22] MEDS: INSULIN ASPART (NovoLOG) 100 UNIT/ML VIAL SQ SCH ×3 (06:36→18:06)
[2020-06-22] MEDS ORDERED: SODIUM BICARB 8.4% 50 ML SYR (1 MEQ/ML) IV STA (06:37)
[2020-06-22] MEDS: methylPREDNISolone SOD SUCCI 125 MG/2 ML VIAL IV SCH ×3 (07:00→18:26)
[2020-06-22] MEDS: ASCORBIC ACID 500 MG TAB PO SCH (07:57)
[2020-06-22] MEDS: CHLORHEXIDINE GLUCONATE 15 ML CUP MUCOUS MEM SCH ×2 (07:57→20:43)
[2020-06-22] MEDS: PANTOPRAZOLE 40 MG/10 ML VIAL IVP SCH (07:57)
[2020-06-22] MEDS: DOCUSATE ORAL SOLN 100 MG/10 ML CUP PO SCH (07:58)
[2020-06-22] MEDS: ZINC SULFATE 220 MG CAP PO SCH (07:58)
--- NOTE | 2020-06-22 08:16 | P.PN ---
Subjective Principal diagnosis: Respiratory distress. The patient has had poor progress over the weekend. The patient is now been transferred ICU due to worsening respiratory failure. Pneumonia-coronavirus treatment is continuing. Appreciate pulmonary/base draw operator input. The patient has not been improving as anticipated given the treatment that he has had. Poor respiratory improvement The patient continues to have minimal improvement. Objective - Vital Signs Vital signs: Vital Signs Temp 97.7 F 06/22/20 04:00 Pulse 64 06/22/20 07:00 Resp 34 H 06/22/20 07:00 BP 136/61 06/22/20 07:00 Pulse Ox 91 L 06/22/20 07:00 Intake & Output 06/21/20 06/22/20 06/22/20 18:59 06:59 18:59 Intake Total 1992.56 2094.365 131 Output Total 965 995 60 Balance 1027.56 1099.365 71 Weight 104.3 kg 110.3 kg Intake: IV 1200 1200 100 Sodium Chloride 0.45% 1, 1200 1200 100 000 ml @ 100 mls/hr IV . Q10H [facility] Rx#:[id number] Intake, IV Titration 444.56 432.365 Amount Cisatracurium 200 mg In 144.56 135.366 Sodium Chloride 0.9% 180 ml @ 1 MCG/KG/MIN 4.62 mls/hr IV .Q24H [facility] Rx#: [id number] propofoL 1,000 mg In 300 296.999 Empty Bag 1 bag @ Titrate IV .Q0M [facility] Rx#: [id number] Tube Feeding 248 372 31 Other 100 90 Output: Urine 965 995 60 Other: Voiding Method Indwelling Catheter Indwelling Catheter # Bowel Movements 0 - Constitutional General appearance: Absent: cooperative - Neck Neck: Absent: lymphadenopathy - Respiratory Respiratory: bilateral: diminished - Cardiovascular Rhythm: regular Heart sounds: normal: S1, S2 Abnormal Heart Sounds: Absent: S3 Gallop - Gastrointestinal General gastrointestinal: Present: soft - Labs CBC & Chem 7: 06/22/20 05:19 06/22/20 05:19 Labs: Abnormal Lab Results - Last 24 Hours (Table) 06/21/20 06/21/20 06/21/20 Range/Units 11:45 17:39 23:47 WBC (3.8-10.6) k/uL RBC (4.30-5.90) m/uL Hgb (13.0-17.5) gm/dL Hct (39.0-53.0) % Neutrophils # (Manual) (1.3-7.7) k/uL Lymphocytes # (Manual) (1.0-4.8) k/uL Monocytes # (Manual) (0-1.0) k/uL Metamyelocytes # (Man) (0) k/uL Myelocytes # (Manual) (0) k/uL Nucleated RBCs (0-0) /100 WBC D-Dimer (<0.60) mg/L FEU ABG pH (7.35-7.45) ABG pCO2 (35-45) mmHg ABG pO2 (83-108) mmHg ABG HCO3 (21-25) mmol/L ABG Total CO2 (19-24) mmol/L ABG O2 Saturation (94-97) % Sodium (137-145) mmol/L Carbon Dioxide (22-30) mmol/L BUN (9-20) mg/dL Creatinine (0.66-1.25) mg/dL Glucose (74-99) mg/dL POC Glucose (mg/dL) 129 H 133 H 139 H (75-99) mg/dL Calcium (8.4-10.2) mg/dL Creatine Kinase (55-170) U/L C-Reactive Protein (<10.0) mg/L Total Protein (6.3-8.2) g/dL Albumin (3.5-5.0) g/dL 06/22/20 06/22/20 06/22/20 Range/Units 05:02 05:19 05:19 WBC 17.2 H (3.8-10.6) k/uL RBC 3.74 L (4.30-5.90) m/uL Hgb 11.5 L (13.0-17.5) gm/dL Hct 36.5 L (39.0-53.0) % Neutrophils # (Manual) 14.90 H (1.3-7.7) k/uL Lymphocytes # (Manual) 0.34 L (1.0-4.8) k/uL Monocytes # (Manual) 1.03 H (0-1.0) k/uL Metamyelocytes # (Man) 0.69 H (0) k/uL Myelocytes # (Manual) 0.34 H (0) k/uL Nucleated RBCs 1 H (0-0) /100 WBC D-Dimer 3.23 H (<0.60) mg/L FEU ABG pH 7.29 L (7.35-7.45) ABG pCO2 90 H* (35-45) mmHg ABG pO2 64 L (83-108) mmHg ABG HCO3 43 H* (21-25) mmol/L ABG Total CO2 46 H (19-24) mmol/L ABG O2 Saturation 92.1 L (94-97) % Sodium (137-145) mmol/L Carbon Dioxide (22-30) mmol/L BUN (9-20) mg/dL Creatinine (0.66-1.25) mg/dL Glucose (74-99) mg/dL POC Glucose (mg/dL) (75-99) mg/dL Calcium (8.4-10.2) mg/dL Creatine Kinase (55-170) U/L C-Reactive Protein (<10.0) mg/L Total Protein (6.3-8.2) g/dL Albumin (3.5-5.0) g/dL 06/22/20 Range/Units 05:19 WBC (3.8-10.6) k/uL RBC (4.30-5.90) m/uL Hgb (13.0-17.5) gm/dL Hct (39.0-53.0) % Neutrophils # (Manual) (1.3-7.7) k/uL Lymphocytes # (Manual) (1.0-4.8) k/uL Monocytes # (Manual) (0-1.0) k/uL Metamyelocytes # (Man) (0) k/uL Myelocytes # (Manual) (0) k/uL Nucleated RBCs (0-0) /100 WBC D-Dimer (<0.60) mg/L FEU ABG pH (7.35-7.45) ABG pCO2 (35-45) mmHg ABG pO2 (83-108) mmHg ABG HCO3 (21-25) mmol/L ABG Total CO2 (19-24) mmol/L ABG O2 Saturation (94-97) % Sodium 136 L (137-145) mmol/L Carbon Dioxide 42 H* (22-30) mmol/L BUN 22 H (9-20) mg/dL Creatinine 0.40 L (0.66-1.25) mg/dL Glucose 130 H (74-99) mg/dL POC Glucose (mg/dL) (75-99) mg/dL Calcium 8.0 L (8.4-10.2) mg/dL Creatine Kinase 33 L (55-170) U/L C-Reactive Protein 54.5 H (<10.0) mg/L Total Protein 5.3 L (6.3-8.2) g/dL Albumin 2.0 L (3.5-5.0) g/dL Assessment and Plan (1) Hypoxia Current Visit: Yes Status: Acute Code(s): R09.02 - HYPOXEMIA SNOMED Code(s): 557990282 (2) Pneumonia due to COVID-19 virus Current Visit: Yes Status: Acute Code(s): U07.1 - COVID-19; J12.89 - OTHER VIRAL PNEUMONIA SNOMED Code(s): 557015737981510014 Plan: Unfortunately with his for improvement, and overall diagnosis, poor prognosis is noted. We'll continue to follow with pulmonology. We will need to have a discussion with his family due to the prognostic indicators. Unfortunately, not much has changed Over the last 24 hours.
[2020-06-22] MEDS ORDERED: SODIUM BICARB 8.4% 50 ML SYR (1 MEQ/ML) ONE (08:48)
[2020-06-22] MEDS: ENOXAPARIN 40 MG/0.4 ML SYRINGE SQ SCH ×2 (09:35→20:43)
[2020-06-22 10:32] LABS: Ferritin 1168.9 ng/mL (22.0-322.0)
--- NOTE | 2020-06-22 10:33 | P.PN ---
Subjective Progress Note Date: 06/22/20 Principal diagnosis: Acute hypoxic respiratory failure status post intubation Covid 19 pneumonia Acute kidney injury Dehydration and volume depleted state Confusion and agitated delirium Possible alcohol withdrawal 06/22/2020, patient seen eval examined during the rounds labs reviewed medications reviewed care plan discussed with the staff at length, patient remained prone almost for 24 hours oxygen saturation slightly better now 90% current vent settings include assist control rate of 34 tidal volume 500, PEEP is 15, oxygen is 100%, remains medically paralyze with the Nimbex of 3 and a propofol of 50 mics, chest x-ray not yet done has been prone, white cell count i s up to 17,000 hemoglobin and hematocrit remained stable platelet count is stable, arterial blood gas revealed pH of 7.29 pCO2 of 90 with pO2 of 64, CO2 is up in the serum was 42, renal functions stable adequate urine output is done, patient remains on tube feed, noted that CO2 is progressively getting high due to membrane diffusion defect and ARDS, with respiratory acidosis, care plan discussed with primary service as well as infectious disease has been consulted, patient to be evaluated for monoclonal antibody therapy, patient however already received convulsant plasma along with IV REMdesivir 06/21/2020, patient seen eval examined during the rounds labs reviewed medications reviewed care plan discussed, patient is supine on Nimbex drip and propofol drip which is being tapered, still on tube feed full ventilator support PEEP of 15 with respiratory rate of 34 oxygen saturation supine posture is 86- 88% on 100% oxygen, but is adequate gently being rehydrated, started today reviewed pH is 7.38 pCO2 70 pO2 51 not much change compared to prior arterial blood gases white cell count is 16,000, prognosis is very guarded with likelihood of recovery is poor 06/20/2020, patient seen and evaluated examined during the rounds labs reviewed medications reviewed care plan discussed with the staff at length, also discussed with daughter at length about prognosis and further plan of care of t he patient, patient continued do not very well, continued to be hypoxic sets now have been dropped to 70s on 100% oxygen PEEP of 15 rate of 34 tidal volume of 500, patient was unable to be prone today due to extensive swelling as well as some tissue breakdown, total CKs elevated, continued to have intermittent low- grade fevers, patient remain in medical paralysis with propofol and Nimbex drip, have been reduced to 4 mics, propofol reduced to 30, last ABG revealed pH of 7.4 to pCO2 of 62 pO2 of only 43, discussed with daughter about poor prognosis, chest x-ray continue show bilateral diffuse infiltrate and edema no significant change, ET tube and OG tube was stable, patient continued to get to feed, over albumin noted to be very low likely indicated above very severe catabolic state 06/19/2020, patient seen eval examined during the rounds remain on full ventilator support discussed with nurse about decreasing the propofol using Ativan as needed, continue Nimbex for medical paralysis, patient remained supine for 16 hours a day saturation is just a 88-90% on 100% oxygen with PEEP of 15, hemodynamic status stable, patient remains on same setting with assist control mode labs reviewed medications reviewed 06/18/2020, patient seen eval examined during the rounds labs reviewed medicat ions reviewed care plan discussed with him with the staff, patient remains prone, medically paralyze with propofol and then next, discussed to decrease the amount of propofol due to 20-30, chest x-ray remains stable, patient is on full ventilator support with PEEP of 15, assist control rate of 34 500 tidal volume and FiO2 100% saturation is 88, urine output is adequate patient remains on tube feed when prone, remains on dexamethasone along with Lovenox, 06/17/2020, patient seen eval examined during the rounds labs reviewed medications reviewed, patient remains on prone positioning on 100% oxygen, remains on assist control mode, PEEP of 15, rate of 34, chest x-ray performed today continue show bilateral diffuse pneumonia patient remains sedated and medically paralyze with propofol and Nimbex drip to feed when he is supine, meeting goals of calories, arterial blood gases reviewed pH is improved now 7.4 pCO2 61 pO2 53, urine creatinine is 34.53, LDH remains high over 1999 consistent with acute inflammatory ongoing response, fever Petrin is down, long-term prognosis poor June 16 2020, patient seen eval examined during the rounds labs reviewed medications reviewed, patient remains a deeply sedated and medically paralyze, currently on Nimbex drip along with propofol 50 mics, current ventilator settings include assist control rate of 34 PEEP of 5 tidal volume of 500 100% oxygen, oxygen saturation are barely 88%, discussed with the daughter at length, patient and daughter finally decided to make him no code, however continue to provide supportive care and therapy, chest x-ray overall not much change labs reviewed patient has been prone for 16 hours a day 06/15/2020, patient seen eval examined during the rounds labs reviewed medications reviewed, patient remains in prone positioning, white cell count remains as stable 19,000, arterial blood gas noted to have been improved as pH is 7.38 pCO2 Page and pO2 56, renal functions are normal, hemoglobin stable, last chest x-ray yesterday remains stable rate have been increased to 30 06/14/2020, patient seen eval reexamined during the rounds remains in prone positioning, oxygenation is better 88-90% with that however on supine posture drop down to mid to low 70s, patient remains on high PEEP high ventilator support, currently on PEEP of 15, tidal volume of 500, FiO2 100% assist control mode, sedated and medically paralyze, labs reviewed medications reviewed critical care time spent 35 minutes 06/13/2020, patient seen eval examined during the rounds labs reviewed medications reviewed care plan discussed, patient remains prone oxygen saturation 92%, arterial blood gas from this morning reviewed severe diffusion impairment is present 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 membrane diffusion impairment, patient has been hemodynamically stable though, chest x-ray and labs reviewed CO2 continued to rise, will increase her respiratory rate to 28, 06/12/2020, patient seen eval examined during the rounds labs reviewed medications reviewed care plan discussed, patient is supine saturation is 92% he is on 100% oxygen with full respirator support, ABG from this morning reviewed, patient has significant diffusion impairment with high CO2 however pH is stable, hemodynamic status stable remains on propofol as well as Nimbex drip, labs reviewed medications reviewed chest x-ray reviewed as well essentially no significant change bilateral dense infiltrate the bases remains unchanged patient does relatively better with improve oxygenation in prone positioning however does very poorly and supine posture, we will attempt to keep prone as much as possible, cultures no growth so far, labs included chemistry and CBC reviewed in phlegm atrial parameters remains up suggestive of ongoing cytokine Camila 06/11/2020, patient seen and evaluated examined while supine oxygen saturation dropped down into mid 70s, however when prone patient was saturating low 90s, 100% oxygen, stable when setting, propofol infusion escalated to 40 mics, Nimbex on for mics, been setting however is stable assist control with 100% oxygen chest x-ray reviewed and essentially no change labs reviewed as, sodium is going up, we'll start free water with the tube feeding, inflammatory parameters reviewed consistent with cytokine Camila of covid 19 pneumonia 06/10/2020, patient seen eval examined during the rounds care plan discussed with the staff at length labs and medications reviewed, hemodynamic status stable oxygen saturation remains marginal 90% 100% oxygen, patient is prone for 16 hours will be back supine around 11x-ray will be performed, sedated and medically paralyze with propofol and Nimbex drip, every feed is being given when he is supine, chest x-ray showed bilateral dense infiltrate arterial blood gases reviewed consistent with compensated hypercapnia and respiratory acidosis significant of diffusion impairment, patient is status post convalescent plasma 06/09/2020, patient seen eval examined during the rounds labs reviewed medications reviewed care plan discussed, patient is chest x-ray is not done as patient has been prone plan is to keep him prone for 16 hours, once on his back will do the chest x-ray, patient ended up being intubated for respiratory distress worsening agitation and anxiety currently patient is on propofol and medically paralyze with Nimbex drip, FiO2 is 100% PEEP of 8 tidal volume 400 which has been adjusted for hypercapnia and hypoventilation, respiratory rate is 20, the white cell count is 16,000, d-dimer is 34, ABG suggestive of respiratory acidosis, , inflammatory parameters remains elevated sister of ongoing cytokine camila, patient remains on Remdesivir, Decadron, will get convalescent plasma as well Ammann continue prone positioning 06/08/2020, patient seen and evaluated reexamined on selective care remains agitated anxious respiratory rate into 60s saturation dropped down to 80-85%, patient tachypneic tachycardic difficult to control with a staph agitated behavior, arterial blood gas done pO2 dropped down to 46 only patient is showing respiratory and metabolic acidosis, will transfer to the ICU intubated and start patient on propofol may need to medically paralyze him with cisatracurium, postintubation was prone the patient for 16 hour as tolerated, post intubation chest x-ray reviewed ET tube just right at the mariajose will pull out 2 cm 06/08/2020, patient seen eval reexamined during the rounds remains tachypneic tachycardic but however saturation is 9888-90% on 100% oxygen and BiPAP currently on 03/03, patient today could not be placed in prone positioning, arterial blood gas reviewed pH is 7.43 pCO2 39 pO2 59, pO2 slightly up now compared to 2 days ago compared, we'll decrease the Decadron to 6 mg daily new other management June 07 2020, patient seen eval examined during the rounds labs reviewed medications reviewed care plan discussed, cough congestion is improved, patient is hemodynamically stable, continued to be tachypneic currently supine on BiPAP oxygen saturation is 88% on 100% oxygen, discussed with nursing staff to semi- prone him again patient dated 7-8 hours last night, white cell count is down, patient remains on Decadron along with IV REM doesn't wear, morphine and Ativan is on hold due to somnolence, patient did well with Haldol all last night, 06/06/2020, patient seen and evaluated examined during the rounds labs reviewed medications reviewed care plan discussed with the staff at length involving both medical floor and selective care critical care, patient continued to be intermittently agitated, does not keep the oxygen or BiPAP on his face, remains a problem with possible delirium or withdrawal, Ativan half a milligram tried, which seems to be helping but however agitated his agitation has been continuous, I have tried hold all this seems to be helping able to put patient some prone with that oxygen saturation improved to 95% with BiPAP off 100% oxygen, will continue Decadron, REM does ever, and IV antibiotics and sputum for culture as well repeat chest x-ray and arterial blood gases reviewed as well no significant change in next day has been noted, ABG suggestive of significant hypoxia, noted that he renal functions have improved This is a 65-year-old male who has a history of extensive smoking and nicotine use, patient presented into the emergency department with progressive increasing shortness of breath and nonproductive cough, he was hypoxic with low oxygen saturation, no sputum production, his code at 19 test came back positive, in the ER he was noted to have a low blood pressure of 104/65, patient was hypoxic with room air oxygen saturation of only 83%, low-grade temperature of 99.3 his present, he was also noted to have acute injury of the kidneys that B UN/creatinine of 32 and 1.29, his inflammatory parameters were elevated with ferritin level of over 1200, LDH of over 1400, C-reactive protein of 176, pro calcitonin noted to be elevated up 0.21, chest x-ray noted to have bilateral airspace disease, patient was admitted to medical floor where he was noted to have oxygen saturation marginal and eventually FiO2 went up to 15 L high flow oxygen his blood culture no growth so far Objective - Vital Signs Vital signs: Vital Signs Temp 97.1 F L 06/22/20 08:00 Pulse 69 06/22/20 10:00 Resp 34 H 06/22/20 10:00 BP 141/70 06/22/20 10:00 Pulse Ox 90 L 06/22/20 10:00 Intake & Output 06/21/20 06/22/20 06/22/20 18:59 06:59 18:59 Intake Total 1992.56 2094.365 423 Output Total 965 995 210 Balance 1027.56 1099.365 213 Weight 104.3 kg 110.3 kg Intake: IV 1200 1200 300 Sodium Chloride 0.45% 1, 1200 1200 300 000 ml @ 100 mls/hr IV . Q10H [facility] Rx#:[id number] Intake, IV Titration 444.56 432.365 Amount Cisatracurium 200 mg In 144.56 135.366 Sodium Chloride 0.9% 180 ml @ 1 MCG/KG/MIN 4.62 mls/hr IV .Q24H [facility] Rx#: [id number] propofoL 1,000 mg In 300 296.999 Empty Bag 1 bag @ Titrate IV .Q0M [facility] Rx#: [id number] Tube Feeding 248 372 93 Other 100 90 30 Output: Urine 965 995 210 Other: Voiding Method Indwelling Catheter Indwelling Catheter # Bowel Movements 0 - Exam - Constitutional General appearance: average body habitus, intubated on Nimbex and propofol - Neck Carotids: bilateral: upstroke normal - Respiratory Respiratory: bilateral: diminished - Cardiovascular Rhythm: regular Heart sounds: normal: S1, S2 - Gastrointestinal General gastrointestinal: normal bowel sounds, soft - Neurologic Neurologic: Agitated delirium is stable due to medical paralysis - Musculoskeletal Musculoskeletal:strength equal bilaterally - Psychiatric Psychiatric: Agitated delirium is is stable due to medical paralysis - Labs CBC & Chem 7: 06/22/20 05:19 06/22/20 05:19 Labs: Abnormal Lab Results - Last 24 Hours (Table) 06/21/20 06/21/20 06/21/20 Range/Units 11:45 17:39 23:47 WBC (3.8-10.6) k/uL RBC (4.30-5.90) m/uL Hgb (13.0-17.5) gm/dL Hct (39.0-53.0) % Neutrophils # (Manual) (1.3-7.7) k/uL Lymphocytes # (Manual) (1.0-4.8) k/uL Monocytes # (Manual) (0-1.0) k/uL Metamyelocytes # (Man) (0) k/uL Myelocytes # (Manual) (0) k/uL Nucleated RBCs (0-0) /100 WBC D-Dimer (<0.60) mg/L FEU ABG pH (7.35-7.45) ABG pCO2 (35-45) mmHg ABG pO2 (83-108) mmHg ABG HCO3 (21-25) mmol/L ABG Total CO2 (19-24) mmol/L ABG O2 Saturation (94-97) % Sodium (137-145) mmol/L Carbon Dioxide (22-30) mmol/L BUN (9-20) mg/dL Creatinine (0.66-1.25) mg/dL Glucose (74-99) mg/dL POC Glucose (mg/dL) 129 H 133 H 139 H (75-99) mg/dL Calcium (8.4-10.2) mg/dL Creatine Kinase (55-170) U/L C-Reactive Protein (<10.0) mg/L Total Protein (6.3-8.2) g/dL Albumin (3.5-5.0) g/dL 06/22/20 06/22/20 06/22/20 Range/Units 05:02 05:19 05:19 WBC 17.2 H (3.8-10.6) k/uL RBC 3.74 L (4.30-5.90) m/uL Hgb 11.5 L (13.0-17.5) gm/dL Hct 36.5 L (39.0-53.0) % Neutrophils # (Manual) 14.90 H (1.3-7.7) k/uL Lymphocytes # (Manual) 0.34 L (1.0-4.8) k/uL Monocytes # (Manual) 1.03 H (0-1.0) k/uL Metamyelocytes # (Man) 0.69 H (0) k/uL Myelocytes # (Manual) 0.34 H (0) k/uL Nucleated RBCs 1 H (0-0) /100 WBC D-Dimer 3.23 H (<0.60) mg/L FEU ABG pH 7.29 L (7.35-7.45) ABG pCO2 90 H* (35-45) mmHg ABG pO2 64 L (83-108) mmHg ABG HCO3 43 H* (21-25) mmol/L ABG Total CO2 46 H (19-24) mmol/L ABG O2 Saturation 92.1 L (94-97) % Sodium (137-145) mmol/L Carbon Dioxide (22-30) mmol/L BUN (9-20) mg/dL Creatinine (0.66-1.25) mg/dL Glucose (74-99) mg/dL POC Glucose (mg/dL) (75-99) mg/dL Calcium (8.4-10.2) mg/dL Creatine Kinase (55-170) U/L C-Reactive Protein (<10.0) mg/L Total Protein (6.3-8.2) g/dL Albumin (3.5-5.0) g/dL 06/22/20 Range/Units 05:19 WBC (3.8-10.6) k/uL RBC (4.30-5.90) m/uL Hgb (13.0-17.5) gm/dL Hct (39.0-53.0) % Neutrophils # (Manual) (1.3-7.7) k/uL Lymphocytes # (Manual) (1.0-4.8) k/uL Monocytes # (Manual) (0-1.0) k/uL Metamyelocytes # (Man) (0) k/uL Myelocytes # (Manual) (0) k/uL Nucleated RBCs (0-0) /100 WBC D-Dimer (<0.60) mg/L FEU ABG pH (7.35-7.45) ABG pCO2 (35-45) mmHg ABG pO2 (83-108) mmHg ABG HCO3 (21-25) mmol/L ABG Total CO2 (19-24) mmol/L ABG O2 Saturation (94-97) % Sodium 136 L (137-145) mmol/L Carbon Dioxide 42 H* (22-30) mmol/L BUN 22 H (9-20) mg/dL Creatinine 0.40 L (0.66-1.25) mg/dL Glucose 130 H (74-99) mg/dL POC Glucose (mg/dL) (75-99) mg/dL Calcium 8.0 L (8.4-10.2) mg/dL Creatine Kinase 33 L (55-170) U/L C-Reactive Protein 54.5 H (<10.0) mg/L Total Protein 5.3 L (6.3-8.2) g/dL Albumin 2.0 L (3.5-5.0) g/dL Assessment and Plan Assessment: ARDS due to Covid 19 pneumonia Severe sepsis Acute hypoxic respiratory failure on ventilator with full vent support, oxygenation continued to be marginal up to lately high 80s to 90 even on in prone positioning however desats to low 70s in supine posture lately Respiratory acidosis, ventilator being adjusted, see orders for detail Covid 19 pneumonia Agitated delirium alternating with somnolence status post medical paralysis and sedation with propofol and Nimbex drip Acute kidney injury, renal functions improved Prognosis poor Plan: Continue gentle rehydration IV, tube feed Ventilator adjustment as needed Medical paralysis and Sedation with Nimbex and propofol attempt to lower down the propofol as well as Nimbex prone position as much as possible preferably 16 hours to 20 hours every day Will again to prone positioning today Continue keep saturation over 85-90% IV Solu-Medrol every 6 60 mg IV antibiotics Tube feeding IV Remdesivir for 5 days finished Status post convalescent plasma finished Prognosis guarded with likelihood of recovery poor Time with Patient: Greater than 30
[2020-06-22] MEDS: SODIUM CHLORIDE 0.45% 1,000 ML IV SCH ×2 (11:22→20:43)
[2020-06-22 12:31] LABS: INR 0.9 (<1.2); Prothrombin Time 9.5 sec (9.0-12.0)
[2020-06-22 12:37] LABS: Glucose,Whole Blood 118 mg/dL (75-99)
--- NOTE | 2020-06-22 15:45 | XR ---
EXAMINATION TYPE: XR chest 1V confirm line [facility] DATE OF EXAM: 06/22/2020 CLINICAL HISTORY: Post PICC line placement. TECHNIQUE: Single AP portable upright view of the chest is obtained. COMPARISON: Chest x-ray from 2 days earlier FINDINGS: New left-sided PICC line terminates in SVC. Stable endotracheal and orogastric tubes. Cardiac silhouette size is stable and within normal limits. Reticular and increased opacities bilater ally with more dense consolidation in the bases is redemonstrated. No pneumothorax noted bilaterally. Old fracture deformity left mid clavicle redemonstrated. IMPRESSION: New left-sided PICC line terminates in SVC. Other findings stable. Bilateral diffuse infi ltrates and/or edema redemonstrated greatest in the bases.
--- NOTE | 2020-06-22 16:26 | PN ---
PROGRESS NOTE DATE OF SERVICE: 06/22/2020 REASON FOR FOLLOWUP: COVID-19 and a question of possible monoclonal antibody need. INTERVAL HISTORY: The patient is currently afebrile. The patient is hemodynamically stable. FiO2 is currently 100%. No significant purulent secretion through the ET or any diarrhea reported by the nursing staff. PHYSICAL EXAMINATION: Blood pressure 139/70 with a pulse of 66, temperature 97.1. He is 90% on 100% FiO2. General description is a middle-aged male lying in bed in no distress. RESPIRATORY SYSTEM: Unlabored breathing with decreased breath sounds at the base. No wheeze. HEART: S1, S2. Regular rate and rhythm. ABDOMEN: Soft. LABS: Hemoglobin is 11.5, white count 17.2. BUN of 22, creatinine 0.40. CRP is 54.5, improved from 06/20/2020 of 170. DIAGNOSTIC IMPRESSION AND PLAN: Patient with acute respiratory failure which is multifactorial in this patient who did have COVID-19 infection with respiratory failure. He has completed his remdesivir therapy, currently on steroids, more likely responsible for the elevated white count. Clinical suspicion low for underlying infection. Continue treatment per Pulmonary on the case. Please call back if you have any question for infectious disease care. MMODL / IJN: [id number] /
--- NOTE | 2020-06-22 16:35 | IR ---
EXAMINATION TYPE: IR cvc insert >=5 years DATE OF EXAM: 06/22/2020 COMPARISON: NONE HISTORY: Covid pneumonia, needs long-term intravenous access for therapy FINDINGS: Maximal barrier technique was utilized. Hand hygiene obtained with soap and water and alco hol-based hand rub. The skin overlying the left basilic vein was localized with ultrasound and noted to be compressible and patent by ultrasound. An ultrasound image [facility] Sterile technique utilized with the ultrasound machine. The skin overlying was prepped an d draped and Lidocaine used for local anesthesia. A skin konrad was made with a scalpel. Access was g ained to the vein under direct ultrasound guidance with a 21-gauge needle and a 0.018 inch wire was a dvanced. Access site was dilated with a peel-away sheath and the catheter tailored to length. Merry ter advanced centrally and a post procedure chest x-ray verified placement with the tip in the superi or vena cava. Catheter was fixed to the skin with suture and a sterile dressing placed. Hemostasis achieved and the catheter was aspirated and flushed with sterile saline. The patient remained in sta ble condition. IMPRESSION: STATUS POST ULTRASOUND GUIDED PICC LINE PLACEMENT, READY FOR USE. THIS PROCEDURE WAS PER FORMED BY THE UNDERSIGNED.
[2020-06-22 17:58] LABS: Glucose,Whole Blood 121 mg/dL (75-99)
[2020-06-23 00:01] LABS: Glucose,Whole Blood 117 mg/dL (75-99)
[2020-06-23] MEDS: ARTIFICIAL TEARS-HYPROMELLOSE DROPS 15 ML BTL BOTH EYES SCH ×7 (00:05→23:43)
[2020-06-23] MEDS: INSULIN ASPART (NovoLOG) 100 UNIT/ML VIAL SQ SCH ×5 (00:06→23:44)
[2020-06-23] MEDS: methylPREDNISolone SOD SUCCI 125 MG/2 ML VIAL IV SCH ×5 (00:06→23:44)
[2020-06-23] MEDS: CISATRACURIUM 200 MG in SODIUM CHLORIDE 0.9% 180 ML IV SCH ×2 (04:23→22:44)
[2020-06-23 04:27] LABS: HCT 36.9 % (39.0-53.0); HGB 11.6 gm/dL (13.0-17.5); Hypochromasia Slight; MCH 30.5 pg (25.0-35.0); MCHC 31.4 g/dL (31.0-37.0); MCV 97.2 fL (80.0-100.0); Mean Platelet Volume 8.6; Platelet Count 350 k/uL (150-450); RDW 14.3 % (11.5-15.5)
[2020-06-23 04:38] LABS: ALT 46 U/L (4-49); AST 42 U/L (17-59); African American GFR (CKD) >90 (>60 ml/min/1.73 sqM); Alkaline Phosphatase 60 U/L (38-126); Blood Urea Nitrogen 23 mg/dL (9-20); Calcium 7.7 mg/dL (8.4-10.2); Chloride 99 mmol/L (98-107); Glucose 129 mg/dL (74-99); Non-African American GFR(CKD) >90 (>60 ml/min/1.73 sqM); Potassium 5.1 mmol/L (3.5-5.1); Sodium 134 mmol/L (137-145); Total Bilirubin 0.6 mg/dL (0.2-1.3); Total Protein 5.2 g/dL (6.3-8.2)
[2020-06-23 04:44] LABS: Anion Gap -4 mmol/L
[2020-06-23 04:56] LABS: Carbon Dioxide 39 mmol/L (22-30)
[2020-06-23 04:57] LABS: Band Neutrophils % 20 %; Lymphocytes # (M) 0.32 k/uL (1.0-4.8); Monocytes # (M) 0.64 k/uL (0-1.0); Myelocytes % 5 %; Neutrophils % (M) 69 %; Nucleated Red Blood Cells 0 /100 WBC (0-0); Polychromasia Present; Total Cells Counted 200
[2020-06-23 05:18] LABS: Allen Test Performed? Yes
[2020-06-23 05:26] LABS: ABG HCO3 45 mmol/L (21-25); ABG PCO2 72 mmHg (35-45); ABG PO2 60 mmHg (83-108); ABG TCO2 47 mmol/L (19-24)
[2020-06-23] MEDS: SODIUM CHLORIDE 0.45% 1,000 ML IV SCH (05:49)
[2020-06-23] MEDS: CHLORHEXIDINE GLUCONATE 15 ML CUP MUCOUS MEM SCH ×2 (08:07→20:28)
[2020-06-23] MEDS: DOCUSATE ORAL SOLN 100 MG/10 ML CUP PO SCH (08:07)
[2020-06-23] MEDS: ASCORBIC ACID 500 MG TAB PO SCH (08:07)
[2020-06-23] MEDS: PANTOPRAZOLE 40 MG/10 ML VIAL IVP SCH (08:07)
[2020-06-23] MEDS: ENOXAPARIN 40 MG/0.4 ML SYRINGE SQ SCH ×2 (08:07→20:28)
[2020-06-23] MEDS: ZINC SULFATE 220 MG CAP PO SCH (08:07)
[2020-06-23 12:04] LABS: Glucose,Whole Blood 92 mg/dL (75-99)
[2020-06-23] MEDS: SODIUM CHLORIDE 0.9% 1,000 ML IV SCH ×2 (12:30→20:29)
--- NOTE | 2020-06-23 13:07 | P.PN ---
Subjective Principal diagnosis: Respiratory distress. The patient has had poor progress over the weekend. The patient is now been transferred ICU due to worsening respiratory failure. Pneumonia-coronavirus treatment is continuing. 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 The patient has not been improving as anticipated given the treatment that he has had. Poor respiratory improvement The patient continues to have minimal improvement. appreciate consultants input. Objective - Vital Signs Vital signs: Vital Signs Temp 98.8 F 06/23/20 12:00 Pulse 73 06/23/20 12:00 Resp 34 H 06/23/20 12:00 BP 164/74 06/23/20 12:00 Pulse Ox 89 L 06/23/20 12:00 Intake & Output 06/22/20 06/23/20 06/23/20 18:59 06:59 18:59 Intake Total 2150.958 2072.607 1065.072 Output Total 845 1050 675 Balance 8708.764 5553.607 390.072 Weight 110.3 kg 108.2 kg Intake: IV 1200 1200 400 Sodium Chloride 0.45% 1, 1200 1200 400 000 ml @ 100 mls/hr IV . Q10H [facility] Rx#:[id number] Intake, IV Titration 488.958 472.607 449.072 Amount Cisatracurium 200 mg In 188.958 189.882 149.072 Sodium Chloride 0.9% 180 ml @ 1 MCG/KG/MIN 4.62 mls/hr IV .Q24H [facility] Rx#: [id number] Sodium Chloride 0.9% 1, 200 000 ml @ 100 mls/hr IV . Q10H [facility] Rx#:[id number] propofoL 1,000 mg In 300 282.725 100 Empty Bag 1 bag @ Titrate IV .Q0M [facility] Rx#: [id number] Tube Feeding 372 310 186 Other 90 90 30 Output: Urine 845 1050 675 Other: Voiding Method Indwelling Catheter Indwelling Catheter - Constitutional General appearance: Present: obese - EENT Eyes: Absent: abnormal pupil - Respiratory Respiratory: bilateral: diminished - Cardiovascular Rhythm: regular Heart sounds: normal: S1, S2 Abnormal Heart Sounds: Absent: S3 Gallop - Gastrointestinal General gastrointestinal: Present: soft - Psychiatric Psychiatric: Present: A&O x's 3 - Labs CBC & Chem 7: 06/23/20 04:20 06/23/20 04:20 Labs: Abnormal Lab Results - Last 24 Hours (Table) 06/22/20 06/22/20 06/23/20 Range/Units 17:56 23:57 04:20 WBC 16.0 H (3.8-10.6) k/uL RBC 3.80 L (4.30-5.90) m/uL Hgb 11.6 L (13.0-17.5) gm/dL Hct 36.9 L (39.0-53.0) % Neutrophils # (Manual) 14.20 H (1.3-7.7) k/uL Lymphocytes # (Manual) 0.32 L (1.0-4.8) k/uL Myelocytes # (Manual) 0.80 H (0) k/uL ABG pCO2 (35-45) mmHg ABG pO2 (83-108) mmHg ABG HCO3 (21-25) mmol/L ABG Total CO2 (19-24) mmol/L Sodium (137-145) mmol/L Carbon Dioxide (22-30) mmol/L BUN (9-20) mg/dL Creatinine (0.66-1.25) mg/dL Glucose (74-99) mg/dL POC Glucose (mg/dL) 121 H 117 H (75-99) mg/dL Calcium (8.4-10.2) mg/dL Total Protein (6.3-8.2) g/dL Albumin (3.5-5.0) g/dL 06/23/20 06/23/20 Range/Units 04:20 04:59 WBC (3.8-10.6) k/uL RBC (4.30-5.90) m/uL Hgb (13.0-17.5) gm/dL Hct (39.0-53.0) % Neutrophils # (Manual) (1.3-7.7) k/uL Lymphocytes # (Manual) (1.0-4.8) k/uL Myelocytes # (Manual) (0) k/uL ABG pCO2 72 H* (35-45) mmHg ABG pO2 60 L (83-108) mmHg ABG HCO3 45 H* (21-25) mmol/L ABG Total CO2 47 H (19-24) mmol/L Sodium 134 L (137-145) mmol/L Carbon Dioxide 39 H (22-30) mmol/L BUN 23 H (9-20) mg/dL Creatinine 0.33 L (0.66-1.25) mg/dL Glucose 129 H (74-99) mg/dL POC Glucose (mg/dL) (75-99) mg/dL Calcium 7.7 L (8.4-10.2) mg/dL Total Protein 5.2 L (6.3-8.2) g/dL Albumin 2.0 L (3.5-5.0) g/dL Assessment and Plan (1) Hypoxia Current Visit: Yes Status: Acute Code(s): R09.02 - HYPOXEMIA SNOMED Code(s): 374607903 (2) Pneumonia due to COVID-19 virus Current Visit: Yes Status: Acute Code(s): U07.1 - COVID-19; J12.89 - OTHER VIRAL PNEUMONIA SNOMED Code(s): 292657493429069910 Plan: Unfortunately with his for improvement, and overall diagnosis, poor prognosis is noted. We'll continue to follow with pulmonology. Unfortunately, not much has changed Over the last 24 hours. Time with Patient: Greater than 30
--- NOTE | 2020-06-23 16:01 | P.PN ---
Subjective Progress Note Date: 06/23/20 Principal diagnosis: Acute hypoxic respiratory failure status post intubation Covid 19 pneumonia Acute kidney injury Dehydration and volume depleted state Confusion and agitated delirium Possible alcohol withdrawal 06/23/2020, patient seen eval examined during the rounds labs reviewed medications reviewed care plan discussed, patient remains on supine posture oxygen saturation 92%, plan to decrease his saturation to 90% FiO2, hemodynamic status stable adequate urine output is present patient remains on steroids anticoagulation, when setting includes assist control rate of 34 tidal volume of 515 of PEEP 100% oxygen, patient remains medically paralyze and sedated on p ropofol and Nimbex drip, 06/22/2020, patient seen eval examined during the rounds labs reviewed med ications reviewed care plan discussed with the staff at length, patient remained prone almost for 24 hours oxygen saturation slightly better now 90% current vent settings include assist control rate of 34 tidal volume 500, PEEP is 15, oxygen is 100%, remains medically paralyze with the Nimbex of 3 and a propofol of 50 mics, chest x-ray not yet done has been prone, white cell count is up to 17,000 hemoglobin and hematocrit remained stable platelet count is stable, arterial blood gas revealed pH of 7.29 pCO2 of 90 with pO2 of 64, CO2 is up in the serum was 42, renal functions stable adequate urine output is done, patient remains on tube feed, noted that CO2 is progressively getting high due to membrane diffusion defect and ARDS, with respiratory acidosis, care plan discussed with primary service as well as infectious disease has been consulted, patient to be evaluated for monoclonal antibody therapy, patient however already received convulsant plasma along with IV REMdesivir 06/21/2020, patient seen eval examined during the rounds labs reviewed medications reviewed care plan discussed, patient is supine on Nimbex drip and propofol drip which is being tapered, still on tube feed full ventilator support PEEP of 15 with respiratory rate of 34 oxygen saturation supine posture is 86-88 % on 100% oxygen, but is adequate gently being rehydrated, started today reviewed pH is 7.38 pCO2 70 pO2 51 not much change compared to prior arterial blood gases white cell count is 16,000, prognosis is very guarded with likelihood of recovery is poor 06/20/2020, patient seen and evaluated examined during the rounds labs reviewed medications reviewed care plan discussed with the staff at length, also discussed with daughter at length about prognosis and further plan of care of the patient, patient continued do not very well, continued to be hypoxic sets now have been dropped to 70s on 100% oxygen PEEP of 15 rate of 34 tidal volume of 500, patient was unable to be prone today due to extensive swelling as well as some tissue breakdown, total CKs elevated, continued to have intermittent low -grade fevers, patient remain in medical paralysis with propofol and Nimbex drip, have been reduced to 4 mics, propofol reduced to 30, last ABG revealed pH of 7.4 to pCO2 of 62 pO2 of only 43, discussed with daughter about poor prognosis, chest x-ray continue show bilateral diffuse infiltrate and edema no significant change, ET tube and OG tube was stable, patient continued to get to feed, over albumin noted to be very low likely indicated above very severe catabolic state 06/19/2020, patient seen eval examined during the rounds remain on full ventilator support discussed with nurse about decreasing the propofol using Ativan as needed, continue Nimbex for medical paralysis, patient remained supine for 16 hours a day saturation is just a 88-90% on 100% oxygen with PEEP of 15, hemodynamic status stable, patient remains on same setting with assist control mode labs reviewed medications reviewed 06/18/2020, patient seen eval examined during the rounds labs reviewed medications reviewed care plan discussed with him with the staff, patient remains prone, medically paralyze with propofol and then next, discussed to decrease the amount of propofol due to 20-30, chest x-ray remains stable, patient is on full ventilator support with PEEP of 15, assist control rate of 34 500 tidal volume and FiO2 100% saturation is 88, urine output is adequate patient remains on tube feed when prone, remains on dexamethasone along with Lovenox, 06/17/2020, patient seen eval examined during the rounds labs reviewed medications reviewed, patient remains on prone positioning on 100% oxygen, remains on assist control mode, PEEP of 15, rate of 34, chest x-ray performed today continue show bilateral diffuse pneumonia patient remains sedated and medically paralyze with propofol and Nimbex drip to feed when he is supine, meeting goals of calories, arterial blood gases reviewed pH is improved now 7.4 pCO2 61 pO2 53, urine creatinine is 34.53, LDH remains high over 1999 consistent with acute inflammatory ongoing response, fever Petrin is down, long-term prognosis poor June 16 2020, patient seen eval examined during the rounds labs reviewed medications reviewed, patient remains a deeply sedated and medically paralyze, currently on Nimbex drip along with propofol 50 mics, current ventilator settings include assist control rate of 34 PEEP of 5 tidal volume of 500 100% oxygen, oxygen saturation are barely 88%, discussed with the daughter at length, patient and daughter finally decided to make him no code, however continue to provide supportive care and therapy, chest x-ray overall not much change labs reviewed patient has been prone for 16 hours a day 06/15/2020, patient seen eval examined during the rounds labs reviewed medications reviewed, patient remains in prone positioning, white cell count remains as stable 19,000, arterial blood gas noted to have been improved as pH is 7.38 pCO2 Page and pO2 56, renal functions are normal, hemoglobin stable, last chest x-ray yesterday remains stable rate have been increased to 30 06/14/2020, patient seen eval reexamined during the rounds remains in prone positioning, oxygenation is better 88-90% with that however on supine posture drop down to mid to low 70s, patient remains on high PEEP high ventilator support, currently on PEEP of 15, tidal volume of 500, FiO2 100% assist control mode, sedated and medically paralyze, labs reviewed medications reviewed critical care time spent 35 minutes 06/13/2020, patient seen eval examined during the rounds labs reviewed medications reviewed care plan discussed, patient remains prone oxygen saturation 92%, arterial blood gas from this morning reviewed severe diffusion impairment is present with 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 and membrane diffusion impairment, patient has been hemodynamically stable though, chest x-ray and labs reviewed CO2 continued to rise, will increase her respiratory rate to 28, 06/12/2020, patient seen eval examined during the rounds labs reviewed medications reviewed care plan discussed, patient is supine saturation is 92% he is on 100% oxygen with full respirator support, ABG from this morning reviewed, patient has significant diffusion impairment with high CO2 however pH is stable, hemodynamic status stable remains on propofol as well as Nimbex drip, labs reviewed medications reviewed chest x-ray reviewed as well essentially no significant change bilateral dense infiltrate the bases remains unchanged patient does relatively better with improve oxygenation in prone positioning however does very poorly and supine posture, we will attempt to keep prone as much as possible, cultures no growth so far, labs included chemistry and CBC reviewed in phlegm atrial parameters remains up suggestive of ongoing cytokine Camila 06/11/2020, patient seen and evaluated examined while supine oxygen saturation dropped down into mid 70s, however when prone patient was saturating low 90s, 100% oxygen, stable when setting, propofol infusion escalated to 40 mics, Nimbex on for mics, been setting however is stable assist control with 100% oxygen chest x-ray reviewed and essentially no change labs reviewed as, sodium is going up, we'll start free water with the tube feeding, inflammatory parameters reviewed consistent with cytokine Camila of covid 19 pneumonia 06/10/2020, patient seen eval examined during the rounds care plan discussed with the staff at length labs and medications reviewed, hemodynamic status stable oxygen saturation remains marginal 90% 100% oxygen, patient is prone for 16 hours will be back supine around 11x-ray will be performed, sedated and medically paralyze with propofol and Nimbex drip, every feed is being given when he is supine, chest x-ray showed bilateral dense infiltrate arterial blood gases reviewed consistent with compensated hypercapnia and respiratory acidosis significant of diffusion impairment, patient is status post convalescent plasma 06/09/2020, patient seen eval examined during the rounds labs reviewed medications reviewed care plan discussed, patient is chest x-ray is not done as patient has been prone plan is to keep him prone for 16 hours, once on his back will do the chest x-ray, patient ended up being intubated for respiratory distress worsening agitation and anxiety currently patient is on propofol and medically paralyze with Nimbex drip, FiO2 is 100% PEEP of 8 tidal volume 400 which has been adjusted for hypercapnia and hypoventilation, respiratory rate is 20, the white cell count is 16,000, d-dimer is 34, ABG suggestive of respiratory acidosis, , inflammatory parameters remains elevated sister of ongoing cytokine camila, patient remains on Remdesivir, Decadron, will get convalescent plasma as well Ammann continue prone positioning 06/08/2020, patient seen and evaluated reexamined on selective care remains agitated anxious respiratory rate into 60s saturation dropped down to 80-85%, patient tachypneic tachycardic difficult to control with a staph agitated behavior, arterial blood gas done pO2 dropped down to 46 only patient is showing respiratory and metabolic acidosis, will transfer to the ICU intubated and start patient on propofol may need to medically paralyze him with cisatracurium, postintubation was prone the patient for 16 hour as tolerated, post intubation chest x-ray reviewed ET tube just right at the mariajose will pull out 2 cm 06/08/2020, patient seen eval reexamined during the rounds remains tachypneic tachycardic but however saturation is 9888-90% on 100% oxygen and BiPAP currently on 03/03, patient today could not be placed in prone positioning, arterial blood gas reviewed pH is 7.43 pCO2 39 pO2 59, pO2 slightly up now compared to 2 days ago compared, we'll decrease the Decadron to 6 mg daily new other management June 07 2020, patient seen eval examined during the rounds labs reviewed medications reviewed care plan discussed, cough congestion is improved, patient is hemodynamically stable, continued to be tachypneic currently supine on BiPAP oxygen saturation is 88% on 100% oxygen, discussed with nursing staff to semi- prone him again patient dated 7-8 hours last night, white cell count is down, patient remains on Decadron along with IV REM doesn't wear, morphine and Ativan is on hold due to somnolence, patient did well with Haldol all last night, 06/06/2020, patient seen and evaluated examined during the rounds labs reviewed medications reviewed care plan discussed with the staff at length involving both medical floor and selective care critical care, patient continued to be intermittently agitated, does not keep the oxygen or BiPAP on his face, remains a problem with possible delirium or withdrawal, Ativan half a milligram tried, which seems to be helping but however agitated his agitation has been co ntinuous, I have tried hold all this seems to be helping able to put patient some prone with that oxygen saturation improved to 95% with BiPAP off 100% oxygen, will continue Decadron, REM does ever, and IV antibiotics and sputum for culture as well repeat chest x-ray and arterial blood gases reviewed as well no significant change in next day has been noted, ABG suggestive of significant hypoxia, noted that he renal functions have improved This is a 65-year-old male who has a history of extensive smoking and nicotine use, patient presented into the emergency department with progressive increasing shortness of breath and nonproductive cough, he was hypoxic with low oxygen saturation, no sputum production, his code at 19 test came back positive, in the ER he was noted to have a low blood pressure of 104/65, patient was hypoxic with room air oxygen saturation of only 83%, low-grade temperature of 99.3 his present, he was also noted to have acute injury of the kidneys that BUN/creatinine of 32 and 1.29, his inflammatory parameters were elevated with ferritin level of over 1200, LDH of over 1400, C-reactive protein of 176, pro calcitonin noted to be elevated up 0.21, chest x-ray noted to have bilateral airspace disease, patient was admitted to medical floor where he was noted to have oxygen saturation marginal and eventually FiO2 went up to 15 L high flow oxygen his blood culture no growth so far Objective - Vital Signs Vital signs: Vital Signs Temp 98.8 F 06/23/20 13:01 Pulse 75 06/23/20 14:00 Resp 34 H 06/23/20 14:00 BP 143/64 06/23/20 14:00 Pulse Ox 89 L 06/23/20 14:00 Intake & Output 06/22/20 06/23/20 06/23/20 18:59 06:59 18:59 Intake Total 2150.958 2072.607 1357.072 Output Total 845 1050 765 Balance 0558.876 8776.607 592.072 Weight 110.3 kg 108.2 kg 108.2 kg Intake: IV 1200 1200 400 Sodium Chloride 0.45% 1, 1200 1200 400 000 ml @ 100 mls/hr IV . Q10H [facility] Rx#:[id number] Intake, IV Titration 488.958 472.607 649.072 Amount Cisatracurium 200 mg In 188.958 189.882 149.072 Sodium Chloride 0.9% 180 ml @ 1 MCG/KG/MIN 4.62 mls/hr IV .Q24H [facility] Rx#: [id number] Sodium Chloride 0.9% 1, 400 000 ml @ 100 mls/hr IV . Q10H [facility] Rx#:[id number] propofoL 1,000 mg In 300 282.725 100 Empty Bag 1 bag @ Titrate IV .Q0M [facility] Rx#: [id number] Tube Feeding 372 310 248 Other 90 90 60 Output: Urine 845 1050 765 Other: Voiding Method Indwelling Catheter Indwelling Catheter Indwelling Catheter - Exam - Constitutional General appearance: average body habitus, intubated on Nimbex and propofol - Neck Carotids: bilateral: upstroke normal - Respiratory Respiratory: bilateral: diminished - Cardiovascular Rhythm: regular Heart sounds: normal: S1, S2 - Gastrointestinal General gastrointestinal: normal bowel sounds, soft - Neurologic Neurologic: Agitated delirium is stable due to medical paralysis - Musculoskeletal Musculoskeletal:strength equal bilaterally - Psychiatric Psychiatric: Agitated delirium is is stable due to medical paralysis - Labs CBC & Chem 7: 06/23/20 04:20 06/23/20 04:20 Labs: Abnormal Lab Results - Last 24 Hours (Table) 06/22/20 06/22/20 06/23/20 Range/Units 17:56 23:57 04:20 WBC 16.0 H (3.8-10.6) k/uL RBC 3.80 L (4.30-5.90) m/uL Hgb 11.6 L (13.0-17.5) gm/dL Hct 36.9 L (39.0-53.0) % Neutrophils # (Manual) 14.20 H (1.3-7.7) k/uL Lymphocytes # (Manual) 0.32 L (1.0-4.8) k/uL Myelocytes # (Manual) 0.80 H (0) k/uL ABG pCO2 (35-45) mmHg ABG pO2 (83-108) mmHg ABG HCO3 (21-25) mmol/L ABG Total CO2 (19-24) mmol/L Sodium (137-145) mmol/L Carbon Dioxide (22-30) mmol/L BUN (9-20) mg/dL Creatinine (0.66-1.25) mg/dL Glucose (74-99) mg/dL POC Glucose (mg/dL) 121 H 117 H (75-99) mg/dL Calcium (8.4-10.2) mg/dL Total Protein (6.3-8.2) g/dL Albumin (3.5-5.0) g/dL 06/23/20 06/23/20 Range/Units 04:20 04:59 WBC (3.8-10.6) k/uL RBC (4.30-5.90) m/uL Hgb (13.0-17.5) gm/dL Hct (39.0-53.0) % Neutrophils # (Manual) (1.3-7.7) k/uL Lymphocytes # (Manual) (1.0-4.8) k/uL Myelocytes # (Manual) (0) k/uL ABG pCO2 72 H* (35-45) mmHg ABG pO2 60 L (83-108) mmHg ABG HCO3 45 H* (21-25) mmol/L ABG Total CO2 47 H (19-24) mmol/L Sodium 134 L (137-145) mmol/L Carbon Dioxide 39 H (22-30) mmol/L BUN 23 H (9-20) mg/dL Creatinine 0.33 L (0.66-1.25) mg/dL Glucose 129 H (74-99) mg/dL POC Glucose (mg/dL) (75-99) mg/dL Calcium 7.7 L (8.4-10.2) mg/dL Total Protein 5.2 L (6.3-8.2) g/dL Albumin 2.0 L (3.5-5.0) g/dL Assessment and Plan Assessment: ARDS due to Covid 19 pneumonia Severe sepsis Acute hypoxic respiratory failure on ventilator with full vent support, oxyg enation continued to be marginal up to lately high 80s to 90 even on in prone positioning however desats to low 70s in supine posture lately Respiratory acidosis, ventilator being adjusted, see orders for detail Covid 19 pneumonia Agitated delirium alternating with somnolence status post medical paralysis and sedation with propofol and Nimbex drip Acute kidney injury, renal functions improved Prognosis poor Plan: Continue gentle rehydration IV, tube feed Ventilator adjustment as needed Medical paralysis and Sedation with Nimbex and propofol attempt to lower down the propofol as well as Nimbex prone position as much as possible preferably 16 hours to 20 hours every day Will again to prone positioning today Continue keep saturation over 85-90% IV Solu-Medrol every 6 60 mg IV antibiotics Tube feeding IV Remdesivir for 5 days finished Status post convalescent plasma finished Prognosis guarded with likelihood of recovery poor Time with Patient: Greater than 30
--- NOTE | 2020-06-23 18:34 | XR ---
EXAMINATION TYPE: XR chest 1V portable DATE OF EXAM: 06/23/2020 COMPARISON: Yesterday HISTORY: Respiratory failure TECHNIQUE: Single view FINDINGS: Endotracheal tube is 9 cm from the mariajose. There is pulmonary interstitial edema. There is atelectasis at the lung bases. There is nasogastric tube in the stomach. There is left subclavian cat heter with tip in the superior vena cava. IMPRESSION: Pulmonary interstitial and airspace edema is unchanged compared to yesterday. Basilar ate lectasis unchanged.
[2020-06-23 18:41] LABS: Glucose,Whole Blood 117 mg/dL (75-99)
[2020-06-23 23:25] LABS: Glucose,Whole Blood 110 mg/dL (75-99)
[2020-06-24 04:14] LABS: ALT 40 U/L (4-49); AST 33 U/L (17-59); African American GFR (CKD) >90 (>60 ml/min/1.73 sqM); Alkaline Phosphatase 58 U/L (38-126); Blood Urea Nitrogen 22 mg/dL (9-20); Calcium 7.6 mg/dL (8.4-10.2); Chloride 100 mmol/L (98-107); Glucose 118 mg/dL (74-99); Non-African American GFR(CKD) >90 (>60 ml/min/1.73 sqM); Sodium 137 mmol/L (137-145); Total Bilirubin 0.6 mg/dL (0.2-1.3); Total Protein 5.2 g/dL (6.3-8.2)
[2020-06-24 04:21] LABS: Anion Gap -4 mmol/L
[2020-06-24 04:23] LABS: Carbon Dioxide 41 mmol/L (22-30)
[2020-06-24 04:26] LABS: HCT 38.7 % (39.0-53.0); Hypochromasia Slight; MCH 30.2 pg (25.0-35.0); MCHC 30.9 g/dL (31.0-37.0); MCV 97.6 fL (80.0-100.0); Mean Platelet Volume 8.8; Platelet Count 390 k/uL (150-450); RBC 3.96 m/uL (4.30-5.90); RDW 14.8 % (11.5-15.5); WBC 15.6 k/uL (3.8-10.6)
[2020-06-24] MEDS: ARTIFICIAL TEARS-HYPROMELLOSE DROPS 15 ML BTL BOTH EYES SCH ×6 (04:56→23:54)
[2020-06-24 05:24] LABS: ABG Base Excess 17.8 mmol/L; ABG Oxygen Saturation 92.8 % (94-97); ABG PH 7.34 (7.35-7.45); ABG PO2 66 mmHg (83-108); ABG TCO2 46 mmol/L (19-24); Allen Test Performed? Yes
[2020-06-24 05:31] LABS: ABG HCO3 44 mmol/L (21-25); ABG PCO2 81 mmHg (35-45)
[2020-06-24 05:34] LABS: Glucose,Whole Blood 129 mg/dL (75-99)
[2020-06-24 05:42] LABS: Band Neutrophils % 8 %; Lymphocytes # (M) 0.47 k/uL (1.0-4.8); Metamyelocytes # (M) 0.78 k/uL (0); Metamyelocytes % 5 %; Monocytes # (M) 0.16 k/uL (0-1.0); Myelocytes # (M) 0.16 k/uL (0); Myelocytes % 1 %; Neutrophils % (M) 82 %; Nucleated Red Blood Cells 0 /100 WBC (0-0); Total Cells Counted 100
[2020-06-24] MEDS: INSULIN ASPART (NovoLOG) 100 UNIT/ML VIAL SQ SCH ×3 (05:42→18:36)
[2020-06-24 05:43] LABS: Basophilic Stippling Present; Large Platelets Present; Polychromasia Present
[2020-06-24] MEDS: SODIUM CHLORIDE 0.9% 1,000 ML IV SCH ×2 (05:43→18:37)
[2020-06-24] MEDS: methylPREDNISolone SOD SUCCI 125 MG/2 ML VIAL IV SCH ×4 (05:44→23:56)
--- NOTE | 2020-06-24 07:48 | XR ---
EXAMINATION TYPE: XR chest 1V portable DATE OF EXAM: 06/24/2020 Comparison: 06/23/2020 Clinical History: 65-year-old male re intubated Findings: The ET tube tip is 3.8 cm from the mariajose. NG tube courses below the diaphragm. Patient is rotated to jade the left. Left PICC tip at the mid to lower SVC. Heart overall normal size. Diffuse interstitial infiltrates persist, greatest in the right greater than left lower lungs. No sizable effusion. Impression: 1. Satisfactory repositioning of ET tube, 3.8 cm from the mariajose. 2. Continued bilateral diffuse interstitial infiltrates greatest at the right greater than left lower lungs.
[2020-06-24] MEDS: CISATRACURIUM 200 MG in SODIUM CHLORIDE 0.9% 180 ML IV SCH ×2 (08:17→17:42)
[2020-06-24] MEDS: ASCORBIC ACID 500 MG TAB PO SCH (08:18)
[2020-06-24] MEDS: ENOXAPARIN 40 MG/0.4 ML SYRINGE SQ SCH ×2 (08:18→19:43)
[2020-06-24] MEDS: ZINC SULFATE 220 MG CAP PO SCH (08:18)
[2020-06-24] MEDS: PANTOPRAZOLE 40 MG/10 ML VIAL IVP SCH (08:18)
[2020-06-24] MEDS: CHLORHEXIDINE GLUCONATE 15 ML CUP MUCOUS MEM SCH ×2 (08:19→19:43)
--- NOTE | 2020-06-24 09:09 | P.PN ---
Subjective Progress Note Date: 06/24/20 Principal diagnosis: Acute hypoxic respiratory failure status post intubation Covid 19 pneumonia Acute kidney injury Dehydration and volume depleted state Confusion and agitated delirium Possible alcohol withdrawal 06/24/2020, patient seen eval examined during the rounds labs reviewed medications reviewed care plan discussed, patient desaturated this morning with a significant cuff leak requiring exchange of endotracheal tube, new endotracheal tube has been inserted by anesthesia it appears that mucous plug was causing one supine position obstruction in ET tube, patient is getting good volumes now, oxygen saturation went down into 70s now slowly coming up currently is about 86-88%, patient remains on full ventilator support PEEP is increased to 17, rate is 34 tidal volume is 550 with 100% oxygen, patient is gently being hydrated adequate urine output is present, chest x-ray from earlier this morning posterior reintubation reviewed, arterial blood gas reveals pH is 7.34 pCO2 of 81 O2 66, patient is permitted to do hyper pervasive hypercapnia, labs reviewed white cell count remains stable 15,600 with hemoglobin 12 and 30 and platelet count of 390,000, patient has been intubated for over 2 weeks Will discuss with daughter about further plan of care including trach and PEG likely early to mid next week, patient remains on tube feed along with propofol and Nimbex drip for medical paralysis will prone him this afternoon keep him prone 16-18 hours 06/23/2020, patient seen eval examined during the rounds labs reviewed medications reviewed care plan discussed, patient remains on supine posture oxygen saturation 92%, plan to decrease his saturation to 90% FiO2, hemodynamic status stable adequate urine output is present patient remains on steroids antic oagulation, when setting includes assist control rate of 34 tidal volume of 515 of PEEP 100% oxygen, patient remains medically paralyze and sedated on propofol and Nimbex drip, 06/22/2020, patient seen eval examined during the rounds labs reviewed medications reviewed care plan discussed with the staff at length, patient remained prone almost for 24 hours oxygen saturation slightly better now 90% current vent settings include assist control rate of 34 tidal volume 500, PEEP is 15, oxygen is 100%, remains medically paralyze with the Nimbex of 3 and a propofol of 50 mics, chest x-ray not yet done has been prone, white cell count is up to 17,000 hemoglobin and hematocrit remained stable platelet count is stable, arterial blood gas revealed pH of 7.29 pCO2 of 90 with pO2 of 64, CO2 is up in the serum was 42, renal functions stable adequate urine output is done, patient remains on tube feed, noted that CO2 is progressively getting high due to membrane diffusion defect and ARDS, with respiratory acidosis, care plan discussed with primary service as well as infectious disease has been consulted, patient to be evaluated for monoclonal antibody therapy, patient however already received convulsant plasma along with IV REMdesivir 06/21/2020, patient seen eval examined during the rounds labs reviewed medications reviewed care plan discussed, patient is supine on Nimbex drip and propofol drip which is being tapered, still on tube feed full ventilator support PEEP of 15 with respiratory rate of 34 oxygen saturation supine posture is 86- 88% on 100% oxygen, but is adequate gently being rehydrated, started today reviewed pH is 7.38 pCO2 70 pO2 51 not much change compared to prior arterial blood gases white cell count is 16,000, prognosis is very guarded with likelihood of recovery is poor 06/20/2020, patient seen and evaluated examined during the rounds labs reviewed medications reviewed care plan discussed with the staff at length, also discussed with daughter at length about prognosis and further plan of care of the patient, patient continued do not very well, continued to be hypoxic sets now have been dropped to 70s on 100% oxygen PEEP of 15 rate of 34 tidal volume of 500, patient was unable to be prone today due to extensive swelling as well as some tissue breakdown, total CKs elevated, continued to have intermittent low-grade fevers, patient remain in medical paralysis with propofol and Nimbex drip, have been reduced to 4 mics, propofol reduced to 30, last ABG revealed pH of 7.4 to pCO2 of 62 pO2 of only 43, discussed with daughter about poor prognosis, chest x-ray continue show bilateral diffuse infiltrate and edema no significant change, ET tube and OG tube was stable, patient continued to get to feed, over albumin noted to be very low likely indicated above very severe catabolic state 06/19/2020, patient seen eval examined during the rounds remain on full ventilator support discussed with nurse about decreasing the propofol using Ativan as needed, continue Nimbex for medical paralysis, patient remained supine for 16 hours a day saturation is just a 88-90% on 100% oxygen with PEEP of 15, hemodynamic status stable, patient remains on same setting with assist control mode labs reviewed medications reviewed 06/18/2020, patient seen eval examined during the rounds labs reviewed medications reviewed care plan discussed with him with the staff, patient remains prone, medically paralyze with propofol and then next, discussed to decrease the amount of propofol due to 20-30, chest x-ray remains stable, patient is on full ventilator support with PEEP of 15, assist control rate of 34 500 tidal volume and FiO2 100% saturation is 88, urine output is adequate patient remains on tube feed when prone, remains on dexamethasone along with Lovenox, 06/17/2020, patient seen eval examined during the rounds labs reviewed medications reviewed, patient remains on prone positioning on 100% oxygen, remains on assist control mode, PEEP of 15, rate of 34, chest x-ray performed today continue show bilateral diffuse pneumonia patient remains sedated and medi chase paralyze with propofol and Nimbex drip to feed when he is supine, meeting goals of calories, arterial blood gases reviewed pH is improved now 7.4 pCO2 61 pO2 53, urine creatinine is 34.53, LDH remains high over 1999 consistent with acute inflammatory ongoing response, fever Petrin is down, long-term prognosis poor June 16 2020, patient seen eval examined during the rounds labs reviewed medications reviewed, patient remains a deeply sedated and medically paralyze, currently on Nimbex drip along with propofol 50 mics, current ventilator settings include assist control rate of 34 PEEP of 5 tidal volume of 500 100% oxygen, oxygen saturation are barely 88%, discussed with the daughter at length, patient and daughter finally decided to make him no code, however continue to provide supportive care and therapy, chest x-ray overall not much change labs reviewed patient has been prone for 16 hours a day 06/15/2020, patient seen eval examined during the rounds labs reviewed medications reviewed, patient remains in prone positioning, white cell count remains as stable 19,000, arterial blood gas noted to have been improved as pH is 7.38 pCO2 Page and pO2 56, renal functions are normal, hemoglobin stable, last chest x-ray yesterday remains stable rate have been increased to 30 06/14/2020, patient seen eval reexamined during the rounds remains in prone positioning, oxygenation is better 88-90% with that however on supine posture drop down to mid to low 70s, patient remains on high PEEP high ventilator support, currently on PEEP of 15, tidal volume of 500, FiO2 100% assist control mode, sedated and medically paralyze, labs reviewed medications reviewed critical care time spent 35 minutes 06/13/2020, patient seen eval examined during the rounds labs reviewed medications reviewed care plan discussed, patient remains prone oxygen saturation 92%, arterial blood gas from this morning reviewed severe diffusion impairment is present with 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 and membrane diffusion impairment, patient has been hemodynamically stable though, chest x-ray and labs reviewed CO2 continued to rise, will increase her respiratory rate to 28, 06/12/2020, patient seen eval examined during the rounds labs reviewed medications reviewed care plan discussed, patient is supine saturation is 92% he is on 100% oxygen with full respirator support, ABG from this morning reviewed, patient has significant diffusion impairment with high CO2 however pH is stable, hemodynamic status stable remains on propofol as well as Nimbex drip, labs reviewed medications reviewed chest x-ray reviewed as well essentially no significant change bilateral dense infiltrate the bases remains unchanged patient does relatively better with improve oxygenation in prone positioning however does very poorly and supine posture, we will attempt to keep prone as much as possible, cultures no growth so far, labs included chemistry and CBC reviewed in phlegm atrial parameters remains up suggestive of ongoing cytokine Camila 06/11/2020, patient seen and evaluated examined while supine oxygen saturation dropped down into mid 70s, however when prone patient was saturating low 90s, 100% oxygen, stable when setting, propofol infusion escalated to 40 mics, Nimbex on for mics, been setting however is stable assist control with 100% oxygen chest x-ray reviewed and essentially no change labs reviewed as, sodium is going up, we'll start free water with the tube feeding, inflammatory parameters reviewed consistent with cytokine Camila of covid 19 pneumonia 06/10/2020, patient seen eval examined during the rounds care plan discussed with the staff at length labs and medications reviewed, hemodynamic status stable oxygen saturation remains marginal 90% 100% oxygen, patient is prone for 16 hours will be back supine around 11x-ray will be performed, sedated and medically paralyze with propofol and Nimbex drip, every feed is being given when he is supine, chest x-ray showed bilateral dense infiltrate arterial blood gases reviewed consistent with compensated hypercapnia and respiratory acidosis significant of diffusion impairment, patient is status post convalescent plasma 06/09/2020, patient seen eval examined during the rounds labs reviewed medications reviewed care plan discussed, patient is chest x-ray is not done as patient has been prone plan is to keep him prone for 16 hours, once on his back will do the chest x-ray, patient ended up being intubated for respiratory distress worsening agitation and anxiety currently patient is on propofol and medically paralyze with Nimbex drip, FiO2 is 100% PEEP of 8 tidal volume 400 which has been adjusted for hypercapnia and hypoventilation, respiratory rate is 20, the white cell count is 16,000, d-dimer is 34, ABG suggestive of respiratory acidosis, , inflammatory parameters remains elevated sister of ongoing cytokine camila, patient remains on Remdesivir, Decadron, will get convalescent plasma as well Ammann continue prone positioning 06/08/2020, patient seen and evaluated reexamined on selective care remains agitated anxious respiratory rate into 60s saturation dropped down to 80-85%, patient tachypneic tachycardic difficult to control with a staph agitated behavior, arterial blood gas done pO2 dropped down to 46 only patient is showing respiratory and metabolic acidosis, will transfer to the ICU intubated and start patient on propofol may need to medically paralyze him with cisatracurium, postintubation was prone the patient for 16 hour as tolerated, post intubation chest x-ray reviewed ET tube just right at the mariajose will pull out 2 cm 06/08/2020, patient seen eval reexamined during the rounds remains tachypneic tachycardic but however saturation is 9888-90% on 100% oxygen and BiPAP currentl y on 03/03, patient today could not be placed in prone positioning, arterial blood gas reviewed pH is 7.43 pCO2 39 pO2 59, pO2 slightly up now compared to 2 days ago compared, we'll decrease the Decadron to 6 mg daily new other management June 07 2020, patient seen eval examined during the rounds labs reviewed medications reviewed care plan discussed, cough congestion is improved, patient is hemodynamically stable, continued to be tachypneic currently supine on BiPAP oxygen saturation is 88% on 100% oxygen, discussed with nursing staff to semi- prone him again patient dated 7-8 hours last night, white cell count is down, patient remains on Decadron along with IV REM doesn't wear, morphine and Ativan is on hold due to somnolence, patient did well with Haldol all last night, 06/06/2020, patient seen and evaluated examined during the rounds labs reviewed medications reviewed care plan discussed with the staff at length involving both medical floor and selective care critical care, patient continued to be intermittently agitated, does not keep the oxygen or BiPAP on his face, remains a problem with possible delirium or withdrawal, Ativan half a milligram tried, which seems to be helping but however agitated his agitation has been continuous, I have tried hold all this seems to be helping able to put patient some prone with that oxygen saturation improved to 95% with BiPAP off 100% oxygen, will continue Decadron, REM does ever, and IV antibiotics and sputum for culture as well repeat chest x-ray and arterial blood gases reviewed as well no significant change in next day has been noted, ABG suggestive of significant hypoxia, noted that he renal functions have improved This is a 65-year-old male who has a history of extensive smoking and nicotine use, patient presented into the emergency department with progressive increasing shortness of breath and nonproductive cough, he was hypoxic with low oxygen saturation, no sputum production, his code at 19 test came back positive, in the ER he was noted to have a low blood pressure of 104/65, patient was hypoxic with room air oxygen saturation of only 83%, low-grade temperature of 99.3 his present, he was also noted to have acute injury of the kidneys that BUN/creatinine of 32 and 1.29, his inflammatory parameters were elevated with ferritin level of over 1200, LDH of over 1400, C-reactive protein of 176, pro calcitonin noted to be elevated up 0.21, chest x-ray noted to have bilateral airspace disease, patient was admitted to medical floor where he was noted to have oxygen saturation marginal and eventually FiO2 went up to 15 L high flow oxygen his blood culture no growth so far Objective - Vital Signs Vital signs: Vital Signs Temp 97.8 F 06/24/20 08:00 Pulse 67 06/24/20 08:40 Resp 34 H 06/24/20 08:40 BP 127/60 06/24/20 08:40 Pulse Ox 82 L 06/24/20 08:40 Intake & Output 06/23/20 06/24/20 06/24/20 18:59 06:59 18:59 Intake Total 2062.000 2056.128 400 Output Total 995 870 60 Balance 3360.819 7629.128 340 Weight 108.2 kg 114.4 kg Intake: IV 400 1100 100 Sodium Chloride 0.45% 1, 400 000 ml @ 100 mls/hr IV . Q10H [facility] Rx#:[id number] Sodium Chloride 0.9% 1, 1100 100 000 ml @ 100 mls/hr IV . Q10H [facility] Rx#:[id number] Intake, IV Titration 1200.000 494.128 300 Amount Cisatracurium 200 mg In 200.000 200 Sodium Chloride 0.9% 180 ml @ 1 MCG/KG/MIN 4.62 mls/hr IV .Q24H [facility] Rx#: [id number] Sodium Chloride 0.9% 1, 800 100 000 ml @ 100 mls/hr IV . Q10H [facility] Rx#:[id number] propofoL 1,000 mg In 200 394.128 100 Empty Bag 1 bag @ Titrate IV .Q0M [facility] Rx#: [id number] Tube Feeding 372 372 0 Other 90 90 Output: Urine 995 870 60 Other: Voiding Method Indwelling Catheter Indwelling Catheter - Exam - Constitutional General appearance: average body habitus, intubated on Nimbex and propofol - Neck Carotids: bilateral: upstroke normal - Respiratory Respiratory: bilateral: diminished - Cardiovascular Rhythm: regular Heart sounds: normal: S1, S2 - Gastrointestinal General gastrointestinal: normal bowel sounds, soft - Neurologic Neurologic: Agitated delirium is stable due to medical paralysis - Musculoskeletal Musculoskeletal:strength equal bilaterally - Psychiatric Psychiatric: Agitated delirium is is stable due to medical paralysis - Labs CBC & Chem 7: 06/24/20 03:52 06/24/20 03:52 Labs: Abnormal Lab Results - Last 24 Hours (Table) 06/23/20 06/23/20 06/24/20 Range/Units 18:39 23:23 03:52 WBC 15.6 H (3.8-10.6) k/uL RBC 3.96 L (4.30-5.90) m/uL Hgb 12.0 L (13.0-17.5) gm/dL Hct 38.7 L (39.0-53.0) % MCHC 30.9 L (31.0-37.0) g/dL Neutrophils # (Manual) 14.00 H (1.3-7.7) k/uL Lymphocytes # (Manual) 0.47 L (1.0-4.8) k/uL Metamyelocytes # (Man) 0.78 H (0) k/uL Myelocytes # (Manual) 0.16 H (0) k/uL ABG pH (7.35-7.45) ABG pCO2 (35-45) mmHg ABG pO2 (83-108) mmHg ABG HCO3 (21-25) mmol/L ABG Total CO2 (19-24) mmol/L ABG O2 Saturation (94-97) % Carbon Dioxide (22-30) mmol/L BUN (9-20) mg/dL Creatinine (0.66-1.25) mg/dL Glucose (74-99) mg/dL POC Glucose (mg/dL) 117 H 110 H (75-99) mg/dL Calcium (8.4-10.2) mg/dL Total Protein (6.3-8.2) g/dL Albumin (3.5-5.0) g/dL 06/24/20 06/24/20 06/24/20 Range/Units 03:52 05:11 05:33 WBC (3.8-10.6) k/uL RBC (4.30-5.90) m/uL Hgb (13.0-17.5) gm/dL Hct (39.0-53.0) % MCHC (31.0-37.0) g/dL Neutrophils # (Manual) (1.3-7.7) k/uL Lymphocytes # (Manual) (1.0-4.8) k/uL Metamyelocytes # (Man) (0) k/uL Myelocytes # (Manual) (0) k/uL ABG pH 7.34 L (7.35-7.45) ABG pCO2 81 H* (35-45) mmHg ABG pO2 66 L (83-108) mmHg ABG HCO3 44 H* (21-25) mmol/L ABG Total CO2 46 H (19-24) mmol/L ABG O2 Saturation 92.8 L (94-97) % Carbon Dioxide 41 H* (22-30) mmol/L BUN 22 H (9-20) mg/dL Creatinine 0.35 L (0.66-1.25) mg/dL Glucose 118 H (74-99) mg/dL POC Glucose (mg/dL) 129 H (75-99) mg/dL Calcium 7.6 L (8.4-10.2) mg/dL Total Protein 5.2 L (6.3-8.2) g/dL Albumin 2.0 L (3.5-5.0) g/dL Assessment and Plan Assessment: ARDS due to Covid 19 pneumonia Severe sepsis Acute hypoxic respiratory failure on ventilator with full vent support, oxygenation continued to be marginal up to lately high 80s to 90 even on in prone positioning however desats to low 70s in supine posture lately Respiratory acidosis, ventilator being adjusted, see orders for detail Covid 19 pneumonia Agitated delirium alternating with somnolence status post medical paralysis and sedation with propofol and Nimbex drip Acute kidney injury, renal functions improved Prognosis poor Plan: Continue gentle rehydration IV, tube feed Ventilator adjustment as needed Medical paralysis and Sedation with Nimbex and propofol attempt to lower down the propofol as well as Nimbex have been unsuccessful prone position as much as possible preferably 16 hours to 20 hours every day Will again to prone positioning today Continue keep saturation over 85-90% IV Solu-Medrol every 6 60 mg for next few days and eventually will bring it down to Decadron every 12 hour IV antibiotics Tube feeding IV Remdesivir for 5 days finished Status post convalescent plasma finished Prognosis guarded with likelihood of recovery poor We'll discuss with the daughter about tracheostomy and PEG next week Time with Patient: Greater than 30
[2020-06-24] MEDS: DOCUSATE ORAL SOLN 100 MG/10 ML CUP PO SCH (09:45)
[2020-06-24 12:39] LABS: Glucose,Whole Blood 116 mg/dL (75-99)
[2020-06-24 16:36] LABS: LD Isoenzymes 1 25 % (19-38); LD Isoenzymes 2 33 % (30-43); LD Isoenzymes 3 17 % (16-26); LD Isoenzymes 4 10 % (3-12); LD Isoenzymes 5 15 % (3-14); Lactacte Dehydrogenase(LD) ISO 536 U/L (120-250)
--- NOTE | 2020-06-24 16:54 | P.PN ---
Subjective Progress Note Date: 06/24/20 Principal diagnosis: Acute hypoxic respiratory failure secondary to covid pneumonia This patient was cared for during of fentanyl and states the cleared state of emergency secondary to COVID 19. Covering for Dr. Rehman over the weekend. On 06/24/2020 - Mr. Ash is a 65-year-old male with past medical history of extensive smoking who presented to the emergency department with shortness of breath. Patient was tested positive for Covid 19 and later on he became hypoxic for which he has been intubated. Today the patient is seen in the ICU. Patient is mechanically ventilated. As per discussion with nursing staff, patient had some desaturation this morning for which he required new endotracheal tube inserted by anesthesia, it appears that this was because of mucous plugging. Patient had ABGs done showing pH 7.34, PaO2 66, pCO2 81, bicarb of 44. Patient's labs have been reviewed white count of 15.6, hemoglobin 12. As the patient has been intubated for more than 2 weeks, they have been ongoing discussion with his daughter for trach and PEG tube placement earlier next week. Active Medications Acetaminophen (Acetaminophen Tab 325 Mg Tab) 650 mg PO Q6HR PRN PRN Reason: Mild Pain or Fever > 100.5 Last Admin: 06/05/20 16:05 Dose: 650 mg Documented by: Artificial Tears (Artificial Tears-Hypromellose Drops 15 Ml Btl) 2 drops BOTH EYES Q4HR [facility] Last Admin: 06/24/20 16:40 Dose: 2 drops Documented by: Ascorbic Acid (Ascorbic Acid 500 Mg Tab) 500 mg PO DAILY [facility] Last Admin: 06/24/20 08:18 Dose: 500 mg Documented by: Chlorhexidine Gluconate (Chlorhexidine Gluconate 15 Ml Cup) 15 ml MUCOUS MEM BID [facility] Docusate Sodium (Docusate Oral Soln 100 Mg/10 Ml Cup) 100 mg PO DAILY [facility] Last Admin: 06/24/20 09:45 Dose: 100 mg Documented by: Enoxaparin Sodium (Enoxaparin 40 Mg/0.4 Ml Syringe) 40 mg SQ BID [facility] Last Admin: 06/24/20 08:18 Dose: 40 mg Documented by: Propofol 1,000 mg/ IV Solution 100 mls @ 0 mls/hr IV .Q0M [facility]; Protocol Last Admin: 06/24/20 15:49 Dose: 49.53 mcg/kg/min, 34 mls/hr Documented by: Cisatracurium Besylate 200 mg/ (Sodium Chloride) 200 mls @ 4.62 mls/hr IV .Q24H [facility]; Protocol Last Titration: 06/24/20 15:12 Dose: 6 mcg/kg/min, 27.72 mls/hr Documented by: Sodium Chloride (Saline 0.9%) 1,000 mls @ 100 mls/hr IV .Q10H [facility] Last Admin: 06/24/20 05:43 Dose: 100 mls/hr Documented by: Insulin Aspart (Insulin Aspart (Novolog) 100 Unit/Ml Vial) 0 unit SQ Q6H [facility]; Protocol Last Admin: 06/24/20 12:43 Dose: Not Given Documented by: Lorazepam (Lorazepam 2 Mg/Ml Inj) 0.5 mg IV Q2HR PRN PRN Reason: Anxiety Last Admin: 06/08/20 14:33 Dose: 0.5 mg Documented by: Methylprednisolone Sodium Succinate (Methylprednisolone Sod Succi 125 Mg/2 Ml Vial) 60 mg IV Q6HR [facility] Last Admin: 06/24/20 12:05 Dose: 60 mg Documented by: Miscellaneous Information (Phosphorus Replacement Protoco 1 Each Misc) 1 each MISCELLANE DAILY PRN; Protocol PRN Reason: Per Protocol Naloxone HCl (Naloxone 0.4 Mg/Ml 1 Ml Vial) 0.2 mg IV Q2M PRN PRN Reason: Opioid Reversal Pantoprazole Sodium (Pantoprazole 40 Mg/10 Ml Vial) 40 mg IVP DAILY [facility] Last Admin: 06/24/20 08:18 Dose: 40 mg Documented by: Sodium Chloride (Sodium Chloride 0.9% Flush 10 Ml Syringe) 10 ml IV Q4HR PRN PRN Reason: PICC Line Sodium Chloride (Sodium Chloride 0.9% Flush 10 Ml Syringe) 10 ml IV WEEKLY [facility] Sodium Chloride (Sodium Chloride 0.9% Flush 10 Ml Syringe) 20 ml IV Q4HR PRN PRN Reason: PICC Line Zinc Sulfate (Zinc Sulfate 220 Mg Cap) 220 mg PO DAILY [facility] Last Admin: 06/24/20 08:18 Dose: 220 mg Documented by: Zolpidem Tartrate (Zolpidem 5 Mg Tab) 5 mg PO HS PRN PRN Reason: Insomnia Last Admin: 06/05/20 22:27 Dose: 5 mg Documented by: Objective - Vital Signs Vital signs: Vital Signs Temp 97.6 F 06/24/20 12:00 Pulse 73 06/24/20 16:00 Resp 34 H 06/24/20 16:00 BP 150/69 06/24/20 16:00 Pulse Ox 85 L 06/24/20 16:00 Intake & Output 06/23/20 06/24/20 06/24/20 18:59 06:59 18:59 Intake Total 2062.000 2056.128 1938.120 Output Total 995 870 790 Balance 5214.447 1432.128 1148.120 Weight 108.2 kg 114.4 kg Intake: IV 400 1100 1000 Sodium Chloride 0.45% 1, 400 000 ml @ 100 mls/hr IV . Q10H [facility] Rx#:[id number] Sodium Chloride 0.9% 1, 1100 1000 000 ml @ 100 mls/hr IV . Q10H [facility] Rx#:[id number] Intake, IV Titration 1200.000 494.128 630.120 Amount Cisatracurium 200 mg In 200.000 344.606 Sodium Chloride 0.9% 180 ml @ 1 MCG/KG/MIN 4.62 mls/hr IV .Q24H [facility] Rx#: [id number] Sodium Chloride 0.9% 1, 800 100 000 ml @ 100 mls/hr IV . Q10H [facility] Rx#:[id number] propofoL 1,000 mg In 200 394.128 285.514 Empty Bag 1 bag @ Titrate IV .Q0M [facility] Rx#: [id number] Tube Feeding 372 372 248 Other 90 90 60 Output: Urine 995 870 790 Other: Voiding Method Indwelling Catheter Indwelling Catheter Indwelling Catheter - Exam - Exam GENERAL: The patient is sedated and intubated HEENT: ET tube in place. No pallor , No icterus CARDIOVASCULAR: S1 and S2 present. No murmurs, rubs, or gallops. PULMONARY: Diminished breath sounds in all lung lepe. Basal crackles. ABDOMEN: Soft, nontender, nondistended, normoactive bowel sounds. No palpable organomegaly. MUSCULOSKELETAL: No joint swelling or deformity. EXTREMITIES: Mild pitting bilateral lower extremity edema. NEUROLOGICAL: Intubated and sedated - Labs CBC & Chem 7: 06/24/20 03:52 06/24/20 03:52 Labs: Abnormal Lab Results - Last 24 Hours (Table) 06/22/20 06/23/20 06/23/20 Range/Units 05:19 18:39 23:23 WBC (3.8-10.6) k/uL RBC (4.30-5.90) m/uL Hgb (13.0-17.5) gm/dL Hct (39.0-53.0) % MCHC (31.0-37.0) g/dL Neutrophils # (Manual) (1.3-7.7) k/uL Lymphocytes # (Manual) (1.0-4.8) k/uL Metamyelocytes # (Man) (0) k/uL Myelocytes # (Manual) (0) k/uL ABG pH (7.35-7.45) ABG pCO2 (35-45) mmHg ABG pO2 (83-108) mmHg ABG HCO3 (21-25) mmol/L ABG Total CO2 (19-24) mmol/L ABG O2 Saturation (94-97) % Carbon Dioxide (22-30) mmol/L BUN (9-20) mg/dL Creatinine (0.66-1.25) mg/dL Glucose (74-99) mg/dL POC Glucose (mg/dL) 117 H 110 H (75-99) mg/dL Calcium (8.4-10.2) mg/dL LD Isoenzymes 536 H (120-250) U/L LD 5 15 H (3-14) % Total Protein (6.3-8.2) g/dL Albumin (3.5-5.0) g/dL 06/24/20 06/24/20 06/24/20 Range/Units 03:52 03:52 05:11 WBC 15.6 H (3.8-10.6) k/uL RBC 3.96 L (4.30-5.90) m/uL Hgb 12.0 L (13.0-17.5) gm/dL Hct 38.7 L (39.0-53.0) % MCHC 30.9 L (31.0-37.0) g/dL Neutrophils # (Manual) 14.00 H (1.3-7.7) k/uL Lymphocytes # (Manual) 0.47 L (1.0-4.8) k/uL Metamyelocytes # (Man) 0.78 H (0) k/uL Myelocytes # (Manual) 0.16 H (0) k/uL ABG pH 7.34 L (7.35-7.45) ABG pCO2 81 H* (35-45) mmHg ABG pO2 66 L (83-108) mmHg ABG HCO3 44 H* (21-25) mmol/L ABG Total CO2 46 H (19-24) mmol/L ABG O2 Saturation 92.8 L (94-97) % Carbon Dioxide 41 H* (22-30) mmol/L BUN 22 H (9-20) mg/dL Creatinine 0.35 L (0.66-1.25) mg/dL Glucose 118 H (74-99) mg/dL POC Glucose (mg/dL) (75-99) mg/dL Calcium 7.6 L (8.4-10.2) mg/dL LD Isoenzymes (120-250) U/L LD 5 (3-14) % Total Protein 5.2 L (6.3-8.2) g/dL Albumin 2.0 L (3.5-5.0) g/dL 06/24/20 06/24/20 Range/Units 05:33 12:37 WBC (3.8-10.6) k/uL RBC (4.30-5.90) m/uL Hgb (13.0-17.5) gm/dL Hct (39.0-53.0) % MCHC (31.0-37.0) g/dL Neutrophils # (Manual) (1.3-7.7) k/uL Lymphocytes # (Manual) (1.0-4.8) k/uL Metamyelocytes # (Man) (0) k/uL Myelocytes # (Manual) (0) k/uL ABG pH (7.35-7.45) ABG pCO2 (35-45) mmHg ABG pO2 (83-108) mmHg ABG HCO3 (21-25) mmol/L ABG Total CO2 (19-24) mmol/L ABG O2 Saturation (94-97) % Carbon Dioxide (22-30) mmol/L BUN (9-20) mg/dL Creatinine (0.66-1.25) mg/dL Glucose (74-99) mg/dL POC Glucose (mg/dL) 129 H 116 H (75-99) mg/dL Calcium (8.4-10.2) mg/dL LD Isoenzymes (120-250) U/L LD 5 (3-14) % Total Protein (6.3-8.2) g/dL Albumin (3.5-5.0) g/dL Assessment and Plan Assessment: ASSESSMENT Acute hypercapnic and hypoxemic respiratory failure due to COVID pneumonia Severe sepsis Acute kidney injury Nicotine dependence GERD/reflux PLAN: Patient to be continued on mechanical ventilation. Continue with Solu- Medrol. GI DVT prophylaxis. As the patient has been intubated for more than 2 weeks, ongoing discussion with daughter for possible trach and PEG tube placement. Overall prognosis is poor. Further recommendations depending on the progress of the patient.
[2020-06-24 18:09] LABS: Glucose,Whole Blood 119 mg/dL (75-99)
[2020-06-25 00:13] LABS: Glucose,Whole Blood 125 mg/dL (75-99)
[2020-06-25] MEDS: INSULIN ASPART (NovoLOG) 100 UNIT/ML VIAL SQ SCH ×4 (00:30→17:48)
[2020-06-25] MEDS: CISATRACURIUM 200 MG in SODIUM CHLORIDE 0.9% 180 ML IV SCH ×4 (00:54→21:56)
[2020-06-25] MEDS: ARTIFICIAL TEARS-HYPROMELLOSE DROPS 15 ML BTL BOTH EYES SCH ×5 (04:35→21:25)
[2020-06-25] MEDS: SODIUM CHLORIDE 0.9% 1,000 ML IV SCH ×3 (04:36→21:57)
[2020-06-25 05:14] LABS: ABG Base Excess 18.5 mmol/L; ABG Oxygen Saturation 89.7 % (94-97); ABG PCO2 67 mmHg (35-45); ABG PH 7.42 (7.35-7.45); ABG TCO2 45 mmol/L (19-24); Allen Test Performed? Yes
[2020-06-25 05:17] LABS: ABG HCO3 43 mmol/L (21-25); ABG PO2 55 mmHg (83-108)
[2020-06-25 05:49] LABS: Glucose,Whole Blood 137 mg/dL (75-99)
[2020-06-25] MEDS: methylPREDNISolone SOD SUCCI 125 MG/2 ML VIAL IV SCH ×3 (06:10→17:29)
[2020-06-25] MEDS: PANTOPRAZOLE 40 MG/10 ML VIAL IVP SCH (08:44)
[2020-06-25] MEDS: ASCORBIC ACID 500 MG TAB PO SCH (08:44)
[2020-06-25] MEDS: ZINC SULFATE 220 MG CAP PO SCH (08:44)
[2020-06-25] MEDS: CHLORHEXIDINE GLUCONATE 15 ML CUP MUCOUS MEM SCH ×2 (08:44→21:33)
[2020-06-25] MEDS: DOCUSATE ORAL SOLN 100 MG/10 ML CUP PO SCH (08:44)
[2020-06-25] MEDS: ENOXAPARIN 40 MG/0.4 ML SYRINGE SQ SCH ×2 (08:44→21:33)
[2020-06-25 11:46] LABS: Glucose,Whole Blood 101 mg/dL (75-99)
[2020-06-25 12:28] LABS: ABG HCO3 43 mmol/L (21-25)
[2020-06-25 13:02] VITALS: BMI 44.1
[2020-06-25 17:42] LABS: Glucose,Whole Blood 144 mg/dL (75-99)
--- NOTE | 2020-06-25 22:02 | P.PN ---
Subjective Progress Note Date: 06/25/20 Principal diagnosis: Acute hypoxic respiratory failure secondary to covid pneumonia This patient was cared for during of fentanyl and states the cleared state of emergency secondary to COVID 19. Covering for Dr. Rehman over the weekend. On 06/24/2020 - Mr. Ash is a 65-year-old male with past medical history of extensive smoking who presented to the emergency department with shortness of breath. Patient was tested positive for Covid 19 and later on he became hypoxic for which he has been intubated. Today the patient is seen in the ICU. Patient is mechanically ventilated. As per discussion with nursing staff, patient had some desaturation this morning for which he required new endotracheal tube inserted by anesthesia, it appears that this was because of mucous plugging. Patient had ABGs done showing pH 7.34, PaO2 66, pCO2 81, bicarb of 44. Patient's labs have been reviewed white count of 15.6, hemoglobin 12. As the patient has been intubated for more than 2 weeks, they have been ongoing discussion with his daughter for trach and PEG tube placement earlier next week. On 06/25/2020 -patient was seen and examined in the ICU. Patient is mechanically ventilated. He is currently in a prone position. Patient is sedated. No acute events reported by nursing staff. On reviewing the vitals patient's temperature 98.8, heart rate 70s to 80s, blood pressure 123/53 and he has shallow breathing and is tachypneic. On reviewing the patient's vitals ABGs done this morning showing pH of 7.2, PCO2 67, PO2 55 100% FiO2. Ongoing discussion with daughter regarding trach and PEG tube placement by pulmonary team. Active Medications Acetaminophen (Acetaminophen Tab 325 Mg Tab) 650 mg PO Q6HR PRN PRN Reason: Mild Pain or Fever > 100.5 Last Admin: 06/05/20 16:05 Dose: 650 mg Documented by: Artificial Tears (Artificial Tears-Hypromellose Drops 15 Ml Btl) 2 drops BOTH EYES Q4HR [facility] Last Admin: 06/25/20 21:25 Dose: 2 drops Documented by: Ascorbic Acid (Ascorbic Acid 500 Mg Tab) 500 mg PO DAILY [facility] Last Admin: 06/25/20 08:44 Dose: 500 mg Documented by: Chlorhexidine Gluconate (Chlorhexidine Gluconate 15 Ml Cup) 15 ml MUCOUS MEM BID [facility] Last Admin: 06/25/20 21:33 Dose: 15 ml Documented by: Docusate Sodium (Docusate Oral Soln 100 Mg/10 Ml Cup) 100 mg PO DAILY [facility] Last Admin: 06/25/20 08:44 Dose: 100 mg Documented by: Enoxaparin Sodium (Enoxaparin 40 Mg/0.4 Ml Syringe) 40 mg SQ BID [facility] Last Admin: 06/25/20 21:33 Dose: 40 mg Documented by: Propofol 1,000 mg/ IV Solution 100 mls @ 0 mls/hr IV .Q0M [facility]; Protocol Last Admin: 06/25/20 17:14 Dose: 50 mcg/kg/min, 33.93 mls/hr Documented by: Cisatracurium Besylate 200 mg/ (Sodium Chloride) 200 mls @ 4.62 mls/hr IV .Q24H [facility]; Protocol Last Admin: 06/25/20 21:56 Dose: 6 mcg/kg/min, 27.72 mls/hr Documented by: Sodium Chloride (Saline 0.9%) 1,000 mls @ 100 mls/hr IV .Q10H [facility] Last Admin: 06/25/20 21:57 Dose: 100 mls/hr Documented by: Insulin Aspart (Insulin Aspart (Novolog) 100 Unit/Ml Vial) 0 unit SQ Q6H [facility]; Protocol Last Admin: 06/25/20 17:48 Dose: 100 unit Documented by: Lorazepam (Lorazepam 2 Mg/Ml Inj) 0.5 mg IV Q2HR PRN PRN Reason: Anxiety Last Admin: 06/08/20 14:33 Dose: 0.5 mg Documented by: Methylprednisolone Sodium Succinate (Methylprednisolone Sod Succi 125 Mg/2 Ml Vial) 60 mg IV Q6HR [facility] Last Admin: 06/25/20 17:29 Dose: 60 mg Documented by: Miscellaneous Information (Phosphorus Replacement Protoco 1 Each Misc) 1 each MISCELLANE DAILY [facility]; Protocol PRN Reason: Per Protocol Naloxone HCl (Naloxone 0.4 Mg/Ml 1 Ml Vial) 0.2 mg IV Q2M PRN PRN Reason: Opioid Reversal Pantoprazole Sodium (Pantoprazole 40 Mg/10 Ml Vial) 40 mg IVP DAILY [facility] Last Admin: 06/25/20 08:44 Dose: 40 mg Documented by: Sodium Chloride (Sodium Chloride 0.9% Flush 10 Ml Syringe) 10 ml IV Q4HR PRN PRN Reason: PICC Line Sodium Chloride (Sodium Chloride 0.9% Flush 10 Ml Syringe) 10 ml IV WEEKLY [facility] Sodium Chloride (Sodium Chloride 0.9% Flush 10 Ml Syringe) 20 ml IV Q4HR PRN PRN Reason: PICC Line Zinc Sulfate (Zinc Sulfate 220 Mg Cap) 220 mg PO DAILY [facility] Last Admin: 06/25/20 08:44 Dose: 220 mg Documented by: Zolpidem Tartrate (Zolpidem 5 Mg Tab) 5 mg PO HS PRN PRN Reason: Insomnia Last Admin: 06/05/20 22:27 Dose: 5 mg Documented by: Objective - Vital Signs Vital signs: Vital Signs Temp 98.9 F 06/25/20 12:00 Pulse 75 06/25/20 14:00 Resp 34 H 06/25/20 14:00 BP 147/65 06/25/20 14:00 Pulse Ox 87 L 06/25/20 14:00 Intake & Output 06/24/20 06/25/20 06/25/20 18:59 06:59 18:59 Intake Total 2355.514 6785.730 3235.320 Output Total 965 945 490 Balance 9780.247 4083.117 1362.320 Weight 113.1 kg 113.1 kg Intake: IV 1200 1200 800 Sodium Chloride 0.9% 1, 1200 1200 800 000 ml @ 100 mls/hr IV . Q10H [facility] Rx#:[id number] Intake, IV Titration 785.514 355.117 658.320 Amount Cisatracurium 200 mg In 400.000 199.584 377.454 Sodium Chloride 0.9% 180 ml @ 1 MCG/KG/MIN 4.62 mls/hr IV .Q24H [facility] Rx#: [id number] propofoL 1,000 mg In 385.514 155.533 280.866 Empty Bag 1 bag @ Titrate IV .Q0M [facility] Rx#: [id number] Tube Feeding 310 372 304 Other 60 60 90 Output: Urine 965 945 490 Other: Voiding Method Indwelling Catheter Indwelling Catheter Indwelling Catheter - Exam - Exam GENERAL: The patient is sedated and intubated in prone position HEENT: ET tube in place. No pallor , No icterus CARDIOVASCULAR: S1 and S2 present. No murmurs, rubs, or gallops. PULMONARY: Diminished breath sounds in all lung lepe. Basal crackles. MUSCULOSKELETAL: No joint swelling or deformity. EXTREMITIES: Mild pitting bilateral lower extremity edema. NEUROLOGICAL: Intubated and sedated - Labs CBC & Chem 7: 06/24/20 03:52 06/24/20 03:52 Labs: Abnormal Lab Results - Last 24 Hours (Table) 06/22/20 06/22/20 06/24/20 Range/Units 05:02 05:19 18:06 ABG pCO2 (35-45) mmHg ABG pO2 (83-108) mmHg ABG HCO3 43 H* (21-25) mmol/L ABG Total CO2 (19-24) mmol/L ABG O2 Saturation (94-97) % POC Glucose (mg/dL) 119 H (75-99) mg/dL LD Isoenzymes 536 H (120-250) U/L LD 5 15 H (3-14) % 06/25/20 06/25/20 06/25/20 Range/Units 00:11 05:11 05:48 ABG pCO2 67 H (35-45) mmHg ABG pO2 55 L* (83-108) mmHg ABG HCO3 43 H* (21-25) mmol/L ABG Total CO2 45 H (19-24) mmol/L ABG O2 Saturation 89.7 L (94-97) % POC Glucose (mg/dL) 125 H 137 H (75-99) mg/dL LD Isoenzymes (120-250) U/L LD 5 (3-14) % 06/25/20 Range/Units 11:42 ABG pCO2 (35-45) mmHg ABG pO2 (83-108) mmHg ABG HCO3 (21-25) mmol/L ABG Total CO2 (19-24) mmol/L ABG O2 Saturation (94-97) % POC Glucose (mg/dL) 101 H (75-99) mg/dL LD Isoenzymes (120-250) U/L LD 5 (3-14) % Assessment and Plan Assessment: ASSESSMENT Acute hypercapnic and hypoxemic respiratory failure due to COVID pneumonia Severe sepsis Acute kidney injury Nicotine dependence GERD/reflux PLAN: Patient to be continued on mechanical ventilation. Continue with Solu- Medrol. GI DVT prophylaxis. As the patient has been intubated for more than 2 weeks, ongoing discussion with daughter for possible trach and PEG tube placement. Overall prognosis is very poor. Dr. Rehman's team to follow him from tomorrow.
[2020-06-25 23:23] LABS: Glucose,Whole Blood 122 mg/dL (75-99)
[2020-06-25] MEDS ORDERED: FUROSEMIDE 10 MG/ML 4 ML VIAL IV STA (23:25)
--- NOTE | 2020-06-25 23:28 | P.PN ---
Subjective Progress Note Date: 06/25/20 (Critical care 35 minutes) Principal diagnosis: Acute hypoxic respiratory failure status post intubation Covid 19 pneumonia Acute kidney injury Dehydration and volume depleted state Confusion and agitated delirium Possible alcohol withdrawal 06/25/2020, patient seen and evaluated examined labs reviewed medications reviewed radiographic studies reviewed as well patient remains on Nimbex drip as well as propofol medically paralyze, remains on full ventilator support assist- control PEEP of 17 tidal volume of 500 with 100% oxygen patient has been prone until this afternoon he supine saturation is 89%, arterial blood gas performed this morning revealed pH of 7.4 to pCO2 67 pO2 55, chest x-ray has not been done today, he remains anticoagulation with Lovenox along with IV Solu-Medrol, patient will be prone that again midnight tonight, I have discussed further plan of care with the son-in-law as well as daughter they are not in agreement with trach and PEG, they want to see off of Nimbex drip neuro status, neurological services have been consulted as well for unclear reason Nimbex drip was not stopped last night as well as today we'll stop it tomorrow morning, in the meantime we will continue provide full support patient is no code, will give 40 mg of Lasix tonight keep him on the dry side 06/24/2020, patient seen eval examined during the rounds labs reviewed medications reviewed care plan discussed, patient desaturated this morning with a significant cuff leak requiring exchange of endotracheal tube, new endotracheal tube has been inserted by anesthesia it appears that mucous plug was causing one supine position obstruction in ET tube, patient is getting good volumes now, oxygen saturation went down into 70s now slowly coming up currently is about 86-88%, patient remains on full ventilator support PEEP is increased to 17, rate is 34 tidal volume is 550 with 100% oxygen, patient is gently being hydrated adequate urine output is present, chest x-ray from earlier this morning posterior reintubation reviewed, arterial blood gas reveals pH is 7.34 pCO2 of 81 O2 66, patient is permitted to do hyper pervasive hypercapnia, labs reviewed white cell count remains stable 15,600 with hemoglobin 12 and 30 and platelet count of 390,000, patient has been intubated for over 2 weeks Will discuss with daughter about further plan of care including trach and PEG likely early to mid next week, patient remains on tube feed along with propofol and Nimbex drip for medical paralysis will prone him this afternoon keep him prone 16-18 hours 06/23/2020, patient seen eval examined during the rounds labs reviewed medications reviewed care plan discussed, patient remains on supine posture oxygen saturation 92%, plan to decrease his saturation to 90% FiO2, hemodynamic status stable adequate urine output is present patient remains on steroids anticoagulation, when setting includes assist control rate of 34 tidal volume of 515 of PEEP 100% oxygen, patient remains medically paralyze and sedated on propofol and Nimbex drip, 06/22/2020, patient seen eval examined during the rounds labs reviewed medications reviewed care plan discussed with the staff at length, patient remained prone almost for 24 hours oxygen saturation slightly better now 90% current vent settings include assist control rate of 34 tidal volume 500, PEEP is 15, oxygen is 100%, remains medically paralyze with the Nimbex of 3 and a propofol of 50 mics, chest x-ray not yet done has been prone, white cell count is up to 17,000 hemoglobin and hematocrit remained stable platelet count is stable, arterial blood gas revealed pH of 7.29 pCO2 of 90 with pO2 of 64, CO2 is up in the serum was 42, renal functions stable adequate urine output is done, patient remains on tube feed, noted that CO2 is progressively getting high due to membrane diffusion defect and ARDS, with respiratory acidosis, care plan discussed with primary service as well as infectious disease has been consulted, patient to be evaluated for monoclonal antibody therapy, patient however already received convulsant plasma along with IV REMdesivir 06/21/2020, patient seen eval examined during the rounds labs reviewed medications reviewed care plan discussed, patient is supine on Nimbex drip and propofol drip which is being tapered, still on tube feed full ventilator support PEEP of 15 with respiratory rate of 34 oxygen saturation supine posture is 86- 88% on 100% oxygen, but is adequate gently being rehydrated, started today reviewed pH is 7.38 pCO2 70 pO2 51 not much change compared to prior arterial blood gases white cell count is 16,000, prognosis is very guarded with likelihood of recovery is poor 06/20/2020, patient seen and evaluated examined during the rounds labs reviewed medications reviewed care plan discussed with the staff at length, also discussed with daughter at length about prognosis and further plan of care of the patient, patient continued do not very well, continued to be hypoxic sets now have been dropped to 70s on 100% oxygen PEEP of 15 rate of 34 tidal volume of 500, patient was unable to be prone today due to extensive swelling as well as some tissue breakdown, total CKs elevated, continued to have intermittent low-grade fevers, patient remain in medical paralysis with propofol and Nimbex drip, have been reduced to 4 mics, propofol reduced to 30, last ABG revealed pH of 7.4 to pCO2 of 62 pO2 of only 43, discussed with daughter about poor prognosis, chest x-ray continue show bilateral diffuse infiltrate and edema no significant change, ET tube and OG tube was stable, patient continued to get to feed, over albumin noted to be very low likely indicated above very severe catabolic state 06/19/2020, patient seen eval examined during the rounds remain on full ventilat or support discussed with nurse about decreasing the propofol using Ativan as needed, continue Nimbex for medical paralysis, patient remained supine for 16 hours a day saturation is just a 88-90% on 100% oxygen with PEEP of 15, hemodynamic status stable, patient remains on same setting with assist control mode labs reviewed medications reviewed 06/18/2020, patient seen eval examined during the rounds labs reviewed medications reviewed care plan discussed with him with the staff, patient remains prone, medically paralyze with propofol and then next, discussed to decrease the amount of propofol due to 20-30, chest x-ray remains stable, patient is on full ventilator support with PEEP of 15, assist control rate of 34 500 tidal volume and FiO2 100% saturation is 88, urine output is adequate pa tient remains on tube feed when prone, remains on dexamethasone along with Lovenox, 06/17/2020, patient seen eval examined during the rounds labs reviewed medications reviewed, patient remains on prone positioning on 100% oxygen, remains on assist control mode, PEEP of 15, rate of 34, chest x-ray performed today continue show bilateral diffuse pneumonia patient remains sedated and medically paralyze with propofol and Nimbex drip to feed when he is supine, meeting goals of calories, arterial blood gases reviewed pH is improved now 7.4 pCO2 61 pO2 53, urine creatinine is 34.53, LDH remains high over 1999 consistent with acute inflammatory ongoing response, fever Petrin is down, long-term prog nosis poor June 16 2020, patient seen eval examined during the rounds labs reviewed medications reviewed, patient remains a deeply sedated and medically paralyze, currently on Nimbex drip along with propofol 50 mics, current ventilator settings include assist control rate of 34 PEEP of 5 tidal volume of 500 100% oxygen, oxygen saturation are barely 88%, discussed with the daughter at length, patient and daughter finally decided to make him no code, however continue to provide supportive care and therapy, chest x-ray overall not much change labs reviewed patient has been prone for 16 hours a day 06/15/2020, patient seen eval examined during the rounds labs reviewed medications reviewed, patient remains in prone positioning, white cell count remains as stable 19,000, arterial blood gas noted to have been improved as pH is 7.38 pCO2 Page and pO2 56, renal functions are normal, hemoglobin stable, last chest x-ray yesterday remains stable rate have been increased to 30 06/14/2020, patient seen eval reexamined during the rounds remains in prone positioning, oxygenation is better 88-90% with that however on supine posture drop down to mid to low 70s, patient remains on high PEEP high ventilator support, currently on PEEP of 15, tidal volume of 500, FiO2 100% assist control mode, sedated and medically paralyze, labs reviewed medications reviewed critical care time spent 35 minutes 06/13/2020, patient seen eval examined during the rounds labs reviewed medications reviewed care plan discussed, patient remains prone oxygen saturation 92%, arterial blood gas from this morning reviewed severe diffusion impairment is present with rising CO2 rehab assistant with respiratory acidosis and membrane diffusion impairment, patient has been hemodynamically stable though, chest x-ray and labs reviewed CO2 continued to rise, will increase her respiratory rate to 28, 06/12/2020, patient seen eval examined during the rounds labs reviewed medications reviewed care plan discussed, patient is supine saturation is 92% he is on 100% oxygen with full respirator support, ABG from this morning reviewed, patient has significant diffusion impairment with high CO2 however pH is stable, hemodynamic status stable remains on propofol as well as Nimbex drip, labs reviewed medications reviewed chest x-ray reviewed as well essentially no significant change bilateral dense infiltrate the bases remains unchanged patient does relatively better with improve oxygenation in prone positioning however does very poorly and supine posture, we will attempt to keep prone as much as possible, cultures no growth so far, labs included chemistry and CBC reviewed in phlegm atrial parameters remains up suggestive of ongoing cytokine Camila 06/11/2020, patient seen and evaluated examined while supine oxygen saturation dropped down into mid 70s, however when prone patient was saturating low 90s, 100% oxygen, stable when setting, propofol infusion escalated to 40 mics, Nimbex on for mics, been setting however is stable assist control with 100% oxygen chest x-ray reviewed and essentially no change labs reviewed as, sodium is going up, we'll start free water with the tube feeding, inflammatory parameters reviewed consistent with cytokine Camila of covid 19 pneumonia 06/10/2020, patient seen eval examined during the rounds care plan discussed with the staff at length labs and medications reviewed, hemodynamic status stable oxygen saturation remains marginal 90% 100% oxygen, patient is prone for 16 hours will be back supine around 11x-ray will be performed, sedated and medically paralyze with propofol and Nimbex drip, every feed is being given when he is supine, chest x-ray showed bilateral dense infiltrate arterial blood gases reviewed consistent with compensated hypercapnia and respiratory acidosis significant of diffusion impairment, patient is status post convalescent plasma 06/09/2020, patient seen eval examined during the rounds labs reviewed medications reviewed care plan discussed, patient is chest x-ray is not done as patient has been prone plan is to keep him prone for 16 hours, once on his back will do the chest x-ray, patient ended up being intubated for respiratory dist ress worsening agitation and anxiety currently patient is on propofol and medically paralyze with Nimbex drip, FiO2 is 100% PEEP of 8 tidal volume 400 which has been adjusted for hypercapnia and hypoventilation, respiratory rate is 20, the white cell count is 16,000, d-dimer is 34, ABG suggestive of respiratory acidosis, , inflammatory parameters remains elevated sister of ongoing cytokine camila, patient remains on Remdesivir, Decadron, will get convalescent plasma as well Ammann continue prone positioning 06/08/2020, patient seen and evaluated reexamined on selective care remains agitated anxious respiratory rate into 60s saturation dropped down to 80-85%, patient tachypneic tachycardic difficult to control with a staph agitated behavior, arterial blood gas done pO2 dropped down to 46 only patient is showing respiratory and metabolic acidosis, will transfer to the ICU intubated and start patient on propofol may need to medically paralyze him with cisatracurium, postintubation was prone the patient for 16 hour as tolerated, post intubation chest x-ray reviewed ET tube just right at the mariajose will pull out 2 cm 06/08/2020, patient seen eval reexamined during the rounds remains tachypneic tachycardic but however saturation is 9888-90% on 100% oxygen and BiPAP currently on 03/03, patient today could not be placed in prone positioning, arterial blood gas reviewed pH is 7.43 pCO2 39 pO2 59, pO2 slightly up now compared to 2 days ago compared, we'll decrease the Decadron to 6 mg daily new other management June 07 2020, patient seen eval examined during the rounds labs reviewed medications reviewed care plan discussed, cough congestion is improved, patient is hemodynamically stable, continued to be tachypneic currently supine on BiPAP oxygen saturation is 88% on 100% oxygen, discussed with nursing staff to semi- prone him again patient dated 7-8 hours last night, white cell count is down, patient remains on Decadron along with IV REM doesn't wear, morphine and Ativan is on hold due to somnolence, patient did well with Haldol all last night, 06/06/2020, patient seen and evaluated examined during the rounds labs reviewed medications reviewed care plan discussed with the staff at length involving both medical floor and selective care critical care, patient continued to be intermittently agitated, does not keep the oxygen or BiPAP on his face, remains a problem with possible delirium or withdrawal, Ativan half a milligram tried, which seems to be helping but however agitated his agitation has been continuous, I have tried hold all this seems to be helping able to put patient some prone with that oxygen saturation improved to 95% with BiPAP off 100% oxygen, will continue Decadron, REM does ever, and IV antibiotics and sputum for culture as well repeat chest x-ray and arterial blood gases reviewed as well no significant change in next day has been noted, ABG suggestive of significant hypoxia, noted that he renal functions have improved This is a 65-year-old male who has a history of extensive smoking and nicotine use, patient presented into the emergency department with progressive increasing shortness of breath and nonproductive cough, he was hypoxic with low oxygen saturation, no sputum production, his code at 19 test came back positive, in the ER he was noted to have a low blood pressure of 104/65, patient was hypoxic with room air oxygen saturation of only 83%, low-grade temperature of 99.3 his present, he was also noted to have acute injury of the kidneys that BUN/creatinine of 32 and 1.29, his inflammatory parameters were elevated with ferritin level of over 1200, LDH of over 1400, C-reactive protein of 176, pro calcitonin noted to be elevated up 0.21, chest x-ray noted to have bilateral airspace disease, patient was admitted to medical floor where he was noted to have oxygen saturation marginal and eventually FiO2 went up to 15 L high flow oxygen his blood culture no growth so far Objective - Vital Signs Vital signs: Vital Signs Temp 98.8 F 06/25/20 20:00 Pulse 71 06/25/20 22:00 Resp 34 H 06/25/20 22:00 BP 120/57 06/25/20 22:00 Pulse Ox 83 L 06/25/20 22:00 Intake & Output 06/25/20 06/25/20 06/26/20 06:59 18:59 06:59 Intake Total 0085.836 0032.320 780 Output Total 945 805 205 Balance 6031.214 1826.320 575 Weight 113.1 kg 113.1 kg Intake: IV 1200 1200 400 Sodium Chloride 0.9% 1, 1200 1200 400 000 ml @ 100 mls/hr IV . Q10H [facility] Rx#:[id number] Intake, IV Titration 355.117 758.320 200 Amount Cisatracurium 200 mg In 199.584 377.454 200 Sodium Chloride 0.9% 180 ml @ 1 MCG/KG/MIN 4.62 mls/hr IV .Q24H [facility] Rx#: [id number] propofoL 1,000 mg In 155.533 380.866 Empty Bag 1 bag @ Titrate IV .Q0M [facility] Rx#: [id number] Tube Feeding 372 484 180 Other 60 120 Output: Urine 945 805 205 Other: Voiding Method Indwelling Catheter Indwelling Catheter Indwelling Catheter - Exam - Constitutional General appearance: average body habitus, intubated on Nimbex and propofol - Neck Carotids: bilateral: upstroke normal - Respiratory Respiratory: bilateral: diminished - Cardiovascular Rhythm: regular Heart sounds: normal: S1, S2 - Gastrointestinal General gastrointestinal: normal bowel sounds, soft - Neurologic Neurologic: Agitated delirium is stable due to medical paralysis - Musculoskeletal Musculoskeletal:strength equal bilaterally - Psychiatric Psychiatric: Agitated delirium is is stable due to medical paralysis - Labs CBC & Chem 7: 06/24/20 03:52 06/24/20 03:52 Labs: Abnormal Lab Results - Last 24 Hours (Table) 06/22/20 06/25/20 06/25/20 Range/Units 05:02 00:11 05:11 ABG pCO2 67 H (35-45) mmHg ABG pO2 55 L* (83-108) mmHg ABG HCO3 43 H* 43 H* (21-25) mmol/L ABG Total CO2 45 H (19-24) mmol/L ABG O2 Saturation 89.7 L (94-97) % POC Glucose (mg/dL) 125 H (75-99) mg/dL 06/25/20 06/25/20 06/25/20 Range/Units 05:48 11:42 17:41 ABG pCO2 (35-45) mmHg ABG pO2 (83-108) mmHg ABG HCO3 (21-25) mmol/L ABG Total CO2 (19-24) mmol/L ABG O2 Saturation (94-97) % POC Glucose (mg/dL) 137 H 101 H 144 H (75-99) mg/dL Assessment and Plan Assessment: ARDS due to Covid 19 pneumonia Severe sepsis Acute hypoxic respiratory failure on ventilator with full vent support, oxygenation continued to be marginal up to lately high 80s to 90 even on in prone positioning however desats to high 80s in supine posture lately Respiratory acidosis, ventilator being adjusted, see orders for detail Covid 19 pneumonia Agitated delirium alternating with somnolence status post medical paralysis and sedation with propofol and Nimbex drip Acute kidney injury, renal functions improved Prognosis poor Plan: Continue, tube feed Will give 40 mg of Lasix tonight for diuresis Ventilator adjustment as needed Medical paralysis and Sedation with Nimbex and propofol, as per discussion with daughter and son-in-law will DC Nimbex in the morning observe him off of Nimbex Neurology has been consulted prone position as much as possible preferably 16 hours to 20 hours every day Will again to prone positioning today Continue keep saturation over 85-90% IV Solu-Medrol every 6 60 mg for next few days and eventually will bring it down to Decadron every 12 hour IV antibiotics Tube feeding IV Remdesivir for 5 days finished Status post convalescent plasma finished Prognosis guarded with likelihood of recovery poor We'll discuss with the daughter about tracheostomy and PEG next week Time with Patient: Greater than 30
[2020-06-26] MEDS: INSULIN ASPART (NovoLOG) 100 UNIT/ML VIAL SQ SCH ×4 (00:15→17:45)
[2020-06-26] MEDS: methylPREDNISolone SOD SUCCI 125 MG/2 ML VIAL IV SCH ×4 (00:17→17:33)
[2020-06-26] MEDS: ARTIFICIAL TEARS-HYPROMELLOSE DROPS 15 ML BTL BOTH EYES SCH ×6 (00:26→20:49)
[2020-06-26] MEDS: CISATRACURIUM 200 MG in SODIUM CHLORIDE 0.9% 180 ML IV SCH ×2 (04:33→11:40)
[2020-06-26 04:49] LABS: ABG Base Excess 18.8 mmol/L; ABG Oxygen Saturation 88.7 % (94-97); ABG PCO2 69 mmHg (35-45); ABG PH 7.41 (7.35-7.45); ABG TCO2 46 mmol/L (19-24); Allen Test Performed? Yes
[2020-06-26 05:11] LABS: ALT 41 U/L (4-49); AST 47 U/L (17-59); African American GFR (CKD) >90 (>60 ml/min/1.73 sqM); Alkaline Phosphatase 49 U/L (38-126); Anion Gap -3 mmol/L; Blood Urea Nitrogen 27 mg/dL (9-20); Calcium 7.6 mg/dL (8.4-10.2); Chloride 102 mmol/L (98-107); Glucose 122 mg/dL (74-99); Non-African American GFR(CKD) >90 (>60 ml/min/1.73 sqM); Sodium 139 mmol/L (137-145); Total Bilirubin 0.9 mg/dL (0.2-1.3); Total Protein 5.1 g/dL (6.3-8.2)
[2020-06-26 05:18] LABS: Carbon Dioxide 40 mmol/L (22-30); Potassium 5.1 mmol/L (3.5-5.1)
[2020-06-26 05:28] LABS: Glucose,Whole Blood 123 mg/dL (75-99)
[2020-06-26 06:07] LABS: HGB 11.6 gm/dL (13.0-17.5); Hypochromasia Slight; MCH 31.2 pg (25.0-35.0); MCHC 32.2 g/dL (31.0-37.0); MCV 97.2 fL (80.0-100.0); Mean Platelet Volume 8.5; Platelet Count 355 k/uL (150-450); RDW 14.9 % (11.5-15.5); WBC 11.5 k/uL (3.8-10.6)
[2020-06-26 06:59] LABS: Band Neutrophils % 12 %; Basophilic Stippling Present; Lymphocytes # (M) 0.35 k/uL (1.0-4.8); Metamyelocytes # (M) 0.46 k/uL (0); Metamyelocytes % 4 %; Monocytes # (M) 0.23 k/uL (0-1.0); Myelocytes # (M) 0.12 k/uL (0); Myelocytes % 1 %; Neutrophils % (M) 78 %; Nucleated Red Blood Cells 0 /100 WBC (0-0); Polychromasia Present; Total Cells Counted 100
[2020-06-26] MEDS: ENOXAPARIN 40 MG/0.4 ML SYRINGE SQ SCH ×2 (09:23→21:14)
[2020-06-26] MEDS: ASCORBIC ACID 500 MG TAB PO SCH (09:24)
[2020-06-26] MEDS: DOCUSATE ORAL SOLN 100 MG/10 ML CUP PO SCH (09:24)
[2020-06-26] MEDS: ZINC SULFATE 220 MG CAP PO SCH (09:24)
[2020-06-26] MEDS: PANTOPRAZOLE 40 MG/10 ML VIAL IVP SCH (09:45)
[2020-06-26] MEDS: CHLORHEXIDINE GLUCONATE 15 ML CUP MUCOUS MEM SCH ×2 (09:45→21:14)
[2020-06-26] MEDS: SODIUM CHLORIDE 0.9% 1,000 ML IV SCH ×2 (11:14→20:48)
[2020-06-26 11:23] LABS: Glucose,Whole Blood 140 mg/dL (75-99)
[2020-06-26 11:54] LABS: Glucose,Whole Blood 111 mg/dL (75-99)
--- NOTE | 2020-06-26 13:53 | P.CNNES ---
History of Present Illness Consult date: 06/26/20 Requesting physician: Antolin Friedman Reason for Consult: Assess neuro status History of Present Illness: Patient is a 65-year-old male came to the hospital on 06/04/2020 with chief complaints of shortness of breath. Patient had developed nonproductive cough 3 days prior to arrival, with some dyspnea on exertion. No chest pain. Denied any loss of taste or smell. Denies focal symptoms. No previous history of tobacco COPD or asthma. Patient was diagnosed with pneumonia due to COVID-19 virus. Patient has been diagnosed with ARDS due to COVID-19 pneumonia, severe sepsis, acute hypoxic respiratory failure on ventilator with full ventilatory support, oxygenation continued to be marginal up to lately high 80s to 90s even on in prone position. However desats to high 80s in supine posture. Respiratory acidosis. Neurology consulted for neurologic function, and for prognostic purposes. Patient's most recent chest x-ray from 06/24/2020 showed satisfactory positioning of ET tube, continued bilateral diffuse interstitial infiltrates greatest at the right than the left lower lungs. Blood test shows WBC 11.5 with left shift, hemoglobin 11.6, platelets 355. ABG with pCO2 69, pO2 55, saturation 88.7. Electrolytes are normal. BUN/creatinine 27 creatinine 0.31. Hepatic panel normal. Patient at present is on Nimbex 4 g per kg and Diprivan 50 mcg/kg/min. per nursing report, when sedation is decreased, patient becomes very tachypneic with respiration 40s and his systolic blood pressure goes up to 180s. Patient is already on very hip eat of 17 with 100% FiO2. Patient continues to have poor oxygenation despite on maximal treatment. Review of Systems ROS unobtainable: due to endotracheal tube, due to mental status Past Medical History Past Medical History: GERD/Reflux History of Any Multi-Drug Resistant Organisms: None Reported Additional Past Surgical History / Comment(s): colonoscopy Past Anesthesia/Blood Transfusion Reactions: No Reported Reaction Past Psychological History: No Psychological Hx Reported Smoking Status: Never smoker Past Alcohol Use History: Occasional Past Drug Use History: None Reported - Past Family History Mother Family Medical History: No Reported History Medications and Allergies Home Medications Medication Instructions Recorded Confirmed Type No Known Home Medications 06/04/20 06/04/20 History Allergies Allergy/AdvReac Type Severity Reaction Status Date / Time No Known Allergies Allergy Verified 06/04/20 16:22 Physical Examination - Vital Signs Vital Signs: Vital Signs Temp Pulse Resp BP Pulse Ox 06/26/20 09:00 75 34 H 143/63 90 L 06/26/20 08:00 98.2 F 71 34 H 125/60 87 L 06/26/20 07:00 73 34 H 132/57 88 L 06/26/20 06:00 74 34 H 125/67 91 L 06/26/20 05:00 76 33 H 137/62 86 L 06/26/20 04:00 98.6 F 72 34 H 139/61 86 L 06/26/20 03:00 75 34 H 138/63 85 L 06/26/20 02:00 73 34 H 126/57 83 L 06/26/20 01:00 72 34 H 137/63 83 L 06/26/20 00:00 98.8 F 76 34 H 130/61 85 L 06/25/20 23:26 71 34 H 130/62 84 L 06/25/20 23:00 70 34 H 127/60 85 L 06/25/20 22:00 71 34 H 120/57 83 L 06/25/20 21:00 75 34 H 140/61 83 L 06/25/20 20:00 98.8 F 80 39 H 123/53 85 L 06/25/20 19:00 69 34 H 104/51 86 L 06/25/20 18:00 70 34 H 121/63 85 L 06/25/20 17:00 80 34 H 157/75 85 L 06/25/20 16:00 99.1 F 86 34 H 161/81 89 L 06/25/20 15:00 76 34 H 152/74 89 L 06/25/20 14:00 75 34 H 147/65 87 L 06/25/20 13:00 69 34 H 137/66 87 L 06/25/20 12:00 98.9 F 73 34 H 145/71 88 L 06/25/20 11:00 72 34 H 148/71 88 L 06/25/20 10:00 73 34 H 142/79 89 L Intake and Output 06/25/20 06/26/20 12 22:59 06:59 14:59 Intake Total 1590 1443.414 465 Output Total 520 2265 275 Balance 1070 -821.586 190 Intake: IV 800 800 300 Sodium Chloride 0.9% 1, 800 800 300 000 ml @ 100 mls/hr IV . Q10H [facility] Rx#:[id number] Intake, IV Titration 400 283.414 Amount Cisatracurium 200 mg In 200 183.414 Sodium Chloride 0.9% 180 ml @ 1 MCG/KG/MIN 4.62 mls/hr IV .Q24H [facility] Rx#: [id number] propofoL 1,000 mg In 200 100 Empty Bag 1 bag @ Titrate IV .Q0M [facility] Rx#: [id number] Tube Feeding 360 360 135 Other 30 30 Output: Urine 520 2265 275 Other: Voiding Method Indwelling Catheter Indwelling Catheter On examination patient is heavily sedated with propofol 50 mcg/kg per minute. Patient is also on paralyzing agents, therefore exam is very limited. Patient is placed in a prone position, with head deviating to the left side. Only one eye is visible and has scleral edema. Pupils were not clearly reactive. Oculocephalics could not be checked. Reflexes are absent. Patient has moderate peripheral edema. No obvious seizure activity is noticed. Rest of the exam ination could not be performed due to combination of his position, and being on sedation and on paralyzing agent. Results - Laboratory Findings CBC and BMP: 06/26/20 06:00 06/26/20 04:22 Abnormal Lab Findings: Abnormal Labs 06/04/20 06/04/20 06/04/20 15:45 15:45 15:45 WBC RBC Hgb Hct MCHC Plt Count Neutrophils # Neutrophils # (Manual) Lymphocytes # Lymphocytes # (Manual) Monocytes # (Manual) Metamyelocytes # (Man) Myelocytes # (Manual) Nucleated RBCs Fibrinogen D-Dimer 0.60 H ABG pH ABG pCO2 ABG pO2 ABG HCO3 ABG Total CO2 ABG O2 Saturation Sodium Potassium Chloride Carbon Dioxide Anion Gap BUN 32 H Creatinine 1.29 H BUN/Creatinine Ratio Glucose 125 H POC Glucose (mg/dL) Hemoglobin A1c Calcium Phosphorus Magnesium 2.7 H Ferritin 1279.8 H Total Bilirubin AST 92 H ALT 50 H Lactate Dehydrogenase 1439 H LD Isoenzymes LD 5 Creatine Kinase CK-MB (CK-2) C-Reactive Protein 176.4 H Total Protein Albumin Albumin/Globulin Ratio Procalcitonin 0.21 H Coronavirus (PCR) 06/04/20 06/06/20 06/06/20 15:45 06:03 06:03 WBC 18.6 H RBC Hgb Hct MCHC Plt Count Neutrophils # Neutrophils # (Manual) Lymphocytes # Lymphocytes # (Manual) Monocytes # (Manual) Metamyelocytes # (Man) Myelocytes # (Manual) Nucleated RBCs Fibrinogen D-Dimer ABG pH ABG pCO2 ABG pO2 ABG HCO3 ABG Total CO2 ABG O2 Saturation Sodium Potassium Chloride Carbon Dioxide Anion Gap 12.90 H BUN Creatinine BUN/Creatinine Ratio 25.56 H Glucose 127 H POC Glucose (mg/dL) Hemoglobin A1c Calcium 8.2 L Phosphorus Magnesium Ferritin Total Bilirubin AST 63 H ALT Lactate Dehydrogenase LD Isoenzymes LD 5 Creatine Kinase CK-MB (CK-2) C-Reactive Protein Total Protein 5.8 L Albumin 3.40 L Albumin/Globulin Ratio 1.42 L Procalcitonin Coronavirus (PCR) Detected A 06/06/20 06/06/20 06/06/20 07:34 07:38 09:26 WBC RBC Hgb Hct MCHC Plt Count Neutrophils # Neutrophils # (Manual) Lymphocytes # Lymphocytes # (Manual) Monocytes # (Manual) Metamyelocytes # (Man) Myelocytes # (Manual) Nucleated RBCs Fibrinogen D-Dimer ABG pH ABG pCO2 ABG pO2 42 L* 52 L* ABG HCO3 ABG Total CO2 25 H 26 H ABG O2 Saturation 78.6 L 86.0 L Sodium Potassium Chloride Carbon Dioxide Anion Gap BUN Creatinine BUN/Creatinine Ratio Glucose POC Glucose (mg/dL) 121 H Hemoglobin A1c Calcium Phosphorus Magnesium Ferritin Total Bilirubin AST ALT Lactate Dehydrogenase LD Isoenzymes LD 5 Creatine Kinase CK-MB (CK-2) C-Reactive Protein Total Protein Albumin Albumin/Globulin Ratio Procalcitonin Coronavirus (PCR) 06/06/20 06/06/20 06/07/20 16:34 20:17 06:25 WBC RBC Hgb Hct MCHC Plt Count Neutrophils # Neutrophils # (Manual) Lymphocytes # Lymphocytes # (Manual) Monocytes # (Manual) Metamyelocytes # (Man) Myelocytes # (Manual) Nucleated RBCs Fibrinogen D-Dimer ABG pH ABG pCO2 ABG pO2 ABG HCO3 ABG Total CO2 ABG O2 Saturation Sodium Potassium Chloride Carbon Dioxide Anion Gap BUN Creatinine BUN/Creatinine Ratio Glucose POC Glucose (mg/dL) 111 H 123 H 123 H Hemoglobin A1c Calcium Phosphorus Magnesium Ferritin Total Bilirubin AST ALT Lactate Dehydrogenase LD Isoenzymes LD 5 Creatine Kinase CK-MB (CK-2) C-Reactive Protein Total Protein Albumin Albumin/Globulin Ratio Procalcitonin Coronavirus (PCR) 06/07/20 06/07/20 06/07/20 07:34 07:34 11:59 WBC 15.6 H RBC Hgb Hct MCHC Plt Count Neutrophils # Neutrophils # (Manual) Lymphocytes # Lymphocytes # (Manual) Monocytes # (Manual) Metamyelocytes # (Man) Myelocytes # (Manual) Nucleated RBCs Fibrinogen D-Dimer ABG pH ABG pCO2 ABG pO2 ABG HCO3 ABG Total CO2 ABG O2 Saturation Sodium 146 H Potassium Chloride 116 H Carbon Dioxide Anion Gap BUN 31 H Creatinine BUN/Creatinine Ratio Glucose 138 H POC Glucose (mg/dL) 128 H Hemoglobin A1c Calcium Phosphorus Magnesium Ferritin Total Bilirubin AST ALT Lactate Dehydrogenase LD Isoenzymes LD 5 Creatine Kinase CK-MB (CK-2) C-Reactive Protein Total Protein 5.4 L Albumin 2.5 L Albumin/Globulin Ratio Procalcitonin Coronavirus (PCR) 06/07/20 06/07/20 06/08/20 16:55 20:18 03:33 WBC RBC Hgb Hct MCHC Plt Count Neutrophils # Neutrophils # (Manual) Lymphocytes # Lymphocytes # (Manual) Monocytes # (Manual) Metamyelocytes # (Man) Myelocytes # (Manual) Nucleated RBCs Fibrinogen D-Dimer ABG pH ABG pCO2 ABG pO2 59 L* ABG HCO3 26 H ABG Total CO2 27 H ABG O2 Saturation Sodium Potassium Chloride Carbon Dioxide Anion Gap BUN Creatinine BUN/Creatinine Ratio Glucose POC Glucose (mg/dL) 112 H 108 H Hemoglobin A1c Calcium Phosphorus Magnesium Ferritin Total Bilirubin AST ALT Lactate Dehydrogenase LD Isoenzymes LD 5 Creatine Kinase CK-MB (CK-2) C-Reactive Protein Total Protein Albumin Albumin/Globulin Ratio Procalcitonin Coronavirus (PCR) 06/08/20 06/08/20 06/08/20 06:33 11:59 14:14 WBC RBC Hgb Hct MCHC Plt Count Neutrophils # Neutrophils # (Manual) Lymphocytes # Lymphocytes # (Manual) Monocytes # (Manual) Metamyelocytes # (Man) Myelocytes # (Manual) Nucleated RBCs Fibrinogen D-Dimer ABG pH ABG pCO2 ABG pO2 59 L* ABG HCO3 ABG Total CO2 26 H ABG O2 Saturation 90.6 L Sodium Potassium Chloride Carbon Dioxide Anion Gap BUN Creatinine BUN/Creatinine Ratio Glucose POC Glucose (mg/dL) 114 H 101 H Hemoglobin A1c Calcium Phosphorus Magnesium Ferritin Total Bilirubin AST ALT Lactate Dehydrogenase LD Isoenzymes LD 5 Creatine Kinase CK-MB (CK-2) C-Reactive Protein Total Protein Albumin Albumin/Globulin Ratio Procalcitonin Coronavirus (PCR) 06/08/20 06/08/20 06/09/20 15:40 23:57 03:47 WBC 15.9 H RBC Hgb Hct MCHC Plt Count Neutrophils # Neutrophils # (Manual) Lymphocytes # Lymphocytes # (Manual) Monocytes # (Manual) Metamyelocytes # (Man) Myelocytes # (Manual) Nucleated RBCs Fibrinogen D-Dimer ABG pH 7.34 L ABG pCO2 47 H ABG pO2 46 L* ABG HCO3 ABG Total CO2 27 H ABG O2 Saturation 77.6 L Sodium Potassium Chloride Carbon Dioxide Anion Gap BUN Creatinine BUN/Creatinine Ratio Glucose POC Glucose (mg/dL) 153 H Hemoglobin A1c Calcium Phosphorus Magnesium Ferritin Total Bilirubin AST ALT Lactate Dehydrogenase LD Isoenzymes LD 5 Creatine Kinase CK-MB (CK-2) C-Reactive Protein Total Protein Albumin Albumin/Globulin Ratio Procalcitonin Coronavirus (PCR) 06/09/20 06/09/20 06/09/20 03:47 03:47 03:47 WBC RBC Hgb Hct MCHC Plt Count Neutrophils # Neutrophils # (Manual) Lymphocytes # Lymphocytes # (Manual) Monocytes # (Manual) Metamyelocytes # (Man) Myelocytes # (Manual) Nucleated RBCs Fibrinogen D-Dimer 34.11 H ABG pH ABG pCO2 ABG pO2 ABG HCO3 ABG Total CO2 ABG O2 Saturation Sodium 148 H Potassium Chloride 115 H Carbon Dioxide 33 H Anion Gap BUN 25 H Creatinine BUN/Creatinine Ratio Glucose 166 H POC Glucose (mg/dL) Hemoglobin A1c Calcium 8.0 L Phosphorus Magnesium Ferritin 1025.3 H Total Bilirubin AST ALT Lactate Dehydrogenase 1653 H LD Isoenzymes LD 5 Creatine Kinase CK-MB (CK-2) 2.6 H C-Reactive Protein 222.5 H Total Protein 5.4 L Albumin 2.4 L Albumin/Globulin Ratio Procalcitonin Coronavirus (PCR) 06/09/20 06/09/20 06/09/20 05:30 06:00 14:02 WBC RBC Hgb Hct MCHC Plt Count Neutrophils # Neutrophils # (Manual) Lymphocytes # Lymphocytes # (Manual) Monocytes # (Manual) Metamyelocytes # (Man) Myelocytes # (Manual) Nucleated RBCs Fibrinogen D-Dimer ABG pH 7.25 L ABG pCO2 75 H* ABG pO2 81 L ABG HCO3 33 H ABG Total CO2 35 H ABG O2 Saturation Sodium Potassium Chloride Carbon Dioxide Anion Gap BUN Creatinine BUN/Creatinine Ratio Glucose POC Glucose (mg/dL) 131 H 120 H Hemoglobin A1c Calcium Phosphorus Magnesium Ferritin Total Bilirubin AST ALT Lactate Dehydrogenase LD Isoenzymes LD 5 Creatine Kinase CK-MB (CK-2) C-Reactive Protein Total Protein Albumin Albumin/Globulin Ratio Procalcitonin Coronavirus (PCR) 06/09/20 06/09/20 06/10/20 18:48 23:44 03:53 WBC 10.9 H RBC Hgb Hct MCHC Plt Count 144 L Neutrophils # Neutrophils # (Manual) Lymphocytes # Lymphocytes # (Manual) Monocytes # (Manual) Metamyelocytes # (Man) Myelocytes # (Manual) Nucleated RBCs Fibrinogen D-Dimer ABG pH ABG pCO2 ABG pO2 ABG HCO3 ABG Total CO2 ABG O2 Saturation Sodium Potassium Chloride Carbon Dioxide Anion Gap BUN Creatinine BUN/Creatinine Ratio Glucose POC Glucose (mg/dL) 128 H 120 H Hemoglobin A1c Calcium Phosphorus Magnesium Ferritin Total Bilirubin AST ALT Lactate Dehydrogenase LD Isoenzymes LD 5 Creatine Kinase CK-MB (CK-2) C-Reactive Protein Total Protein Albumin Albumin/Globulin Ratio Procalcitonin Coronavirus (PCR) 06/10/20 06/10/20 06/10/20 03:53 03:53 03:53 WBC RBC Hgb Hct MCHC Plt Count Neutrophils # Neutrophils # (Manual) Lymphocytes # Lymphocytes # (Manual) Monocytes # (Manual) Metamyelocytes # (Man) Myelocytes # (Manual) Nucleated RBCs Fibrinogen D-Dimer ABG pH ABG pCO2 ABG pO2 ABG HCO3 ABG Total CO2 ABG O2 Saturation Sodium 148 H Potassium Chloride 114 H Carbon Dioxide 34 H Anion Gap BUN 27 H Creatinine BUN/Creatinine Ratio Glucose 128 H POC Glucose (mg/dL) Hemoglobin A1c 6.1 H Calcium 8.2 L Phosphorus Magnesium Ferritin 1409.0 H Total Bilirubin AST 88 H ALT Lactate Dehydrogenase 1563 H LD Isoenzymes LD 5 Creatine Kinase CK-MB (CK-2) C-Reactive Protein 309.6 H Total Protein 4.9 L Albumin 2.1 L Albumin/Globulin Ratio Procalcitonin Coronavirus (PCR) 06/10/20 06/10/20 06/10/20 03:53 03:53 05:22 WBC RBC Hgb Hct MCHC Plt Count Neutrophils # Neutrophils # (Manual) Lymphocytes # Lymphocytes # (Manual) Monocytes # (Manual) Metamyelocytes # (Man) Myelocytes # (Manual) Nucleated RBCs Fibrinogen D-Dimer ABG pH ABG pCO2 58 H ABG pO2 73 L ABG HCO3 34 H ABG Total CO2 36 H ABG O2 Saturation Sodium Potassium Chloride Carbon Dioxide Anion Gap BUN Creatinine BUN/Creatinine Ratio Glucose POC Glucose (mg/dL) Hemoglobin A1c Calcium Phosphorus 2.1 L Magnesium 2.9 H Ferritin Total Bilirubin AST ALT Lactate Dehydrogenase LD Isoenzymes LD 5 Creatine Kinase CK-MB (CK-2) 28.3 H C-Reactive Protein Total Protein Albumin Albumin/Globulin Ratio Procalcitonin Coronavirus (PCR) 06/10/20 06/10/20 06/11/20 05:30 12:16 00:00 WBC RBC Hgb Hct MCHC Plt Count Neutrophils # Neutrophils # (Manual) Lymphocytes # Lymphocytes # (Manual) Monocytes # (Manual) Metamyelocytes # (Man) Myelocytes # (Manual) Nucleated RBCs Fibrinogen D-Dimer 34.11 H ABG pH ABG pCO2 ABG pO2 ABG HCO3 ABG Total CO2 ABG O2 Saturation Sodium Potassium Chloride Carbon Dioxide Anion Gap BUN Creatinine BUN/Creatinine Ratio Glucose POC Glucose (mg/dL) 125 H 146 H Hemoglobin A1c Calcium Phosphorus Magnesium Ferritin Total Bilirubin AST ALT Lactate Dehydrogenase LD Isoenzymes LD 5 Creatine Kinase CK-MB (CK-2) C-Reactive Protein Total Protein Albumin Albumin/Globulin Ratio Procalcitonin Coronavirus (PCR) 06/11/20 06/11/20 06/11/20 05:16 05:30 07:59 WBC 11.4 H RBC Hgb Hct MCHC 30.0 L Plt Count 125 L Neutrophils # 10.5 H Neutrophils # (Manual) Lymphocytes # 0.3 L Lymphocytes # (Manual) Monocytes # (Manual) Metamyelocytes # (Man) Myelocytes # (Manual) Nucleated RBCs Fibrinogen D-Dimer ABG pH 7.33 L ABG pCO2 73 H* ABG pO2 ABG HCO3 39 H ABG Total CO2 41 H ABG O2 Saturation 97.6 H Sodium Potassium Chloride Carbon Dioxide Anion Gap BUN Creatinine BUN/Creatinine Ratio Glucose POC Glucose (mg/dL) 101 H Hemoglobin A1c Calcium Phosphorus Magnesium Ferritin Total Bilirubin AST ALT Lactate Dehydrogenase LD Isoenzymes LD 5 Creatine Kinase CK-MB (CK-2) C-Reactive Protein Total Protein Albumin Albumin/Globulin Ratio Procalcitonin Coronavirus (PCR) 06/11/20 06/11/20 06/11/20 07:59 07:59 07:59 WBC RBC Hgb Hct MCHC Plt Count Neutrophils # Neutrophils # (Manual) Lymphocytes # Lymphocytes # (Manual) Monocytes # (Manual) Metamyelocytes # (Man) Myelocytes # (Manual) Nucleated RBCs Fibrinogen D-Dimer >34.11 H ABG pH ABG pCO2 ABG pO2 ABG HCO3 ABG Total CO2 ABG O2 Saturation Sodium 151 H Potassium Chloride 113 H Carbon Dioxide 38 H Anion Gap BUN 29 H Creatinine 0.56 L BUN/Creatinine Ratio Glucose 124 H POC Glucose (mg/dL) Hemoglobin A1c Calcium 8.2 L Phosphorus Magnesium Ferritin 1632.6 H Total Bilirubin AST ALT Lactate Dehydrogenase LD Isoenzymes LD 5 Creatine Kinase CK-MB (CK-2) C-Reactive Protein 211.2 H Total Protein 5.4 L Albumin 2.2 L Albumin/Globulin Ratio Procalcitonin 0.23 H Coronavirus (PCR) 06/11/20 06/11/20 06/11/20 07:59 12:19 18:32 WBC RBC Hgb Hct MCHC Plt Count Neutrophils # Neutrophils # (Manual) Lymphocytes # Lymphocytes # (Manual) Monocytes # (Manual) Metamyelocytes # (Man) Myelocytes # (Manual) Nucleated RBCs Fibrinogen D-Dimer ABG pH ABG pCO2 ABG pO2 ABG HCO3 ABG Total CO2 ABG O2 Saturation Sodium Potassium Chloride Carbon Dioxide Anion Gap BUN Creatinine BUN/Creatinine Ratio Glucose POC Glucose (mg/dL) 109 H 169 H Hemoglobin A1c Calcium Phosphorus Magnesium Ferritin Total Bilirubin AST ALT Lactate Dehydrogenase LD Isoenzymes 578 H LD 5 15 H Creatine Kinase CK-MB (CK-2) C-Reactive Protein Total Protein Albumin Albumin/Globulin Ratio Procalcitonin Coronavirus (PCR) 06/11/20 06/12/20 06/12/20 23:46 03:05 03:05 WBC 12.3 H RBC Hgb Hct MCHC Plt Count 107 L Neutrophils # Neutrophils # (Manual) Lymphocytes # Lymphocytes # (Manual) Monocytes # (Manual) Metamyelocytes # (Man) Myelocytes # (Manual) Nucleated RBCs Fibrinogen D-Dimer ABG pH ABG pCO2 ABG pO2 ABG HCO3 ABG Total CO2 ABG O2 Saturation Sodium 147 H Potassium Chloride 109 H Carbon Dioxide 42 H* Anion Gap BUN 31 H Creatinine 0.57 L BUN/Creatinine Ratio Glucose 141 H POC Glucose (mg/dL) 104 H Hemoglobin A1c Calcium 7.9 L Phosphorus 2.0 L Magnesium Ferritin 1632.7 H Total Bilirubin AST 122 H ALT 74 H Lactate Dehydrogenase LD Isoenzymes LD 5 Creatine Kinase CK-MB (CK-2) C-Reactive Protein 174.0 H Total Protein 4.8 L Albumin 1.9 L Albumin/Globulin Ratio Procalcitonin Coronavirus (PCR) 06/12/20 06/12/20 06/12/20 03:05 03:05 05:00 WBC RBC Hgb Hct MCHC Plt Count Neutrophils # Neutrophils # (Manual) Lymphocytes # Lymphocytes # (Manual) Monocytes # (Manual) Metamyelocytes # (Man) Myelocytes # (Manual) Nucleated RBCs Fibrinogen D-Dimer 34.11 H ABG pH ABG pCO2 72 H* ABG pO2 54 L* ABG HCO3 42 H* ABG Total CO2 44 H ABG O2 Saturation 88.2 L Sodium Potassium Chloride Carbon Dioxide Anion Gap BUN Creatinine BUN/Creatinine Ratio Glucose POC Glucose (mg/dL) Hemoglobin A1c Calcium Phosphorus Magnesium Ferritin Total Bilirubin AST ALT Lactate Dehydrogenase LD Isoenzymes LD 5 Creatine Kinase CK-MB (CK-2) C-Reactive Protein Total Protein Albumin Albumin/Globulin Ratio Procalcitonin 0.23 H Coronavirus (PCR) 06/12/20 06/12/20 06/12/20 06:11 13:17 18:04 WBC RBC Hgb Hct MCHC Plt Count Neutrophils # Neutrophils # (Manual) Lymphocytes # Lymphocytes # (Manual) Monocytes # (Manual) Metamyelocytes # (Man) Myelocytes # (Manual) Nucleated RBCs Fibrinogen D-Dimer ABG pH ABG pCO2 ABG pO2 ABG HCO3 ABG Total CO2 ABG O2 Saturation Sodium Potassium Chloride Carbon Dioxide Anion Gap BUN Creatinine BUN/Creatinine Ratio Glucose POC Glucose (mg/dL) 131 H 143 H 131 H Hemoglobin A1c Calcium Phosphorus Magnesium Ferritin Total Bilirubin AST ALT Lactate Dehydrogenase LD Isoenzymes LD 5 Creatine Kinase CK-MB (CK-2) C-Reactive Protein Total Protein Albumin Albumin/Globulin Ratio Procalcitonin Coronavirus (PCR) 06/12/20 06/13/20 06/13/20 23:39 04:20 04:20 WBC 15.1 H RBC Hgb Hct MCHC Plt Count 105 L Neutrophils # Neutrophils # (Manual) Lymphocytes # Lymphocytes # (Manual) Monocytes # (Manual) Metamyelocytes # (Man) Myelocytes # (Manual) Nucleated RBCs Fibrinogen D-Dimer ABG pH ABG pCO2 ABG pO2 ABG HCO3 ABG Total CO2 ABG O2 Saturation Sodium Potassium 5.4 H Chloride Carbon Dioxide 40 H Anion Gap BUN 34 H Creatinine 0.54 L BUN/Creatinine Ratio Glucose 117 H POC Glucose (mg/dL) 151 H Hemoglobin A1c Calcium 7.7 L Phosphorus Magnesium Ferritin Total Bilirubin AST ALT Lactate Dehydrogenase LD Isoenzymes LD 5 Creatine Kinase CK-MB (CK-2) C-Reactive Protein Total Protein Albumin Albumin/Globulin Ratio Procalcitonin Coronavirus (PCR) 06/13/20 06/13/20 06/13/20 05:10 06:14 08:37 WBC RBC Hgb Hct MCHC Plt Count Neutrophils # Neutrophils # (Manual) Lymphocytes # Lymphocytes # (Manual) Monocytes # (Manual) Metamyelocytes # (Man) Myelocytes # (Manual) Nucleated RBCs Fibrinogen D-Dimer ABG pH 7.33 L ABG pCO2 85 H* ABG pO2 56 L* ABG HCO3 45 H* ABG Total CO2 48 H ABG O2 Saturation 88.5 L Sodium Potassium Chloride Carbon Dioxide 43 H* Anion Gap BUN 33 H Creatinine 0.59 L BUN/Creatinine Ratio Glucose 170 H POC Glucose (mg/dL) 100 H Hemoglobin A1c Calcium 7.7 L Phosphorus Magnesium Ferritin Total Bilirubin AST 76 H ALT 86 H Lactate Dehydrogenase LD Isoenzymes LD 5 Creatine Kinase CK-MB (CK-2) C-Reactive Protein Total Protein 5.1 L Albumin 2.0 L Albumin/Globulin Ratio Procalcitonin Coronavirus (PCR) 06/13/20 06/13/20 06/13/20 08:37 11:27 16:53 WBC RBC Hgb Hct MCHC Plt Count Neutrophils # Neutrophils # (Manual) Lymphocytes # Lymphocytes # (Manual) Monocytes # (Manual) Metamyelocytes # (Man) Myelocytes # (Manual) Nucleated RBCs Fibrinogen D-Dimer 8.85 H ABG pH ABG pCO2 ABG pO2 ABG HCO3 ABG Total CO2 ABG O2 Saturation Sodium Potassium Chloride Carbon Dioxide Anion Gap BUN Creatinine BUN/Creatinine Ratio Glucose POC Glucose (mg/dL) 136 H 125 H Hemoglobin A1c Calcium Phosphorus Magnesium Ferritin Total Bilirubin AST ALT Lactate Dehydrogenase LD Isoenzymes LD 5 Creatine Kinase CK-MB (CK-2) C-Reactive Protein Total Protein Albumin Albumin/Globulin Ratio Procalcitonin Coronavirus (PCR) 06/13/20 06/14/20 06/14/20 23:48 05:45 05:45 WBC 20.8 H RBC Hgb Hct MCHC Plt Count 114 L Neutrophils # Neutrophils # (Manual) Lymphocytes # Lymphocytes # (Manual) Monocytes # (Manual) Metamyelocytes # (Man) Myelocytes # (Manual) Nucleated RBCs Fibrinogen D-Dimer ABG pH ABG pCO2 ABG pO2 ABG HCO3 ABG Total CO2 ABG O2 Saturation Sodium Potassium 5.2 H Chloride Carbon Dioxide 41 H* Anion Gap BUN 32 H Creatinine 0.52 L BUN/Creatinine Ratio Glucose 123 H POC Glucose (mg/dL) 104 H Hemoglobin A1c Calcium 7.9 L Phosphorus Magnesium Ferritin Total Bilirubin AST 64 H ALT 69 H Lactate Dehydrogenase LD Isoenzymes LD 5 Creatine Kinase CK-MB (CK-2) C-Reactive Protein Total Protein 5.4 L Albumin 2.2 L Albumin/Globulin Ratio Procalcitonin Coronavirus (PCR) 06/14/20 06/14/20 06/14/20 05:45 05:55 12:00 WBC RBC Hgb Hct MCHC Plt Count Neutrophils # Neutrophils # (Manual) Lymphocytes # Lymphocytes # (Manual) Monocytes # (Manual) Metamyelocytes # (Man) Myelocytes # (Manual) Nucleated RBCs Fibrinogen D-Dimer ABG pH 7.24 L ABG pCO2 106 H* ABG pO2 62 L ABG HCO3 46 H* ABG Total CO2 49 H ABG O2 Saturation 88.3 L Sodium Potassium Chloride Carbon Dioxide Anion Gap BUN Creatinine BUN/Creatinine Ratio Glucose POC Glucose (mg/dL) 115 H 125 H Hemoglobin A1c Calcium Phosphorus Magnesium Ferritin Total Bilirubin AST ALT Lactate Dehydrogenase LD Isoenzymes LD 5 Creatine Kinase CK-MB (CK-2) C-Reactive Protein Total Protein Albumin Albumin/Globulin Ratio Procalcitonin Coronavirus (PCR) 06/14/20 06/15/20 06/15/20 19:12 01:05 04:32 WBC RBC Hgb Hct MCHC Plt Count Neutrophils # Neutrophils # (Manual) Lymphocytes # Lymphocytes # (Manual) Monocytes # (Manual) Metamyelocytes # (Man) Myelocytes # (Manual) Nucleated RBCs Fibrinogen D-Dimer ABG pH ABG pCO2 79 H* ABG pO2 56 L* ABG HCO3 46 H* ABG Total CO2 49 H ABG O2 Saturation 89.7 L Sodium Potassium Chloride Carbon Dioxide Anion Gap BUN Creatinine BUN/Creatinine Ratio Glucose POC Glucose (mg/dL) 134 H 146 H Hemoglobin A1c Calcium Phosphorus Magnesium Ferritin Total Bilirubin AST ALT Lactate Dehydrogenase LD Isoenzymes LD 5 Creatine Kinase CK-MB (CK-2) C-Reactive Protein Total Protein Albumin Albumin/Globulin Ratio Procalcitonin Coronavirus (PCR) 06/15/20 06/15/20 06/15/20 05:46 05:46 06:09 WBC 19.0 H RBC 4.08 L Hgb 12.8 L Hct MCHC Plt Count 130 L Neutrophils # Neutrophils # (Manual) Lymphocytes # Lymphocytes # (Manual) Monocytes # (Manual) Metamyelocytes # (Man) Myelocytes # (Manual) Nucleated RBCs Fibrinogen D-Dimer ABG pH ABG pCO2 ABG pO2 ABG HCO3 ABG Total CO2 ABG O2 Saturation Sodium Potassium Chloride 97 L Carbon Dioxide 43 H* Anion Gap BUN 37 H Creatinine 0.56 L BUN/Creatinine Ratio Glucose 102 H POC Glucose (mg/dL) 100 H Hemoglobin A1c Calcium 7.8 L Phosphorus Magnesium Ferritin Total Bilirubin AST 67 H ALT 58 H Lactate Dehydrogenase LD Isoenzymes LD 5 Creatine Kinase CK-MB (CK-2) C-Reactive Protein Total Protein 5.0 L Albumin 2.0 L Albumin/Globulin Ratio Procalcitonin Coronavirus (PCR) 06/15/20 06/15/20 06/16/20 13:18 18:35 00:05 WBC RBC Hgb Hct MCHC Plt Count Neutrophils # Neutrophils # (Manual) Lymphocytes # Lymphocytes # (Manual) Monocytes # (Manual) Metamyelocytes # (Man) Myelocytes # (Manual) Nucleated RBCs Fibrinogen D-Dimer ABG pH ABG pCO2 ABG pO2 ABG HCO3 ABG Total CO2 ABG O2 Saturation Sodium Potassium Chloride Carbon Dioxide Anion Gap BUN Creatinine BUN/Creatinine Ratio Glucose POC Glucose (mg/dL) 153 H 114 H 121 H Hemoglobin A1c Calcium Phosphorus Magnesium Ferritin Total Bilirubin AST ALT Lactate Dehydrogenase LD Isoenzymes LD 5 Creatine Kinase CK-MB (CK-2) C-Reactive Protein Total Protein Albumin Albumin/Globulin Ratio Procalcitonin Coronavirus (PCR) 06/16/20 06/16/20 06/17/20 05:50 05:52 05:40 WBC RBC Hgb Hct MCHC Plt Count Neutrophils # Neutrophils # (Manual) Lymphocytes # Lymphocytes # (Manual) Monocytes # (Manual) Metamyelocytes # (Man) Myelocytes # (Manual) Nucleated RBCs Fibrinogen D-Dimer ABG pH ABG pCO2 77 H* 61 H ABG pO2 47 L* 53 L* ABG HCO3 47 H* 42 H* ABG Total CO2 49 H 44 H ABG O2 Saturation 83.3 L 88.4 L Sodium Potassium Chloride Carbon Dioxide Anion Gap BUN Creatinine BUN/Creatinine Ratio Glucose POC Glucose (mg/dL) 103 H Hemoglobin A1c Calcium Phosphorus Magnesium Ferritin Total Bilirubin AST ALT Lactate Dehydrogenase LD Isoenzymes LD 5 Creatine Kinase CK-MB (CK-2) C-Reactive Protein Total Protein Albumin Albumin/Globulin Ratio Procalcitonin Coronavirus (PCR) 06/17/20 06/17/20 06/17/20 06:05 06:31 06:31 WBC RBC Hgb Hct MCHC Plt Count Neutrophils # Neutrophils # (Manual) Lymphocytes # Lymphocytes # (Manual) Monocytes # (Manual) Metamyelocytes # (Man) Myelocytes # (Manual) Nucleated RBCs Fibrinogen D-Dimer 5.09 H ABG pH ABG pCO2 ABG pO2 ABG HCO3 ABG Total CO2 ABG O2 Saturation Sodium 136 L Potassium Chloride 97 L Carbon Dioxide 39 H Anion Gap BUN 34 H Creatinine 0.53 L BUN/Creatinine Ratio Glucose 101 H POC Glucose (mg/dL) 101 H Hemoglobin A1c Calcium 7.6 L Phosphorus Magnesium Ferritin 2413.6 H Total Bilirubin AST ALT Lactate Dehydrogenase 2320 H LD Isoenzymes LD 5 Creatine Kinase CK-MB (CK-2) C-Reactive Protein 366.1 H Total Protein Albumin Albumin/Globulin Ratio Procalcitonin Coronavirus (PCR) 06/17/20 06/17/20 06/17/20 10:40 18:31 23:24 WBC 14.6 H RBC 3.63 L Hgb 11.3 L Hct 34.0 L MCHC Plt Count Neutrophils # Neutrophils # (Manual) 12.90 H Lymphocytes # Lymphocytes # (Manual) 0.73 L Monocytes # (Manual) Metamyelocytes # (Man) 0.15 H Myelocytes # (Manual) 0.44 H Nucleated RBCs Fibrinogen D-Dimer ABG pH ABG pCO2 ABG pO2 ABG HCO3 ABG Total CO2 ABG O2 Saturation Sodium Potassium Chloride Carbon Dioxide Anion Gap BUN Creatinine BUN/Creatinine Ratio Glucose POC Glucose (mg/dL) 105 H 100 H Hemoglobin A1c Calcium Phosphorus Magnesium Ferritin Total Bilirubin AST ALT Lactate Dehydrogenase LD Isoenzymes LD 5 Creatine Kinase CK-MB (CK-2) C-Reactive Protein Total Protein Albumin Albumin/Globulin Ratio Procalcitonin Coronavirus (PCR) 06/18/20 06/18/20 06/18/20 03:48 03:48 03:48 WBC 15.0 H RBC 3.96 L Hgb 11.7 L Hct 37.8 L MCHC Plt Count Neutrophils # 14.0 H Neutrophils # (Manual) Lymphocytes # 0.3 L Lymphocytes # (Manual) Monocytes # (Manual) Metamyelocytes # (Man) Myelocytes # (Manual) Nucleated RBCs Fibrinogen 623 H D-Dimer ABG pH ABG pCO2 ABG pO2 ABG HCO3 ABG Total CO2 ABG O2 Saturation Sodium 136 L Potassium Chloride Carbon Dioxide 39 H Anion Gap BUN 30 H Creatinine 0.49 L BUN/Creatinine Ratio Glucose 100 H POC Glucose (mg/dL) Hemoglobin A1c Calcium 7.6 L Phosphorus Magnesium Ferritin 2578.4 H Total Bilirubin 1.9 H AST 109 H ALT 102 H Lactate Dehydrogenase LD Isoenzymes LD 5 Creatine Kinase CK-MB (CK-2) C-Reactive Protein 415.3 H Total Protein 5.2 L Albumin 2.0 L Albumin/Globulin Ratio Procalcitonin Coronavirus (PCR) 06/18/20 06/19/20 06/19/20 05:28 00:17 04:20 WBC 10.8 H RBC 3.66 L Hgb 10.9 L Hct 34.8 L MCHC Plt Count Neutrophils # 9.7 H Neutrophils # (Manual) Lymphocytes # 0.5 L Lymphocytes # (Manual) Monocytes # (Manual) Metamyelocytes # (Man) Myelocytes # (Manual) Nucleated RBCs Fibrinogen D-Dimer ABG pH 7.34 L ABG pCO2 75 H* ABG pO2 60 L ABG HCO3 40 H* ABG Total CO2 43 H ABG O2 Saturation 88.8 L Sodium Potassium Chloride Carbon Dioxide Anion Gap BUN Creatinine BUN/Creatinine Ratio Glucose POC Glucose (mg/dL) 130 H Hemoglobin A1c Calcium Phosphorus Magnesium Ferritin Total Bilirubin AST ALT Lactate Dehydrogenase LD Isoenzymes LD 5 Creatine Kinase CK-MB (CK-2) C-Reactive Protein Total Protein Albumin Albumin/Globulin Ratio Procalcitonin Coronavirus (PCR) 06/19/20 06/19/20 06/19/20 04:20 04:20 05:03 WBC RBC Hgb Hct MCHC Plt Count Neutrophils # Neutrophils # (Manual) Lymphocytes # Lymphocytes # (Manual) Monocytes # (Manual) Metamyelocytes # (Man) Myelocytes # (Manual) Nucleated RBCs Fibrinogen 605 H D-Dimer ABG pH ABG pCO2 62 H ABG pO2 49 L* ABG HCO3 41 H* ABG Total CO2 43 H ABG O2 Saturation 86.5 L Sodium 135 L Potassium Chloride 97 L Carbon Dioxide 39 H Anion Gap BUN 33 H Creatinine 0.49 L BUN/Creatinine Ratio Glucose 117 H POC Glucose (mg/dL) Hemoglobin A1c Calcium 7.6 L Phosphorus Magnesium Ferritin 2301.1 H Total Bilirubin AST 64 H ALT 64 H Lactate Dehydrogenase LD Isoenzymes LD 5 Creatine Kinase CK-MB (CK-2) C-Reactive Protein 339.5 H Total Protein 4.8 L Albumin 1.8 L Albumin/Globulin Ratio Procalcitonin Coronavirus (PCR) 06/19/20 06/19/20 06/20/20 06:10 13:27 03:52 WBC 14.6 H RBC 3.70 L Hgb 11.4 L Hct 35.5 L MCHC Plt Count Neutrophils # Neutrophils # (Manual) Lymphocytes # Lymphocytes # (Manual) Monocytes # (Manual) Metamyelocytes # (Man) Myelocytes # (Manual) Nucleated RBCs Fibrinogen D-Dimer ABG pH ABG pCO2 ABG pO2 ABG HCO3 ABG Total CO2 ABG O2 Saturation Sodium Potassium Chloride Carbon Dioxide Anion Gap BUN Creatinine BUN/Creatinine Ratio Glucose POC Glucose (mg/dL) 110 H 101 H Hemoglobin A1c Calcium Phosphorus Magnesium Ferritin Total Bilirubin AST ALT Lactate Dehydrogenase LD Isoenzymes LD 5 Creatine Kinase CK-MB (CK-2) C-Reactive Protein Total Protein Albumin Albumin/Globulin Ratio Procalcitonin Coronavirus (PCR) 06/20/20 06/20/20 06/20/20 03:52 03:52 05:10 WBC RBC Hgb Hct MCHC Plt Count Neutrophils # Neutrophils # (Manual) Lymphocytes # Lymphocytes # (Manual) Monocytes # (Manual) Metamyelocytes # (Man) Myelocytes # (Manual) Nucleated RBCs Fibrinogen 543 H D-Dimer 3.30 H ABG pH ABG pCO2 62 H ABG pO2 43 L* ABG HCO3 40 H* ABG Total CO2 42 H ABG O2 Saturation 80.5 L Sodium 135 L Potassium Chloride 97 L Carbon Dioxide 38 H Anion Gap BUN 32 H Creatinine 0.41 L BUN/Creatinine Ratio Glucose POC Glucose (mg/dL) Hemoglobin A1c Calcium 7.5 L Phosphorus Magnesium Ferritin 1898.2 H Total Bilirubin AST 66 H ALT 52 H Lactate Dehydrogenase LD Isoenzymes LD 5 Creatine Kinase 231 H CK-MB (CK-2) C-Reactive Protein 170.8 H Total Protein 5.0 L Albumin 1.9 L Albumin/Globulin Ratio Procalcitonin Coronavirus (PCR) 06/20/20 06/20/20 06/20/20 11:53 18:18 23:23 WBC RBC Hgb Hct MCHC Plt Count Neutrophils # Neutrophils # (Manual) Lymphocytes # Lymphocytes # (Manual) Monocytes # (Manual) Metamyelocytes # (Man) Myelocytes # (Manual) Nucleated RBCs Fibrinogen D-Dimer ABG pH ABG pCO2 ABG pO2 ABG HCO3 ABG Total CO2 ABG O2 Saturation Sodium Potassium Chloride Carbon Dioxide Anion Gap BUN Creatinine BUN/Creatinine Ratio Glucose POC Glucose (mg/dL) 147 H 119 H 118 H Hemoglobin A1c Calcium Phosphorus Magnesium Ferritin Total Bilirubin AST ALT Lactate Dehydrogenase LD Isoenzymes LD 5 Creatine Kinase CK-MB (CK-2) C-Reactive Protein Total Protein Albumin Albumin/Globulin Ratio Procalcitonin Coronavirus (PCR) 06/21/20 06/21/20 06/21/20 03:53 03:53 05:38 WBC 16.7 H RBC 3.44 L Hgb 10.8 L Hct 33.0 L MCHC Plt Count Neutrophils # Neutrophils # (Manual) Lymphocytes # Lymphocytes # (Manual) Monocytes # (Manual) Metamyelocytes # (Man) Myelocytes # (Manual) Nucleated RBCs Fibrinogen D-Dimer ABG pH ABG pCO2 70 H ABG pO2 51 L* ABG HCO3 41 H* ABG Total CO2 43 H ABG O2 Saturation 86.1 L Sodium 136 L Potassium Chloride Carbon Dioxide 38 H Anion Gap BUN 27 H Creatinine 0.39 L BUN/Creatinine Ratio Glucose 127 H POC Glucose (mg/dL) Hemoglobin A1c Calcium 7.3 L Phosphorus Magnesium Ferritin Total Bilirubin AST ALT Lactate Dehydrogenase LD Isoenzymes LD 5 Creatine Kinase CK-MB (CK-2) C-Reactive Protein Total Protein 4.9 L Albumin 1.8 L Albumin/Globulin Ratio Procalcitonin Coronavirus (PCR) 06/21/20 06/21/20 06/21/20 06:12 11:45 17:39 WBC RBC Hgb Hct MCHC Plt Count Neutrophils # Neutrophils # (Manual) Lymphocytes # Lymphocytes # (Manual) Monocytes # (Manual) Metamyelocytes # (Man) Myelocytes # (Manual) Nucleated RBCs Fibrinogen D-Dimer ABG pH ABG pCO2 ABG pO2 ABG HCO3 ABG Total CO2 ABG O2 Saturation Sodium Potassium Chloride Carbon Dioxide Anion Gap BUN Creatinine BUN/Creatinine Ratio Glucose POC Glucose (mg/dL) 112 H 129 H 133 H Hemoglobin A1c Calcium Phosphorus Magnesium Ferritin Total Bilirubin AST ALT Lactate Dehydrogenase LD Isoenzymes LD 5 Creatine Kinase CK-MB (CK-2) C-Reactive Protein Total Protein Albumin Albumin/Globulin Ratio Procalcitonin Coronavirus (PCR) 06/21/20 06/22/20 06/22/20 23:47 05:02 05:19 WBC RBC Hgb Hct MCHC Plt Count Neutrophils # Neutrophils # (Manual) Lymphocytes # Lymphocytes # (Manual) Monocytes # (Manual) Metamyelocytes # (Man) Myelocytes # (Manual) Nucleated RBCs Fibrinogen D-Dimer ABG pH 7.29 L ABG pCO2 90 H* ABG pO2 64 L ABG HCO3 43 H* ABG Total CO2 46 H ABG O2 Saturation 92.1 L Sodium Potassium Chloride Carbon Dioxide Anion Gap BUN Creatinine BUN/Creatinine Ratio Glucose POC Glucose (mg/dL) 139 H Hemoglobin A1c Calcium Phosphorus Magnesium Ferritin Total Bilirubin AST ALT Lactate Dehydrogenase LD Isoenzymes 536 H LD 5 15 H Creatine Kinase CK-MB (CK-2) C-Reactive Protein Total Protein Albumin Albumin/Globulin Ratio Procalcitonin Coronavirus (PCR) 06/22/20 06/22/20 06/22/20 05:19 05:19 05:19 WBC 17.2 H RBC 3.74 L Hgb 11.5 L Hct 36.5 L MCHC Plt Count Neutrophils # Neutrophils # (Manual) 14.90 H Lymphocytes # Lymphocytes # (Manual) 0.34 L Monocytes # (Manual) 1.03 H Metamyelocytes # (Man) 0.69 H Myelocytes # (Manual) 0.34 H Nucleated RBCs 1 H Fibrinogen D-Dimer 3.23 H ABG pH ABG pCO2 ABG pO2 ABG HCO3 ABG Total CO2 ABG O2 Saturation Sodium 136 L Potassium Chloride Carbon Dioxide 42 H* Anion Gap BUN 22 H Creatinine 0.40 L BUN/Creatinine Ratio Glucose 130 H POC Glucose (mg/dL) Hemoglobin A1c Calcium 8.0 L Phosphorus Magnesium Ferritin 1168.9 H Total Bilirubin AST ALT Lactate Dehydrogenase LD Isoenzymes LD 5 Creatine Kinase 33 L CK-MB (CK-2) C-Reactive Protein 54.5 H Total Protein 5.3 L Albumin 2.0 L Albumin/Globulin Ratio Procalcitonin Coronavirus (PCR) 06/22/20 06/22/20 06/22/20 12:35 17:56 23:57 WBC RBC Hgb Hct MCHC Plt Count Neutrophils # Neutrophils # (Manual) Lymphocytes # Lymphocytes # (Manual) Monocytes # (Manual) Metamyelocytes # (Man) Myelocytes # (Manual) Nucleated RBCs Fibrinogen D-Dimer ABG pH ABG pCO2 ABG pO2 ABG HCO3 ABG Total CO2 ABG O2 Saturation Sodium Potassium Chloride Carbon Dioxide Anion Gap BUN Creatinine BUN/Creatinine Ratio Glucose POC Glucose (mg/dL) 118 H 121 H 117 H Hemoglobin A1c Calcium Phosphorus Magnesium Ferritin Total Bilirubin AST ALT Lactate Dehydrogenase LD Isoenzymes LD 5 Creatine Kinase CK-MB (CK-2) C-Reactive Protein Total Protein Albumin Albumin/Globulin Ratio Procalcitonin Coronavirus (PCR) 06/23/20 06/23/20 06/23/20 04:20 04:20 04:59 WBC 16.0 H RBC 3.80 L Hgb 11.6 L Hct 36.9 L MCHC Plt Count Neutrophils # Neutrophils # (Manual) 14.20 H Lymphocytes # Lymphocytes # (Manual) 0.32 L Monocytes # (Manual) Metamyelocytes # (Man) Myelocytes # (Manual) 0.80 H Nucleated RBCs Fibrinogen D-Dimer ABG pH ABG pCO2 72 H* ABG pO2 60 L ABG HCO3 45 H* ABG Total CO2 47 H ABG O2 Saturation Sodium 134 L Potassium Chloride Carbon Dioxide 39 H Anion Gap BUN 23 H Creatinine 0.33 L BUN/Creatinine Ratio Glucose 129 H POC Glucose (mg/dL) Hemoglobin A1c Calcium 7.7 L Phosphorus Magnesium Ferritin Total Bilirubin AST ALT Lactate Dehydrogenase LD Isoenzymes LD 5 Creatine Kinase CK-MB (CK-2) C-Reactive Protein Total Protein 5.2 L Albumin 2.0 L Albumin/Globulin Ratio Procalcitonin Coronavirus (PCR) 06/23/20 06/23/20 06/24/20 18:39 23:23 03:52 WBC 15.6 H RBC 3.96 L Hgb 12.0 L Hct 38.7 L MCHC 30.9 L Plt Count Neutrophils # Neutrophils # (Manual) 14.00 H Lymphocytes # Lymphocytes # (Manual) 0.47 L Monocytes # (Manual) Metamyelocytes # (Man) 0.78 H Myelocytes # (Manual) 0.16 H Nucleated RBCs Fibrinogen D-Dimer ABG pH ABG pCO2 ABG pO2 ABG HCO3 ABG Total CO2 ABG O2 Saturation Sodium Potassium Chloride Carbon Dioxide Anion Gap BUN Creatinine BUN/Creatinine Ratio Glucose POC Glucose (mg/dL) 117 H 110 H Hemoglobin A1c Calcium Phosphorus Magnesium Ferritin Total Bilirubin AST ALT Lactate Dehydrogenase LD Isoenzymes LD 5 Creatine Kinase CK-MB (CK-2) C-Reactive Protein Total Protein Albumin Albumin/Globulin Ratio Procalcitonin Coronavirus (PCR) 06/24/20 06/24/20 06/24/20 03:52 05:11 05:33 WBC RBC Hgb Hct MCHC Plt Count Neutrophils # Neutrophils # (Manual) Lymphocytes # Lymphocytes # (Manual) Monocytes # (Manual) Metamyelocytes # (Man) Myelocytes # (Manual) Nucleated RBCs Fibrinogen D-Dimer ABG pH 7.34 L ABG pCO2 81 H* ABG pO2 66 L ABG HCO3 44 H* ABG Total CO2 46 H ABG O2 Saturation 92.8 L Sodium Potassium Chloride Carbon Dioxide 41 H* Anion Gap BUN 22 H Creatinine 0.35 L BUN/Creatinine Ratio Glucose 118 H POC Glucose (mg/dL) 129 H Hemoglobin A1c Calcium 7.6 L Phosphorus Magnesium Ferritin Total Bilirubin AST ALT Lactate Dehydrogenase LD Isoenzymes LD 5 Creatine Kinase CK-MB (CK-2) C-Reactive Protein Total Protein 5.2 L Albumin 2.0 L Albumin/Globulin Ratio Procalcitonin Coronavirus (PCR) 06/24/20 06/24/20 06/25/20 12:37 18:06 00:11 WBC RBC Hgb Hct MCHC Plt Count Neutrophils # Neutrophils # (Manual) Lymphocytes # Lymphocytes # (Manual) Monocytes # (Manual) Metamyelocytes # (Man) Myelocytes # (Manual) Nucleated RBCs Fibrinogen D-Dimer ABG pH ABG pCO2 ABG pO2 ABG HCO3 ABG Total CO2 ABG O2 Saturation Sodium Potassium Chloride Carbon Dioxide Anion Gap BUN Creatinine BUN/Creatinine Ratio Glucose POC Glucose (mg/dL) 116 H 119 H 125 H Hemoglobin A1c Calcium Phosphorus Magnesium Ferritin Total Bilirubin AST ALT Lactate Dehydrogenase LD Isoenzymes LD 5 Creatine Kinase CK-MB (CK-2) C-Reactive Protein Total Protein Albumin Albumin/Globulin Ratio Procalcitonin Coronavirus (PCR) 06/25/20 06/25/20 06/25/20 05:11 05:48 11:42 WBC RBC Hgb Hct MCHC Plt Count Neutrophils # Neutrophils # (Manual) Lymphocytes # Lymphocytes # (Manual) Monocytes # (Manual) Metamyelocytes # (Man) Myelocytes # (Manual) Nucleated RBCs Fibrinogen D-Dimer ABG pH ABG pCO2 67 H ABG pO2 55 L* ABG HCO3 43 H* ABG Total CO2 45 H ABG O2 Saturation 89.7 L Sodium Potassium Chloride Carbon Dioxide Anion Gap BUN Creatinine BUN/Creatinine Ratio Glucose POC Glucose (mg/dL) 137 H 101 H Hemoglobin A1c Calcium Phosphorus Magnesium Ferritin Total Bilirubin AST ALT Lactate Dehydrogenase LD Isoenzymes LD 5 Creatine Kinase CK-MB (CK-2) C-Reactive Protein Total Protein Albumin Albumin/Globulin Ratio Procalcitonin Coronavirus (PCR) 06/25/20 06/25/20 06/26/20 17:41 23:19 04:22 WBC RBC Hgb Hct MCHC Plt Count Neutrophils # Neutrophils # (Manual) Lymphocytes # Lymphocytes # (Manual) Monocytes # (Manual) Metamyelocytes # (Man) Myelocytes # (Manual) Nucleated RBCs Fibrinogen D-Dimer ABG pH ABG pCO2 ABG pO2 ABG HCO3 ABG Total CO2 ABG O2 Saturation Sodium Potassium Chloride Carbon Dioxide 40 H Anion Gap BUN 27 H Creatinine 0.31 L BUN/Creatinine Ratio Glucose 122 H POC Glucose (mg/dL) 144 H 122 H Hemoglobin A1c Calcium 7.6 L Phosphorus Magnesium Ferritin Total Bilirubin AST ALT Lactate Dehydrogenase LD Isoenzymes LD 5 Creatine Kinase CK-MB (CK-2) C-Reactive Protein Total Protein 5.1 L Albumin 2.0 L Albumin/Globulin Ratio Procalcitonin Coronavirus (PCR) 06/26/20 06/26/20 06/26/20 04:47 05:25 06:00 WBC 11.5 H RBC 3.70 L Hgb 11.6 L Hct 36.0 L MCHC Plt Count Neutrophils # Neutrophils # (Manual) 10.30 H Lymphocytes # Lymphocytes # (Manual) 0.35 L Monocytes # (Manual) Metamyelocytes # (Man) 0.46 H Myelocytes # (Manual) 0.12 H Nucleated RBCs Fibrinogen D-Dimer ABG pH ABG pCO2 69 H ABG pO2 55 L* ABG HCO3 44 H* ABG Total CO2 46 H ABG O2 Saturation 88.7 L Sodium Potassium Chloride Carbon Dioxide Anion Gap BUN Creatinine BUN/Creatinine Ratio Glucose POC Glucose (mg/dL) 123 H Hemoglobin A1c Calcium Phosphorus Magnesium Ferritin Total Bilirubin AST ALT Lactate Dehydrogenase LD Isoenzymes LD 5 Creatine Kinase CK-MB (CK-2) C-Reactive Protein Total Protein Albumin Albumin/Globulin Ratio Procalcitonin Coronavirus (PCR) Assessment and Plan Assessment: * Toxic metabolic encephalopathy, severe degree. * Patient has persistent severe hypoxemia for the last 20 days, which probably resulted in significant hypoxic encephalopathy. * COVID-19 pneumonia with significant hypoxemia * ARDS due to above. * Respiratory failure on mechanical ventilation Plan: * Patient has severe toxic metabolic encephalopathy. Patient has persistent, continuous severe hypoxemia for the last 20 days due to ARDS/pneumonia. Patient possibly may have developed significant hypoxic encephalopathy, on top of severe toxic metabolic encephalopathy. * Patient still not doing well from a respiratory standpoint. * Exam is also limited because of patient being on heavy sedation and on paralyzing agent. * For further neurological evaluation, would recommend an EEG and a computed gene ography scan of the head without contrast, when medically stable, and if deemed necessary to assess for prognostic reasons from neurological standpoint. * Please call neurology if patient ends up getting above testing for a follow- up. Otherwise will sign off.
--- NOTE | 2020-06-26 15:23 | P.PN ---
Subjective Progress Note Date: 06/26/20 Principal diagnosis: Acute hypoxic respiratory failure status post intubation Covid 19 pneumonia Acute kidney injury Dehydration and volume depleted state Confusion and agitated delirium Possible alcohol withdrawal 06/26/2020, patient seen and evaluated examined care plan discussed with staff at length, patient has been on Nimbex and propofol, this morning Nimbex drip has been discontinued neurology is evaluating the patient, Nimbex was discontinued yesterday for couple of hours however patient is started having agitation along with tachypnea so was resumed, patient remains on full ventilator support with assist control of rate of 34 tidal volume of 500, PEEP is 17 with 100% oxygen patient is prone saturation of only 85-88% hemodynamically he is stable though medications reviewed laboratory data reviewed awaiting further evaluation from neurology service and decision making from the family overall prognosis remains poor 06/25/2020, patient seen and evaluated examined labs reviewed medications reviewed radiographic studies reviewed as well patient remains on Nimbex drip as well as propofol medically paralyze, remains on full ventilator support assist-control PEEP of 17 tidal volume of 500 with 100% oxygen patient has been prone until this afternoon he supine saturation is 89%, arterial blood gas performed this morning revealed pH of 7.4 to pCO2 67 pO2 55, chest x-ray has not been done today, he remains anticoagulation with Lovenox along with IV Solu- Medrol, patient will be prone that again midnight tonight, I have discussed further plan of care with the son-in-law as well as daughter they are not in agreement with trach and PEG, they want to see off of Nimbex drip neuro status, neurological services have been consulted as well for unclear reason Nimbex drip was not stopped last night as well as today we'll stop it tomorrow morning, in the meantime we will continue provide full support patient is no code, will give 40 mg of Lasix tonight keep him on the dry side 06/24/2020, patient seen eval examined during the rounds labs reviewed medica tions reviewed care plan discussed, patient desaturated this morning with a significant cuff leak requiring exchange of endotracheal tube, new endotracheal tube has been inserted by anesthesia it appears that mucous plug was causing one supine position obstruction in ET tube, patient is getting good volumes now, oxygen saturation went down into 70s now slowly coming up currently is about 86- 88%, patient remains on full ventilator support PEEP is increased to 17, rate is 34 tidal volume is 550 with 100% oxygen, patient is gently being hydrated adequate urine output is present, chest x-ray from earlier this morning posterior reintubation reviewed, arterial blood gas reveals pH is 7.34 pCO2 of 81 O2 66, patient is permitted to do hyper pervasive hypercapnia, labs reviewed white cell count remains stable 15,600 with hemoglobin 12 and 30 and platelet count of 390,000, patient has been intubated for over 2 weeks Will discuss with daughter about further plan of care including trach and PEG likely early to mid next week, patient remains on tube feed along with propofol and Nimbex drip for medical paralysis will prone him this afternoon keep him prone 16-18 hours 06/23/2020, patient seen eval examined during the rounds labs reviewed medications reviewed care plan discussed, patient remains on supine posture oxygen saturation 92%, plan to decrease his saturation to 90% FiO2, hemodynamic status stable adequate urine output is present patient remains on steroids anticoagulation, when setting includes assist control rate of 34 tidal volume of 515 of PEEP 100% oxygen, patient remains medically paralyze and sedated on propofol and Nimbex drip, 06/22/2020, patient seen eval examined during the rounds labs reviewed medications reviewed care plan discussed with the staff at length, patient remained prone almost for 24 hours oxygen saturation slightly better now 90% current vent settings include assist control rate of 34 tidal volume 500, PEEP is 15, oxygen is 100%, remains medically paralyze with the Nimbex of 3 and a propofol of 50 mics, chest x-ray not yet done has been prone, white cell count is up to 17,000 hemoglobin and hematocrit remained stable platelet count is stable, arterial blood gas revealed pH of 7.29 pCO2 of 90 with pO2 of 64, CO2 is up in the serum was 42, renal functions stable adequate urine output is done, patient remains on tube feed, noted that CO2 is progressively getting high due to membrane diffusion defect and ARDS, with respiratory acidosis, care plan discussed with primary service as well as infectious disease has been consulted, patient to be evaluated for monoclonal antibody therapy, patient however already received convulsant plasma along with IV REMdesivir 06/21/2020, patient seen eval examined during the rounds labs reviewed medica tions reviewed care plan discussed, patient is supine on Nimbex drip and propofol drip which is being tapered, still on tube feed full ventilator support PEEP of 15 with respiratory rate of 34 oxygen saturation supine posture is 86- 88% on 100% oxygen, but is adequate gently being rehydrated, started today reviewed pH is 7.38 pCO2 70 pO2 51 not much change compared to prior arterial blood gases white cell count is 16,000, prognosis is very guarded with likelihood of recovery is poor 06/20/2020, patient seen and evaluated examined during the rounds labs reviewed medications reviewed care plan discussed with the staff at length, also discussed with daughter at length about prognosis and further plan of care of the patient, patient continued do not very well, continued to be hypoxic sets now have been dropped to 70s on 100% oxygen PEEP of 15 rate of 34 tidal volume of 500, patient was unable to be prone today due to extensive swelling as well as some tissue breakdown, total CKs elevated, continued to have intermittent low-grade fevers, patient remain in medical paralysis with propofol and Nimbex drip, have been reduced to 4 mics, propofol reduced to 30, last ABG revealed pH of 7.4 to pCO2 of 62 pO2 of only 43, discussed with daughter about poor prognosis, chest x-ray continue show bilateral diffuse infiltrate and edema no significant change, ET tube and OG tube was stable, patient continued to get to feed, over albumin noted to be very low likely indicated above very severe meenakshi bolic state 06/19/2020, patient seen eval examined during the rounds remain on full ventilator support discussed with nurse about decreasing the propofol using Ativan as needed, continue Nimbex for medical paralysis, patient remained supine for 16 hours a day saturation is just a 88-90% on 100% oxygen with PEEP of 15, hemodynamic status stable, patient remains on same setting with assist control mode labs reviewed medications reviewed 06/18/2020, patient seen eval examined during the rounds labs reviewed medications reviewed care plan discussed with him with the staff, patient remains prone, medically paralyze with propofol and then next, discussed to decrease the amount of propofol due to 20-30, chest x-ray remains stable, patient is on full ventilator support with PEEP of 15, assist control rate of 34 500 tidal volume and FiO2 100% saturation is 88, urine output is adequate patient remains on tube feed when prone, remains on dexamethasone along with Lovenox, 06/17/2020, patient seen eval examined during the rounds labs reviewed medications reviewed, patient remains on prone positioning on 100% oxygen, remains on assist control mode, PEEP of 15, rate of 34, chest x-ray performed today continue show bilateral diffuse pneumonia patient remains sedated and medically paralyze with propofol and Nimbex drip to feed when he is supine, meeting goals of calories, arterial blood gases reviewed pH is improved now 7.4 pCO2 61 pO2 53, urine creatinine is 34.53, LDH remains high over 1999 consistent with acute inflammatory ongoing response, fever Petrin is down, long-term prognosis poor June 16 2020, patient seen eval examined during the rounds labs reviewed medications reviewed, patient remains a deeply sedated and medically paralyze, currently on Nimbex drip along with propofol 50 mics, current ventilator settings include assist control rate of 34 PEEP of 5 tidal volume of 500 100% oxygen, oxygen saturation are barely 88%, discussed with the daughter at length, patient and daughter finally decided to make him no code, however continue to provide supportive care and therapy, chest x-ray overall not much change labs reviewed patient has been prone for 16 hours a day 06/15/2020, patient seen eval examined during the rounds labs reviewed medications reviewed, patient remains in prone positioning, white cell count remains as stable 19,000, arterial blood gas noted to have been improved as pH is 7.38 pCO2 Page and pO2 56, renal functions are normal, hemoglobin stable, last chest x-ray yesterday remains stable rate have been increased to 30 06/14/2020, patient seen eval reexamined during the rounds remains in prone positioning, oxygenation is better 88-90% with that however on supine posture drop down to mid to low 70s, patient remains on high PEEP high ventilator support, currently on PEEP of 15, tidal volume of 500, FiO2 100% assist control mode, sedated and medically paralyze, labs reviewed medications reviewed critical care time spent 35 minutes 06/13/2020, patient seen eval examined during the rounds labs reviewed medications reviewed care plan discussed, patient remains prone oxygen saturation 92%, arterial blood gas from this morning reviewed severe diffusion impairment is present with rising CO2 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 and m embrane diffusion impairment, patient has been hemodynamically stable though, chest x-ray and labs reviewed CO2 continued to rise, will increase her respiratory rate to 28, 06/12/2020, patient seen eval examined during the rounds labs reviewed medications reviewed care plan discussed, patient is supine saturation is 92% he is on 100% oxygen with full respirator support, ABG from this morning reviewed, patient has significant diffusion impairment with high CO2 however pH is stable, hemodynamic status stable remains on propofol as well as Nimbex drip, labs reviewed medications reviewed chest x-ray reviewed as well essentially no significant change bilateral dense infiltrate the bases remains unchanged patient does relatively better with improve oxygenation in prone positioning however does very poorly and supine posture, we will attempt to keep prone as much as possible, cultures no growth so far, labs included chemistry and CBC reviewed in phlegm atrial parameters remains up suggestive of ongoing cytokine Camila 06/11/2020, patient seen and evaluated examined while supine oxygen saturation dropped down into mid 70s, however when prone patient was saturating low 90s, 100% oxygen, stable when setting, propofol infusion escalated to 40 mics, Nimbex on for mics, been setting however is stable assist control with 100% oxygen chest x-ray reviewed and essentially no change labs reviewed as, sodium is going up, we'll start free water with the tube feeding, inflammatory parameters rev iewed consistent with cytokine Camila of covid 19 pneumonia 06/10/2020, patient seen eval examined during the rounds care plan discussed with the staff at length labs and medications reviewed, hemodynamic status stable oxygen saturation remains marginal 90% 100% oxygen, patient is prone for 16 hours will be back supine around 11x-ray will be performed, sedated and medically paralyze with propofol and Nimbex drip, every feed is being given when he is supine, chest x-ray showed bilateral dense infiltrate arterial blood gases reviewed consistent with compensated hypercapnia and respiratory acidosis significant of diffusion impairment, patient is status post convalescent plasma 06/09/2020, patient seen eval examined during the rounds labs reviewed medications reviewed care plan discussed, patient is chest x-ray is not done as patient has been prone plan is to keep him prone for 16 hours, once on his back will do the chest x-ray, patient ended up being intubated for respiratory distress worsening agitation and anxiety currently patient is on propofol and medically paralyze with Nimbex drip, FiO2 is 100% PEEP of 8 tidal volume 400 which has been adjusted for hypercapnia and hypoventilation, respiratory rate is 20, the white cell count is 16,000, d-dimer is 34, ABG suggestive of respiratory acidosis, , inflammatory parameters remains elevated sister of ongoing cytokine camila, patient remains on Remdesivir, Decadron, will get convalescent plasma as well Ammann continue prone positioning 06/08/2020, patient seen and evaluated reexamined on selective care remains agitated anxious respiratory rate into 60s saturation dropped down to 80-85%, patient tachypneic tachycardic difficult to control with a staph agitated behavior, arterial blood gas done pO2 dropped down to 46 only patient is showing respiratory and metabolic acidosis, will transfer to the ICU intubated and start patient on propofol may need to medically paralyze him with cisatracurium, postintubation was prone the patient for 16 hour as tolerated, post intubation chest x-ray reviewed ET tube just right at the mariajose will pull out 2 cm 06/08/2020, patient seen eval reexamined during the rounds remains tachypneic tachycardic but however saturation is 9888-90% on 100% oxygen and BiPAP currently on 03/03, patient today could not be placed in prone positioning, arterial blood gas reviewed pH is 7.43 pCO2 39 pO2 59, pO2 slightly up now compared to 2 days ago compared, we'll decrease the Decadron to 6 mg daily new other management June 07 2020, patient seen eval examined during the rounds labs reviewed me dications reviewed care plan discussed, cough congestion is improved, patient is hemodynamically stable, continued to be tachypneic currently supine on BiPAP oxygen saturation is 88% on 100% oxygen, discussed with nursing staff to semi- prone him again patient dated 7-8 hours last night, white cell count is down, patient remains on Decadron along with IV REM doesn't wear, morphine and Ativan is on hold due to somnolence, patient did well with Haldol all last night, 06/06/2020, patient seen and evaluated examined during the rounds labs reviewed medications reviewed care plan discussed with the staff at length involving both medical floor and selective care critical care, patient continued to be intermittently agitated, does not keep the oxygen or BiPAP on his face, remains a problem with possible delirium or withdrawal, Ativan half a milligram tried, which seems to be helping but however agitated his agitation has been continuous, I have tried hold all this seems to be helping able to put patient some prone with that oxygen saturation improved to 95% with BiPAP off 100% oxygen, will continue Decadron, REM does ever, and IV antibiotics and sputum for culture as well repeat chest x-ray and arterial blood gases reviewed as well no significant change in next day has been noted, ABG suggestive of significant hypoxia, noted that he renal functions have improved This is a 65-year-old male who has a history of extensive smoking and nicotine use, patient presented into the emergency department with progressive increasing shortness of breath and nonproductive cough, he was hypoxic with low oxygen saturation, no sputum production, his code at 19 test came back positive, in the ER he was noted to have a low blood pressure of 104/65, patient was hypoxic with room air oxygen saturation of only 83%, low-grade temperature of 99.3 his present, he was also noted to have acute injury of the kidneys that BUN/creatinine of 32 and 1.29, his inflammatory parameters were elevated with ferritin level of over 1200, LDH of over 1400, C-reactive protein of 176, pro calcitonin noted to be elevated up 0.21, chest x-ray noted to have bilateral airspace disease, patient was admitted to medical floor where he was noted to have oxygen saturation marginal and eventually FiO2 went up to 15 L high flow oxygen his blood culture no growth so far Objective - Vital Signs Vital signs: Vital Signs Temp 98.7 F 06/26/20 12:00 Pulse 70 06/26/20 14:00 Resp 34 H 06/26/20 14:00 BP 130/60 06/26/20 14:00 Pulse Ox 89 L 06/26/20 14:00 Intake & Output 06/25/20 06/26/20 06/26/20 18:59 06:59 18:59 Intake Total 2562.320 2423.414 1418.394 Output Total 805 2470 710 Balance 1757.320 -46.586 708.394 Weight 113.1 kg Intake: IV 1200 1200 800 Sodium Chloride 0.9% 1, 1200 1200 800 000 ml @ 100 mls/hr IV . Q10H [facility] Rx#:[id number] Intake, IV Titration 758.320 683.414 240.394 Amount Cisatracurium 200 mg In 377.454 383.414 240.394 Sodium Chloride 0.9% 180 ml @ 1 MCG/KG/MIN 4.62 mls/hr IV .Q24H [facility] Rx#: [id number] propofoL 1,000 mg In 380.866 300 Empty Bag 1 bag @ Titrate IV .Q0M [facility] Rx#: [id number] Tube Feeding 484 540 318 Other 120 60 Output: Urine 805 2470 710 Other: Voiding Method Indwelling Catheter Indwelling Catheter Indwelling Catheter - Exam - Constitutional General appearance: average body habitus, intubated on Nimbex and propofol - Neck Carotids: bilateral: upstroke normal - Respiratory Respiratory: bilateral: diminished - Cardiovascular Rhythm: regular Heart sounds: normal: S1, S2 - Gastrointestinal General gastrointestinal: normal bowel sounds, soft - Neurologic Neurologic: Agitated delirium is stable due to medical paralysis - Musculoskeletal Musculoskeletal:strength equal bilaterally - Psychiatric Psychiatric: Agitated delirium is is stable due to medical paralysis - Labs CBC & Chem 7: 06/26/20 06:00 06/26/20 04:22 Labs: Abnormal Lab Results - Last 24 Hours (Table) 06/25/20 06/25/20 06/26/20 Range/Units 17:41 23:19 04:22 WBC (3.8-10.6) k/uL RBC (4.30-5.90) m/uL Hgb (13.0-17.5) gm/dL Hct (39.0-53.0) % Neutrophils # (Manual) (1.3-7.7) k/uL Lymphocytes # (Manual) (1.0-4.8) k/uL Metamyelocytes # (Man) (0) k/uL Myelocytes # (Manual) (0) k/uL ABG pCO2 (35-45) mmHg ABG pO2 (83-108) mmHg ABG HCO3 (21-25) mmol/L ABG Total CO2 (19-24) mmol/L ABG O2 Saturation (94-97) % Carbon Dioxide 40 H (22-30) mmol/L BUN 27 H (9-20) mg/dL Creatinine 0.31 L (0.66-1.25) mg/dL Glucose 122 H (74-99) mg/dL POC Glucose (mg/dL) 144 H 122 H (75-99) mg/dL Calcium 7.6 L (8.4-10.2) mg/dL Total Protein 5.1 L (6.3-8.2) g/dL Albumin 2.0 L (3.5-5.0) g/dL 06/26/20 06/26/20 06/26/20 Range/Units 04:47 05:25 06:00 WBC 11.5 H (3.8-10.6) k/uL RBC 3.70 L (4.30-5.90) m/uL Hgb 11.6 L (13.0-17.5) gm/dL Hct 36.0 L (39.0-53.0) % Neutrophils # (Manual) 10.30 H (1.3-7.7) k/uL Lymphocytes # (Manual) 0.35 L (1.0-4.8) k/uL Metamyelocytes # (Man) 0.46 H (0) k/uL Myelocytes # (Manual) 0.12 H (0) k/uL ABG pCO2 69 H (35-45) mmHg ABG pO2 55 L* (83-108) mmHg ABG HCO3 44 H* (21-25) mmol/L ABG Total CO2 46 H (19-24) mmol/L ABG O2 Saturation 88.7 L (94-97) % Carbon Dioxide (22-30) mmol/L BUN (9-20) mg/dL Creatinine (0.66-1.25) mg/dL Glucose (74-99) mg/dL POC Glucose (mg/dL) 123 H (75-99) mg/dL Calcium (8.4-10.2) mg/dL Total Protein (6.3-8.2) g/dL Albumin (3.5-5.0) g/dL 06/26/20 06/26/20 Range/Units 11:22 11:53 WBC (3.8-10.6) k/uL RBC (4.30-5.90) m/uL Hgb (13.0-17.5) gm/dL Hct (39.0-53.0) % Neutrophils # (Manual) (1.3-7.7) k/uL Lymphocytes # (Manual) (1.0-4.8) k/uL Metamyelocytes # (Man) (0) k/uL Myelocytes # (Manual) (0) k/uL ABG pCO2 (35-45) mmHg ABG pO2 (83-108) mmHg ABG HCO3 (21-25) mmol/L ABG Total CO2 (19-24) mmol/L ABG O2 Saturation (94-97) % Carbon Dioxide (22-30) mmol/L BUN (9-20) mg/dL Creatinine (0.66-1.25) mg/dL Glucose (74-99) mg/dL POC Glucose (mg/dL) 140 H 111 H (75-99) mg/dL Calcium (8.4-10.2) mg/dL Total Protein (6.3-8.2) g/dL Albumin (3.5-5.0) g/dL Assessment and Plan Assessment: ARDS due to Covid 19 pneumonia Severe sepsis Acute hypoxic respiratory failure on ventilator with full vent support, oxygenation continued to be marginal up to lately high 80s to 90 even on in prone positioning however desats to high 80s in supine posture lately Respiratory acidosis, ventilator being adjusted, see orders for detail Covid 19 pneumonia Agitated delirium alternating with somnolence status post medical paralysis and sedation with propofol and Nimbex drip Acute kidney injury, renal functions improved Prognosis poor Plan: Continue, tube feed Observe off of Nimbex drip Ventilator adjustment as needed Medical Sedation with propofol, as per discussion with daughter and son-in-law will observe off of Nimbex Neurology has been consulted prone position as much as possible preferably 16 hours to 20 hours every day Will again to prone positioning today Continue keep saturation over 85-90% IV Solu-Medrol every 6 60 mg for next few days and eventually will bring it down to Decadron every 12 hour Tube feeding IV Remdesivir for 5 days finished Status post convalescent plasma finished Prognosis guarded with likelihood of recovery poor We'll discuss with the daughter about tracheostomy and PEG next week Time with Patient: Greater than 30
[2020-06-26 17:45] LABS: Glucose,Whole Blood 113 mg/dL (75-99)
[2020-06-27 00:35] LABS: Glucose,Whole Blood 107 mg/dL (75-99)
[2020-06-27] MEDS: ARTIFICIAL TEARS-HYPROMELLOSE DROPS 15 ML BTL BOTH EYES SCH ×5 (00:54→16:08)
[2020-06-27] MEDS: INSULIN ASPART (NovoLOG) 100 UNIT/ML VIAL SQ SCH ×3 (00:55→13:00)
[2020-06-27] MEDS: methylPREDNISolone SOD SUCCI 125 MG/2 ML VIAL IV SCH ×3 (00:58→12:41)
[2020-06-27 05:02] LABS: ABG Base Excess 16.8 mmol/L; ABG PCO2 69 mmHg (35-45); ABG PH 7.39 (7.35-7.45); ABG TCO2 44 mmol/L (19-24); Allen Test Performed? Yes
[2020-06-27 05:04] LABS: ABG PO2 55 mmHg (83-108)
[2020-06-27 05:12] LABS: Basophils # (A) 0.1 k/uL (0-0.2); Basophils % (A) 0 %; Eosinophils # (A) 0.1 k/uL (0-0.7); Eosinophils % (A) 1 %; HCT 37.8 % (39.0-53.0); HGB 11.6 gm/dL (13.0-17.5); Hypochromasia Slight; Lymphocytes # (A) 0.5 k/uL (1.0-4.8); Lymphocytes % (A) 4 %; MCHC 30.8 g/dL (31.0-37.0); MCV 97.4 fL (80.0-100.0); Macrocytosis Slight; Mean Platelet Volume 8.6; Monocytes # (A) 0.3 k/uL (0-1.0); Monocytes % (A) 2 %; Neutrophils # (A) 11.8 k/uL (1.3-7.7); Neutrophils % (A) 92 %; Platelet Count 391 k/uL (150-450); RBC 3.88 m/uL (4.30-5.90); RDW 15.5 % (11.5-15.5); WBC 12.8 k/uL (3.8-10.6)
[2020-06-27 05:15] VITALS: TEMP 98.5
[2020-06-27 05:22] LABS: ALT 40 U/L (4-49); AST 34 U/L (17-59); African American GFR (CKD) >90 (>60 ml/min/1.73 sqM); Albumin 2.1 g/dL (3.5-5.0); Alkaline Phosphatase 64 U/L (38-126); Blood Urea Nitrogen 24 mg/dL (9-20); Calcium 7.9 mg/dL (8.4-10.2); Chloride 101 mmol/L (98-107); Glucose 119 mg/dL (74-99); Non-African American GFR(CKD) >90 (>60 ml/min/1.73 sqM); Potassium 4.5 mmol/L (3.5-5.1); Sodium 139 mmol/L (137-145); Total Bilirubin 0.6 mg/dL (0.2-1.3); Total Protein 5.2 g/dL (6.3-8.2)
[2020-06-27 05:28] LABS: Anion Gap -3 mmol/L
[2020-06-27 05:33] LABS: Carbon Dioxide 41 mmol/L (22-30)
[2020-06-27] MEDS: SODIUM CHLORIDE 0.9% 1,000 ML IV SCH ×2 (05:49→17:10)
[2020-06-27 06:04] LABS: Glucose,Whole Blood 112 mg/dL (75-99)
--- NOTE | 2020-06-27 07:22 | XR ---
EXAMINATION TYPE: XR chest 1V portable DATE OF EXAM: 06/27/2020 CLINICAL HISTORY: Difficulty breathing progress study. TECHNIQUE: Single AP portable semiupright view of the chest is obtained. COMPARISON: Chest x-ray from 3 days earlier and older studies. FINDINGS: Stable left-sided PICC line. Stable endotracheal and orogastric tubes. Cardiac silhouette size is stable and within normal limits. Reticular and reticulonodular opacities b ilaterally with more dense consolidation in the bases is redemonstrated. No pneumothorax noted bilate rally. Old fracture deformity left mid clavicle redemonstrated. Left lateral lung base not completely imaged on this study. IMPRESSION: Bilateral multifocal infiltrates and/or edema redemonstrated greatest in the bases. No si gnificant change from one day earlier.
--- NOTE | 2020-06-27 08:33 | P.PN ---
Subjective Principal diagnosis: Respiratory distress. The patient has had poor progress over the weekend. The patient is now been transferred ICU due to worsening respiratory failure. Pneumonia-coronavirus treatment is continuing. Appreciate pulmonary/photographic double input. The patient has not been improving as anticipated given the treatment that he has had. Poor respiratory improvement The patient continues to have minimal improvement. appreciate consultants input. Last week had discussion with daughter. Slow improvement. Objective - Vital Signs Vital signs: Vital Signs Temp 98.6 F 06/26/20 04:00 Pulse 73 06/26/20 07:00 Resp 34 H 06/26/20 07:00 BP 132/57 06/26/20 07:00 Pulse Ox 88 L 06/26/20 07:00 Intake & Output 06/25/20 06/26/20 06/26/20 18:59 06:59 18:59 Intake Total 2562.320 2323.414 145 Output Total 805 2470 50 Balance 1757.320 -146.586 95 Weight 113.1 kg Intake: IV 1200 1200 100 Sodium Chloride 0.9% 1, 1200 1200 100 000 ml @ 100 mls/hr IV . Q10H [facility] Rx#:[id number] Intake, IV Titration 758.320 583.414 Amount Cisatracurium 200 mg In 377.454 383.414 Sodium Chloride 0.9% 180 ml @ 1 MCG/KG/MIN 4.62 mls/hr IV .Q24H [facility] Rx#: [id number] propofoL 1,000 mg In 380.866 200 Empty Bag 1 bag @ Titrate IV .Q0M [facility] Rx#: [id number] Tube Feeding 484 540 45 Other 120 Output: Urine 805 2470 50 Other: Voiding Method Indwelling Catheter Indwelling Catheter - Constitutional General appearance: Present: no acute distress - EENT Eyes: Absent: abnormal pupil - Neck Neck: Absent: lymphadenopathy - Respiratory Respiratory: bilateral: diminished - Cardiovascular Rhythm: regular Heart sounds: normal: S1, S2 Abnormal Heart Sounds: Absent: S3 Gallop - Gastrointestinal General gastrointestinal: Present: soft. Absent: tenderness - Integumentary Integumentary: Absent: cellulitis - Psychiatric Psychiatric: Absent: A&O x's 3, appropriate affect - Labs CBC & Chem 7: 06/26/20 06:00 06/26/20 04:22 Labs: Abnormal Lab Results - Last 24 Hours (Table) 06/22/20 06/25/20 06/25/20 Range/Units 05:02 11:42 17:41 WBC (3.8-10.6) k/uL RBC (4.30-5.90) m/uL Hgb (13.0-17.5) gm/dL Hct (39.0-53.0) % Neutrophils # (Manual) (1.3-7.7) k/uL Lymphocytes # (Manual) (1.0-4.8) k/uL Metamyelocytes # (Man) (0) k/uL Myelocytes # (Manual) (0) k/uL ABG pCO2 (35-45) mmHg ABG pO2 (83-108) mmHg ABG HCO3 43 H* (21-25) mmol/L ABG Total CO2 (19-24) mmol/L ABG O2 Saturation (94-97) % Carbon Dioxide (22-30) mmol/L BUN (9-20) mg/dL Creatinine (0.66-1.25) mg/dL Glucose (74-99) mg/dL POC Glucose (mg/dL) 101 H 144 H (75-99) mg/dL Calcium (8.4-10.2) mg/dL Total Protein (6.3-8.2) g/dL Albumin (3.5-5.0) g/dL 06/25/20 06/26/20 06/26/20 Range/Units 23:19 04:22 04:47 WBC (3.8-10.6) k/uL RBC (4.30-5.90) m/uL Hgb (13.0-17.5) gm/dL Hct (39.0-53.0) % Neutrophils # (Manual) (1.3-7.7) k/uL Lymphocytes # (Manual) (1.0-4.8) k/uL Metamyelocytes # (Man) (0) k/uL Myelocytes # (Manual) (0) k/uL ABG pCO2 69 H (35-45) mmHg ABG pO2 55 L* (83-108) mmHg ABG HCO3 44 H* (21-25) mmol/L ABG Total CO2 46 H (19-24) mmol/L ABG O2 Saturation 88.7 L (94-97) % Carbon Dioxide 40 H (22-30) mmol/L BUN 27 H (9-20) mg/dL Creatinine 0.31 L (0.66-1.25) mg/dL Glucose 122 H (74-99) mg/dL POC Glucose (mg/dL) 122 H (75-99) mg/dL Calcium 7.6 L (8.4-10.2) mg/dL Total Protein 5.1 L (6.3-8.2) g/dL Albumin 2.0 L (3.5-5.0) g/dL 06/26/20 06/26/20 Range/Units 05:25 06:00 WBC 11.5 H (3.8-10.6) k/uL RBC 3.70 L (4.30-5.90) m/uL Hgb 11.6 L (13.0-17.5) gm/dL Hct 36.0 L (39.0-53.0) % Neutrophils # (Manual) 10.30 H (1.3-7.7) k/uL Lymphocytes # (Manual) 0.35 L (1.0-4.8) k/uL Metamyelocytes # (Man) 0.46 H (0) k/uL Myelocytes # (Manual) 0.12 H (0) k/uL ABG pCO2 (35-45) mmHg ABG pO2 (83-108) mmHg ABG HCO3 (21-25) mmol/L ABG Total CO2 (19-24) mmol/L ABG O2 Saturation (94-97) % Carbon Dioxide (22-30) mmol/L BUN (9-20) mg/dL Creatinine (0.66-1.25) mg/dL Glucose (74-99) mg/dL POC Glucose (mg/dL) 123 H (75-99) mg/dL Calcium (8.4-10.2) mg/dL Total Protein (6.3-8.2) g/dL Albumin (3.5-5.0) g/dL Assessment and Plan (1) Hypoxia Current Visit: Yes Status: Acute Code(s): R09.02 - HYPOXEMIA SNOMED Code(s): 556925612 (2) Pneumonia due to COVID-19 virus Current Visit: Yes Status: Acute Code(s): U07.1 - COVID-19; J12.89 - OTHER VIRAL PNEUMONIA SNOMED Code(s): 029890658880301604 Plan: Unfortunately with his for improvement, and overall diagnosis, poor prognosis is noted. We'll continue to follow with pulmonology. Check CBC CMP and serial chest x-ray. Given his lack of improvement, and blood gas, prognosis is minimally improved
--- NOTE | 2020-06-27 08:42 | P.PN ---
Subjective Principal diagnosis: Respiratory distress. The patient has had poor progress over the weekend. The patient is now been transferred ICU due to worsening respiratory failure. Pneumonia-coronavirus treatment is continuing. Appreciate pulmonary/remarketing rep input. The patient has not been improving as anticipated given the treatment that he has had. Poor respiratory improvement The patient continues to have minimal to no improvement. appreciate consultants input. EEG is scheduled for today. He seems to be third spacing more Objective - Vital Signs Vital signs: Vital Signs Temp 98.5 F 06/27/20 04:00 Pulse 75 06/27/20 06:00 Resp 38 H 06/27/20 06:00 BP 155/66 06/27/20 06:00 Pulse Ox 86 L 06/27/20 06:00 Intake & Output 06/26/20 06/27/20 06/27/20 18:59 06:59 18:59 Intake Total 2153.260 1871.336 Output Total 1310 970 Balance 843.260 901.336 Intake: IV 1200 1200 Sodium Chloride 0.9% 1, 1200 1200 000 ml @ 100 mls/hr IV . Q10H [facility] Rx#:[id number] Intake, IV Titration 421.260 263.336 Amount Cisatracurium 200 mg In 240.394 Sodium Chloride 0.9% 180 ml @ 1 MCG/KG/MIN 4.62 mls/hr IV .Q24H [facility] Rx#: [id number] propofoL 1,000 mg In 180.866 263.336 Empty Bag 1 bag @ Titrate IV .Q0M [facility] Rx#: [id number] Tube Feeding 442 408 Other 90 Output: Urine 1310 970 Other: Voiding Method Indwelling Catheter Indwelling Catheter - Constitutional General appearance: Present: obese - EENT Eyes: Absent: abnormal pupil - Neck Neck: Absent: lymphadenopathy - Respiratory Respiratory: bilateral: diminished - Cardiovascular Rhythm: regular Heart sounds: normal: S1, S2 Abnormal Heart Sounds: Absent: S3 Gallop - Gastrointestinal General gastrointestinal: Present: soft. Absent: tenderness - Integumentary Integumentary Comment(s): Edema is noted. - Labs CBC & Chem 7: 06/27/20 04:52 06/27/20 04:52 Labs: Abnormal Lab Results - Last 24 Hours (Table) 06/26/20 06/26/20 06/26/20 Range/Units 11:22 11:53 17:44 WBC (3.8-10.6) k/uL RBC (4.30-5.90) m/uL Hgb (13.0-17.5) gm/dL Hct (39.0-53.0) % MCHC (31.0-37.0) g/dL Neutrophils # (1.3-7.7) k/uL Lymphocytes # (1.0-4.8) k/uL ABG pCO2 (35-45) mmHg ABG pO2 (83-108) mmHg ABG HCO3 (21-25) mmol/L ABG Total CO2 (19-24) mmol/L ABG O2 Saturation (94-97) % Carbon Dioxide (22-30) mmol/L BUN (9-20) mg/dL Creatinine (0.66-1.25) mg/dL Glucose (74-99) mg/dL POC Glucose (mg/dL) 140 H 111 H 113 H (75-99) mg/dL Calcium (8.4-10.2) mg/dL Total Protein (6.3-8.2) g/dL Albumin (3.5-5.0) g/dL 06/27/20 06/27/20 06/27/20 Range/Units 00:23 04:41 04:52 WBC 12.8 H (3.8-10.6) k/uL RBC 3.88 L (4.30-5.90) m/uL Hgb 11.6 L (13.0-17.5) gm/dL Hct 37.8 L (39.0-53.0) % MCHC 30.8 L (31.0-37.0) g/dL Neutrophils # 11.8 H (1.3-7.7) k/uL Lymphocytes # 0.5 L (1.0-4.8) k/uL ABG pCO2 69 H (35-45) mmHg ABG pO2 55 L* (83-108) mmHg ABG HCO3 42 H* (21-25) mmol/L ABG Total CO2 44 H (19-24) mmol/L ABG O2 Saturation 88.0 L (94-97) % Carbon Dioxide (22-30) mmol/L BUN (9-20) mg/dL Creatinine (0.66-1.25) mg/dL Glucose (74-99) mg/dL POC Glucose (mg/dL) 107 H (75-99) mg/dL Calcium (8.4-10.2) mg/dL Total Protein (6.3-8.2) g/dL Albumin (3.5-5.0) g/dL 06/27/20 06/27/20 Range/Units 04:52 06:01 WBC (3.8-10.6) k/uL RBC (4.30-5.90) m/uL Hgb (13.0-17.5) gm/dL Hct (39.0-53.0) % MCHC (31.0-37.0) g/dL Neutrophils # (1.3-7.7) k/uL Lymphocytes # (1.0-4.8) k/uL ABG pCO2 (35-45) mmHg ABG pO2 (83-108) mmHg ABG HCO3 (21-25) mmol/L ABG Total CO2 (19-24) mmol/L ABG O2 Saturation (94-97) % Carbon Dioxide 41 H* (22-30) mmol/L BUN 24 H (9-20) mg/dL Creatinine 0.32 L (0.66-1.25) mg/dL Glucose 119 H (74-99) mg/dL POC Glucose (mg/dL) 112 H (75-99) mg/dL Calcium 7.9 L (8.4-10.2) mg/dL Total Protein 5.2 L (6.3-8.2) g/dL Albumin 2.1 L (3.5-5.0) g/dL Assessment and Plan (1) Hypoxia Current Visit: Yes Status: Acute Code(s): R09.02 - HYPOXEMIA SNOMED Code(s): 290832135 (2) Pneumonia due to COVID-19 virus Current Visit: Yes Status: Acute Code(s): U07.1 - COVID-19; J12.89 - OTHER VIRAL PNEUMONIA SNOMED Code(s): 361865996495695106 Plan: Unfortunately with his for improvement, and overall diagnosis, poor prognosis is noted. EEG is pending for today. We'll continue to follow.
[2020-06-27] MEDS: ENOXAPARIN 40 MG/0.4 ML SYRINGE SQ SCH (09:20)
[2020-06-27] MEDS: CHLORHEXIDINE GLUCONATE 15 ML CUP MUCOUS MEM SCH (09:20)
[2020-06-27] MEDS: PANTOPRAZOLE 40 MG/10 ML VIAL IVP SCH (09:22)
[2020-06-27] MEDS: ZINC SULFATE 220 MG CAP PO SCH (09:22)
[2020-06-27] MEDS: ASCORBIC ACID 500 MG TAB PO SCH (09:22)
[2020-06-27] MEDS: DOCUSATE ORAL SOLN 100 MG/10 ML CUP PO SCH (09:23)
--- NOTE | 2020-06-27 11:28 | P.PN ---
Subjective Progress Note Date: 06/27/20 Principal diagnosis: Acute hypoxic respiratory failure status post intubation Covid 19 pneumonia Acute kidney injury Dehydration and volume depleted state Confusion and agitated delirium Possible alcohol withdrawal 06/27/2020, patient seen eval reexamined care plan discussed with the staff at length, patient continued to have problem with significant air leak however ET t ube has been readjusted, patient is off of Nimbex status post EEG will keep it off ventilator changes are not done, patient remains very hypoxic on prone 100% oxygen saturation is mid 80s does desaturate into 70s and supine, labs reviewed medications reviewed, propofol still on board for comfort and ease for respirator, awaiting further advice from the family family has refused trach and PEG however 06/26/2020, patient seen and evaluated examined care plan discussed with staff at length, patient has been on Nimbex and propofol, this morning Nimbex drip has been discontinued neurology is evaluating the patient, Nimbex was discontinued yesterday for couple of hours however patient is started having agitation along with tachypnea so was resumed, patient remains on full ventilator support with assist control of rate of 34 tidal volume of 500, PEEP is 17 with 100% oxygen patient is prone saturation of only 85-88% hemodynamically he is stable though medications reviewed laboratory data reviewed awaiting further evaluation from neurology service and decision making from the family overall prognosis remains poor 06/25/2020, patient seen and evaluated examined labs reviewed medications re viewed radiographic studies reviewed as well patient remains on Nimbex drip as well as propofol medically paralyze, remains on full ventilator support assist- control PEEP of 17 tidal volume of 500 with 100% oxygen patient has been prone until this afternoon he supine saturation is 89%, arterial blood gas performed this morning revealed pH of 7.4 to pCO2 67 pO2 55, chest x-ray has not been done today, he remains anticoagulation with Lovenox along with IV Solu-Medrol, patient will be prone that again midnight tonight, I have discussed further plan of care with the son-in-law as well as daughter they are not in agreement with trach and PEG, they want to see off of Nimbex drip neuro status, neurological services have been consulted as well for unclear reason Nimbex drip was not stopped last night as well as today we'll stop it tomorrow morning, in the meantime we will continue provide full support patient is no code, will give 40 mg of Lasix tonight keep him on the dry side 06/24/2020, patient seen eval examined during the rounds labs reviewed medications reviewed care plan discussed, patient desaturated this morning with a significant cuff leak requiring exchange of endotracheal tube, new endotracheal tube has been inserted by anesthesia it appears that mucous plug was causing one supine position obstruction in ET tube, patient is getting good volumes now, oxygen saturation went down into 70s now slowly coming up currently is about 86-88%, patient remains on full ventilator support PEEP is increased to 17, rate is 34 tidal volume is 550 with 100% oxygen, patient is gently being hydrated adequate urine output is present, chest x-ray from earlier this morning posterior reintubation reviewed, arterial blood gas reveals pH is 7.34 pCO2 of 81 O2 66, patient is permitted to do hyper pervasive hypercapnia, labs reviewed white cell count remains stable 15,600 with hemoglobin 12 and 30 and platelet count of 390,000, patient has been intubated for over 2 weeks Will discuss with daughter about further plan of care including trach and PEG likely early to mid next week, patient remains on tube feed along with propofol and Nimbex drip for medical paralysis will prone him this afternoon keep him prone 16-18 hours 06/23/2020, patient seen eval examined during the rounds labs reviewed medications reviewed care plan discussed, patient remains on supine posture oxygen saturation 92%, plan to decrease his saturation to 90% FiO2, hemodynamic status stable adequate urine output is present patient remains on steroids anticoagulation, when setting includes assist control rate of 34 tidal volume of 515 of PEEP 100% oxygen, patient remains medically paralyze and sedated on prop ofol and Nimbex drip, 06/22/2020, patient seen eval examined during the rounds labs reviewed medica tions reviewed care plan discussed with the staff at length, patient remained prone almost for 24 hours oxygen saturation slightly better now 90% current vent settings include assist control rate of 34 tidal volume 500, PEEP is 15, oxygen is 100%, remains medically paralyze with the Nimbex of 3 and a propofol of 50 mics, chest x-ray not yet done has been prone, white cell count is up to 17,000 hemoglobin and hematocrit remained stable platelet count is stable, arterial blood gas revealed pH of 7.29 pCO2 of 90 with pO2 of 64, CO2 is up in the serum was 42, renal functions stable adequate urine output is done, patient remains on tube feed, noted that CO2 is progressively getting high due to membrane diffusion defect and ARDS, with respiratory acidosis, care plan discussed with primary service as well as infectious disease has been consulted, patient to be evaluated for monoclonal antibody therapy, patient however already received convulsant plasma along with IV REMdesivir 06/21/2020, patient seen eval examined during the rounds labs reviewed medications reviewed care plan discussed, patient is supine on Nimbex drip and propofol drip which is being tapered, still on tube feed full ventilator support PEEP of 15 with respiratory rate of 34 oxygen saturation supine posture is 86- 88% on 100% oxygen, but is adequate gently being rehydrated, started today reviewed pH is 7.38 pCO2 70 pO2 51 not much change compared to prior arterial blood gases white cell count is 16,000, prognosis is very guarded with likelihood of recovery is poor 06/20/2020, patient seen and evaluated examined during the rounds labs reviewed medications reviewed care plan discussed with the staff at length, also discussed with daughter at length about prognosis and further plan of care of the patient, patient continued do not very well, continued to be hypoxic sets now have been dropped to 70s on 100% oxygen PEEP of 15 rate of 34 tidal volume of 500, patient was unable to be prone today due to extensive swelling as well as some tissue breakdown, total CKs elevated, continued to have intermittent low-grade fevers, patient remain in medical paralysis with propofol and Nimbex drip, have been reduced to 4 mics, propofol reduced to 30, last ABG revealed pH of 7.4 to pCO2 of 62 pO2 of only 43, discussed with daughter about poor prognosis, chest x-ray continue show bilateral diffuse infiltrate and edema no significant change, ET tube and OG tube was stable, patient continued to get to feed, over albumin noted to be very low likely indicated above very severe catabolic state 06/19/2020, patient seen eval examined during the rounds remain on full ventilator support discussed with nurse about decreasing the propofol using Ativan as needed, continue Nimbex for medical paralysis, patient remained supine for 16 hours a day saturation is just a 88-90% on 100% oxygen with PEEP of 15, hemodynamic status stable, patient remains on same setting with assist control mode labs reviewed medications reviewed 06/18/2020, patient seen eval examined during the rounds labs reviewed medications reviewed care plan discussed with him with the staff, patient remains prone, medically paralyze with propofol and then next, discussed to decrease the amount of propofol due to 20-30, chest x-ray remains stable, p atient is on full ventilator support with PEEP of 15, assist control rate of 34 500 tidal volume and FiO2 100% saturation is 88, urine output is adequate patient remains on tube feed when prone, remains on dexamethasone along with Lovenox, 06/17/2020, patient seen eval examined during the rounds labs reviewed medications reviewed, patient remains on prone positioning on 100% oxygen, remains on assist control mode, PEEP of 15, rate of 34, chest x-ray performed today continue show bilateral diffuse pneumonia patient remains sedated and medically paralyze with propofol and Nimbex drip to feed when he is supine, meeting goals of calories, arterial blood gases reviewed pH is improved now 7.4 pCO2 61 pO2 53, urine creatinine is 34.53, LDH remains high over 1999 consistent with acute inflammatory ongoing response, fever Petrin is down, long-term prognosis poor June 16 2020, patient seen eval examined during the rounds labs reviewed medications reviewed, patient remains a deeply sedated and medically paralyze, currently on Nimbex drip along with propofol 50 mics, current ventilator set tings include assist control rate of 34 PEEP of 5 tidal volume of 500 100% oxygen, oxygen saturation are barely 88%, discussed with the daughter at length, patient and daughter finally decided to make him no code, however continue to provide supportive care and therapy, chest x-ray overall not much change labs reviewed patient has been prone for 16 hours a day 06/15/2020, patient seen eval examined during the rounds labs reviewed medications reviewed, patient remains in prone positioning, white cell count remains as stable 19,000, arterial blood gas noted to have been improved as pH is 7.38 pCO2 Page and pO2 56, renal functions are normal, hemoglobin stable, last chest x-ray yesterday remains stable rate have been increased to 30 06/14/2020, patient seen eval reexamined during the rounds remains in prone positioning, oxygenation is better 88-90% with that however on supine posture d rop down to mid to low 70s, patient remains on high PEEP high ventilator support, currently on PEEP of 15, tidal volume of 500, FiO2 100% assist control mode, sedated and medically paralyze, labs reviewed medications reviewed critical care time spent 35 minutes 06/13/2020, patient seen eval examined during the rounds labs reviewed medications reviewed care plan discussed, patient remains prone oxygen saturation 92%, arterial blood gas from this morning reviewed severe diffusion impairment is present with rising CO2 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 and membrane diffusion impairment, patient has been hemodynamically stable though, chest x-ray and labs reviewed CO2 continued to rise, will increase her respiratory rate to 28, 06/12/2020, patient seen eval examined during the rounds labs reviewed medications reviewed care plan discussed, patient is supine saturation is 92% he is on 100% oxygen with full respirator support, ABG from this morning reviewed, patient has significant diffusion impairment with high CO2 however pH is stable, hemodynamic status stable remains on propofol as well as Nimbex drip, labs reviewed medications reviewed chest x-ray reviewed as well essentially no s ignificant change bilateral dense infiltrate the bases remains unchanged patient does relatively better with improve oxygenation in prone positioning however does very poorly and supine posture, we will attempt to keep prone as much as possible, cultures no growth so far, labs included chemistry and CBC reviewed in phlegm atrial parameters remains up suggestive of ongoing cytokine Camila 06/11/2020, patient seen and evaluated examined while supine oxygen saturation dropped down into mid 70s, however when prone patient was saturating low 90s, 100% oxygen, stable when setting, propofol infusion escalated to 40 mics, Nimbex on for mics, been setting however is stable assist control with 100% oxygen chest x-ray reviewed and essentially no change labs reviewed as, sodium is going up, we'll start free water with the tube feeding, inflammatory parameters reviewed consistent with cytokine Camila of covid 19 pneumonia 06/10/2020, patient seen eval examined during the rounds care plan discussed with the staff at length labs and medications reviewed, hemodynamic status stable oxygen saturation remains marginal 90% 100% oxygen, patient is prone for 16 hours will be back supine around 11x-ray will be performed, sedated and medically paralyze with propofol and Nimbex drip, every feed is being given when he is supine, chest x-ray showed bilateral dense infiltrate arterial blood gases reviewed consistent with compensated hypercapnia and respiratory acidosis significant of diffusion impairment, patient is status post convalescent plasma 06/09/2020, patient seen eval examined during the rounds labs reviewed medications reviewed care plan discussed, patient is chest x-ray is not done as patient has been prone plan is to keep him prone for 16 hours, once on his back will do the chest x-ray, patient ended up being intubated for respiratory distress worsening agitation and anxiety currently patient is on propofol and medically paralyze with Nimbex drip, FiO2 is 100% PEEP of 8 tidal volume 400 which has been adjusted for hypercapnia and hypoventilation, respiratory rate is 20, the white cell count is 16,000, d-dimer is 34, ABG suggestive of respiratory acidosis, , inflammatory parameters remains elevated sister of ongoing cytokine camila, patient remains on Remdesivir, Decadron, will get convalescent plasma as well Ammann continue prone positioning 06/08/2020, patient seen and evaluated reexamined on selective care remains agitated anxious respiratory rate into 60s saturation dropped down to 80-85%, patient tachypneic tachycardic difficult to control with a staph agitated beh avior, arterial blood gas done pO2 dropped down to 46 only patient is showing respiratory and metabolic acidosis, will transfer to the ICU intubated and start patient on propofol may need to medically paralyze him with cisatracurium, postintubation was prone the patient for 16 hour as tolerated, post intubation chest x-ray reviewed ET tube just right at the mariajose will pull out 2 cm 06/08/2020, patient seen eval reexamined during the rounds remains tachypneic tachycardic but however saturation is 9888-90% on 100% oxygen and BiPAP currently on 03/03, patient today could not be placed in prone positioning, arterial blood gas reviewed pH is 7.43 pCO2 39 pO2 59, pO2 slightly up now compared to 2 days ago compared, we'll decrease the Decadron to 6 mg daily new other management June 07 2020, patient seen eval examined during the rounds labs reviewed medications reviewed care plan discussed, cough congestion is improved, patient is hemodynamically stable, continued to be tachypneic currently supine on BiPAP oxygen saturation is 88% on 100% oxygen, discussed with nursing staff to semi-p hayley him again patient dated 7-8 hours last night, white cell count is down, patient remains on Decadron along with IV REM doesn't wear, morphine and Ativan is on hold due to somnolence, patient did well with Haldol all last night, 06/06/2020, patient seen and evaluated examined during the rounds labs reviewed medications reviewed care plan discussed with the staff at length involving both medical floor and selective care critical care, patient continued to be intermittently agitated, does not keep the oxygen or BiPAP on his face, remains a problem with possible delirium or withdrawal, Ativan half a milligram tried, which seems to be helping but however agitated his agitation has been belinda nuous, I have tried hold all this seems to be helping able to put patient some prone with that oxygen saturation improved to 95% with BiPAP off 100% oxygen, will continue Decadron, REM does ever, and IV antibiotics and sputum for culture as well repeat chest x-ray and arterial blood gases reviewed as well no significant change in next day has been noted, ABG suggestive of significant hypoxia, noted that he renal functions have improved This is a 65-year-old male who has a history of extensive smoking and nicotine use, patient presented into the emergency department with progressive increasing shortness of breath and nonproductive cough, he was hypoxic with low oxygen saturation, no sputum production, his code at 19 test came back positive, in the ER he was noted to have a low blood pressure of 104/65, patient was hypoxic with room air oxygen saturation of only 83%, low-grade temperature of 99.3 his present, he was also noted to have acute injury of the kidneys that BUN/creatinine of 32 and 1.29, his inflammatory parameters were elevated with ferritin level of over 1200, LDH of over 1400, C-reactive protein of 176, pro calcitonin noted to be elevated up 0.21, chest x-ray noted to have bilateral airspace disease, patient was admitted to medical floor where he was noted to have oxygen saturation marginal and eventually FiO2 went up to 15 L high flow oxygen his blood culture no growth so far Objective - Vital Signs Vital signs: Vital Signs Temp 98.5 F 06/27/20 04:00 Pulse 80 06/27/20 10:00 Resp 35 H 06/27/20 10:00 BP 182/85 06/27/20 10:00 Pulse Ox 88 L 06/27/20 10:00 Intake & Output 06/26/20 06/27/20 06/27/20 18:59 06:59 18:59 Intake Total 2153.260 1871.336 598.700 Output Total 1310 970 205 Balance 843.260 901.336 393.700 Intake: IV 1200 1200 400 Sodium Chloride 0.9% 1, 1200 1200 400 000 ml @ 100 mls/hr IV . Q10H [facility] Rx#:[id number] Intake, IV Titration 421.260 263.336 96.700 Amount Cisatracurium 200 mg In 240.394 0 Sodium Chloride 0.9% 180 ml @ 1 MCG/KG/MIN 4.62 mls/hr IV .Q24H [facility] Rx#: [id number] propofoL 1,000 mg In 180.866 263.336 96.700 Empty Bag 1 bag @ Titrate IV .Q0M CAROLINE Rx#: [id number] Tube Feeding 442 408 102 Other 90 Output: Urine 1310 970 205 Other: Voiding Method Indwelling Catheter Indwelling Catheter - Exam - Constitutional General appearance: average body habitus, intubated on Nimbex and propofol - Neck Carotids: bilateral: upstroke normal - Respiratory Respiratory: bilateral: diminished - Cardiovascular Rhythm: regular Heart sounds: normal: S1, S2 - Gastrointestinal General gastrointestinal: normal bowel sounds, soft - Neurologic Neurologic: Agitated delirium is stable due to medical paralysis - Musculoskeletal Musculoskeletal:strength equal bilaterally - Psychiatric Psychiatric: Agitated delirium is is stable due to medical paralysis - Labs CBC & Chem 7: 06/27/20 04:52 06/27/20 04:52 Labs: Abnormal Lab Results - Last 24 Hours (Table) 06/26/20 06/26/20 06/27/20 Range/Units 11:53 17:44 00:23 WBC (3.8-10.6) k/uL RBC (4.30-5.90) m/uL Hgb (13.0-17.5) gm/dL Hct (39.0-53.0) % MCHC (31.0-37.0) g/dL Neutrophils # (1.3-7.7) k/uL Lymphocytes # (1.0-4.8) k/uL ABG pCO2 (35-45) mmHg ABG pO2 (83-108) mmHg ABG HCO3 (21-25) mmol/L ABG Total CO2 (19-24) mmol/L ABG O2 Saturation (94-97) % Carbon Dioxide (22-30) mmol/L BUN (9-20) mg/dL Creatinine (0.66-1.25) mg/dL Glucose (74-99) mg/dL POC Glucose (mg/dL) 111 H 113 H 107 H (75-99) mg/dL Calcium (8.4-10.2) mg/dL Total Protein (6.3-8.2) g/dL Albumin (3.5-5.0) g/dL 06/27/20 06/27/20 06/27/20 Range/Units 04:41 04:52 04:52 WBC 12.8 H (3.8-10.6) k/uL RBC 3.88 L (4.30-5.90) m/uL Hgb 11.6 L (13.0-17.5) gm/dL Hct 37.8 L (39.0-53.0) % MCHC 30.8 L (31.0-37.0) g/dL Neutrophils # 11.8 H (1.3-7.7) k/uL Lymphocytes # 0.5 L (1.0-4.8) k/uL ABG pCO2 69 H (35-45) mmHg ABG pO2 55 L* (83-108) mmHg ABG HCO3 42 H* (21-25) mmol/L ABG Total CO2 44 H (19-24) mmol/L ABG O2 Saturation 88.0 L (94-97) % Carbon Dioxide 41 H* (22-30) mmol/L BUN 24 H (9-20) mg/dL Creatinine 0.32 L (0.66-1.25) mg/dL Glucose 119 H (74-99) mg/dL POC Glucose (mg/dL) (75-99) mg/dL Calcium 7.9 L (8.4-10.2) mg/dL Total Protein 5.2 L (6.3-8.2) g/dL Albumin 2.1 L (3.5-5.0) g/dL 06/27/20 Range/Units 06:01 WBC (3.8-10.6) k/uL RBC (4.30-5.90) m/uL Hgb (13.0-17.5) gm/dL Hct (39.0-53.0) % MCHC (31.0-37.0) g/dL Neutrophils # (1.3-7.7) k/uL Lymphocytes # (1.0-4.8) k/uL ABG pCO2 (35-45) mmHg ABG pO2 (83-108) mmHg ABG HCO3 (21-25) mmol/L ABG Total CO2 (19-24) mmol/L ABG O2 Saturation (94-97) % Carbon Dioxide (22-30) mmol/L BUN (9-20) mg/dL Creatinine (0.66-1.25) mg/dL Glucose (74-99) mg/dL POC Glucose (mg/dL) 112 H (75-99) mg/dL Calcium (8.4-10.2) mg/dL Total Protein (6.3-8.2) g/dL Albumin (3.5-5.0) g/dL Assessment and Plan Assessment: ARDS due to Covid 19 pneumonia Severe sepsis Acute hypoxic respiratory failure on ventilator with full vent support, oxygenation continued to be marginal up to lately high 80s to 90 even on in prone positioning however desats to high 80s in supine posture lately Respiratory acidosis, ventilator being adjusted, see orders for detail Covid 19 pneumonia Agitated delirium alternating with somnolence status post medical paralysis and sedation with propofol and Nimbex drip Acute kidney injury, renal functions improved Prognosis poor Plan: Continue, tube feed Observe off of Nimbex drip Ventilator adjustment as needed Medical Sedation with propofol, as per discussion with daughter and son-in-law will observe off of Nimbex Neurology has been consulted prone position as much as possible preferably 16 hours to 20 hours every day Will again to prone positioning today Continue keep saturation over 85-90% IV Solu-Medrol every 6 60 mg for next few days and eventually will bring it down to Decadron every 12 hour Tube feeding IV Remdesivir for 5 days finished Status post convalescent plasma finished Prognosis guarded with likelihood of recovery poor We'll discuss with the daughter about tracheostomy and PEG next week Time with Patient: Greater than 30
--- NOTE | 2020-06-27 11:52 | EEG ---
ELECTROENCEPHALOGRAM REPORT DATE OF SERVICE: 06/27/2020 PREAMBLE: This is a 65-year-old male with COVID-19 pneumonia. This study is performed to evaluate for encephalopathy, rule out any seizure activity. EEG FINDINGS: This is a 21 channel modified EEG recording performed utilizing COVID protocol for COVID patient's. Bipolar and referential montages were used. The background consists of moderately well-developed and regulated, predominantly 7 hertz, moderate amplitude theta activity seen in bihemispheric region. Intermittent lower frequency, higher amplitude 4 TO 5 hertz theta activity was seen in bitemporal region. At times, it appears sharply controlled, particularly on the left temporal region. Different stages of sleep were not clearly seen. IMPRESSION: This is an abnormal EEG due to background slowing of mild to moderate degree, suggestive of generalized cerebral dysfunction as can be seen with toxic metabolic encephalopathy. In addition, intermittent rhythmic left > right temporal theta slowing with occasional left temporal sharp appearing waves were seen, which may suggest focal cortical neural dysfunction with underlying cortical irritability and tendency for seizures. Clinical correlation however, is strongly recommended. MMBERRY / FREDERICKN: [id number] / [facility]
[2020-06-27 12:53] LABS: Glucose,Whole Blood 118 mg/dL (75-99)
--- NOTE | 2020-06-27 15:20 | P.PN ---
Subjective Progress Note Date: 06/27/20 Patient was seen for a follow-up. Patient today in supine position. Per nursing report, when sedation was decreased and patient was turned, he did open eyes, but did not make eye contact or follow commands. No seizure-like activity witnessed. Patient has mostly be on paralyzing agent Nimbex. Currently Nimbex is off, but on propofol 50 g. Objective - Vital Signs Vital signs: Vital Signs Temp 98.5 F 06/27/20 04:00 Pulse 71 06/27/20 14:00 Resp 42 H 06/27/20 14:00 BP 135/63 06/27/20 14:00 Pulse Ox 84 L 06/27/20 14:00 Intake & Output 06/26/20 06/27/20 06/27/20 18:59 06:59 18:59 Intake Total 2153.260 5281.174 5987.280 Output Total 1310 970 505 Balance 843.260 901.336 671.280 Intake: IV 1200 1200 800 Sodium Chloride 0.9% 1, 1200 1200 800 000 ml @ 100 mls/hr IV . Q10H CAROLINE Rx#:[id number] Intake, IV Titration 421.260 263.336 138.280 Amount Cisatracurium 200 mg In 240.394 41.58 Sodium Chloride 0.9% 180 ml @ 1 MCG/KG/MIN 4.62 mls/hr IV .Q24H CAROLINE Rx#: [id number] propofoL 1,000 mg In 180.866 263.336 96.700 Empty Bag 1 bag @ Titrate IV .Q0M CAROLINE Rx#: [id number] Tube Feeding 442 408 238 Other 90 Output: Urine 1310 970 505 Other: Voiding Method Indwelling Catheter Indwelling Catheter Indwelling Catheter - Exam Patient sedated at this time. When the sedation is decreased, patient becomes tachypneic, but pressure goes up. Patient's saturations running between 79-80%. - Labs CBC & Chem 7: 06/27/20 04:52 06/27/20 04:52 Labs: Abnormal Lab Results - Last 24 Hours (Table) 06/26/20 06/27/20 06/27/20 Range/Units 17:44 00:23 04:41 WBC (3.8-10.6) k/uL RBC (4.30-5.90) m/uL Hgb (13.0-17.5) gm/dL Hct (39.0-53.0) % MCHC (31.0-37.0) g/dL Neutrophils # (1.3-7.7) k/uL Lymphocytes # (1.0-4.8) k/uL ABG pCO2 69 H (35-45) mmHg ABG pO2 55 L* (83-108) mmHg ABG HCO3 42 H* (21-25) mmol/L ABG Total CO2 44 H (19-24) mmol/L ABG O2 Saturation 88.0 L (94-97) % Carbon Dioxide (22-30) mmol/L BUN (9-20) mg/dL Creatinine (0.66-1.25) mg/dL Glucose (74-99) mg/dL POC Glucose (mg/dL) 113 H 107 H (75-99) mg/dL Calcium (8.4-10.2) mg/dL Total Protein (6.3-8.2) g/dL Albumin (3.5-5.0) g/dL 06/27/20 06/27/20 06/27/20 Range/Units 04:52 04:52 06:01 WBC 12.8 H (3.8-10.6) k/uL RBC 3.88 L (4.30-5.90) m/uL Hgb 11.6 L (13.0-17.5) gm/dL Hct 37.8 L (39.0-53.0) % MCHC 30.8 L (31.0-37.0) g/dL Neutrophils # 11.8 H (1.3-7.7) k/uL Lymphocytes # 0.5 L (1.0-4.8) k/uL ABG pCO2 (35-45) mmHg ABG pO2 (83-108) mmHg ABG HCO3 (21-25) mmol/L ABG Total CO2 (19-24) mmol/L ABG O2 Saturation (94-97) % Carbon Dioxide 41 H* (22-30) mmol/L BUN 24 H (9-20) mg/dL Creatinine 0.32 L (0.66-1.25) mg/dL Glucose 119 H (74-99) mg/dL POC Glucose (mg/dL) 112 H (75-99) mg/dL Calcium 7.9 L (8.4-10.2) mg/dL Total Protein 5.2 L (6.3-8.2) g/dL Albumin 2.1 L (3.5-5.0) g/dL 06/27/20 Range/Units 12:51 WBC (3.8-10.6) k/uL RBC (4.30-5.90) m/uL Hgb (13.0-17.5) gm/dL Hct (39.0-53.0) % MCHC (31.0-37.0) g/dL Neutrophils # (1.3-7.7) k/uL Lymphocytes # (1.0-4.8) k/uL ABG pCO2 (35-45) mmHg ABG pO2 (83-108) mmHg ABG HCO3 (21-25) mmol/L ABG Total CO2 (19-24) mmol/L ABG O2 Saturation (94-97) % Carbon Dioxide (22-30) mmol/L BUN (9-20) mg/dL Creatinine (0.66-1.25) mg/dL Glucose (74-99) mg/dL POC Glucose (mg/dL) 118 H (75-99) mg/dL Calcium (8.4-10.2) mg/dL Total Protein (6.3-8.2) g/dL Albumin (3.5-5.0) g/dL Assessment and Plan Assessment: * Toxic metabolic encephalopathy, severe degree. * Possible superimposed hypoxic encephalopathy. * COVID-19 pneumonia with significant hypoxemia * ARDS due to above. * Respiratory failure on mechanical ventilation Plan: * Patient has severe toxic metabolic encephalopathy. * EEG was performed, which showed [id number] background slowing, consistent with encephalopathy. Some rhythmic left > right temporal theta with occasional left temporal sharp appearing waves were seen. No electrographic seizure recorded. We will empirically start Keppra 500 mg twice a day, as, any seizure-like activity will be difficult to assess because of being on Nimbex, * Patient not improving from respiratory standpoint. * Exam is also limited because of patient being on heavy sedation and on paralyzing agent. * Based upon EEG, it appears patient's prognosis is more dependent upon pulmonary status as compared to neurological.
[2020-06-27] MEDS ORDERED: ATROPINE OPHTH SOLN 1% 5ML BTL SUBLINGUAL PRN (16:11)
[2020-06-27] MEDS ORDERED: GLYCOPYRROLATE 0.2 MG/ML 2 ML VIAL IVP PRN (16:11)
[2020-06-27] MEDS ORDERED: MORPHINE SULFATE 2 MG/ML SYRINGE IV PRN (16:11)
[2020-06-27] MEDS ORDERED: SODIUM CHLORIDE 0.9% 1,000 ML IV SCH (16:15)
[2020-06-27] MEDS ORDERED: MORPHINE SULFATE (100 MG/2 ML) 100 MG in SODIUM CHLORIDE 0.9% 100 ML IV SCH (17:00)
[2020-06-27 17:37] VITALS: BP 144/73
[2020-06-27 19:56] VITALS: PULSE 0; RESP 0
[2020-06-27] MEDS ORDERED: levETIRAcetam IV 500 MG in SODIUM CHLORIDE 0.9% 100 ML IVPB SCH (21:00)
--- NOTE | 2020-06-29 10:02 | CDI ---
Documentation Clarification Form Date: 06/29/2020 09:41:43 AM From: Anne LermaSalazarJUAN DAVID day, CCDS Admit Date: 06/04/2020 05:13:00 PM Patient Name: Enmanuel Ash Visit Number: [id number] Discharge Date: 06/27/2020 07:54:00 PM ATTENTION: The Clinical Documentation Specialists (CDI) and [facility] Coding Staff appreciate your assistance in clarifying documentation. Please respond to the clarification below the line at the bottom and electronically sign. The CDI & [facility] Coding staff will review the response and follow-up if needed. Please note: Queries are made part of the Legal Health Record. If you have any questions, please contact the author of this message via ITS. Dr. Antolin Friedman: Cytokine storm is documented in the Pulmonary/Critical Care Progress Notes beginning on 06/09 without further specificity. ".... we will attempt to keep prone as much as possible, cultures no growth so far, labs included chemistry and CBC reviewed in phlegm atrial parameters remains up suggestive of ongoing cytokine storm." History/Risk Factors: GERD, Former smoker, Alcohol Use. Clinical Indicators: 66 yo male, presented to the ED on 06/04 with SOB, flu symptoms, nonproductive cough, dyspnea on exertion, sore throat, sinus congestion & generalized fatigue. Tested positive for COVID 19. Admitted with COVID 19 Pneumonia, Acute Hypoxic Respiratory Failure & Hypermagnesemia. 06/20 diagnosed with Severe Sepsis, ARDS, Acute Kidney Failure & Toxic Encephalopathy with Anoxic Brain Injury. Patient on 06/27, Preliminary Cause of is not documented. 06/04 VS: T 99.3, P 88, R 22 (sob, labored), BP 121/73, PO 83 RA - 91 4Lnc. 06/05 VS: T 101.0^, P 88, R 30 (sob, labored, accessory use, cough, SOB, shallow, tachypnea), BP 125/69, PO 89 15% nrb. 06/06 BiPAP (sob, labored, accessory use, cough, shallow, tachypnea) 06/08 Intubated, put on vent 06/04 LAB: WBC 7.9, Neut 80, D Dimer 0.60^, BUN 32^, Cr 1.29^, Glucose 125^, Lactic Acid 1.9, Mag 2.7^, Ferritin 1279.8^, AST 92^, ALT 50^, Lactate Dehyd 1439^, CRP 176.4^, Procalcitonin 0.21^, COVID + 06/06: WBC 18.6^,Anion gap 12.90^, BUN/Cr Ratio 25.56^, Gluc 127^, Calcium 8.2* 06/06 ABG: pO2 42, Total CO2 2^, O2 Sat 78.6* 06/04 Blood Culture: Final: neg @ 144 hours 06/10 Sputum Culture: Jojo Albicans Treatment 06/04: IV Ativan, IV fluid 1,000 mls @ 75, Lovenox sq. 06/05: IV Remdesivir, IV Decadron, IV Ativan, IV Morphine. 06/06: IV Ativan x2, IV Morphine, IV Rocephin, IV Remdesivir contd, IV Haldol, IV Diprivan, IV Propofol, IV Nimbex, 06/11: Orazinc, IV Dextrose/Water. 06/13: IV fluid 1,000 @ 100 mls/hr q10. 06/20: IV Solumedrol. 06/22: I NaBicarb In your professional opinion, can you please further clarify cytokine storm: Cytokine Release Syndrome: Unspecified Grade Unable to determine (Last Revision: October 2017) MTDD
--- NOTE | 2020-06-29 10:09 | CDI ---
Documentation Clarification Form Date: 06/29/2020 10:03:00 AM From: Anne LermaSalazarJUAN DAVID day, CCDS Admit Date: 06/04/2020 05:13:00 PM Patient Name: Enmanuel Ash Visit Number: [id number] Discharge Date: 06/27/2020 07:54:00 PM ATTENTION: The Clinical Documentation Specialists (CDI) and [facility] Coding Staff appreciate your assistance in clarifying documentation. Please respond to the clarification below the line at the bottom and electronically sign. The CDI & [facility] Coding staff will review the response and follow-up if needed. Please note: Queries are made part of the Legal Health Record. If you have any questions, please contact the author of this message via ITS. Dr. George Rehman: Per the 06/04 ED note, the 06/05 History & Physical: Past Alcohol Use History: Occasional Per the 06/06 Attending Progress Notes and subsequent Progress Notes: Possible alcohol withdrawal is documented. History/Risk Factors: GERD, Former smoker, Alcohol Use. Clinical Indicators: 66 yo male, presented to the ED on 06/04 with SOB, flu symptoms, nonproductive cough, dyspnea on exertion, sore throat, sinus congestion & generalized fatigue. Tested positive for COVID 19. Admitted with COVID 19 Pneumonia, Acute Hypoxic Respiratory Failure & Hypermagnesemia. 06/20 Diagnosed with Severe Sepsis, ARDS, Acute Kidney Failure & Toxic Encephalopathy with Anoxic Brain Injury. Patient on 06/27, Preliminary Cause of is not documented. 06/04 VS: T 99.3, P 88, R 22 (sob, labored), BP 121/73, PO 83 RA - 91 4Lnc. 06/05 VS: T 101.0^, P 88, R 30 (sob, labored, accessory use, cough, SOB, shallow, tachypnea), BP 125/69, PO 89 15% nrb. 06/04 LAB: WBC 7.9, Neut 80, D Dimer 0.60^, BUN 32^, Cr 1.29^, Glucose 125^, Lactic Acid 1.9, Mag 2.7^, Ferritin 1279.8^, AST 92^, ALT 50^, Lactate Dehyd 1439^, CRP 176.4^, Procalcitonin 0.21^, COVID + 06/06: WBC 18.6^,Anion gap 12.90^, BUN/Cr Ratio 25.56^, Gluc 127^, Calcium 8.2* 06/06 ABG: pO2 42, Total CO2 2^, O2 Sat 78.6* Blood Alcohol not drawn. Treatment 06/04: IV Ativan, IV fluid 1,000 mls @ 75, Lovenox sq. 06/05: IV Remdesivir, IV Decadron, IV Ativan, IV Morphine. 06/06: IV Ativan x2, IV Morphine, IV Rocephin, IV Remdesivir contd, IV Haldol, IV Diprivan, IV Propofol, IV Nimbex, 06/11: Orazinc, IV Dextrose/Water. 06/13: IV fluid 1,000 @ 100 mls/hr q10. 06/20: IV Solumedrol. 06/22: I NaBicarb In your professional opinion, can you please clarify: Alcohol Abuse Alcohol Dependence Alcohol Use-This is the correct diagnosis With Alcohol Withdrawal Without Alcohol Withdrawal-This is the correct diagnosis Other, please specify Unable to determine (Last Revision: October 2017) MTDD
--- NOTE | 2020-06-29 10:14 | CDI ---
Documentation Clarification Form Date: 06/29/2020 10:10:27 AM From: Anne LermaSalazarJUAN DAVID day, CCDS Admit Date: 06/04/2020 05:13:00 PM Patient Name: Enmanuel Ash Visit Number: [id number] Discharge Date: 06/27/2020 07:54:00 PM ATTENTION: The Clinical Documentation Specialists (CDI) and [facility] Coding Staff appreciate your assistance in clarifying documentation. Please respond to the clarification below the line at the bottom and electronically sign. The CDI & [facility] Coding staff will review the response and follow-up if needed. Please note: Queries are made part of the Legal Health Record. If you have any questions, please contact the author of this message via ITS. Dr. George Rehman: Patient was admitted on 06/04 with COVID 19 Pneumonia, Acute Hypoxic Respiratory Failure, developed Sepsis and ADS and on 06/27/2020. History/Risk Factors: GERD, Former smoker, Alcohol Use. Clinical Indicators: 66 yo male, presented to the ED on 06/04 with SOB, flu symptoms, nonproductive cough, dyspnea on exertion, sore throat, sinus congestion & generalized fatigue. Tested positive for COVID 19. Admitted with COVID 19 Pneumonia, Acute Hypoxic Respiratory Failure & Hypermagnesemia. 06/20 Diagnosed with Severe Sepsis, ARDS, Acute Kidney Failure & Toxic Encephalopathy with Anoxic Brain Injury. Patient on 06/27, Preliminary Cause of is not documented. 06/04 VS: T 99.3, P 88, R 22 (sob, labored), BP 121/73, PO 83 RA - 91 4Lnc. 06/05 VS: T 101.0^, P 88, R 30 (sob, labored, accessory use, cough, SOB, shallow, tachypnea), BP 125/69, PO 89 15% nrb. 06/04 LAB: WBC 7.9, Neut 80, D Dimer 0.60^, BUN 32^, Cr 1.29^, Glucose 125^, Lactic Acid 1.9, Mag 2.7^, Ferritin 1279.8^, AST 92^, ALT 50^, Lactate Dehyd 1439^, CRP 176.4^, Procalcitonin 0.21^, COVID + 06/06: WBC 18.6^,Anion gap 12.90^, BUN/Cr Ratio 25.56^, Gluc 127^, Calcium 8.2* 06/06 ABG: pO2 42, Total CO2 2^, O2 Sat 78.6* Treatment 06/04: IV Ativan, IV fluid 1,000 mls @ 75, Lovenox sq. 06/05: IV Remdesivir, IV Decadron, IV Ativan, IV Morphine. 06/06: IV Ativan x2, IV Morphine, IV Rocephin, IV Remdesivir contd, IV Haldol, IV Diprivan, IV Propofol, IV Nimbex, 06/11: Orazinc, IV Dextrose/Water. 06/13: IV fluid 1,000 @ 100 mls/hr q10. 06/20: IV Solumedrol. 06/22: I NaBicarb In your professional opinion, can you please clarify the patient's Preliminary Cause of : the patient's primary cause of is respiratory failure due to bilateral pneumonia secondary to Covid 19 (Last Revision: October 2017) MTDD
--- NOTE | 2020-06-30 08:29 | CDI ---
Documentation Clarification Form Date: 06/30/2020 08:09:00 AM From: Anne LermaSalazarJUAN DAVID day, CCDS Admit Date: 06/04/2020 05:13:00 PM Patient Name: Enmanuel Ash Visit Number: [id number] Discharge Date: 06/27/2020 07:54:00 PM ATTENTION: The Clinical Documentation Specialists (CDI) and [facility] Coding Staff appreciate your assistance in clarifying documentation. Please respond to the clarification below the line at the bottom and electronically sign. The CDI & [facility] Coding staff will review the response and follow-up if needed. Please note: Queries are made part of the Legal Health Record. If you have any questions, please contact the author of this message via ITS. Dr. George Rehman: Severe Sepsis is documented in the Pulmonary Critical Care Progress Notes beginning on 06/20 and also in the Attending Progress Notes on 06/24 & 06/25 without further specificity. History/Risk Factors: GERD, Former smoker, Alcohol Use. Clinical Indicators: 66 yo male, presented to the ED on 06/04 with SOB, flu symptoms, nonproductive cough, dyspnea on exertion, sore throat, sinus congestion & generalized fatigue. Tested positive for COVID 19. Admitted with COVID 19 Pneumonia, Acute Hypoxic Respiratory Failure & Hypermagnesemia. 06/20 Diagnosed with Severe Sepsis, ARDS, Acute Kidney Failure & Toxic Encephalopathy with Anoxic Brain Injury. Patient on 06/27, Preliminary Cause of is not documented. 06/04 VS: T 99.3, P 88, R 22 (sob, labored), BP 121/73, PO 83 RA - 91 4Lnc. 06/05 VS: T 101.0^, P 88, R 30 (sob, labored, accessory use, cough, SOB, shallow, tachypnea), BP 125/69, PO 89 15% nrb. 06/06 BiPAP (sob, labored, accessory use, cough, shallow, tachypnea) 06/08 Intubated, put on vent 06/04 LAB: WBC 7.9, Neut 80, D Dimer 0.60^, BUN 32^, Cr 1.29^, Glucose 125^, Lactic Acid 1.9, Mag 2.7^, Ferritin 1279.8^, AST 92^, ALT 50^, Lactate Dehyd 1439^, CRP 176.4^, Procalcitonin 0.21^, COVID + 06/06: WBC 18.6^,Anion gap 12.90^, BUN/Cr Ratio 25.56^, Gluc 127^, Calcium 8.2* 06/06 ABG: pO2 42, Total CO2 2^, O2 Sat 78.6* 06/04 Blood Culture: Final: neg @ 144 hrs 06/10 Sputum Culture: Jojo Albicans Treatment 06/04: IV Ativan, IV fluid 1,000 mls @ 75, Lovenox sq. 06/05: IV Remdesivir, IV Decadron, IV Ativan, IV Morphine. 06/06: IV Ativan x2, IV Morphine, IV Rocephin, IV Remdesivir cont'd, IV Haldol, IV Diprivan, IV Propofol, IV Nimbex. 06/11: Orazinc, IV Dextrose/Water. 06/13: IV fluid 1,000 @ 100 mls/hr q10. 06/20: IV Solumedrol. 06/22: IV NaBicarb In your professional opinion, please clarify if these findings signify one of the following conditions, whether the condition is POA, and cause, if known: Sepsis ruled out Sepsis ruled in: o Severe Sepsis -This is the correct dx. this was not present until after the admission o Septic Shock Other, please specify Unable to determine Present on Admission: Yes or No Identify the (suspected) organism Link or clarify if there is associated (due to/with): o Organ failure o Shock (Last Revision: October 2017) MTDD
[2020-07-05 11:55] LABS: ABG PO2 55 mmHg (83-108)
[2020-07-05 11:56] LABS: ABG HCO3 44 mmol/L (21-25)
[2020-07-05 11:57] LABS: ABG HCO3 42 mmol/L (21-25)
== END 2020-06-27 19:54 | disposition expired | DRG 207 ==
LOC: EC 15:03 → 6NMEDSUR 17:13 → 4SSUR 06-05 10:36 → 3SCARD 06-06 13:43 → 3NCARDOBS 06-06 20:23 → 2SICU 06-08 14:08
PROVIDERS: ADMIT Family Medicine; ATTEND Family Medicine
PROC: XW033E5 Introduction of Remdesivir Anti-infective into Peripheral Vein, Percutaneous Approach, New Technology Group 5 (ICD-10-PCS; 2020-06-05)
PROC: 5A09457 Assistance with Respiratory Ventilation, 24-96 Consecutive Hours, Continuous Positive Airway Pressure (ICD-10-PCS; 2020-06-06)
PROC: 0BH17EZ Insertion of Endotracheal Airway into Trachea, Via Natural or Artificial Opening (ICD-10-PCS; principal; 2020-06-08)
PROC: 5A1955Z Respiratory Ventilation, Greater than 96 Consecutive Hours (ICD-10-PCS; principal; 2020-06-08)
PROC: XW13325 Transfusion of Convalescent Plasma (Nonautologous) into Peripheral Vein, Percutaneous Approach, New Technology Group 5 (ICD-10-PCS; 2020-06-09)
PROC: 0DH67UZ Insertion of Feeding Device into Stomach, Via Natural or Artificial Opening (ICD-10-PCS; 2020-06-09)
PROC: 3E0G76Z Introduction of Nutritional Substance into Upper GI, Via Natural or Artificial Opening (ICD-10-PCS; 2020-06-10)
PROC: 02HV33Z Insertion of Infusion Device into Superior Vena Cava, Percutaneous Approach (ICD-10-PCS; 2020-06-12)
DX: U07.1 COVID-19 (principal); G92 Toxic encephalopathy; J12.89 Other viral pneumonia; J80 Acute respiratory distress syndrome; A41.89 Other specified sepsis; R65.20 Severe sepsis without septic shock; J96.01 Acute respiratory failure with hypoxia; E87.0 Hyperosmolality and hypernatremia; E87.1 Hypo-osmolality and hyponatremia; E87.4 Mixed disorder of acid-base balance; G93.1 Anoxic brain damage, not elsewhere classified; J44.0 Chronic obstructive pulmonary disease with (acute) lower respiratory infection; N17.9 Acute kidney failure, unspecified; Z68.41 Body mass index [BMI] 40.0-44.9, adult; Z66 Do not resuscitate; Z51.5 Encounter for palliative care; E83.42 Hypomagnesemia; E86.0 Dehydration; F41.9 Anxiety disorder, unspecified; G47.00 Insomnia, unspecified; D89.839 Cytokine release syndrome, grade unspecified; K21.9 Gastro-esophageal reflux disease without esophagitis; R19.7 Diarrhea, unspecified; E86.9 Volume depletion, unspecified; R32 Unspecified urinary incontinence; E66.9 Obesity, unspecified; Z98.890 Other specified postprocedural states; Z78.1 Physical restraint status; Z87.891 Personal history of nicotine dependence; Z72.89 Other problems related to lifestyle; F10.10 Alcohol abuse, uncomplicated
CPT/HCPCS: 36415; 36573; 36600; 71045; 80048; 80053; 82550; 82553; 82728; 82805; 83036; 83605; 83615; 83625; 83735; 84100; 84145; 85025; 85027; 85379; 85384; 85610; 85730; 86140; 86850; 86900; 86901; 87040; 87070; 87205; 87502; 87635; 93005; 94002; 94003; 94660; 94760; 95816; 96372; 99285